=== PATIENT | male | born 1955 | race African-American/Black ===

== ENCOUNTER 2018-02-03 15:58 | Inpatient (IN) | payer OTHER ==
[2018-02-03] MEDS ORDERED: Ondansetron PF 4 MG/2 ML Vial ONE ×2 (17:07→20:36)
[2018-02-03 17:29] LABS: #Basophils 0.1 thou/uL (0.0-0.2); #Eosinphils 0.2 thou/uL (0.0-0.7); #Lymphocytes 2.8 thou/uL (1.20-3.40); #Monocytes 0.8 thou/uL (0.11-0.59); #Neutrophils 5.1 thou/uL (1.40-6.50); %Basophils 1.6 % (0.0-1.0); %Eosinophils 1.7 % (0.0-10.0); %Lymphocytes 31.1 % (21.0-51.0); %Neutrophils 56.5 % (42.0-75.0); Hemoglobin 16.8 g/dL (14.0-18.0); Mean Corpuscular HGB CONC 32.1 g/dL (32.0-36.0); Mean Corpuscular Hemoglobin 30.7 pg (27.0-31.0); Mean Corpuscular Volume 95.6 fL (78.0-98.0); Mean Platelet Volume 6.6 fL (7.4-10.4); Platelet Count 319 thou/uL (130-400); Red Blood Cell (RBC) Count 5.46 mill/uL (4.70-6.10)
[2018-02-03 17:58] LABS: ALT (SGPT) 8 U/L (8-55); AST (SGOT) 12 U/L (5-34); Albumin 3.3 g/dL (3.4-4.8); Alkaline Phosphatase 93 U/L (40-150); Anion Gap 10 mmol/L (10-20); BUN (Urea Nitrogen) 8 mg/dL (8.4-25.7); Bilirubin, Total 0.7 mg/dL (0.2-1.2); Calc. Creatinine Clearance 0 mL/min (70-130); Calcium 8.6 mg/dL (7.8-10.44); Carbon Dioxide 27 mmol/L (23-31); Chloride 100 mmol/L (98-107); Estimated GFR-MDRD 84; Globulin 3.3 g/dL (2.4-3.5); Lipase 16 U/L (8-78); Protein, Total 6.6 g/dL (5.8-8.1); Sodium 134 mmol/L (136-145)
[2018-02-03 18:06] LABS: Glucose 59 mg/dL (80-115); Potassium 2.8 mmol/L (3.5-5.1)
[2018-02-03 18:14] LABS: Bilirubin Small (Negative); Blood, Urine Negative (Negative); Clarity CLEAR (Clear); Glucose, Urine (Dipstick) Negative (Negative); Leukocyte Small (Negative); Nitrite Negative (Negative); Protein, Urine (Dipstick) Negative (Neg-Trace); Specific Gravity, Urine 1.016 (1.002-1.036)
[2018-02-03 18:17] LABS: Bacteria/HPF None Seen HPF (None Seen); Hyaline Casts/LPF 7-10 HYALINE CAST LPF (0-3 Hyaline); Pathc Cast-AUWi Flag 1.16 (0-2.49); RBC/HPF 0-3 HPF (0-3); Squamous Epithelial 0-3 HPF (0-3); WBC/HPF 0-3 HPF (0-3)
--- NOTE | 2018-02-03 20:37 | ULT ---
HISTORY: Nausea and vomiting for one month. RIGHT UPPER QUADRANT ULTRASOUND: 02/03/18 Multiple longitudinal and transverse images of the right upper quadrant of the abdomen is obtained us ing multihertz curvilinear transducer. Real time, color flow, and spectral waveform doppler analysis demonstrates the liver to be unremarkable. No evidence of hepatic parenchymal masses or lesions seen. No evidence of intrahepatic biliary dilatation is seen. The common bile duct is of normal size measur ing 5 mm. The gallbladder contains numerous echogenic foci compatible with numerous gallstones and extensive sh adowing. The visualized portions of the pancreas is unremarkable. The right kidney is unremarkable but no evidence of hydronephrosis or masses or lesions. IMPRESSION: Cholelithiasis. No definite evidence of intrahepatic biliary dilatation is seen. Normal hepatopedal f low seen in the portal system. POS: [facility]
[2018-02-03 21:36] LABS: Lactic Acid 1.4 mmol/L (0.5-2.2)
--- NOTE | 2018-02-03 21:53 | RAD ---
AP VIEW CHEST SUPINE AND UPRIGHT VIEWS OF THE ABDOMEN 02/03/18 HISTORY: Pain. Evaluate for obstruction. AP view chest as well as supine and upright views of the abdomen demonstrate the lungs to be well aer ated. No evidence of active intrathoracic disease seen. No evidence of effusions, pneumonia, or pneum othorax seen. Two views abdomen demonstrate the abdominal gas pattern to be unremarkable. No evidence of obstructio n or ileus seen. No dilated loops of bowel seen. No evidence of free intraperitoneal air seen. IMPRESSION: Unremarkable AP view chest and two views abdomen. POS: [facility]
[2018-02-03] MEDS ORDERED: Acetaminophen 325 MG TAB PO PRN (22:17)
[2018-02-03] MEDS ORDERED: Ondansetron PF 4 MG/2 ML Vial IVP PRN (22:17)
[2018-02-03] MEDS ORDERED: Sodium Chloride 0.9% 1,000 ML IV SCH (22:17)
[2018-02-03] MEDS ORDERED: Ondansetron ODT 4 MG TAB SL PRN (22:17)
[2018-02-03] MEDS ORDERED: Morphine 4 MG/ML VIAL SLOW IVP PRN (22:18)
[2018-02-03] MEDS ORDERED: Pantoprazole 40 MG VIAL IVP SCH (22:30)
[2018-02-03 22:47] VITALS: BMI 32.9
[2018-02-04] MEDS ORDERED: Dextrose 50% Abboject 50 ML SYRINGE SLOW IVP SCH (00:15)
[2018-02-04] MEDS ORDERED: Dextrose 50% Abboject 50 ML SYRINGE ONE (00:19)
[2018-02-04] MEDS: Potassium Chloride 20 MEQ in Premix Bag 1 BAG IVPB SCH ×6 (00:26→20:42)
[2018-02-04] MEDS ORDERED: Ondansetron ODT 4 MG TAB PO PRN (01:04)
[2018-02-04] MEDS ORDERED: Dextrose 50% Abboject 50 ML SYRINGE SLOW IVP PRN (01:19)
[2018-02-04] MEDS ORDERED: Dextrose 5% in Water 1,000 ML IV PRN (01:19)
[2018-02-04] MEDS ORDERED: HumaLOG 300 UNITS/3 ML VIAL SC PRN ×2 (01:19)
[2018-02-04] MEDS: Sodium Chloride 0.9% 1,000 ML IV SCH ×3 (01:35→20:42)
[2018-02-04 04:47] LABS: #Basophils 0.1 thou/uL (0.0-0.2); #Eosinphils 0.2 thou/uL (0.0-0.7); #Lymphocytes 2.6 thou/uL (1.20-3.40); #Monocytes 0.8 thou/uL (0.11-0.59); #Neutrophils 5.2 thou/uL (1.40-6.50); %Basophils 1.6 % (0.0-1.0); %Eosinophils 2.6 % (0.0-10.0); %Lymphocytes 29.3 % (21.0-51.0); %Monocytes 8.5 % (0.0-10.0); Hemoglobin 15.3 g/dL (14.0-18.0); Mean Corpuscular HGB CONC 32.6 g/dL (32.0-36.0); Mean Corpuscular Hemoglobin 31.1 pg (27.0-31.0); Mean Corpuscular Volume 95.1 fL (78.0-98.0); Mean Platelet Volume 6.6 fL (7.4-10.4); Platelet Count 323 thou/uL (130-400); RBC Distribution Width 11.9 % (11.5-14.5); Red Blood Cell (RBC) Count 4.94 mill/uL (4.70-6.10); White Blood Cell (WBC) Count 8.9 thou/uL (4.8-10.8)
[2018-02-04 05:10] LABS: Anion Gap 12 mmol/L (10-20); BUN (Urea Nitrogen) 7 mg/dL (8.4-25.7); Calc. Creatinine Clearance 116 mL/min (70-130); Calcium 8.6 mg/dL (7.8-10.44); Carbon Dioxide 27 mmol/L (23-31); Chloride 102 mmol/L (98-107); Estimated GFR-MDRD Greater than 90; Glucose 73 mg/dL (80-115); Sodium 138 mmol/L (136-145)
[2018-02-04 05:13] LABS: Potassium 2.9 mmol/L (3.5-5.1)
[2018-02-04] MEDS: Nicotine 14 MG PATCH TD SCH (05:36)
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
[2018-02-04] MEDS: Lisinopril 5 MG TAB PO SCH (08:42)
[2018-02-04] MEDS: Metoprolol Tartrate 25 MG TAB PO SCH ×2 (08:43→20:42)
[2018-02-04] MEDS ORDERED: Prevnar 13-Val Conj/PF 0.5 ML SYRINGE IM ONE (09:00)
--- NOTE | 2018-02-04 09:49 | PDOC.PN ---
- Subjective Encounter Start Date: 02/04/18 Encounter Start Time: 09:48 Had some vomiting overnight, but tolerated clear breakfast this morning without any issues so far. Believes he has lost five pounds since he saw Dr. Levine last week. No abdominal pain now. No BM for three days. Says he recently had CT abdomen at [place], but I don't find that in our system. - Objective Resuscitation Status: Resuscitation Status FULL:Full Resuscitation Vital Signs & Weight: Vital Signs (12 hours) Temp Pulse Resp BP Pulse Ox 02/04/18 08:42 60 02/04/18 08:00 96 02/04/18 07:10 98.1 F 60 16 134/87 98 02/04/18 04:00 98.1 F 66 16 100/63 96 02/03/18 23:42 95 02/03/18 22:05 98.1 F 87 16 121/84 95 Weight Weight 236 lb 1 oz I&O: 02/03/18 02/04/18 02/05/18 06:59 06:59 05:59 Intake Total 1365 Output Total 525 Balance 840 Result Diagrams: 02/04/18 04:19 02/04/18 04:19 Additional Labs: Accuchecks 02/04/18 02/04/18 02/04/18 04:43 00:59 00:03 POC Glucose 73 135 H 64 L Phys Exam - Physical Examination Constitutional: NAD Respiratory: no wheezing, no rales, no rhonchi, clear to auscultation bilateral Had some RLL rales, but cleared with cough Cardiovascular: RRR, no significant murmur Gastrointestinal: soft, non-tender, no distention, positive bowel sounds Musculoskeletal: no edema Neurological: non-focal Psychiatric: normal affect, A&O x 3 Dx/Plan (1) Nausea & vomiting Code(s): R11.2 - NAUSEA WITH VOMITING, UNSPECIFIED Status: Acute Comment: Possible gastroparesis or obstruction. GI consulted. May need endoscopy and gastric emptying study. (2) Abdominal pain Code(s): R10.9 - UNSPECIFIED ABDOMINAL PAIN Status: Acute Comment: No findings to account for this so far. Recent negative CT (per patient), negative US, normal labs. GI consulted. Does have some gall stones without significant evidence of cholecystitis. Surg consulted. 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 (4) Hypertension Code(s): I10 - ESSENTIAL (PRIMARY) HYPERTENSION Status: Acute Comment: Stable. Continue home meds. (5) Hypokalemia Code(s): E87.6 - HYPOKALEMIA Status: Acute - Plan * Replete very low potassium. * Clears. * GI, Surg consult.
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
[2018-02-04 11:48] LABS: Amphetamine Not Detected (NotDetected); Barbiturates Screen Not Detected (NotDetected); Benzodiazepine Screen Not Detected (NotDetected); Cocaine Metabolite Screen Not Detected (NotDetected); Medtox Control Line Valid? VALID (VALID); Medtox Reader # READER 4; Methadone Not Detected (NotDetected); Methamphetamine Not Detected (NotDetected); Opiate Screen Detected (NotDetected); Oxycodone Screen Not Detected (NotDetected); Phencyclidine (PCP) Not Detected (NotDetected); THC/Cannabinoid Screen Not Detected (NotDetected); Tricyclic Screen Not Detected (NotDetected)
[2018-02-04 12:07] LABS: Anion Gap 10 mmol/L (10-20); BUN (Urea Nitrogen) 7 mg/dL (8.4-25.7); Calc. Creatinine Clearance 110 mL/min (70-130); Calcium 8.4 mg/dL (7.8-10.44); Carbon Dioxide 26 mmol/L (23-31); Chloride 101 mmol/L (98-107); Estimated GFR-MDRD 85; Glucose 106 mg/dL (80-115); Potassium 3.2 mmol/L (3.5-5.1); Sodium 134 mmol/L (136-145)
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
[2018-02-05 04:39] LABS: #Basophils 0.1 thou/uL (0.0-0.2); #Eosinphils 0.3 thou/uL (0.0-0.7); #Lymphocytes 2.8 thou/uL (1.20-3.40); #Monocytes 0.7 thou/uL (0.11-0.59); #Neutrophils 3.4 thou/uL (1.40-6.50); %Basophils 1.3 % (0.0-1.0); %Eosinophils 3.7 % (0.0-10.0); %Lymphocytes 38.3 % (21.0-51.0); %Monocytes 9.3 % (0.0-10.0); %Neutrophils 47.5 % (42.0-75.0); Hemoglobin 14.3 g/dL (14.0-18.0); Mean Corpuscular HGB CONC 32.1 g/dL (32.0-36.0); Mean Corpuscular Hemoglobin 30.4 pg (27.0-31.0); Mean Corpuscular Volume 94.5 fL (78.0-98.0); Mean Platelet Volume 6.5 fL (7.4-10.4); Platelet Count 321 thou/uL (130-400); RBC Distribution Width 11.8 % (11.5-14.5); Red Blood Cell (RBC) Count 4.72 mill/uL (4.70-6.10); White Blood Cell (WBC) Count 7.2 thou/uL (4.8-10.8)
[2018-02-05] MEDS: Sodium Chloride 0.9% 1,000 ML IV SCH ×2 (04:58→13:15)
[2018-02-05 05:07] LABS: Anion Gap 11 mmol/L (10-20); BUN (Urea Nitrogen) 5 mg/dL (8.4-25.7); Calc. Creatinine Clearance 131 mL/min (70-130); Calcium 8.3 mg/dL (7.8-10.44); Carbon Dioxide 26 mmol/L (23-31); Chloride 108 mmol/L (98-107); Estimated GFR-MDRD Greater than 90; Glucose 71 mg/dL (80-115); Potassium 3.5 mmol/L (3.5-5.1); Sodium 141 mmol/L (136-145)
[2018-02-05] MEDS: Metoprolol Tartrate 25 MG TAB PO SCH ×2 (05:18→20:42)
[2018-02-05] MEDS: Nicotine 14 MG PATCH TD SCH (05:19)
--- NOTE | 2018-02-05 08:14 | PDOC.PN ---
- Subjective Encounter Start Date: 02/05/18 Encounter Start Time: 08:13 - Objective Resuscitation Status: Resuscitation Status FULL:Full Resuscitation Vital Signs & Weight: Vital Signs (12 hours) Temp Pulse Resp BP Pulse Ox 02/05/18 07:08 98.3 F 63 16 109/76 97 Weight Admit Weight 236 lb 1 oz Weight 236 lb 1 oz I&O: 02/04/18 02/05/18 02/06/18 07:59 06:59 06:59 Intake Total Output Total Balance Result Diagrams: 02/05/18 03:59 02/05/18 03:59 Additional Labs: Accuchecks 02/05/18 02/04/18 02/04/18 04:42 19:44 17:04 POC Glucose 75 95 81 02/04/18 11:17 POC Glucose 111 H Phys Exam - Physical Examination Constitutional: NAD Respiratory: no wheezing Scattered modest rales, that clear with cough. Cardiovascular: RRR, no significant murmur Gastrointestinal: soft, non-tender, no distention Musculoskeletal: no edema Psychiatric: normal affect, A&O x 3 Dx/Plan (1) Nausea & vomiting Code(s): R11.2 - NAUSEA WITH VOMITING, UNSPECIFIED Status: Acute Comment: Possible gastroparesis or obstruction. GI consulted. Endoscopy today. Surg recommended lap keo. (2) Abdominal pain Code(s): R10.9 - UNSPECIFIED ABDOMINAL PAIN Status: Acute Comment: No findings to account for this so far. Recent negative CT (per patient), negative US except gall stones, normal labs. GI consulted. Does have some gall stones without significant evidence of cholecystitis. Surg rec lap keo. (3) Diabetes mellitus Code(s): E11.9 - TYPE 2 DIABETES MELLITUS WITHOUT COMPLICATIONS Status: Acute Qualifiers: Diabetes mellitus type: type 2 Diabetes mellitus long term acute care registered nurse insulin use: without long term acute care registered nurse use Diabetes mellitus complication status: without complication Qualified Code(s): E11.9 - Type 2 diabetes mellitus without complications Comment: Very well controlled on metformin, but poor po intake and recent weight loss. (4) Hypertension Code(s): I10 - ESSENTIAL (PRIMARY) HYPERTENSION Status: Acute Comment: Stable. Continue home meds. (5) Hypokalemia Code(s): E87.6 - HYPOKALEMIA Status: Acute - Plan * Scope then lap keo if neg.
--- NOTE | 2018-02-05 09:56 | OP ---
DATE OF PROCEDURE: 02/05/2018. SURGEON: Manjit To M.D. HAIR STYLIST SURGEON: None. PROCEDURE PERFORMED: Esophagogastroduodenoscopy with biopsies. INDICATION: A 62-year-old man who presented with nausea and vomiting, generalized upper abdominal pa in and abnormal weight loss. MEDICATIONS: See anesthesia record. FINDINGS: After discussion of the risks, benefits and alternatives of the procedure, informed consen t was obtained and witnessed. Pre-endoscopic cardiopulmonary examination was satisfactory. DESCRIPTION OF PROCEDURE: Timeout was performed before sedation was achieved. Sedation was achieved with anesthesia assistance in the endoscopy unit. A Pentax adult upper endoscope was placed into th e oropharynx and passed through the cricopharyngeus under direct visualization. The proximal and mid esophageal mucosa appeared normal; however, in the distal esophagus, there was a large friable circu mferential ulcerated mass. The proximal edge is at 35 cm from the incisors and it extends all the wa y down into the stomach at 40 cm from the incisors. This is causing significant restriction, though not complete occlusion of the lumen and the endoscope was able to pass beyond the mass into the gastr ic lumen. On retroflex views of the GE junction, there is a large ulceration at the GE junction exte nding into the fundus which does appear to be malignant ulceration. There was no active bleeding fro m the mass, but due to the severe friability of the mass, there was a lot of oozing of blood into the stomach with passage of the endoscope. The remainder of the stomach was examined and appeared ana l. The endoscope was passed through the pylorus and into the first and second portions of the duoden um. There is some mild erythema in the duodenal bulb. The second portion of the duodenum appears no rmal. At this point, the endoscope was withdrawn back to the level of the esophageal mass and multip le biopsies were obtained of the mass, both from the ulcerated area on the gastric side of the GE amy ction and within the distal esophagus itself. Good tissue samples were obtained. At this point, the endoscope was completely withdrawn and the patient allowed to recover. The patient tolerated the pr ocedure well. There were no immediate post-procedure complications. IMPRESSION: 1. Large friable circumferential ulcerated mass in the distal esophagus from 35-40 cm, extending int o the proximal gastric fundus with malignant appearing ulceration at the GE junction. Biopsies obtai francisco to confirm likely malignancy. 2. Otherwise, normal esophagogastroduodenoscopy. RECOMMENDATIONS: 1. Full liquid diet. 2. Follow up pathology on the esophageal mass biopsies. 3. Oncology consultation if malignancy is confirmed. 4. We will order a CT of the chest, abdomen, and pelvis for staging.
[2018-02-05] MEDS: Lisinopril 5 MG TAB PO SCH (10:16)
--- NOTE | 2018-02-05 11:06 | PRG ---
DATE OF SERVICE: 02/05/2018 SUBJECTIVE: The patient had EGD this morning, it shows a large fungating mass in the distal esophagu s consistent with esophageal cancer which is the reason for his vomiting and dysphagia. He is attemp ting a prep for a CT scan. PHYSICAL EXAMINATION: VITAL SIGNS: His temperature is 98.3, pulse 57, blood pressure 126/79. GENERAL: He is awake, alert. ABDOMEN: Soft, nondistended, nontender. LABORATORY DATA: His white count is 7.2, H and H 14 and 44, platelet count 321. His electrolytes ar e fine. ASSESSMENT: Probable esophageal cancer. PLAN: At this point, I do not recommend proceeding with any type of cholecystectomy, further workup for this possible esophageal cancer.
--- NOTE | 2018-02-05 14:13 | CT ---
CT OF CHEST AND ABDOMEN AND PELVIS PERFORMED WITH INTRAVNEOUS CONTRAST ENHANCEMENT: HISTORY: Distal esophageal mass, staging for malignancy. FINDINGS: The lungs are clear of any infiltrative process. There are no pulmonary nodules identified and no pl eural effusions. The thoracic aorta is normal in caliber. There are calcified hilar lymph nodes noted. There are raz e coronary artery calcifications seen. There is no significant mediastinal adenopathy. There is flu id represent within the distal esophagus. There is wall thickening at the GE junction compatible wit h a history of a history of an esophageal malignancy. CT OF ABDOMEN PERFORMED WITH CONTRAST ENHANCEMENT: Hypodense area adjacent to the gallbladder is probably related to some focal fatty sparing. There is also a tiny hypodensity within the right lobe most likely a small cyst. The spleen is within normal limits of size. Pancreas shows no mass or ductal dilatation. Gallstones are present. Right and left adrenal glands and right left kidneys are normal in size. There is no significant per iaortic or mesenteric lymphadenopathy. There is gastrohepatic ligament adenopathy with several nodes which measure in the 1 cm range. A slightly larger node is seen along the superior border of the jerod dy of the pancreas. It measures 14 [address] in AP dimension. [address] OF PELVIS PERFORMED WITH CONTRAST ENHANCEMENT: There is no evidence of any significant pelvic lymphadenopathy or mass. Appendix region appears unre markable. IMPRESSION: 1. Distal esophageal mass located at the gastroesophageal junction. There is gastrohepatic ligament adenopathy associated with this, adenopathy extending to the level of the superior border of the bod y of the pancreas. 2. A hypodense area adjacent to the gallbladder not definitely characterized but I would favor this as representing possibly focal fatty change, less likely a mass. 3. Gallstone. POS: [facility]
[2018-02-05] MEDS ORDERED: Iopamidol 370 76% 100 ML VIAL ONE (14:24)
[2018-02-05] MEDS ORDERED: PROPOFOL 200 MG/20 ML VIAL ONE (14:40)
[2018-02-06] MEDS ORDERED: Calcium Carbonate 500 MG ChewTAB PO PRN (00:47)
[2018-02-06] MEDS ORDERED: Morphine 2 MG/ML SYRINGE SLOW IVP SCH (01:00)
[2018-02-06] MEDS: Sodium Chloride 0.9% 1,000 ML IV SCH ×2 (01:10→14:21)
[2018-02-06] MEDS: Nicotine 14 MG PATCH TD SCH (06:28)
[2018-02-06] MEDS: Lisinopril 5 MG TAB PO SCH (08:23)
[2018-02-06] MEDS: Metoprolol Tartrate 25 MG TAB PO SCH ×2 (08:24→21:59)
--- NOTE | 2018-02-06 14:32 | PRG ---
DATE OF SERVICE: 02/06/2018 SUBJECTIVE: The patient has no new complaint. He is able to tolerate liquids. He denies any nausea , vomiting or abdominal pain. OBJECTIVE: VITAL SIGNS: Temperature is 98.6, blood pressure 114/72, pulse of 50. GENERAL: He is sitting up, alert, conversant, in no distress. HEENT: Shows anicteric sclerae. Oropharynx clear. NECK: Exam was supple. CARDIOVASCULAR: Normal S1, S2. Regular rate and rhythm. CHEST: Shows normal breath sounds. ABDOMEN: Mildly protuberant, but soft, nontender with good bowel sounds. EXTREMITIES: Shows no edema. LABORATORY DATA: None today. IMAGING: Chest, abdomen and pelvic CT showed distal esophageal wall thickening/mass. No obvious met astatic disease. ASSESSMENT: Lower esophageal tumor, most likely malignant. Biopsy pending. CT of abdomen, pelvic a nd chest did not show any obvious stage 4 disease. RECOMMENDATIONS: 1. Await biopsy result. 2. Would likely need Oncology Service for radiation/chemo pending biopsy result.
--- NOTE | 2018-02-06 21:40 | PDOC.PN ---
- Subjective Encounter Start Date: 02/06/18 Encounter Start Time: 10:20 No new complaints. Understands the situation well. - Objective Resuscitation Status: Resuscitation Status FULL:Full Resuscitation Vital Signs & Weight: Vital Signs (12 hours) Temp Pulse Resp BP Pulse Ox 02/06/18 19:23 98.7 F 58 L 20 125/80 100 Weight Admit Weight 236 lb 1 oz Weight 236 lb 1 oz I&O: 02/05/18 02/06/18 02/07/18 06:59 06:59 06:59 Intake Total Output Total 500 Balance -500 Result Diagrams: 02/05/18 03:59 02/05/18 03:59 Additional Labs: Accuchecks 02/06/18 02/06/18 02/06/18 19:27 15:38 11:11 POC Glucose 94 95 93 02/06/18 03:42 POC Glucose 72 Phys Exam - Physical Examination Constitutional: NAD Respiratory: no wheezing, no rales, no rhonchi, clear to auscultation bilateral Cardiovascular: RRR, no significant murmur Gastrointestinal: soft, non-tender, no distention Musculoskeletal: no edema Dx/Plan (1) Esophageal neoplasm Code(s): D49.0 - NEOPLASM OF UNSPECIFIED BEHAVIOR OF DIGESTIVE SYSTEM Status: Acute Comment: Awaiting pathology report (2) Nausea & vomiting Code(s): R11.2 - NAUSEA WITH VOMITING, UNSPECIFIED Status: Acute Comment: Secondary to the esophageal tumor. Will need to get a plan for nutrition and hydration depending on the treatment plan after path known. (3) Abdominal pain Code(s): R10.9 - UNSPECIFIED ABDOMINAL PAIN Status: Acute Comment: Source identified with esophageal tumor. (4) Diabetes mellitus Code(s): E11.9 - TYPE 2 DIABETES MELLITUS WITHOUT COMPLICATIONS Status: Acute Qualifiers: Diabetes mellitus type: type 2 Diabetes mellitus communications maintainer insulin use: without communications maintainer use Diabetes mellitus complication status: without complication Qualified Code(s): E11.9 - Type 2 diabetes mellitus without complications Comment: Very well controlled on metformin, but poor po intake and recent weight loss. (5) Hypertension Code(s): I10 - ESSENTIAL (PRIMARY) HYPERTENSION Status: Acute Comment: Stable. Continue home meds. (6) Hypokalemia Code(s): E87.6 - HYPOKALEMIA Status: Acute - Plan * Above.
[2018-02-07] MEDS ORDERED: Acetaminophen 500 MG TAB PO PRN (04:44)
[2018-02-07] MEDS: Lisinopril 5 MG TAB PO SCH (08:01)
[2018-02-07] MEDS: Metoprolol Tartrate 25 MG TAB PO SCH (08:02)
[2018-02-07] MEDS ORDERED: Nicotine 14 MG PATCH TD SCH (09:00)
[2018-02-07] MEDS: Sodium Chloride 0.9% 1,000 ML IV SCH (09:15)
[2018-02-07 15:04] VITALS: BP 151/93; TEMP 97.7
== END 2018-02-07 15:17 | disposition home or self-care (01) | DRG 375 ==
LOC: ERS 15:58 → T4-B 21:52
PROVIDERS: ADMIT Internal Medicine; ATTEND Internal Medicine
PROC: 0DB38ZX Excision of Lower Esophagus, Via Natural or Artificial Opening Endoscopic, Diagnostic (ICD-10-PCS; principal; 2018-02-05)
DX: C15.5 Malignant neoplasm of lower third of esophagus (principal); I69.351 Hemiplegia and hemiparesis following cerebral infarction affecting right dominant side; K25.9 Gastric ulcer, unspecified as acute or chronic, without hemorrhage or perforation; I10 Essential (primary) hypertension; E11.9 Type 2 diabetes mellitus without complications; E87.6 Hypokalemia; K21.9 Gastro-esophageal reflux disease without esophagitis; K80.20 Calculus of gallbladder without cholecystitis without obstruction; I25.10 Atherosclerotic heart disease of native coronary artery without angina pectoris; B18.2 Chronic viral hepatitis C; R13.10 Dysphagia, unspecified; F17.210 Nicotine dependence, cigarettes, uncomplicated; Z86.19 Personal history of other infectious and parasitic diseases; Z79.84 Long term (current) use of oral hypoglycemic drugs
CPT/HCPCS: 36415; 36416; 71260; 74022; 74177; 76705; 80048; 80053; 80306; 81003; 81015; 83605; 83690; 85025; 88305; 88313; 88341; 88342; 93005; 96374; 96376; C9113; J2270; J2405; J2704; J3480

== ENCOUNTER 2018-03-03 09:21 | Outpatient (CLI) | payer OTHER ==
--- NOTE | 2018-03-03 14:12 | PET ---
PET CT: HISTORY: 62-year-old male with esophageal cancer. Exam requested for initial staging. TECHNIQUE: PET scanning with CT attenuation correction was performed from the base of the brain through the prox imal thighs following the intravenous administration of 11.4 mCi [id number] in the left hand. Imaging wa s performed after an uptake interval of 62 minutes. CORRELATION: CT chest, abdomen, and pelvis dated 02/05/18. COMPARISON: None. FINDINGS: Avtar hypermetabolism is seen involving the right supraclavicular lymph node with a SUV of 7.4, left superior mediastinal lymph nodes with a SUV of 6.8, gastrohepatic ligament lymph node with a SUV of 3 , and a left-sided celiac axis lymph node with a SUV of 4. Increased FDG uptake in the distal esophag eal mass has a SUV of 15.5. No hypermetabolic pulmonary nodules, liver, adrenal, or skeletal lesions are seen. There is physiologic activity in the GI and tracts. The CT scan used for attenuation cor rection demonstrates no evidence of pleural effusions or ascites. Calcified gallstones are present. IMPRESSION: Distal esophageal malignancy with lymph avtar metastaess involving the right supraclavicular, mediast inal, and upper abdominal (celiac axis and gastrohepatic ligament) lymph nodes. POS: [facility]
== END 2018-03-03 09:22 | disposition home or self-care (01) ==
LOC: PET 09:21
PROVIDERS: ATTEND Internal Medicine Hematology & Oncology
DX: C15.5 Malignant neoplasm of lower third of esophagus (principal); C15.9 Malignant neoplasm of esophagus, unspecified; C77.1 Secondary and unspecified malignant neoplasm of intrathoracic lymph nodes; C77.2 Secondary and unspecified malignant neoplasm of intra-abdominal lymph nodes; C77.0 Secondary and unspecified malignant neoplasm of lymph nodes of head, face and neck
CPT/HCPCS: 78815; A9552

== ENCOUNTER 2018-03-17 13:36 | Inpatient (IN) | payer OTHER ==
[2018-03-17] MEDS ORDERED: Ondansetron PF 4 MG/2 ML Vial IVP PRN (17:14)
[2018-03-17] MEDS ORDERED: Dextrose 5% in Water 1,000 ML IV PRN (17:14)
[2018-03-17] MEDS ORDERED: HumaLOG 300 UNITS/3 ML VIAL SC PRN ×2 (17:14)
[2018-03-17] MEDS ORDERED: Dextrose 50% Abboject 50 ML SYRINGE SLOW IVP PRN (17:14)
[2018-03-17] MEDS ORDERED: Acetaminophen 325 MG TAB PO PRN (17:14)
[2018-03-17] MEDS ORDERED: Ondansetron ODT 4 MG TAB PO PRN (17:14)
[2018-03-17] MEDS ORDERED: cefTRIAXone\\ROCEPHIN 1 GM in Sodium Chloride 0.9% 100 ML IVPB SCH (18:00)
[2018-03-17] MEDS ORDERED: Nicotine 21 MG PATCH TD SCH (18:00)
[2018-03-17 18:19] LABS: Hemoglobin 8.8 g/dL (14.0-18.0); Mean Corpuscular HGB CONC 33.5 g/dL (32.0-36.0); Mean Corpuscular Volume 92.5 fL (78.0-98.0); Platelet Count 497 thou/uL (130-400); RBC Distribution Width 13.9 % (11.5-14.5); Red Blood Cell (RBC) Count 2.86 mill/uL (4.70-6.10); White Blood Cell (WBC) Count 16.9 thou/uL (4.8-10.8)
[2018-03-17 18:28] LABS: ALT (SGPT) 53 U/L (8-55); AST (SGOT) 32 U/L (5-34); Alkaline Phosphatase 170 U/L (40-150); Anion Gap 8 mmol/L (10-20); BUN (Urea Nitrogen) 22 mg/dL (8.4-25.7); Bilirubin, Total 0.4 mg/dL (0.2-1.2); Calc. Creatinine Clearance 147 mL/min (70-130); Calcium 8.5 mg/dL (7.8-10.44); Carbon Dioxide 27 mmol/L (23-31); Chloride 105 mmol/L (98-107); Estimated GFR-MDRD Greater than 90; Globulin 3.4 g/dL (2.4-3.5); Glucose 120 mg/dL (80-115); Potassium 4.5 mmol/L (3.5-5.1); Protein, Total 6.4 g/dL (5.8-8.1); Sodium 135 mmol/L (136-145)
[2018-03-17 18:32] LABS: Bilirubin Negative (Negative); Blood, Urine Negative (Negative); Clarity CLEAR (Clear); Glucose, Urine (Dipstick) Negative (Negative); Leukocyte Moderate (Negative); Nitrite Negative (Negative); Protein, Urine (Dipstick) Negative (Neg-Trace); Specific Gravity, Urine 1.015 (1.002-1.036)
[2018-03-17 18:34] LABS: #Basophils 0.1 thou/uL (0.0-0.2); #Eosinphils 0.8 thou/uL (0.0-0.7); #Monocytes 1.4 thou/uL (0.11-0.59); #Neutrophils 10.6 thou/uL (1.40-6.50); %Basophils 0.5 % (0.0-1.0); %Eosinophils 4.6 % (0.0-10.0); %Lymphocytes 23.7 % (21.0-51.0); %Monocytes 8.2 % (0.0-10.0); MDiff Complete? YES; PLT Morphology Comment Appears Increased; Polychromasia MODERATE = 3-4 cells (100X) (0-2/hpf)
[2018-03-17 18:37] LABS: Bacteria/HPF None Seen HPF (None Seen); Hyaline Casts/LPF 0-3 HYALINE CAST LPF (0-3 Hyaline); Squamous Epithelial 0-3 HPF (0-3); WBC/HPF 21-50 HPF (0-3)
--- NOTE | 2018-03-17 19:33 | PDOC.EVN ---
Event Note - Event Note Event Note: I have interviewed, examined and reviewed all of patient's pertinent history and discussed with Ti Woo regarding GI bleed and acute blood loss anemia. Please see dictated H&P for full details. Transfuse 1u PRBC's, consult GI service, IV Protonix. LCTAB, CV: S1, S2, ABD with J-tube in place with multiple laparoscopic scars noted. Serial H/H monitoring. Continue TF's via J-tube, consider repeat CT abd imaging.
[2018-03-17] MEDS ORDERED: Metoprolol Tartrate 25 MG TAB PO SCH (21:00)
[2018-03-17] MEDS: Pantoprazole 40 MG VIAL IVP SCH (21:00)
[2018-03-17] MEDS: Scopolamine 1.5 mg/72 hour Patch TD SCH (21:00)
[2018-03-17] MEDS: Morphine 4 MG/ML VIAL SLOW IVP PRN (21:01)
--- NOTE | 2018-03-18 01:54 | HP ---
PRIMARY CARE PHYSICIAN: Dr. Ileana Sosa. ONCOLOGIST: Dr. Samayoa. RADIATION ONCOLOGIST: Dr. Fernandez. CODE STATUS: Full code. CHIEF COMPLAINT: Abdominal pain and syncopal episode. HISTORY OF PRESENT ILLNESS: Mr. Frost is a pleasant 62-year-old male, who has past medical history of hypertension, hepatitis C, gastroesophageal reflux disease, and diabetes mellitus type 2, who was recently diagnosed with esophageal cancer, who was on his way to follow up with his oncologist, Dr. Samayoa and Dr. Fernandez, radiation oncologist today, where he felt quite weak and had a syncopal-like episode, he was helped to the ground at home and then later transported to the ER at [facility]. During his visit in the ER at [facility], it was determined that the patient's hemoglobin was 7.8. Prior to that, he had a recent lab drawn on March 06, which showed a hemoglobin of 11.3. It was also noted that his urinalysis showed positive nitrites and bacteria. His white count was elevated at 16.1. He also presented with quite a bit of abdominal pain, which he states he had a cholecystectomy about 1 week ago. He also had J-tube placed for continued tube feeds due to his anemia with possible GI bleed, due to the patient having dark tarry stools over the last several days. He was then transported to [facility], he was a direct admit to the floor on telemetry. He was seen and examined by myself where he denied any fever or chills. He denied any chest pain; however, he had reported some trouble swallowing. He states he has quite a bit of sputum production and he has pain with swallowing. He also reports, with some nausea, but no vomiting. He states the only thing coming up is the sputum. He states his biggest complaint is his abdominal pain, which seems to be diffuse. He reports pain is sharp in nature and 8/10 pain. He denied any headache, dizziness, or weakness. However, he stated that earlier this morning when he was at home, he felt dizzy after standing and then collapsed, no further symptoms since. PAST MEDICAL HISTORY: Hypertension, hepatitis C, CVA in 2013, colostomy reversal, diabetes mellitus type 2, gastroesophageal reflux disease, a newly diagnosed esophageal cancer. PAST SURGICAL HISTORY: Colostomy reversal, J-tube placement about 1 week ago. Cholecystectomy about 1 week ago. PSYCHIATRIC HISTORY: Denies any psychiatric history at this time. SOCIAL HISTORY: The patient lives with his family. He denies any alcohol use. He reported he quit smoking about 1 month ago when he found out about his newly diagnosed esophageal cancer, he has been using nicotine patches during this time. He reports history of drug use back in 2013; however, has denied any since. FAMILY HISTORY: Significant for heart disease and he states that his brother from an aneurysm. ALLERGIES: NO KNOWN DRUG ALLERGIES. CURRENT MEDICATIONS: 1. Lisinopril 25 mg p.o. daily. 2. Metformin 500 mg p.o. daily. 3. Metoprolol 50 mg p.o. b.i.d. 4. Morphine IR 15 mg q.4 hours as needed for pain. 5. Fentanyl 12 mcg patch 1 patch q.3 days. REVIEW OF SYSTEMS: CONSTITUTIONAL: He denies fever or chills. He denies weight gain; however, he does report some weight loss. He also reports mild lethargy and generalized weakness. EYES: Denies any eye pain, eye redness, discharge, or vision changes. ENT: Does report some trouble swallowing, he reports mouth watering, after swallowing saliva, he does report some pain down his throat. CARDIOVASCULAR: Denies any chest pain, palpitations, or dyspnea on exertion. Did report a syncopal like episode earlier this morning. However, none since. RESPIRATORY: Denies cough, shortness of breath, wheezing, or stridor. GASTROINTESTINAL: Does report diffuse abdominal pain. Does report J-tube for tube feedings. Denies constipation or diarrhea, does report some nausea and spitting up phlegm. GENITOURINARY: Denies any CVA tenderness; however, does report some frequency and dysuria that started about 3 days ago. Denies any hematuria. Urinalysis at [facility] did show signs of UTI. MUSCULOSKELETAL: Denies any swelling or weakness. Denies any muscle changes. SKIN: Does report some scarring and healing surgical wounds on his abdomen. Denies any bruising or rashes. NEUROLOGIC: Denies any confusion, dizziness, weakness, or syncope, did report syncopal like episode earlier this morning; however, no symptoms since. Denies any headache. PSYCHIATRIC: Denies any suicidal or homicidal ideation. PHYSICAL EXAMINATION: VITAL SIGNS: BP 108/56, pulse 90, respirations 15, temperature 98.6 degrees Fahrenheit, O2 saturations 98% on room air. GENERAL: The patient is lying comfortably in bed. He is awake and alert x4. Speech is intact, in mild acute distress due to abdominal pain. He has J-tube in place and is receiving tube feeds at this time. HEENT: Normocephalic, atraumatic. Pupils equal, round, and reactive to light. Extraocular muscles intact. Moist mucous membranes noted. Poor hygiene noted. He is missing numerous teeth. He has quite a bit of saliva production. NECK: Supple, nontender. Trachea midline. Full range of motion. No bruit. No JVD. CARDIOVASCULAR: Positive S1, S2. Regular rate and rhythm. No murmurs, gallops, or rubs appreciated. LUNGS: Clear to auscultation bilaterally. No wheezes, no rales, no rhonchi noted. ABDOMEN: Diffuse tenderness noted. Healing surgical wounds, decreased bowel sounds noted. No pulsatile masses. No rigidity. No rebound. No peritoneal signs. He is status post cholecystectomy and J-tube placed 1 week ago. EXTREMITIES: Strength 5+ bilaterally upper and lower extremities. Good pulses palpated in upper and lower extremities. NEUROLOGIC: Cranial nerves 2 through 12 grossly intact. No focal deficits noted. Speech is intact. PSYCHIATRIC: Good mood and affect. Responds to questions well and appropriately. SKIN: Warm, dry, and intact. Several scarring noted on abdomen. LABORATORY DATA: Labs obtained at [facility] ER earlier today; WBCs 16.1, RBC 2.57, hemoglobin 7.8, previous on March 06 was 11.3, platelets 502, glucose 191, BUN 25, creatinine 0.79, sodium 135, potassium 4.8, AST 40, ALT 50, lipase 47. GFR greater than 90. Urinalysis displayed positive nitrites and positive bacteria. DIAGNOSTIC IMAGING: The patient reports having CT scan at [facility]; however, he was not sent with those results, we will fax over a request for results. ASSESSMENT AND PLAN: 1. Symptomatic anemia with possible gastrointestinal bleed, likely secondary to esophageal cancer. We will place consult for Gastroenterology, Dr. Egan, for further evaluation. Due to the patient's symptoms of melena and reduced hemoglobin, he will likely benefit from upper and possible lower scope during hospital course. He will be placed on IV Protonix twice daily. 2. History of esophageal cancer, consult placed for oncologist, Dr. Samayoa and radiation oncologist, Dr. Fernandez. 3. Hypertension, he is actually found to be hypotensive. Therefore, we will hold the patient's home medications including lisinopril and metoprolol. Further adjustments pending clinical findings and his progress. 4. Diabetes mellitus, we will hold the patient's metformin and place on insulin sliding scale with frequent Accu-Cheks, further adjustments pending his progress. 5. Deep venous thrombosis prophylaxis with SCDs, we will hold anticoagulation at this time due to patient's likely gastrointestinal bleed. 6. Gastrointestinal prophylaxis with IV Protonix 40 mg twice daily, start Zofran as needed for nausea. We will monitor the patient's H and H and transfuse as needed. He received 1 unit of packed red blood cells along with 1 L of normal saline at [facility]. We will continue patient on IV fluid, normal saline and monitor the patient clinically. 7. Code status, full code. 8. Surrogate decision maker will be his sister, Marita Frost. Final disposition and further medical management pending his progress and clinical findings. Job ID: [id number]
[2018-03-18 05:15] LABS: Anion Gap 10 mmol/L (10-20); BUN (Urea Nitrogen) 27 mg/dL (8.4-25.7); Calc. Creatinine Clearance 149 mL/min (70-130); Calcium 8.2 mg/dL (7.8-10.44); Carbon Dioxide 25 mmol/L (23-31); Chloride 106 mmol/L (98-107); Estimated GFR-MDRD Greater than 90; Glucose 106 mg/dL (80-115); Potassium 4.7 mmol/L (3.5-5.1); Sodium 136 mmol/L (136-145)
[2018-03-18 05:17] LABS: Iron 64 ug/dL (65-175); Iron Binding Capacity, Total 319 mcg/dL (261-462)
[2018-03-18 05:33] LABS: Hemoglobin 8.1 g/dL (14.0-18.0); Mean Corpuscular HGB CONC 33.5 g/dL (32.0-36.0); Mean Corpuscular Hemoglobin 31.1 pg (27.0-31.0); Mean Corpuscular Volume 92.8 fL (78.0-98.0); Mean Platelet Volume 6.9 fL (7.4-10.4); Platelet Count 496 thou/uL (130-400); RBC Distribution Width 14.8 % (11.5-14.5); Red Blood Cell (RBC) Count 2.61 mill/uL (4.70-6.10)
[2018-03-18 05:42] LABS: Band 2 % (5-11); Eosinophils 3 % (0-10); Lymphocytes 23 % (21-51); MDiff Complete? YES; Metamyelocyte 3 % (0-0); Monocytes 11 % (0-10); Neutrophil 58 % (42-75); Nucleated RBC 1 % (0); PLT Morphology Comment Appears Increased; RBC Morphology Normal
[2018-03-18 05:48] LABS: Folate (Folic Acid) 5.1 ng/mL (7.0-31.4)
[2018-03-18] MEDS: Pantoprazole 40 MG VIAL IVP SCH ×2 (08:57→21:31)
[2018-03-18] MEDS: Morphine 4 MG/ML VIAL SLOW IVP PRN ×4 (08:57→21:32)
[2018-03-18] MEDS: Nicotine 21 MG PATCH TD SCH (08:58)
[2018-03-18] MEDS ORDERED: Lisinopril 5 MG TAB PO SCH (09:00)
[2018-03-18] MEDS: cefTRIAXone\\ROCEPHIN 1 GM in Sodium Chloride 0.9% 100 ML IVPB SCH (14:12)
--- NOTE | 2018-03-18 16:37 | PDOC.PN ---
- Subjective Encounter Start Date: 03/18/18 Encounter Start Time: 16:35 Patient lying in bed, he reports feeling better today. He denies chest pain, shortness of breath, he reports abdominal pain and phlegm production has improved with current pain regimen and scopolamine patch. GI services planing EGD tomorrow. Records from was reviewed, CT abdomen unremarkable. - Objective Resuscitation Status - Order Detail: 03/17/18 17:14 Resuscitation Status Routine Co-Sign Provider: Resuscitation Status: FULL: Full Resuscitation MAR Reviewed: Yes Vital Signs & Weight: Vital Signs (12 hours) Temp Pulse Resp BP BP Pulse Ox 03/18/18 11:35 97.7 F 90 16 118/74 100 03/18/18 08:55 98.1 F 75 15 101/56 L 99 03/18/18 07:13 99 Weight Admit Weight 221 lb Weight 221 lb I&O: 03/17/18 03/18/18 03/19/18 06:59 06:59 06:59 Intake Total 520 30 Output Total 200 Balance 320 30 Result Diagrams: 03/18/18 04:41 03/18/18 04:41 Additional Labs: Accuchecks 03/18/18 03/17/18 03/17/18 05:26 20:12 17:53 POC Glucose 123 H 110 118 H Radiology Reviewed by me: Yes EKG Reviewed by me: Yes Phys Exam - Physical Examination Constitutional: NAD HEENT: PERRLA, oral pharynx no lesions Poor oral hygiene with several teeth miss Neck: no JVD, supple, full ROM Respiratory: no wheezing, no rales, no rhonchi, clear to auscultation bilateral Cardiovascular: RRR, no significant murmur, no rub Gastrointestinal: soft, no distention, positive bowel sounds Diffuse tenderness to palpation, improved today, multiple surgical scars Musculoskeletal: no edema, pulses present Neurological: non-focal, normal sensation, moves all 4 limbs Psychiatric: normal affect, A&O x 3 Skin: no rash, normal turgor, cap refill <2 seconds Dx/Plan (1) Abdominal pain Code(s): R10.9 - UNSPECIFIED ABDOMINAL PAIN Status: Acute Comment: Source identified with esophageal tumor. (2) Diabetes mellitus Code(s): E11.9 - TYPE 2 DIABETES MELLITUS WITHOUT COMPLICATIONS Status: Acute Qualifiers: Diabetes mellitus type: type 2 Diabetes mellitus laborer marine terminal insulin use: without laborer marine terminal use Diabetes mellitus complication status: without complication Qualified Code(s): E11.9 - Type 2 diabetes mellitus without complications Comment: Very well controlled on metformin, but poor po intake and recent weight loss. (3) Esophageal neoplasm Code(s): D49.0 - NEOPLASM OF UNSPECIFIED BEHAVIOR OF DIGESTIVE SYSTEM Status: Acute Comment: Awaiting pathology report (4) Hypertension Code(s): I10 - ESSENTIAL (PRIMARY) HYPERTENSION Status: Acute Comment: Stable. Continue home meds. (5) UTI (urinary tract infection) Status: Acute - Plan cont current plan of care, continue antibiotics, DVT proph w/SCDs * Continue antibiotic for UTI, await culture results. Overall patient improving * Monitor H&H, currently 8.1 this morning, hold transfusion but transfuse as needed for Hgb <7.0 * GI services following, plan to make patient NPO at midnight and perform EGD tomorrow * Cont full liquid diet * Scopolamine patch to reduce secretions * Cont pain control * Monitor sugars and continue sliding scale, currently stable
--- NOTE | 2018-03-18 23:19 | CON ---
DATE OF CONSULTATION: 03/18/2018 REASON FOR CONSULTATION: Anemia, possible melena. CONSULTING PHYSICIAN: JOSEFA Mir HISTORY OF PRESENT ILLNESS: The patient is a 62-year-old male with past medical history of hypertension, chronic hepatitis C infection, GERD, diabetes, cerebrovascular accident (2013), and a recent diagnosis of esophageal cancer, presenting with complaints of weakness. The patient was recently diagnosed with esophageal cancer on upper endoscopy performed on February 05, 2018, with a large friable, fungating mass seen in the distal esophagus and affecting the GE junction. Biopsies obtained of the mass were indicative of moderately to poorly differentiated invasive adenocarcinoma in the background of intestinal type metaplasia. He was subsequently discharged to home after that hospitalization with plans to follow up with the Oncology Service to initiate chemotherapy and radiation. However, over the last few days, he experienced increased weakness and fatigue with a syncopal-like episode that prompted his admission to [facility]. While at [facility], he did have a significantly decreased hemoglobin of 7.8. There was noted to be significantly decreased from baseline of a hemoglobin of approximately 12 to 14, with this decreased H and H, he was subsequently transferred back to [facility] for further evaluation. Upon conferring with the patient, he states that over the last 2 to 3 days he has been having increasing dark/black 2 to 3 semisolid to solid bowel movements per day that have been present ever since his surgery for the cholecystectomy and J tube placement. He also endorses dysphagia, odynophagia, intermittent nausea and vomiting of nonbloody emesis as well as increased periumbilical abdominal pain that is centered around the incision site for when they took off his gallbladder. Otherwise, he states that he is doing well with no complaints of fevers, chills, or palpitations. When describing his abdominal pain, like I said, it seems to be centered primarily around his incision sites characterized as a sharp stabbing type pain, nonradiating, and reach a severity of 8/10. REVIEW OF SYSTEMS: A 10 category review of systems was obtained with all responses negative except for the pertinent positives as listed in HPI. PAST MEDICAL HISTORY: As per HPI. PAST SURGICAL HISTORY: Colostomy reversal and J-tube placement and cholecystectomy about 1 week ago. FAMILY HISTORY: Denies any GI malignancies. SOCIAL HISTORY: He quit tobacco use approximately 1 month ago with patches in place. Currently, denies any alcohol or illicit drug use. OUTPATIENT MEDICATIONS: Reviewed. ALLERGIES: NO KNOWN DRUG ALLERGIES. PHYSICAL EXAMINATION: VITAL SIGNS: Temperature 97.9, pulse 89, blood pressure 108/71, respiratory rate 16, saturating 100% on room air. GENERAL: The patient was lying in bed, in no acute distress. Alert and oriented x4. HEENT: Neck is supple. Normocephalic, atraumatic. No evidence of JVD or scleral icterus. CARDIOVASCULAR: Regular rate and rhythm with no discernible murmurs, gallops, or rubs. RESPIRATORY: Clear to auscultation bilaterally with no discernible wheezes or rales. ABDOMEN: Normoactive bowel sounds. Soft, nondistended, tenderness to palpation around the prior trocar sites and the J-tube is in place in the left mid abdomen without any evidence of associated erythema or purulence or skin breakdown. EXTREMITIES: No cyanosis, clubbing, or edema. LABORATORY DATA: CBC with a white blood cell count of 15, hemoglobin 8.1, hematocrit 24.3, platelets 496. Chemistry with a sodium of 136, potassium 4.7, chloride 106, CO2 of 25, BUN 27, creatinine 0.74, glucose 106, AST 32, ALT 53, alkaline phosphatase 170, total bilirubin 0.4, albumin 3. IMAGING DATA: PET nuclear scan obtained on March 03, 2018, showed distal esophageal malignancy with lymph node metastases involving the right supraclavicular, mediastinal, and upper abdominal lymph nodes. EGD performed on February 05, 2018, showed a large friable circumferential ulcerated mass in the distal esophagus from 35 to 40 cm extending into the proximal gastric fundus with malignant-appearing ulceration of the GE junction. ASSESSMENT AND PLAN: The patient is a 62-year-old male with past medical history of hypertension, chronic hepatitis C infection, gastroesophageal reflux disease, diabetes, cerebrovascular accident, and recent diagnosis of esophageal adenocarcinoma, presenting with anemia and darker colored stools concerning for melena and/or upper gastrointestinal bleed. Upper gastrointestinal bleed. 1. The patient is presenting with a recent diagnosis of an esophageal adenocarcinoma diagnosis made in February 2018 that was circumference in nature, but also ulcerated and friable to the passage of the standard gastroscope at that time. Since then, the patient has been seen at [facility] and noted to have severe anemia as well as undergoing a cholecystectomy and J-tube placement as part of treatment of right upper quadrant abdominal pain and dysphagia/odynophagia related to his esophageal cancer respectively. However, re-evaluation of his H and H on this admission shows that he has had approximately 6 unit drop in his hemoglobin as well as an elevated BUN to creatinine ratio that is concerning for an upper gastrointestinal bleed. At this time, the more likely reason for his anemia and melenic type stools would be the presence of the esophageal adenocarcinoma that was friable and it could potentially ooze blood to contribute to the current constellation of symptoms. Recommendations: 1. We will place the patient on full liquid diet today in anticipation for procedure tomorrow with patient n.p.o. at midnight. 2. We will plan for EGD tomorrow morning for re-evaluation of the esophageal mass and probable APC in order to cauterize any bleeding if present. 3. We will continue to trend H and H and transfuse as necessary to maintain an H and H of 7/21. 4. Continue to monitor clinically for signs of active gastrointestinal bleeding. 5. The patient will need evaluation by the Oncology Service for starting the patient on chemotherapy/radiation in order to adequately treat this esophageal adenocarcinoma. We will continue to follow. Please call with any questions. Job ID: [id number]
[2018-03-19 05:37] LABS: Anion Gap 9 mmol/L (10-20); BUN (Urea Nitrogen) 20 mg/dL (8.4-25.7); Calc. Creatinine Clearance 149 mL/min (70-130); Calcium 8.6 mg/dL (7.8-10.44); Carbon Dioxide 27 mmol/L (23-31); Chloride 105 mmol/L (98-107); Estimated GFR-MDRD Greater than 90; Glucose 91 mg/dL (80-115); Potassium 4.5 mmol/L (3.5-5.1); Sodium 136 mmol/L (136-145)
[2018-03-19 06:23] LABS: Band 6 % (5-11); Eosinophils 2 % (0-10); Hemoglobin 8.1 g/dL (14.0-18.0); Lymphocytes 29 % (21-51); MDiff Complete? YES; Mean Corpuscular HGB CONC 33.7 g/dL (32.0-36.0); Mean Corpuscular Hemoglobin 31.7 pg (27.0-31.0); Mean Corpuscular Volume 94.2 fL (78.0-98.0); Mean Platelet Volume 7.1 fL (7.4-10.4); Monocytes 7 % (0-10); Myelocyte 2 % (0-0); Neutrophil 53 % (42-75); PLT Morphology Comment Appears Increased; Platelet Count 495 thou/uL (130-400); RBC Distribution Width 15.5 % (11.5-14.5); RBC Morphology Normal; Reactive Lymphocytes 1 % (0-10); Red Blood Cell (RBC) Count 2.55 mill/uL (4.70-6.10); White Blood Cell (WBC) Count 13.2 thou/uL (4.8-10.8)
[2018-03-19] MEDS ORDERED: KETAMINE 100 MG/ML (5ML VIAL) ONE (08:02)
[2018-03-19] MEDS: Pantoprazole 40 MG VIAL IVP SCH ×2 (09:52→20:22)
[2018-03-19] MEDS: Nicotine 21 MG PATCH TD SCH (09:52)
[2018-03-19] MEDS ORDERED: Lidocaine 1% PF 5 ML VIAL ONE (09:58)
[2018-03-19] MEDS ORDERED: PROPOFOL 200 MG/20 ML VIAL ONE (09:58)
[2018-03-19] MEDS ORDERED: Succinylcholine Chloride 20 MG/ML 10 ml SYRINGE FS ONE (09:58)
--- NOTE | 2018-03-19 10:03 | OP ---
DATE OF PROCEDURE: 03/19/2018 PROCEDURE PERFORMED: Esophagogastroduodenoscopy with control hemorrhage. INDICATION FOR PROCEDURE: Anemia, melena. DESCRIPTION OF PROCEDURE: After the risks and benefits of the procedure were explained to the patient including risks of bleeding, infection, perforation, reactions to anesthesia, aspiration and/or pain, informed consent was obtained. The patient was then taken to the endoscopy suite, where deep sedation was administered via propofol and anesthesia support. Once adequate sedation was achieved, the standard gastroscope was introduced into the mouth and advanced forward with intubation of the esophagus. A near obstructive mass was encountered at 35 cm, preventing any further forward progress of the gastroscope as well as significant friability of the mass seen as well as significantly increased bleeding with manipulation. With this increased bleeding and concern for aspiration, the gastroscope was removed and the patient was then placed in the supine position for induction of general anesthesia with endotracheal tube intubation. Once the patient intubated, he was again put in the left lateral decubitus position with advancement of the scope down to 35 cm. Mild oozing of blood was noted upon re-inspection, but then successfully treated with cautery. At the end of the procedure, there was no bleeding identified. All equipment was removed at that time, and the patient was transferred to PACU in satisfactory condition. EGD FINDINGS: Esophagus: Normal-appearing mucosa was seen in the proximal and mid esophagus. However, a large ulcerated mass was seen at 35 cm and was near obstructive to the point, where it was not easily traversed with the standard gastroscope. Upon attempts to traverse the mass and manipulate the tumor itself that exhibited significant friability and increased bleeding that did not stop after 2 to 3 minutes of direct visualization. Given this, the scope was removed. The patient was intubated. Once the patient was intubated, the scope was then re-introduced into the esophagus with the suction of a minimal amount of bleeding. At that time, argon plasma coagulation was then employed to treat the areas of bleeding with good hemostasis achieved and no bleeding seen at the end of the procedure. The procedure was then terminated with all equipment removed at that time. IMPRESSION: 1. Esophageal mass seen at 35 cm that was unable to be traversed with the standard gastroscope, but consistent with known esophageal adenocarcinoma. 2. Increased bleeding seen with manipulation of the mass that was successfully treated with argon plasma coagulation with good hemostasis achieved. RECOMMENDATIONS: 1. Would place patient NPO due to the increased size of the mass seen today. 2. Would continue to trend H and H, and transfuse as necessary to maintain H and H of 7/. 3. Continue to monitor clinically for signs of GI bleeding. 4. Would prefer use of the jejunal feeding as opposed to oral feeds at this time given the obstructive process in the distal esophagus. 5. Would recommend initiation of therapy for this esophageal adenocarcinoma with chemotherapy and radiation. 6. Would recommend Oncology consultation for expedited treatment of esophageal cancer given obstructive quality and significant bleeding experienced today. 7. We will continue to follow. Please call with any questions. Job ID: [id number] [facility] CENTERKev
--- NOTE | 2018-03-19 12:08 | PDOC.PN ---
- Subjective Encounter Start Date: 03/19/18 Encounter Start Time: 09:50 -: old records requested/rev pt seen and examined, chart reviewed in its entirety, this si my first visit with this patient Case discussed with Dr Egan Follow up for UGIB, ABLE, esophageal adenoCA with obstruction s/p EGD. Bleeding seen, coagulated. Onc consulted for GI. No F/C, no N/V/D/C, no CP, no SOB All systesm reviewed and neg x as above - Objective Resuscitation Status - Order Detail: 03/17/18 17:14 Resuscitation Status Routine Co-Sign Provider: Resuscitation Status: FULL: Full Resuscitation MAR Reviewed: Yes Vital Signs & Weight: Vital Signs (12 hours) Temp Pulse Resp BP Pulse Ox 03/19/18 11:10 99.3 F 82 20 113/71 97 03/19/18 09:45 98.5 F 80 20 121/84 03/19/18 07:20 98.4 F 81 20 99/64 99 03/19/18 04:00 98.4 F 83 20 110/82 97 Weight Admit Weight 221 lb Weight 221 lb I&O: 03/18/18 03/19/18 03/20/18 06:59 06:59 06:59 Intake Total 520 2745 Output Total 200 800 Balance 320 1945 Result Diagrams: 03/19/18 04:15 03/19/18 04:15 Additional Labs: Accuchecks 03/19/18 03/18/18 03/18/18 05:25 20:15 17:28 POC Glucose 98 124 H 111 H 03/18/18 10:42 POC Glucose 138 H Radiology Reviewed by me: Yes EKG Reviewed by me: Yes Phys Exam - Physical Examination Constitutional: NAD HEENT: PERRLA, moist MMs, sclera anicteric, oral pharynx no lesions Neck: no nodes, no JVD, supple, full ROM Respiratory: no wheezing, no rales, no rhonchi, clear to auscultation bilateral Cardiovascular: RRR, no significant murmur, no rub Gastrointestinal: soft, non-tender, no distention, positive bowel sounds Musculoskeletal: no edema Neurological: non-focal, normal sensation, moves all 4 limbs Lymphatic: no nodes Psychiatric: A&O x 3 Deviation from normal: angry Skin: no rash, normal turgor, cap refill <2 seconds Dx/Plan (1) UGIB (upper gastrointestinal bleed) Code(s): K92.2 - GASTROINTESTINAL HEMORRHAGE, UNSPECIFIED Status: Acute (2) Esophageal adenocarcinoma Code(s): C15.9 - MALIGNANT NEOPLASM OF ESOPHAGUS, UNSPECIFIED Status: Chronic (3) Acute blood loss anemia Code(s): D62 - ACUTE POSTHEMORRHAGIC ANEMIA Status: Acute (4) Dysphagia Code(s): R13.10 - DYSPHAGIA, UNSPECIFIED Status: Chronic Qualifiers: Dysphagia type: esophageal phase Qualified Code(s): R13.10 - Dysphagia, unspecified (5) Esophageal obstruction Code(s): K22.2 - ESOPHAGEAL OBSTRUCTION Status: Chronic (6) DM2 (diabetes mellitus, type 2) Status: Chronic Qualifiers: Diabetes mellitus remote computer terminal operator insulin use: unspecified long-term insulin use status Diabetes mellitus complication status: without complication Qualified Code(s): E11.9 - Type 2 diabetes mellitus without complications - Plan cont current plan of care, out of bed/ambulate * . follow up once recs. CCM at present
[2018-03-19] MEDS: Morphine 4 MG/ML VIAL SLOW IVP PRN ×3 (13:51→21:53)
[2018-03-19] MEDS: cefTRIAXone\\ROCEPHIN 1 GM in Sodium Chloride 0.9% 100 ML IVPB SCH (13:52)
[2018-03-20] MEDS: Morphine 4 MG/ML VIAL SLOW IVP PRN ×5 (03:53→21:21)
[2018-03-20 06:28] LABS: #Basophils 0.1 thou/uL (0.0-0.2); #Eosinphils 0.5 thou/uL (0.0-0.7); #Lymphocytes 2.9 thou/uL (1.20-3.40); #Monocytes 1.2 thou/uL (0.11-0.59); #Neutrophils 6.3 thou/uL (1.40-6.50); %Basophils 0.7 % (0.0-1.0); %Eosinophils 4.2 % (0.0-10.0); %Lymphocytes 26.6 % (21.0-51.0); %Monocytes 10.8 % (0.0-10.0); %Neutrophils 57.7 % (42.0-75.0); Hemoglobin 7.9 g/dL (14.0-18.0); Mean Corpuscular Hemoglobin 31.5 pg (27.0-31.0); Mean Corpuscular Volume 95.3 fL (78.0-98.0); Mean Platelet Volume 6.7 fL (7.4-10.4); Platelet Count 479 thou/uL (130-400); Red Blood Cell (RBC) Count 2.51 mill/uL (4.70-6.10)
[2018-03-20 06:39] LABS: Anion Gap 9 mmol/L (10-20); BUN (Urea Nitrogen) 17 mg/dL (8.4-25.7); Calc. Creatinine Clearance 139 mL/min (70-130); Calcium 8.2 mg/dL (7.8-10.44); Carbon Dioxide 25 mmol/L (23-31); Chloride 104 mmol/L (98-107); Estimated GFR-MDRD Greater than 90; Glucose 115 mg/dL (80-115); Potassium 4.3 mmol/L (3.5-5.1); Sodium 134 mmol/L (136-145)
[2018-03-20] MEDS: Nicotine 21 MG PATCH TD SCH (08:42)
[2018-03-20] MEDS: Pantoprazole 40 MG VIAL IVP SCH ×2 (08:43→20:35)
[2018-03-20] MEDS ORDERED: Folic Acid 1 MG TAB PO SCH (09:00)
--- NOTE | 2018-03-20 11:27 | PRG ---
DATE OF SERVICE: 03/20/2018 REASON FOR CONSULTATION: Anemia, melena, and history of esophageal adenocarcinoma. SUBJECTIVE: The patient states that he is doing well today with mildly increased sore throat after the procedure, but otherwise has had no overnight events or problems. Currently, denies any nausea, vomiting, fevers, chills, diarrhea, or constipation. He does continue to have increased abdominal pain, but centered primarily around the incision sites for the trocars and jejunal feeding tube. He underwent EGD yesterday, which showed a near obstructive esophageal mass consistent with the adenocarcinoma previously diagnosed that did exhibit increased friability with manipulation of the standard gastroscope. This was successfully treated with argon plasma coagulation with good hemostasis achieved. OBJECTIVE: VITAL SIGNS: Temperature 98, pulse 82, blood pressure 104/65, respiratory rate 18, and saturating 100% on room air. GENERAL: The patient was lying in bed, in no acute distress. Alert and oriented x4. CARDIOVASCULAR: Regular rate and rhythm. RESPIRATORY: Clear to auscultation bilaterally. ABDOMEN: Normoactive bowel sounds. Soft and nondistended. Tenderness to palpation primarily along the incision and trocar sites for his recent surgery. EXTREMITIES: No cyanosis, clubbing, or edema. LABORATORY DATA: CBC with a white blood cell count of 11, hemoglobin 7.9, hematocrit 23.9, and platelets are 479. Chemistry with a sodium of 134, potassium 4.3, chloride 104, CO2 of 25, BUN 17, creatinine 0.79, glucose 115. IMAGING DATA: EGD obtained on March 19, 2018 showed a near obstructive esophageal mass located approximately 35 cm past the incisors. It did exhibit significant bleeding with manipulation with the standard gastroscope. This bleeding was successfully intervened upon with argon plasma coagulation. The scope was unable to be advanced further than this mass due to its near obstructive nature and with no visualization of the stomach or duodenum during that exam. ASSESSMENT AND PLAN: The patient is a 62-year-old male with past medical history of hypertension, chronic hepatitis C infection, GERD, diabetes, cerebrovascular accident, recent diagnosis of esophageal adenocarcinoma, presenting with anemia and dark color stools concerning for melena, but with friability of the existing esophageal adenocarcinoma. Upper GI bleed/esophageal adenocarcinoma. The patient is presenting with a diagnosis of esophageal adenocarcinoma made in February 2018 that at that time was circumferential in nature, but able to be traversed with the gastroscope and did explain a significant friability at that time. Repeat EGD obtained on March 19, 2018 showed that his esophageal mass has increased in size and is now near obstructive with inability to pass the scope beyond it and significantly increased bleeding associated with manipulation of the mass itself for attempts to try to traverse it. The bleeding was successfully intervened upon with argon plasma coagulation with mild decrease in his blood counts when compared to yesterday, but no other complaints of hematochezia or melena at this time. At this point, the most likely reason for his recent anemia and melenic type stools would be the presence of this esophageal adenocarcinoma that hopefully will not bleed after successful cauterization. RECOMMENDATIONS: 1. Continue to trend hemoglobin and hematocrit, and transfuse as necessary to maintain hemoglobin and hematocrit of 7/21. 2. Continue to monitor for signs of active GI bleeding. 3. I have already consulted Oncology Service for evaluation of this patient to include chemotherapy and radiation. We will continue to follow. Please call with any questions. Job ID: [id number]
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
[2018-03-20] MEDS: cefTRIAXone\\ROCEPHIN 1 GM in Sodium Chloride 0.9% 100 ML IVPB SCH (16:45)
[2018-03-20] MEDS ORDERED: Polyethylene Glycol 3350 17 GM Packet PER TUBE SCH (20:45)
[2018-03-20] MEDS: Scopolamine 1.5 mg/72 hour Patch TD SCH (21:16)
--- NOTE | 2018-03-20 21:41 | PRG ---
DATE OF SERVICE: 03/20/2018 SUBJECTIVE: The patient is a 62-year-old male with recently diagnosed esophageal malignancy, presented to the hospital with abdominal discomfort along with syncope. His workup was consistent with symptomatic anemia. He underwent EGD yesterday and that showed esophageal mass at 35 cm with increased bleeding seen with manipulation, successfully treated with argon plasma coagulation. The patient is currently n.p.o. and is currently on jejunal feeding. The patient denies any new episodes of melena or hematochezia. No chest pain reported. OBJECTIVE: VITAL SIGNS: Temperature 98.3, pulse 79, respirations of 18, blood pressure 100/58, and O2 saturation 97% on room air. Intake of 1948, output 1255, weight of 226 pounds from 221 pounds on admission. GENERAL: A 62-year-old male, in no apparent distress. Pain improved. LUNGS: Clear to auscultation bilaterally. HEART: S1 and S2 present. Regular rate and rhythm. ABDOMEN: Soft, nontender. Bowel sounds present. EXTREMITIES: No edema or calf tenderness. LABORATORY FINDINGS: WBC 11 from 16.9, hemoglobin 7.9, and platelet count 479. Sodium 134, potassium 4.3, BUN 17, and creatinine 0.79. Folic acid 5.1, iron of 64 with TIBC 319. Urinalysis showed 21 to 50 wbc's without any bacteria. Urine culture was not sent. IMPRESSION: 1. Symptomatic anemia secondary to esophageal mass, status post EGD. 2. Anemia secondary to acute gastrointestinal blood loss. His hemoglobin 2 weeks ago was 14.3. 3. Urinary tract infection. 4. Folic acid deficiency. 5. Obesity with a body mass index of 31.6. 6. Moderate protein-calorie malnutrition. 7. Status post jejunal tube feeding. 8. Hypertension. 9. Diabetes mellitus type 2. 10. Chronic pain syndrome. 11. Chronic hepatitis C. 12. Gastroesophageal reflux disease. 13. Former smoker. 14. Constipation. Current medications were reviewed. The patient is currently on ceftriaxone for urinary tract infection. He is on IV PPI as well. PLAN: 1. The patient will be transferred to Oncology Unit. Oncology and Radiation Oncology have evaluated the patient. They are planning to start radiation therapy due to ongoing GI blood loss. We will start him on MiraLAX. We will continue current pain medications. We will monitor H and H closely and transfuse if needed. Continue IV PPIs. Other home medications are currently on hold due to blood pressure in the low normal range. Continue sliding scale. The patient was advised to ambulate. 2. DVT prophylaxis with SCDs. Plan of care was discussed with the patient in detail. He stated understanding. Job ID: [id number]
[2018-03-21] MEDS: Morphine 4 MG/ML VIAL SLOW IVP PRN ×6 (01:24→21:25)
[2018-03-21 04:31] LABS: Hemoglobin 8.4 g/dL (14.0-18.0); Platelet Count 478 thou/uL (130-400)
[2018-03-21 04:52] LABS: Anion Gap 14 mmol/L (10-20); BUN (Urea Nitrogen) 16 mg/dL (8.4-25.7); Calc. Creatinine Clearance 139 mL/min (70-130); Calcium 8.5 mg/dL (7.8-10.44); Carbon Dioxide 23 mmol/L (23-31); Chloride 104 mmol/L (98-107); Estimated GFR-MDRD Greater than 90; Glucose 119 mg/dL (80-115); Magnesium 2.1 mg/dL (1.6-2.6); Phosphorus 4.2 mg/dL (2.3-4.7); Potassium 4.3 mmol/L (3.5-5.1); Sodium 137 mmol/L (136-145)
[2018-03-21] MEDS: Polyethylene Glycol 3350 17 GM Packet PER TUBE SCH (09:23)
[2018-03-21] MEDS: Pantoprazole 40 MG VIAL IVP SCH ×2 (09:23→20:27)
[2018-03-21] MEDS: Folic Acid 1 MG TAB PER TUBE SCH (09:28)
[2018-03-21] MEDS: Nicotine 21 MG PATCH TD SCH (09:30)
--- NOTE | 2018-03-21 13:03 | PDOC.PN ---
- Subjective Encounter Start Date: 03/21/18 Encounter Start Time: 08:00 Patient seen and examined for Anemia. Pain controlled on current meds. No new complaints. No overnight events - Objective Resuscitation Status - Order Detail: 03/17/18 17:14 Resuscitation Status Routine Co-Sign Provider: Resuscitation Status: FULL: Full Resuscitation MAR Reviewed: Yes Vital Signs & Weight: Vital Signs (12 hours) Temp Pulse Resp BP Pulse Ox 03/21/18 08:00 98 F 84 18 105/74 96 03/21/18 04:00 98.3 F 86 16 131/73 97 Weight Admit Weight 221 lb Weight 227 lb I&O: 03/20/18 03/21/18 03/22/18 06:59 06:59 06:59 Intake Total 1948 980 Output Total 1255 575 Balance 693 405 Result Diagrams: 03/21/18 04:17 03/21/18 04:17 Additional Labs: Accuchecks 03/21/18 03/21/18 03/20/18 10:39 05:35 21:16 POC Glucose 123 H 120 H 117 H 03/20/18 03/20/18 16:15 11:18 POC Glucose 106 112 H Phys Exam - Physical Examination Constitutional: NAD Respiratory: no wheezing, no rhonchi Cardiovascular: RRR, no rub Gastrointestinal: soft, non-tender, positive bowel sounds Musculoskeletal: no edema Neurological: moves all 4 limbs Dx/Plan - Plan DVT proph w/SCDs 1. Symptomatic anemia secondary to esophageal mass, status post EGD. 2. Anemia secondary to acute gastrointestinal blood loss. 3. Urinary tract infection. No urine cultures available. 4. Folic acid deficiency. 5. Obesity with a body mass index of 31.6. 6. Moderate protein-calorie malnutrition. 7. Status post jejunal tube feeding. 8. Hypertension. 9. Diabetes mellitus type 2. 10. Chronic pain syndrome. 11. Chronic hepatitis C. 12. Gastroesophageal reflux disease. 13. Tobacco dependence. 14. Constipation. PLAN: Radiation on Will consult CM to assist with transportation Cont IV Ceftriaxone AM labs Cont current meds as below Cont IV PPI Review of Systems - Review of Systems Respiratory: negative: Cough, Dry, Shortness of Breath, Hemoptysis, SOB with Excertion, Pleuritic Pain, Sputum, Wheezing Cardiovascular: negative: chest pain, palpitations, orthopnea, paroxysmal nocturnal dyspnea, edema, light headedness, other - Medications/Allergies Allergies/Adverse Reactions: Allergies Allergy/AdvReac Type Severity Reaction Status Date / Time No Known Drug Allergies Allergy Verified 03/17/18 15:05 Medications: Current Medications Acetaminophen (Tylenol) 650 mg PO Q4H PRN PRN Reason: Headache/Fever/Mild Pain (1-3) Dextrose/Water (Dextrose 50%) 25 gm SLOW IVP PRN PRN PRN Reason: Hypoglycemia Fentanyl (Duragesic) 12 mcg TD Q3D [facility] Last Admin: 03/20/18 20:22 Dose: 12 mcg Folic Acid (Folvite) 1 mg PER TUBE DAILY [facility] Last Admin: 03/21/18 09:28 Dose: 1 mg Glucagon (Glucagon) 1 mg IM PRN PRN PRN Reason: Hypoglycemia Dextrose/Water (D5w) 1,000 mls @ 0 mls/hr IV .Q0M PRN PRN Reason: Hypoglycemia Ceftriaxone Sodium 1 gm/ (Sodium Chloride) 100 mls @ 200 mls/hr IVPB Q24HR [facility] Last Admin: 03/20/18 16:45 Dose: 100 mls Insulin Human Lispro (Humalog) 0 units SC .MODERATE SLIDING SC PRN PRN Reason: Moderate Correctional Scale Insulin Human Lispro (Humalog) 0 units SC .BEDTIME SLIDING SC PRN PRN Reason: Bedtime Correctional Scale Morphine Sulfate (Morphine) 4 mg SLOW IVP Q4H PRN PRN Reason: Moderate to Severe Pain (6-10) Last Admin: 03/21/18 09:28 Dose: 4 mg Nicotine (Nicoderm Patch) 21 mg TD Q24HR [facility] Last Admin: 03/21/18 09:30 Dose: 21 mg Ondansetron HCl (Zofran Odt) 4 mg PO Q6H PRN PRN Reason: Nausea/Vomiting Ondansetron HCl (Zofran) 4 mg IVP Q6H PRN PRN Reason: Nausea/Vomiting Last Admin: 03/17/18 18:34 Dose: 4 mg Pantoprazole Sodium (Protonix) 40 mg IVP BID [facility] Last Admin: 03/21/18 09:23 Dose: 40 mg Polyethylene Glycol (Miralax) 17 gm PER TUBE DAILY [facility] Last Admin: 03/21/18 09:23 Dose: 17 gm Scopolamine (Transderm Scop) 1.5 mg TD Q3D [facility] Last Admin: 03/20/18 21:16 Dose: 1.5 mg Sodium Chloride (Flush - Normal Saline) 10 ml IVF PRN PRN PRN Reason: Saline Flush Last Admin: 03/20/18 20:35 Dose: 10 ml
[2018-03-21] MEDS: cefTRIAXone\\ROCEPHIN 1 GM in Sodium Chloride 0.9% 100 ML IVPB SCH (13:16)
--- NOTE | 2018-03-21 19:43 | PRG ---
DATE OF SERVICE: 03/21/2018 SUBJECTIVE: The patient tolerating tube feeding. He has some abdominal discomfort, but no localizing abdominal pain. There are no signs of overt bleeding. PHYSICAL EXAMINATION: VITAL SIGNS: Temperature is 98, blood pressure 105/74, and pulse of 84. GENERAL: He is alert and conversant, in no distress. HEENT: Exam shows anicteric sclerae. CV: Exam shows normal S1 and S2. Regular rate and rhythm. CHEST: Exam shows a breath sound. ABDOMEN: Mildly protuberant, but no distention or tympany. He has active bowel sounds. J-tube site appears normal without induration or leakage. EXTREMITIES: Exam shows no edema. LABORATORY DATA: Hemoglobin is 8.4 (7.9 yesterday) and platelet count 478. ASSESSMENT: 1. Enlarging low esophageal adenocarcinoma, bleeding controlled with argon coagulation. No signs of rebleeding. 2. Anemia, stable. 3. Nutrition, getting tube feeding. RECOMMENDATION: Overall stable from GI standpoint. No new recommendation. Chemoradiation after discharge. Job ID: [id number] MTDD
[2018-03-22] MEDS: Morphine 4 MG/ML VIAL SLOW IVP PRN ×3 (01:27→09:42)
[2018-03-22 04:26] LABS: Hemoglobin 8.3 g/dL (14.0-18.0); Platelet Count 496 thou/uL (130-400)
[2018-03-22 04:41] LABS: Anion Gap 13 mmol/L (10-20); BUN (Urea Nitrogen) 13 mg/dL (8.4-25.7); Calc. Creatinine Clearance 145 mL/min (70-130); Calcium 8.4 mg/dL (7.8-10.44); Carbon Dioxide 23 mmol/L (23-31); Chloride 103 mmol/L (98-107); Estimated GFR-MDRD Greater than 90; Glucose 127 mg/dL (80-115); Potassium 4.5 mmol/L (3.5-5.1); Sodium 134 mmol/L (136-145)
[2018-03-22] MEDS: Polyethylene Glycol 3350 17 GM Packet PER TUBE SCH ×2 (10:15→20:44)
[2018-03-22] MEDS: Nicotine 21 MG PATCH TD SCH (10:15)
[2018-03-22] MEDS: Folic Acid 1 MG TAB PER TUBE SCH (10:15)
[2018-03-22] MEDS: Pantoprazole 40 MG VIAL IVP SCH ×2 (10:15→21:01)
[2018-03-22] MEDS ORDERED: Morphine 2 MG/ML SYRINGE SLOW IVP PRN (10:53)
--- NOTE | 2018-03-22 10:56 | PDOC.PN ---
- Subjective Encounter Start Date: 03/22/18 Encounter Start Time: 09:00 Patient seen and examined for GI bleeding. No new GI bleed. Pain controlled on current meds. No new complaints. No overnight events - Objective Resuscitation Status - Order Detail: 03/17/18 17:14 Resuscitation Status Routine Co-Sign Provider: Resuscitation Status: FULL: Full Resuscitation MAR Reviewed: Yes Vital Signs & Weight: Vital Signs (12 hours) Temp Pulse Resp BP Pulse Ox 03/22/18 07:45 98.7 F 73 16 121/71 99 Weight Admit Weight 221 lb Weight 223 lb 11 oz I&O: 03/21/18 03/22/18 03/23/18 06:59 06:59 06:59 Intake Total 980 1680 Output Total 575 1725 Balance 405 -45 Result Diagrams: 03/22/18 04:09 03/22/18 04:09 Additional Labs: Accuchecks 03/22/18 03/21/18 03/21/18 05:20 20:35 16:21 POC Glucose 121 H 106 110 03/21/18 10:39 POC Glucose 123 H Phys Exam - Physical Examination Constitutional: NAD Respiratory: no wheezing, no rhonchi Cardiovascular: RRR, no rub Gastrointestinal: soft, non-tender, positive bowel sounds Musculoskeletal: no edema Neurological: moves all 4 limbs Dx/Plan - Plan DVT proph w/SCDs 1. Symptomatic anemia secondary to esophageal mass, status post EGD. 2. Anemia secondary to acute gastrointestinal blood loss. 3. Urinary tract infection. (No urine cultures available) 4. Folic acid deficiency. 5. Obesity with a body mass index of 31.6. 6. Moderate protein-calorie malnutrition. 7. Swallow dys - on jejunal tube feeding. 8. Hypertension. 9. Diabetes mellitus type 2. 10. Chronic pain syndrome. 11. Chronic hepatitis C. 12. Gastroesophageal reflux disease. 13. Tobacco dependence. 14. Constipation. PLAN: Radiation Rx tomorrow CM assisting with transportation Cont IV Atbx/PPI AM labs Reduce IV Morphine dose Change Miralax to BID Add Bisacodyl supp QAM Review of Systems - Review of Systems Respiratory: negative: Cough, Dry, Shortness of Breath, Hemoptysis, SOB with Excertion, Pleuritic Pain, Sputum, Wheezing Cardiovascular: negative: chest pain, palpitations, orthopnea, paroxysmal nocturnal dyspnea, edema, light headedness, other Gastrointestinal: Constipation. negative: Nausea, Vomiting, Abdominal Pain, Diarrhea, Melena, Hematochezia, Other - Medications/Allergies Allergies/Adverse Reactions: Allergies Allergy/AdvReac Type Severity Reaction Status Date / Time No Known Drug Allergies Allergy Verified 03/17/18 15:05 Medications: Current Medications Acetaminophen (Tylenol) 650 mg PO Q4H PRN PRN Reason: Headache/Fever/Mild Pain (1-3) Dextrose/Water (Dextrose 50%) 25 gm SLOW IVP PRN PRN PRN Reason: Hypoglycemia Fentanyl (Duragesic) 12 mcg TD Q3D [facility] Last Admin: 03/20/18 20:22 Dose: 12 mcg Folic Acid (Folvite) 1 mg PER TUBE DAILY [facility] Last Admin: 03/22/18 10:15 Dose: 1 mg Glucagon (Glucagon) 1 mg IM PRN PRN PRN Reason: Hypoglycemia Dextrose/Water (D5w) 1,000 mls @ 0 mls/hr IV .Q0M PRN PRN Reason: Hypoglycemia Ceftriaxone Sodium 1 gm/ (Sodium Chloride) 100 mls @ 200 mls/hr IVPB Q24HR [facility] Last Admin: 03/21/18 13:16 Dose: 100 mls Insulin Human Lispro (Humalog) 0 units SC .MODERATE SLIDING SC PRN PRN Reason: Moderate Correctional Scale Insulin Human Lispro (Humalog) 0 units SC .BEDTIME SLIDING SC PRN PRN Reason: Bedtime Correctional Scale Morphine Sulfate (Morphine) 4 mg SLOW IVP Q4H PRN PRN Reason: Moderate to Severe Pain (6-10) Last Admin: 03/22/18 09:42 Dose: 4 mg Nicotine (Nicoderm Patch) 21 mg TD Q24HR [facility] Last Admin: 03/22/18 10:15 Dose: 21 mg Ondansetron HCl (Zofran Odt) 4 mg PO Q6H PRN PRN Reason: Nausea/Vomiting Ondansetron HCl (Zofran) 4 mg IVP Q6H PRN PRN Reason: Nausea/Vomiting Last Admin: 03/17/18 18:34 Dose: 4 mg Pantoprazole Sodium (Protonix) 40 mg IVP BID [facility] Last Admin: 03/22/18 10:15 Dose: 40 mg Polyethylene Glycol (Miralax) 17 gm PER TUBE DAILY [facility] Last Admin: 03/22/18 10:15 Dose: 17 gm Scopolamine (Transderm Scop) 1.5 mg TD Q3D [facility] Last Admin: 03/20/18 21:16 Dose: 1.5 mg Sodium Chloride (Flush - Normal Saline) 10 ml IVF PRN PRN PRN Reason: Saline Flush Last Admin: 03/22/18 09:43 Dose: 10 ml
[2018-03-22] MEDS: cefTRIAXone\\ROCEPHIN 1 GM in Sodium Chloride 0.9% 100 ML IVPB SCH (14:03)
[2018-03-22] MEDS: Morphine 2 MG/ML SYRINGE SLOW IVP PRN ×2 (15:35→21:31)
[2018-03-23] MEDS: Morphine 4 MG/ML VIAL SLOW IVP PRN ×2 (03:28→10:39)
[2018-03-23 04:41] LABS: Hemoglobin 8.8 g/dL (14.0-18.0); Platelet Count 510 thou/uL (130-400)
[2018-03-23 05:04] LABS: Anion Gap 13 mmol/L (10-20); BUN (Urea Nitrogen) 12 mg/dL (8.4-25.7); Calc. Creatinine Clearance 137 mL/min (70-130); Calcium 8.7 mg/dL (7.8-10.44); Carbon Dioxide 24 mmol/L (23-31); Chloride 105 mmol/L (98-107); Estimated GFR-MDRD Greater than 90; Glucose 111 mg/dL (80-115); Potassium 4.7 mmol/L (3.5-5.1); Sodium 137 mmol/L (136-145)
[2018-03-23 08:55] VITALS: BP 119/84; TEMP 98
[2018-03-23] MEDS ORDERED: Bisacodyl 10 MG SUPP PR SCH (09:00)
[2018-03-23] MEDS ORDERED: Ondansetron 2MG/ML MDV 10 MG, Dexamethasone 10 MG in Sodium Chloride 0.9% 50 ML IVPB SCH (09:15)
[2018-03-23] MEDS ORDERED: Ondansetron 2MG/ML MDV 10 MG, Dexamethasone 10 MG in Sodium Chloride 0.9% 50 ML IVP SCH (09:15)
[2018-03-23] MEDS ORDERED: SODIUM CHLORIDE 0.9% IVPB SCH (09:30)
[2018-03-23] MEDS ORDERED: PACLITAXEL IVPB SCH (09:30)
[2018-03-23] MEDS ORDERED: CARBOplatin 300 MG in Sodium Chloride 0.9% 250 ML 250 ML IVPB SCH (09:30)
[2018-03-23] MEDS: Folic Acid 1 MG TAB PER TUBE SCH (09:56)
[2018-03-23] MEDS: Pantoprazole 40 MG VIAL IVP SCH (09:56)
[2018-03-23] MEDS: Polyethylene Glycol 3350 17 GM Packet PER TUBE SCH (09:56)
[2018-03-23] MEDS: Nicotine 21 MG PATCH TD SCH (10:04)
[2018-03-23 12:49] VITALS: BMI 31.1
--- NOTE | 2018-03-23 14:36 | PRG ---
DATE OF SERVICE: 03/23/2018 SUBJECTIVE: The patient had nosebleed this morning. Otherwise, no GI complaints. He denies nausea, vomiting, or abdominal pain. He had a regular bowel movement this morning without any blood or melena. PHYSICAL EXAMINATION: VITAL SIGNS: Temperature is 98.2, blood pressure 119/84, pulse is 77. GENERAL: Today, he is alert, conversant, in no distress. HEENT: Head exam shows anicteric sclerae. CV: Exam shows normal S1 and S2. Regular rate and rhythm. CHEST: Exam shows a breath sounds. ABDOMEN: Soft, nontender. No palpable mass or organomegaly. He has active bowel sounds. EXTREMITIES: Exam shows no edema. LABORATORY DATA: Hemoglobin is 8.8, hematocrit 26.8, and platelet count of 510. Electrolytes within normal range. Creatinine is 0.81 and calcium 8.7. ASSESSMENT: 1. Status post upper gastrointestinal bleed from lower esophageal cancer, bleeding has now resolved without any recurrence over the last five days. 2. Anemia, blood loss and other factors, white count has remained stable over the last four days. 3. Enlarging lower esophageal adenocarcinoma, starting chemoradiation. 4. Nutrition, on tube feeding. RECOMMENDATIONS: No new recommendations from GI standpoint. Overall, he is stable without any signs of bleeding. We will sign off for now, please recall if needed. Job ID: [id number]
[2018-03-23] MEDS: cefTRIAXone\\ROCEPHIN 1 GM in Sodium Chloride 0.9% 100 ML IVPB SCH (15:33)
--- NOTE | 2018-03-24 10:47 | DIS ---
DATE OF ADMISSION: 03/17/2018 DATE OF DISCHARGE: 03/23/2018 DISCHARGE DISPOSITION: Home. FOLLOWUP: 1. Follow up with primary care physician, Dr. Ileana Sosa, in 1 week. 2. Follow up with Oncology Clinic. ALLERGIES: NO KNOWN DRUG ALLERGIES. DISCHARGE MEDICATIONS: 1. Morphine instant release 15 mg q.4 hourly as needed. 2. Fentanyl 12 mcg every three days. 3. Metformin 500 mg daily. 4. Metoprolol tartrate 50 mg b.i.d. 5. Folic acid 1 mg daily. 6. Protonix 40 mg daily. 7. Scopolamine patch every three days. INPATIENT CONSULTATIONS: 1. Oncology Service. 2. Radiation Oncology. 3. Gastroenterology. INPATIENT PROCEDURES: On March 19, 2018, the patient underwent EGD that showed esophageal mass at 35 cm. There was increased bleeding seen with manipulation of the mass that was successfully treated with argon plasma coagulation. BRIEF HOSPITAL COURSE: The patient is a 62-year-old male with recent diagnosis of esophageal cancer, presented to the hospital with abdominal discomfort along with syncope. Please refer to the history and physical for further details. The patient was admitted to the hospital with a diagnosis of symptomatic anemia. He was started on IV Protonix. He underwent EGD. The reinstatement clerk was unable to pass the scope due to extensive esophageal cancer. The bleeding was controlled with argon plasma coagulation. His H and H on the day of discharge is 8.8. Lowest H and H was 7.9. He has been started on chemotherapy as well as radiation. He appears stable for discharge. FINAL DIAGNOSES: 1. Symptomatic anemia secondary to bleeding from esophageal mass, status post esophagogastroduodenoscopy. 2. Anemia due to acute gastrointestinal blood loss. 3. Suspected urinary tract infection. Urine culture showed 21 to 50 wbc's. However, no urine cultures were sent on admission. He completed 5-day course of antibiotics during this hospital stay. 4. Folic acid deficiency. 5. Obesity with a BMI of 31.6. 6. Moderate protein-calorie malnutrition. 7. Swallow dysfunction secondary to esophageal mass, currently on jejunal tube feeding. 8. Hypertension. 9. Diabetes mellitus, type 2. 10. Chronic pain syndrome. 11. Chronic hepatitis C. 12. Gastroesophageal reflux disease. 13. Tobacco dependence. 14. Constipation, resolved. Total time coordinating the discharge of this patient was 35 minutes. Job ID: [id number]
== END 2018-03-23 17:29 | disposition home or self-care (01) | DRG 378 ==
LOC: 2NO 14:30 → ONC 03-20 13:51
PROVIDERS: ADMIT Internal Medicine; ATTEND Internal Medicine
PROC: 30233N1 Transfusion of Nonautologous Red Blood Cells into Peripheral Vein, Percutaneous Approach (ICD-10-PCS; principal; 2018-03-17)
PROC: 3E0G76Z Introduction of Nutritional Substance into Upper GI, Via Natural or Artificial Opening (ICD-10-PCS; 2018-03-17)
PROC: 0W3P8ZZ Control Bleeding in Gastrointestinal Tract, Via Natural or Artificial Opening Endoscopic (ICD-10-PCS; 2018-03-19)
DX: K92.2 Gastrointestinal hemorrhage, unspecified (principal); D62 Acute posthemorrhagic anemia; C15.5 Malignant neoplasm of lower third of esophagus; N39.0 Urinary tract infection, site not specified; E44.0 Moderate protein-calorie malnutrition; I10 Essential (primary) hypertension; K21.9 Gastro-esophageal reflux disease without esophagitis; E11.9 Type 2 diabetes mellitus without complications; F17.210 Nicotine dependence, cigarettes, uncomplicated; E53.8 Deficiency of other specified B group vitamins; E66.9 Obesity, unspecified; Z68.31 Body mass index [BMI] 31.0-31.9, adult; G89.4 Chronic pain syndrome; B18.2 Chronic viral hepatitis C; K59.00 Constipation, unspecified; R13.10 Dysphagia, unspecified; Z79.84 Long term (current) use of oral hypoglycemic drugs; Z93.4 Other artificial openings of gastrointestinal tract status; Z90.49 Acquired absence of other specified parts of digestive tract
CPT/HCPCS: 36415; 36416; 77014; 77293; 77300; 77301; 77334; 77338; 77386; 80048; 80053; 81001; 82607; 82746; 83540; 83550; 83735; 84100; 85014; 85018; 85025; 85049; 86850; 86900; 86901; C9113; J0696; J1100; J2001; J2270; J2405; J2704; J7050; J9045; J9267

== ENCOUNTER 2018-03-27 11:37 | Observation (INO) | payer OTHER ==
[2018-03-27 12:22] LABS: #Basophils 0.1 thou/uL (0.0-0.2); #Lymphocytes 0.9 thou/uL (1.20-3.40); #Monocytes 0.3 thou/uL (0.11-0.59); #Neutrophils 4.3 thou/uL (1.40-6.50); %Basophils 1.3 % (0.0-1.0); %Eosinophils 0.9 % (0.0-10.0); %Lymphocytes 15.7 % (21.0-51.0); %Neutrophils 77.1 % (42.0-75.0); Hemoglobin 10.5 g/dL (14.0-18.0); Mean Corpuscular HGB CONC 33.5 g/dL (32.0-36.0); Mean Corpuscular Hemoglobin 31.7 pg (27.0-31.0); Mean Corpuscular Volume 94.6 fL (78.0-98.0); Mean Platelet Volume 7.3 fL (7.4-10.4); Platelet Count 585 thou/uL (130-400); Red Blood Cell (RBC) Count 3.31 mill/uL (4.70-6.10); White Blood Cell (WBC) Count 5.5 thou/uL (4.8-10.8)
[2018-03-27 12:39] LABS: ALT (SGPT) 37 U/L (8-55); AST (SGOT) 42 U/L (5-34); Albumin 3.5 g/dL (3.4-4.8); Alkaline Phosphatase 155 U/L (40-150); Anion Gap 14 mmol/L (10-20); BUN (Urea Nitrogen) 23 mg/dL (8.4-25.7); Bilirubin, Total 0.8 mg/dL (0.2-1.2); Calc. Creatinine Clearance 0 mL/min (70-130); Calcium 9.3 mg/dL (7.8-10.44); Carbon Dioxide 20 mmol/L (23-31); Chloride 103 mmol/L (98-107); Estimated GFR-MDRD Greater than 90; Globulin 4.3 g/dL (2.4-3.5); Glucose 128 mg/dL (80-115); Magnesium 2.3 mg/dL (1.6-2.6); Potassium 6.1 mmol/L (3.5-5.1); Protein, Total 7.8 g/dL (5.8-8.1); Sodium 131 mmol/L (136-145)
--- NOTE | 2018-03-27 13:04 | RAD ---
PORTABLE CHEST 1 VIEW: Date: 03/27/18 Time: 1239 hours HISTORY: Syncope. FINDINGS: Comparison made with exam of 12/22/13. The heart size is normal. The lungs are well expanded without focal areas of consolidation, pneumotho races, or pleural effusions. IMPRESSION: No radiographic evidence of acute cardiopulmonary process. POS: [facility]
[2018-03-27 15:36] LABS: ALT (SGPT) 30 U/L (8-55); AST (SGOT) 24 U/L (5-34); Albumin 3.1 g/dL (3.4-4.8); Alkaline Phosphatase 128 U/L (40-150); Anion Gap 13 mmol/L (10-20); BUN (Urea Nitrogen) 22 mg/dL (8.4-25.7); Bilirubin, Total 0.8 mg/dL (0.2-1.2); Calc. Creatinine Clearance 0 mL/min (70-130); Calcium 8.8 mg/dL (7.8-10.44); Carbon Dioxide 22 mmol/L (23-31); Chloride 106 mmol/L (98-107); Estimated GFR-MDRD Greater than 90; Globulin 3.4 g/dL (2.4-3.5); Glucose 87 mg/dL (80-115); Potassium 5.1 mmol/L (3.5-5.1); Protein, Total 6.5 g/dL (5.8-8.1); Sodium 136 mmol/L (136-145)
[2018-03-27 16:13] LABS: Hemoglobin 8.8 g/dL (14.0-18.0)
[2018-03-27] MEDS ORDERED: Dextrose 5 % And 0.9 % NaCl 1,000 ML IV SCH (17:15)
[2018-03-27] MEDS ORDERED: Ondansetron ODT 4 MG TAB PO PRN (17:37)
[2018-03-27] MEDS ORDERED: Ondansetron PF 4 MG/2 ML Vial IVP PRN (17:37)
[2018-03-27] MEDS ORDERED: Sodium Chloride 0.9% 1,000 ML IV SCH (17:45)
[2018-03-27] MEDS ORDERED: Morphine IR 10 MG/5 ML UDCUP PER TUBE PRN (18:21)
[2018-03-27] MEDS: Sodium Chloride 0.9% 1,000 ML IV SCH (19:17)
[2018-03-27] MEDS: Scopolamine 1.5 mg/72 hour Patch TOP SCH (19:18)
[2018-03-27] MEDS: Metoprolol Tartrate 50 MG TAB PER TUBE SCH (20:37)
--- NOTE | 2018-03-27 21:10 | HP ---
PRIMARY CARE PHYSICIAN: Ileana Sosa MD PRIMARY ONCOLOGIST: Dr. Samayoa. RADIATION ONCOLOGIST: Dr. Fernandez. CODE STATUS: Full code. CHIEF COMPLAINT: Syncope, orthostatic hypotension. HISTORY OF PRESENT ILLNESS: Mr. Frost is a pleasant 62-year-old male with past medical history of hypertension, hepatitis C, gastroesophageal reflux disease, diabetes mellitus type 2, adenocarcinoma, esophageal cancer, he was recently undergoing a radiation [facility]. He had finished his treatment and had felt the need to use the restroom. He had got up and used the restroom, he states at that time he had a formed bowel movement. He had denied any blood in the stool. He states he had then washed his hands, and on his way back to the bed, he states he grabbed the bathroom door and that is when he felt lightheaded and dizzy. He states he fell back and onto the floor, he had denied hitting his head. He states after a couple of seconds, he had returned to his baseline and then proceeded over to the bed. It was found that he was orthostatic hypotension with systolic blood pressure in the 80s as he stood up. He was then transferred to [facility] for further evaluation of symptoms. It was found at that time that he was still orthostatic hypotensive. He had then received 3 L of normal saline, his symptoms improved; however, he had remained orthostatic hypotensive. Therefore, he was transferred up to the floor for further observation and monitoring. It was at that time where he was seen by myself. He had denied any headache, blurred vision, chest pain, shortness of breath. He states he had [id number] pain in his abdomen, which he has had for quite some time now. He was recently admitted for similar symptoms about 10 days ago, and it was during that visit where he was found to have an upper GI bleed, he had undergone an EGD with Dr. Egan and the bleed was stabilized with cauterization. He was later sent home with further followup. Since he had received one chemotherapy treatment and a total of three radiation treatments. He states today was the only time where he had a syncopal episode since the last discharge. He is currently lying comfortably in bed. He is stable with a blood pressure of 113/74, his pain is well controlled at this time. He states yesterday he had found that his J-tube was not able to undergo tube feeds, this was later corrected in the emergency department earlier today where his J-tube was flushed per the ER staff. He will be admitted overnight for further observation and management of his symptoms. PAST MEDICAL HISTORY: 1. Hypertension. 2. Hepatitis C. 3. CVA in 2013. 4. Diabetes mellitus, type 2. 5. GERD. 6. Adenocarcinoma, esophageal cancer. PAST SURGICAL HISTORY: Colostomy reversal, J-tube placement, and cholecystectomy. PSYCHIATRIC HISTORY: Denies any psychiatric history at this time. SOCIAL HISTORY: The patient reports living with his family, he denies alcohol or any illicit drug use, he states he uses a nicotine patch. FAMILY HISTORY: Significant for heart disease and his brother from an aneurysm. REVIEW OF SYSTEMS: Positive for generalized weakness, [id number] abdominal pain, nausea and dizziness upon standing, syncopal episode earlier today. Otherwise, denies any other review of systems unless mentioned in the HPI. ALLERGIES: NO KNOWN DRUG ALLERGIES. HOME MEDICATIONS: 1. Metformin 500 mg p.o. daily. 2. Metoprolol tartrate 50 mg p.o. b.i.d. 3. Morphine IR 15 mg q.4 hours as needed for pain. 4. Fentanyl 12 mcg patch q.3 days. 5. Folic acid 1 mg per tube feed daily. 6. Protonix 40 mg per tube feed daily. 7. Scopolamine 1.5 mg topical patch q.3 days. 8. Nicotine patch 7 mg topical daily. PHYSICAL EXAMINATION: VITAL SIGNS: BP 113/74, respirations 15, pulse 81, temp 98.6 degrees Fahrenheit , and O2 saturations 99% on room air. GENERAL: The patient is lying comfortably in bed. He is awake, alert, and oriented x4 with no acute distress. J-tube is in place. HEENT: Normocephalic and atraumatic. Pupils equal, round, and reactive to light. Extraocular muscles intact. Moist mucous membranes noted. Poor oral hygiene noted. He is missing numerous teeth. He has an increased saliva production as he continues to spit in a basin bag at his side. NECK: Soft, supple, and nontender. Trachea midline. Full range of motion. No bruit. No JVD. CARDIOVASCULAR: Positive S1 and S2. Regular rate and rhythm. No murmurs, gallops or rubs appreciated. LUNGS: Clear to auscultation bilaterally. No wheezes, rales or rhonchi noted. ABDOMEN: Hzkz-bg-[id number] tenderness in the epigastric region. Numerous healed surgical wounds noted. Positive bowel sounds throughout. No pulsatile masses. No rigidity. No rebound. No peritoneal signs. J-tube placed. EXTREMITIES: Strength 5+ bilaterally in upper and lower extremities. Good pulses palpable in upper and lower extremities. NEUROLOGICAL: Cranial nerves 2 through 12 intact. No focal deficits noted. Speech intact. PSYCHIATRIC: Good mood and affect. Responds to questions well. No suicidal or homicidal ideation. SKIN: Warm, dry, and intact. As above, several healed scars noted on his abdomen. LABORATORY DATA: WBC 5.5; RBC 3.31; hemoglobin prior to IV hydration 10.5, post IV hydration 8.8; platelet 585. Sodium 136, potassium 5.1, BUN 22, creatinine 0.74 , estimated GFR greater than 90, glucose 87, and magnesium 2.3. AST 24, ALT 30, and alkaline phosphatase 128. Troponin less than 0.010. DIAGNOSTIC IMAGING: Portable chest x-ray showed no radiographic evidence of acute cardiopulmonary process. ASSESSMENT/PLAN: 1. Syncope, the patient is orthostatic hypotensive, we will closely monitor vital signs, we will recheck orthostatic vital signs. We will also continue IV normal saline. We will monitor the patient's I's and O's. We will hold the patient's home medication of metoprolol. 2. Hypertension, we will hold the patient's home medication of metoprolol and monitor his blood pressure closely. As his blood pressure improves, we will likely restart on this once stable. 3. Adeno-esophageal carcinoma, we will monitor the patient closely and treat symptomatically. Depending on the patient's progress, we will also consider consultation to Dr. Samayoa and Dr. Fernandez for further evaluation. At the last admission, the patient was noted to have an esophageal hemorrhage, we will monitor the patient's hemoglobin closely, currently at baseline. No further signs of bleeding at this time. 4. Diabetes mellitus, we will hold the patient's home medication of metformin and place on insulin sliding scale, we will check blood sugars with frequent Accu- Cheks and further adjustments pending his progress. 5. Deep venous thrombosis prophylaxis with SCDs. We will hold any further anticoagulation at this time due to the patient's underlying anemia. 6. Gastrointestinal prophylaxis with his home dose of Protonix. We will continue on Zofran as needed for nausea along with scopolamine patch for his increased saliva production. 7. Code status, full code. 8. Surrogate decision maker will be his sister, Marita Frost. Further medical management and disposition pending his progress and clinical findings. Job ID: [id number] MTDD
[2018-03-27] MEDS: Nicotine 7 MG PATCH TD SCH (21:11)
[2018-03-28] MEDS: Sodium Chloride 0.9% 1,000 ML IV SCH ×3 (03:55→20:02)
[2018-03-28 05:20] LABS: #Eosinphils 0.1 thou/uL (0.0-0.7); #Lymphocytes 0.8 thou/uL (1.20-3.40); #Monocytes 0.2 thou/uL (0.11-0.59); #Neutrophils 4.7 thou/uL (1.40-6.50); %Basophils 0.6 % (0.0-1.0); %Eosinophils 1.8 % (0.0-10.0); %Lymphocytes 14.3 % (21.0-51.0); %Monocytes 2.8 % (0.0-10.0); %Neutrophils 80.5 % (42.0-75.0); Hemoglobin 8.3 g/dL (14.0-18.0); Mean Corpuscular HGB CONC 33.7 g/dL (32.0-36.0); Mean Platelet Volume 6.8 fL (7.4-10.4); Platelet Count 452 thou/uL (130-400); RBC Distribution Width 14.5 % (11.5-14.5); Red Blood Cell (RBC) Count 2.58 mill/uL (4.70-6.10); White Blood Cell (WBC) Count 5.9 thou/uL (4.8-10.8)
[2018-03-28 05:43] LABS: Anion Gap 11 mmol/L (10-20); BUN (Urea Nitrogen) 16 mg/dL (8.4-25.7); Calc. Creatinine Clearance 167 mL/min (70-130); Calcium 8.2 mg/dL (7.8-10.44); Carbon Dioxide 19 mmol/L (23-31); Chloride 110 mmol/L (98-107); Estimated GFR-MDRD Greater than 90; Glucose 70 mg/dL (80-115); Potassium 4.5 mmol/L (3.5-5.1); Sodium 135 mmol/L (136-145)
[2018-03-28] MEDS ORDERED: Nicotine 7 MG PATCH TD SCH (09:00)
[2018-03-28] MEDS: Folic Acid 1 MG TAB PER TUBE SCH (10:02)
[2018-03-28] MEDS: metFORMIN 500 MG TAB PER TUBE SCH (10:02)
[2018-03-28] MEDS: Pantoprazole 40 MG GRANULES PACKET PER TUBE SCH (10:02)
[2018-03-28] MEDS: Metoprolol Tartrate 50 MG TAB PER TUBE SCH (10:06)
--- NOTE | 2018-03-28 11:11 | PDOC.PN ---
- Subjective Encounter Start Date: 03/28/18 Encounter Start Time: 11:08 Patient sitting up at bedside, he reports feeling a little better this morning. His BP remains quite low. He reports some nausea and spitting up liquid he drinks. He denies chest pain or shortness of breath. He reports some abdominal pain that is improved. Pain 5/10. Ortho BP improved, however patient continues to get dizzy upon standing, this is improved today. - Objective Resuscitation Status - Order Detail: 03/27/18 17:37 Resuscitation Status Routine Co-Sign Provider: Resuscitation Status: FULL: Full Resuscitation MAR Reviewed: Yes Vital Signs & Weight: Vital Signs (12 hours) Temp Pulse Resp BP BP Pulse Ox 03/28/18 07:08 98.5 F 73 16 96/63 98 03/28/18 04:05 98.6 F 73 16 100/64 95 Weight Weight 229 lb I&O: 03/27/18 03/28/18 03/29/18 06:59 06:59 06:59 Intake Total 3520 Output Total 1220 Balance 2300 Result Diagrams: 03/28/18 05:10 03/28/18 05:10 Phys Exam - Physical Examination Constitutional: NAD HEENT: PERRLA, moist MMs, oral pharynx no lesions, 2+ tonsils poor dentition Neck: no nodes, no JVD, full ROM Respiratory: no wheezing, no rales, clear to auscultation bilateral Cardiovascular: RRR, no significant murmur, no rub Gastrointestinal: soft, positive bowel sounds mild epigastric tenderness Musculoskeletal: no edema, pulses present Neurological: non-focal, normal sensation, moves all 4 limbs Lymphatic: no nodes Psychiatric: normal affect, A&O x 3 Skin: no rash, normal turgor, cap refill <2 seconds Deviation from normal: miltiple healed scars on abdomen Dx/Plan (1) Orthostatic hypotension Code(s): I95.1 - ORTHOSTATIC HYPOTENSION Status: Acute (2) Abdominal pain Code(s): R10.9 - UNSPECIFIED ABDOMINAL PAIN Status: Acute Comment: Source identified with esophageal tumor. (3) Diabetes mellitus Code(s): E11.9 - TYPE 2 DIABETES MELLITUS WITHOUT COMPLICATIONS Status: Acute Qualifiers: Diabetes mellitus type: type 2 Diabetes mellitus penitentiary insulin use: without termite helper use Diabetes mellitus complication status: without complication Qualified Code(s): E11.9 - Type 2 diabetes mellitus without complications Comment: Very well controlled on metformin, but poor po intake and recent weight loss. (4) Esophageal neoplasm Code(s): D49.0 - NEOPLASM OF UNSPECIFIED BEHAVIOR OF DIGESTIVE SYSTEM Status: Acute Comment: Awaiting pathology report - Plan cont current plan of care * Continue IV fluids with normal saline, continue tube feeds. Monitor I&Os * Decrease home metoprolol as BP remains low * Monitor Vitals and labs including H&H * No signs of bleeding, if Hgb continues to fall will consider consult GI considering recent GI bleed
[2018-03-28] MEDS: Nicotine 7 MG PATCH TD SCH (22:14)
[2018-03-28] MEDS: Metoprolol Tartrate 25 MG TAB PER TUBE SCH (22:15)
[2018-03-29] MEDS: Sodium Chloride 0.9% 1,000 ML IV SCH ×2 (03:31→21:14)
[2018-03-29] MEDS: Pantoprazole 40 MG GRANULES PACKET PER TUBE SCH (09:07)
[2018-03-29] MEDS: metFORMIN 500 MG TAB PER TUBE SCH (09:07)
[2018-03-29] MEDS: Metoprolol Tartrate 25 MG TAB PER TUBE SCH ×2 (09:08→21:15)
[2018-03-29] MEDS: Folic Acid 1 MG TAB PER TUBE SCH (09:08)
--- NOTE | 2018-03-29 12:25 | PDOC.PN ---
- Subjective Encounter Start Date: 03/29/18 Encounter Start Time: 11:22 Subjective: Continues with intermittent lightheadedness when standing/walking. -: Reports dysphagia and regurgitation, only able to tolerate liquids. -: Afebrile. No chest pain or sob. No nausea/abdo pain. No vision changes. Recent admission with GI bleed. No symptoms of GI bleed at present. Denies any hematemesis. No hematuria. - Objective Resuscitation Status - Order Detail: 03/27/18 17:37 Resuscitation Status Routine Co-Sign Provider: Resuscitation Status: FULL: Full Resuscitation MAR Reviewed: Yes Vital Signs & Weight: Vital Signs (12 hours) Temp Pulse Resp BP BP BP Pulse Ox 03/29/18 07:50 98.1 F 71 20 106/67 106/67 99 03/29/18 04:00 98.3 F 80 20 97/61 98 Weight Weight 228 lb 4.8 oz I&O: 03/28/18 03/29/18 03/30/18 06:59 06:59 06:59 Intake Total 3520 7090 Output Total 1220 2100 Balance 2300 4990 Result Diagrams: 03/28/18 05:10 03/28/18 05:10 Phys Exam - Physical Examination HEENT: PERRLA, moist MMs, sclera anicteric, oral pharynx no lesions Neck: no nodes, full ROM Respiratory: no wheezing, no rales, no rhonchi, clear to auscultation bilateral Cardiovascular: RRR, no significant murmur Gastrointestinal: soft, non-tender Feeding tube in place without surrounding erythema, discharge Musculoskeletal: no edema Neurological: non-focal Psychiatric: normal affect, A&O x 3 Skin: no rash, cap refill <2 seconds Dx/Plan (1) Regurgitation of food Code(s): R11.10 - VOMITING, UNSPECIFIED Status: Acute (2) Orthostatic hypotension Code(s): I95.1 - ORTHOSTATIC HYPOTENSION Status: Acute (3) Diabetes mellitus Code(s): E11.9 - TYPE 2 DIABETES MELLITUS WITHOUT COMPLICATIONS Status: Acute Qualifiers: Diabetes mellitus type: type 2 Diabetes mellitus laborer marine terminal insulin use: without laborer marine terminal use Diabetes mellitus complication status: without complication Qualified Code(s): E11.9 - Type 2 diabetes mellitus without complications Comment: Very well controlled on metformin, but poor po intake and recent weight loss. (4) Hypertension Code(s): I10 - ESSENTIAL (PRIMARY) HYPERTENSION Status: Acute Comment: Stable. Continue home meds. (5) Dysphagia Code(s): R13.10 - DYSPHAGIA, UNSPECIFIED Status: Chronic Qualifiers: Dysphagia type: esophageal phase Qualified Code(s): R13.10 - Dysphagia, unspecified (6) Esophageal adenocarcinoma Code(s): C15.9 - MALIGNANT NEOPLASM OF ESOPHAGUS, UNSPECIFIED Status: Chronic - Plan cont current plan of care -: Continue tube feedings. Liquids by mouth as tolerated. -: Continue Orthostatic BPs. -: Check H/H today, continue to monitor. Transfuse if needed. * .
[2018-03-29 12:47] LABS: #Basophils 0.1 thou/uL (0.0-0.2); #Eosinphils 0.1 thou/uL (0.0-0.7); #Lymphocytes 0.9 thou/uL (1.20-3.40); #Monocytes 0.2 thou/uL (0.11-0.59); #Neutrophils 3.4 thou/uL (1.40-6.50); %Basophils 1.1 % (0.0-1.0); %Eosinophils 2.8 % (0.0-10.0); %Lymphocytes 19.5 % (21.0-51.0); %Monocytes 4.7 % (0.0-10.0); %Neutrophils 71.9 % (42.0-75.0); Mean Corpuscular HGB CONC 33.2 g/dL (32.0-36.0); Mean Corpuscular Hemoglobin 31.6 pg (27.0-31.0); Mean Corpuscular Volume 95.2 fL (78.0-98.0); Mean Platelet Volume 7.1 fL (7.4-10.4); Platelet Count 492 thou/uL (130-400); RBC Distribution Width 14.8 % (11.5-14.5); Red Blood Cell (RBC) Count 2.54 mill/uL (4.70-6.10); White Blood Cell (WBC) Count 4.8 thou/uL (4.8-10.8)
[2018-03-29 13:07] LABS: ALT (SGPT) 39 U/L (8-55); AST (SGOT) 30 U/L (5-34); Alkaline Phosphatase 160 U/L (40-150); Anion Gap 9 mmol/L (10-20); BUN (Urea Nitrogen) 11 mg/dL (8.4-25.7); Bilirubin, Total 0.4 mg/dL (0.2-1.2); Calc. Creatinine Clearance 175 mL/min (70-130); Calcium 8.5 mg/dL (7.8-10.44); Carbon Dioxide 22 mmol/L (23-31); Chloride 110 mmol/L (98-107); Estimated GFR-MDRD Greater than 90; Globulin 3.2 g/dL (2.4-3.5); Glucose 93 mg/dL (80-115); Potassium 4.3 mmol/L (3.5-5.1); Protein, Total 6.2 g/dL (5.8-8.1); Sodium 137 mmol/L (136-145)
[2018-03-29 15:35] VITALS: BMI 31.8
[2018-03-29] MEDS: Nicotine 7 MG PATCH TD SCH (21:16)
[2018-03-30] MEDS: Sodium Chloride 0.9% 1,000 ML IV SCH ×4 (03:18→20:58)
[2018-03-30 05:25] LABS: #Eosinphils 0.2 thou/uL (0.0-0.7); #Lymphocytes 0.7 thou/uL (1.20-3.40); #Monocytes 0.2 thou/uL (0.11-0.59); #Neutrophils 2.8 thou/uL (1.40-6.50); %Basophils 1.1 % (0.0-1.0); %Eosinophils 4.6 % (0.0-10.0); %Lymphocytes 18.7 % (21.0-51.0); %Monocytes 5.8 % (0.0-10.0); %Neutrophils 69.8 % (42.0-75.0); Hemoglobin 7.6 g/dL (14.0-18.0); Mean Corpuscular HGB CONC 34.2 g/dL (32.0-36.0); Mean Corpuscular Hemoglobin 32.3 pg (27.0-31.0); Mean Corpuscular Volume 94.6 fL (78.0-98.0); Mean Platelet Volume 6.7 fL (7.4-10.4); Platelet Count 416 thou/uL (130-400); RBC Distribution Width 14.9 % (11.5-14.5); Red Blood Cell (RBC) Count 2.35 mill/uL (4.70-6.10)
[2018-03-30 05:47] LABS: ALT (SGPT) 33 U/L (8-55); AST (SGOT) 22 U/L (5-34); Albumin 2.7 g/dL (3.4-4.8); Alkaline Phosphatase 143 U/L (40-150); Anion Gap 10 mmol/L (10-20); BUN (Urea Nitrogen) 11 mg/dL (8.4-25.7); Bilirubin, Total 0.3 mg/dL (0.2-1.2); Calc. Creatinine Clearance 167 mL/min (70-130); Calcium 8.4 mg/dL (7.8-10.44); Carbon Dioxide 22 mmol/L (23-31); Chloride 111 mmol/L (98-107); Estimated GFR-MDRD Greater than 90; Globulin 3.1 g/dL (2.4-3.5); Glucose 99 mg/dL (80-115); Potassium 4.1 mmol/L (3.5-5.1); Protein, Total 5.8 g/dL (5.8-8.1); Sodium 139 mmol/L (136-145)
[2018-03-30] MEDS: Metoprolol Tartrate 25 MG TAB PER TUBE SCH ×2 (09:11→20:50)
[2018-03-30] MEDS: metFORMIN 500 MG TAB PER TUBE SCH (09:11)
[2018-03-30] MEDS: Pantoprazole 40 MG GRANULES PACKET PER TUBE SCH (09:11)
[2018-03-30] MEDS: Folic Acid 1 MG TAB PER TUBE SCH (09:11)
--- NOTE | 2018-03-30 11:30 | CON ---
DATE OF CONSULTATION: REASON FOR CONSULTATION: Esophageal carcinoma. HISTORY OF PRESENT ILLNESS: A 62-year-old male with esophageal adenocarcinoma, currently on concurrent chemotherapy and radiation with carboplatin and Taxol, presenting to the hospital with orthostatic hypotension, lightheadedness, and dizziness. The patient has received one cycle of chemotherapy and was receiving radiation on Tuesday, March 27, 2018, and as soon as he finished treatment, used the restroom, and was walking back [facility] and felt dizzy, lightheaded, and fell backwards. He denies that he hit his head. He felt back to normal after a few seconds and had his blood pressure checked and his systolics was in the 80s when he stood up. The patient was sent to the hospital, received 3 L normal saline in the ER, and had improvement in his symptoms, but was still orthostatic. The patient states that on Tuesday his pump for his tube was malfunctioning, so he was not receiving nutrition. No fluids at that time and says that the [facility] tried to fix it and could not. The patient had diarrhea yesterday and denies any blood in the stool or dark stool. He also complains of nausea and vomiting, but denies any hematemesis. The patient was admitted with similar symptoms recently and was found to have a GI bleed from his esophageal mass and this is when treatment was started. The patient denies any fevers at home or since admission. He does complain of some mild abdominal pain and difficulty sleeping. REVIEW OF SYSTEMS: 10-point review of systems negative except as per HPI. PAST MEDICAL HISTORY: Esophageal adenocarcinoma, hypertension, hepatitis C, CVA in 2013, diabetes, and GERD. PAST SURGICAL HISTORY: Colostomy reversal, J-tube placement, and cholecystectomy. PSYCHIATRIC HISTORY: None. SOCIAL HISTORY: Smoker. No alcohol or illicit drug use. FAMILY HISTORY: Heart disease, but no cancer. ALLERGIES: NO KNOWN DRUG ALLERGIES. CURRENT MEDICATIONS: Reviewed. PHYSICAL EXAMINATION: VITAL SIGNS: Temperature 97.7 with a T-max of 100.0 at 9:00 p.m. yesterday, pulse 80, respirations 20, saturating 100% on room air, and blood pressure 110/71. GENERAL APPEARANCE: The patient is sitting up in bed, in no acute distress, but appears uncomfortable. HEENT: Normocephalic and atraumatic. No scleral icterus noted. NECK: Supple and nontender. CARDIOVASCULAR: Normal S1 and S2 with regular rhythm and rate. No murmurs. LUNGS: Clear to auscultation bilaterally. Nonlabored breathing. ABDOMEN: Mild epigastric tenderness without rebound. Positive bowel sounds. J-tube in place. EXTREMITIES: Moves all extremities. No edema. NEUROLOGIC: Cranial nerves 2 through 12 are grossly intact. PSYCHIATRIC: Awake, alert, and oriented x3 with appropriate mood and affect. LABORATORY DATA: White blood cells 4.0, hemoglobin 10.5 on admission, currently 7.6, platelets 585 on admission, currently 416. Sodium 139, potassium 4.1, BUN 11, creatinine 0.68, and albumin 2.7. IMAGING DATA: Chest x-ray dated March 27, 2018, shows no acute cardiopulmonary disease process. ASSESSMENT AND PLAN: A 62-year-old male with esophageal adenocarcinoma, presenting to the hospital with orthostatic hypotension, symptomatic with lightheadedness. The patient's symptoms have improved with aggressive fluid resuscitation and blood pressure has improved as well. The patient still has mild nausea, vomiting, and epigastric pain. White blood cells and platelets are satisfactory, undergoing concurrent chemotherapy and radiation, however, with aggressive fluid resuscitation, the patient's hemoglobin has dropped from 10.5 to 7.6, and his white blood cells and platelets have also dropped as this is likely mostly dilutional, and not secondary to another GI bleed from his tumor. I would recommend transfusing 1 unit of packed red blood cells at this time. The patient is to continue radiation and is due for chemotherapy today and we will go ahead and administer this while he is in the hospital. We will need to make sure that the patient's PEG tube and pump are working at home prior to discharge in order to maintain his nutritional status during treatment. Job ID: [id number]
--- NOTE | 2018-03-30 15:38 | PDOC.PN ---
- Subjective Encounter Start Date: 03/30/18 Encounter Start Time: 14:36 Subjective: Resting comfortably following transfusion of PRBCs (1 unit). No n/ v. -: Continues with dysphagia. Tolerating full liquids. -: No hematemesis. Denies any melena or hematochezia. Normal BM yesterday. - Objective Resuscitation Status - Order Detail: 03/27/18 17:37 Resuscitation Status Routine Co-Sign Provider: Resuscitation Status: FULL: Full Resuscitation Vital Signs & Weight: Vital Signs (12 hours) Temp Pulse Pulse Resp BP BP BP 03/30/18 15:05 98.6 F 90 18 127/76 03/30/18 12:18 98.7 F 71 18 111/80 03/30/18 12:05 99.0 F 72 16 111/73 03/30/18 08:00 97.7 F 80 20 110/71 03/30/18 04:00 98.0 F 79 20 109/72 BP Pulse Ox 03/30/18 15:05 03/30/18 12:18 03/30/18 12:05 99 03/30/18 08:00 110/71 100 03/30/18 04:00 98 Weight Admit Weight 228 lb 4.8 oz Weight 228 lb 4.8 oz I&O: 03/29/18 03/30/18 03/31/18 06:59 06:59 06:59 Intake Total 7090 1780 350 Output Total 2100 375 Balance 4990 1405 350 Result Diagrams: 03/30/18 04:59 03/30/18 04:58 Phys Exam - Physical Examination Constitutional: NAD HEENT: PERRLA, sclera anicteric, oral pharynx no lesions Neck: no nodes, full ROM Respiratory: clear to auscultation bilateral Cardiovascular: RRR Gastrointestinal: soft, non-tender, no distention Musculoskeletal: no edema, pulses present Neurological: non-focal Lymphatic: no nodes Psychiatric: normal affect, A&O x 3 Skin: no rash Dx/Plan (1) Regurgitation of food Code(s): R11.10 - VOMITING, UNSPECIFIED Status: Acute (2) Orthostatic hypotension Code(s): I95.1 - ORTHOSTATIC HYPOTENSION Status: Resolved (3) Diabetes mellitus Code(s): E11.9 - TYPE 2 DIABETES MELLITUS WITHOUT COMPLICATIONS Status: Chronic Qualifiers: Diabetes mellitus type: type 2 Diabetes mellitus longterm insulin use: without salvage determiner use Diabetes mellitus complication status: without complication Qualified Code(s): E11.9 - Type 2 diabetes mellitus without complications Comment: Very well controlled on metformin, but poor po intake and recent weight loss. (4) Hypertension Code(s): I10 - ESSENTIAL (PRIMARY) HYPERTENSION Status: Chronic Comment: Stable. Continue home meds. (5) Dysphagia Code(s): R13.10 - DYSPHAGIA, UNSPECIFIED Status: Acute Qualifiers: Dysphagia type: esophageal phase Qualified Code(s): R13.10 - Dysphagia, unspecified (6) Esophageal adenocarcinoma Code(s): C15.9 - MALIGNANT NEOPLASM OF ESOPHAGUS, UNSPECIFIED Status: Chronic - Plan cont current plan of care, medical social consultant S/p 1 unit PRBCs. -: Under Dr. Mena who cleared for discharge today, pending Pump. -: Patient confirmed he has an extra working pump at home. -: Chemotherapy postponed to tomorrow, after radiation. -: Due to transportation issues/family concerns, will plans for d/c tmrw AM * .
[2018-03-30] MEDS: Scopolamine 1.5 mg/72 hour Patch TOP SCH (17:43)
[2018-03-30] MEDS: Nicotine 7 MG PATCH TD SCH (20:50)
[2018-03-31 05:56] LABS: #Eosinphils 0.1 thou/uL (0.0-0.7); #Lymphocytes 0.7 thou/uL (1.20-3.40); #Monocytes 0.4 thou/uL (0.11-0.59); #Neutrophils 2.9 thou/uL (1.40-6.50); %Basophils 0.8 % (0.0-1.0); %Eosinophils 3.3 % (0.0-10.0); %Lymphocytes 16.2 % (21.0-51.0); %Monocytes 9.6 % (0.0-10.0); %Neutrophils 70.1 % (42.0-75.0); Hemoglobin 8.6 g/dL (14.0-18.0); Mean Corpuscular HGB CONC 35.4 g/dL (32.0-36.0); Mean Corpuscular Hemoglobin 33.5 pg (27.0-31.0); Mean Corpuscular Volume 94.7 fL (78.0-98.0); Mean Platelet Volume 6.9 fL (7.4-10.4); Platelet Count 406 thou/uL (130-400); RBC Distribution Width 15.1 % (11.5-14.5); Red Blood Cell (RBC) Count 2.55 mill/uL (4.70-6.10); White Blood Cell (WBC) Count 4.2 thou/uL (4.8-10.8)
[2018-03-31 05:58] LABS: ALT (SGPT) 25 U/L (8-55); AST (SGOT) 18 U/L (5-34); Albumin 2.7 g/dL (3.4-4.8); Alkaline Phosphatase 146 U/L (40-150); Anion Gap 9 mmol/L (10-20); BUN (Urea Nitrogen) 11 mg/dL (8.4-25.7); Bilirubin, Total 0.4 mg/dL (0.2-1.2); Calc. Creatinine Clearance 159 mL/min (70-130); Calcium 8.2 mg/dL (7.8-10.44); Carbon Dioxide 23 mmol/L (23-31); Chloride 109 mmol/L (98-107); Estimated GFR-MDRD Greater than 90; Globulin 2.9 g/dL (2.4-3.5); Glucose 98 mg/dL (80-115); Protein, Total 5.6 g/dL (5.8-8.1); Sodium 137 mmol/L (136-145)
[2018-03-31] MEDS: Folic Acid 1 MG TAB PER TUBE SCH (08:30)
[2018-03-31] MEDS: metFORMIN 500 MG TAB PER TUBE SCH (08:30)
[2018-03-31] MEDS: Metoprolol Tartrate 25 MG TAB PER TUBE SCH (08:30)
[2018-03-31] MEDS: Pantoprazole 40 MG GRANULES PACKET PER TUBE SCH (08:30)
[2018-03-31 12:18] VITALS: BP 137/81; TEMP 98
--- NOTE | 2018-04-01 14:31 | DIS ---
DATE OF ADMISSION: 03/27/2018 DATE OF DISCHARGE: 03/31/2018 REASON FOR ADMISSION: Syncopal episode. CONSULTING PHYSICIAN: Dr. Luis Angel Mena of Oncology. DISCHARGE DIAGNOSES: 1. Orthostatic hypotension, resolved. 2. Esophageal cancer, undergoing chemoradiation therapy. 3. Type 2 diabetes mellitus. 4. Dysphagia with regurgitation, on tube feedings. HOSPITAL COURSE: Mr. Frost is a pleasant 62-year-old man, who was brought in due to a syncopal episode shortly after using the bathroom. This was after his radiation treatment. It was believed he may have a transient vasovagal episode. He was noticed to have orthostatic hypotension. He underwent IV fluid resuscitation and has had resolution in orthostatic blood pressure. The patient has a known history of esophageal cancer and has remained on daily radiation therapy, and is due to have chemotherapy today. He has received 1 unit of PRBCs due to a drop in his Hgb to 7.6 and though it was believed to be dilutional, this was done as a precaution given he will be receiving chemotherapy. He denies having any signs/symptoms of bleeding. No melena or bright red blood per rectum. He continues with dysphagia and remains on tube feedings, given his decreased oral intake. He still attempts to eat soft foods with some persistent dysphagia and regurgitation. He is able to tolerate liquids. He denies having any vomiting or hematemesis. Denies any abdominal pain or cramping. No headaches or dizziness. Denies having any chest pain, palpitations, or shortness of breath. No urinary complaints. The patient has been deemed stable for discharge. There has been some delay due to issues with transportation. The field nurse case manager was heavily involved, providing contact information for [employer] transportation which is already in place. There were concerns for a functioning pump but patient has contact information for DME. He also has a second functioning pump at home. ROS: All other review of systems apart form those mention in HPI, are negative. PHYSICAL EXAMINATION: VITAL SIGNS: Temperature 98.5, pulse 95, respirations 16, O2 saturation 98% on room air, blood pressure 137/81. HEENT: Normocephalic, atraumatic. Pupils are equal, round, and reactive to light. Sclerae are without icterus. Oropharynx is clear. NECK: Supple. LUNGS: Clear to auscultation bilaterally. ABDOMEN: Soft, nontender, nondistended. EXTREMITIES: No clubbing, cyanosis, or edema. NEUROLOGIC: Alert and oriented x3. SKIN: Without rash or jaundice. LABORATORY DATA: White blood cell count 4.2, hemoglobin 8.6, hematocrit 24.2, and platelets 406. IMAGING DATA: Chest x-ray done on 03/27/2018. No evidence of acute cardiopulmonary process. DISCHARGE MEDICATIONS: The patient advised to resume outpatient medications. CONDITION: Stable at discharge. DIET: Tube feeding diet. Continue oral intake as tolerated. ACTIVITY: As tolerated. FOLLOWUP: 1. The patient was advised to follow up with his primary care physician within 1 to 2 weeks. 2. Follow up with Dr. Mena within 2 to 3 weeks. 3. Continue with chemoradiation as scheduled. The patient is to follow up with Dr. Mena scheduled already for April 07, 2018. 4. Continue with chemoradiation therapy as scheduled. DISPOSITION: Discharged home on 03/31/2018. Transportation arranged to and from radiation treatment. Family arranging transportation home from chemotherapy today. Job ID: [id number] MTDD
--- NOTE | 2018-04-01 17:43 | EKG ---
Test Reason : DIZZINESS Blood Pressure : / mmHG Vent. Rate : 089 BPM Atrial Rate : 089 BPM P-R Int : 130 ms QRS Dur : 074 ms QT Int : 336 ms P-R-T Axes : 045 -19 028 degrees QTc Int : 408 ms Normal sinus rhythm Normal ECG Confirmed by KATH LEA ([id number]), slot editor ANNA PRO ([id number]) on 04/01/2018 5:42:46 PM Referred By: Confirmed By:KATH LEA
== END 2018-03-31 12:05 | disposition home or self-care (01) ==
LOC: ERS 11:37 → 2NO 15:40
PROVIDERS: ADMIT Internal Medicine Infectious Disease; ATTEND Internal Medicine Infectious Disease
DX: I95.1 Orthostatic hypotension (principal); I10 Essential (primary) hypertension; K21.9 Gastro-esophageal reflux disease without esophagitis; E11.9 Type 2 diabetes mellitus without complications; C15.9 Malignant neoplasm of esophagus, unspecified; D64.9 Anemia, unspecified; Z86.73 Personal history of transient ischemic attack (TIA), and cerebral infarction without residual deficits; Z79.899 Other long term (current) drug therapy; Z79.84 Long term (current) use of oral hypoglycemic drugs; Z93.1 Gastrostomy status
CPT/HCPCS: 36415; 36430; 71045; 77386; 80048; 80053; 83735; 84484; 85025; 86850; 86900; 86901; 87804; 93005; 96360; 96361; G0378; P9016

== ENCOUNTER 2018-03-31 13:06 | Day surgery (SDC) | payer OTHER ==
[2018-03-31] MEDS ORDERED: Dexamethasone 10 MG/ML VIAL SLOW IVP SCH (14:30)
[2018-03-31] MEDS ORDERED: PACLITAXEL IVPB SCH (14:30)
[2018-03-31] MEDS ORDERED: CARBOplatin 300 MG in Sodium Chloride 0.9% 250 ML 250 ML IVPB SCH (14:30)
[2018-03-31] MEDS ORDERED: Ondansetron PF 4 MG/2 ML Vial IVP SCH (14:30)
[2018-03-31] MEDS ORDERED: SODIUM CHLORIDE 0.9% IVPB SCH (14:30)
[2018-03-31 14:55] VITALS: BP 124/79; TEMP 98.2
== END 2018-03-31 19:15 | disposition home or self-care (01) ==
LOC: ONC/OP 13:06
PROVIDERS: ATTEND Internal Medicine Hematology & Oncology
DX: Z51.11 Encounter for antineoplastic chemotherapy (principal); C15.5 Malignant neoplasm of lower third of esophagus
CPT/HCPCS: 96375; 96413; 96417; 99211; G0463; J1100; J2405; J7050; J9045; J9267

== ENCOUNTER 2018-04-07 10:42 | Day surgery (SDC) | payer OTHER ==
[2018-04-07] MEDS ORDERED: CARBOplatin 300 MG in Sodium Chloride 0.9% 250 ML 250 ML IVPB SCH (11:15)
[2018-04-07] MEDS ORDERED: SODIUM CHLORIDE 0.9% IVPB SCH (11:15)
[2018-04-07] MEDS ORDERED: Dexamethasone 10 MG/ML VIAL SLOW IVP SCH (11:15)
[2018-04-07] MEDS ORDERED: Ondansetron PF 4 MG/2 ML Vial IVP SCH (11:15)
[2018-04-07] MEDS ORDERED: PACLITAXEL IVPB SCH (11:15)
[2018-04-07 12:29] VITALS: BP 106/72; TEMP 98.4
== END 2018-04-07 14:48 | disposition home or self-care (01) ==
LOC: ONC/OP 10:42
PROVIDERS: ATTEND Internal Medicine Hematology & Oncology
DX: Z51.11 Encounter for antineoplastic chemotherapy (principal); C15.5 Malignant neoplasm of lower third of esophagus
CPT/HCPCS: 96375; 96413; 96417; J1100; J2405; J7050; J9045; J9267

== ENCOUNTER 2018-04-10 10:30 | Emergency (ER) | payer OTHER | END 2018-04-10 11:26 | disposition home or self-care (01) | LOC: ERS 10:30 | DX: K94.23 Gastrostomy malfunction (principal); I10 Essential (primary) hypertension; Z86.73 Personal history of transient ischemic attack (TIA), and cerebral infarction without residual deficits; F17.200 Nicotine dependence, unspecified, uncomplicated; Z79.899 Other long term (current) drug therapy; Z79.84 Long term (current) use of oral hypoglycemic drugs ==

== ENCOUNTER 2018-04-14 09:57 | Day surgery (SDC) | payer OTHER ==
[2018-04-14] MEDS ORDERED: Sodium Chloride 0.9% 20 ML ONE (10:05)
[2018-04-14] MEDS ORDERED: Dexamethasone 10 MG/ML VIAL SLOW IVP SCH (10:15)
[2018-04-14] MEDS ORDERED: Ondansetron PF 4 MG/2 ML Vial IVP SCH (10:15)
[2018-04-14] MEDS ORDERED: SODIUM CHLORIDE 0.9% IVPB SCH (10:30)
[2018-04-14] MEDS ORDERED: CARBOplatin 300 MG in Sodium Chloride 0.9% 250 ML 250 ML IVPB SCH (10:30)
[2018-04-14] MEDS ORDERED: PACLITAXEL IVPB SCH (10:30)
[2018-04-14 11:13] LABS: Albumin 3.7 g/dL (3.4-4.8); Globulin 3.7 g/dL (2.4-3.5); Glucose 74 mg/dL (80-115); Protein, Total 7.4 g/dL (5.8-8.1)
[2018-04-14 11:14] LABS: Carbon Dioxide 23 mmol/L (23-31)
[2018-04-14 11:15] LABS: Alkaline Phosphatase 160 U/L (40-150)
[2018-04-14 11:16] LABS: Calc. Creatinine Clearance 146 mL/min (70-130); Estimated GFR-MDRD Greater than 90
[2018-04-14 11:17] LABS: BUN (Urea Nitrogen) 17 mg/dL (8.4-25.7)
[2018-04-14 11:18] LABS: ALT (SGPT) 44 U/L (8-55); Uric Acid 4.7 mg/dL (3.5-7.2)
[2018-04-14 11:24] LABS: AST (SGOT) 29 U/L (5-34); Bilirubin, Total 0.5 mg/dL (0.2-1.2); Calcium 9.5 mg/dL (7.8-10.44); Chloride 104 mmol/L (98-107); LDH 163 U/L (125-220); Potassium 4.8 mmol/L (3.5-5.1); Sodium 134 mmol/L (136-145)
[2018-04-14 23:19] LABS: Anion Gap 12 mmol/L (10-20)
== END 2018-04-14 14:17 | disposition home or self-care (01) ==
LOC: ONC/OP 09:57
PROVIDERS: ATTEND Internal Medicine Hematology & Oncology
DX: Z51.11 Encounter for antineoplastic chemotherapy (principal); C15.5 Malignant neoplasm of lower third of esophagus; K21.9 Gastro-esophageal reflux disease without esophagitis; B18.2 Chronic viral hepatitis C; F17.210 Nicotine dependence, cigarettes, uncomplicated; E11.9 Type 2 diabetes mellitus without complications; I10 Essential (primary) hypertension; Z79.84 Long term (current) use of oral hypoglycemic drugs; Z79.899 Other long term (current) drug therapy; Z86.73 Personal history of transient ischemic attack (TIA), and cerebral infarction without residual deficits
CPT/HCPCS: 80053; 83615; 84550; 96375; 96413; 96417; J1100; J2405; J7050; J9045; J9267

== ENCOUNTER 2018-04-21 10:30 | Day surgery (SDC) | payer OTHER ==
[2018-04-21] MEDS ORDERED: Sodium Chloride 0.9% 20 ML ONE (11:20)
[2018-04-21] MEDS ORDERED: PACLITAXEL IVPB SCH (12:00)
[2018-04-21] MEDS ORDERED: CARBOplatin 300 MG in Sodium Chloride 0.9% 250 ML 250 ML IVPB SCH (12:00)
[2018-04-21] MEDS ORDERED: Ondansetron 2MG/ML MDV 10 MG, Dexamethasone 10 MG in Sodium Chloride 0.9% 50 ML IVPB SCH (12:00)
[2018-04-21] MEDS ORDERED: SODIUM CHLORIDE 0.9% IVPB SCH (12:00)
[2018-04-21 13:07] VITALS: BP 148/93; TEMP 98.6
== END 2018-04-21 14:34 | disposition home or self-care (01) ==
LOC: ONC/OP 10:30
PROVIDERS: ATTEND Internal Medicine Hematology & Oncology
DX: Z51.11 Encounter for antineoplastic chemotherapy (principal); C15.5 Malignant neoplasm of lower third of esophagus; E11.9 Type 2 diabetes mellitus without complications; B18.2 Chronic viral hepatitis C; I10 Essential (primary) hypertension; F17.210 Nicotine dependence, cigarettes, uncomplicated; F12.11 Cannabis abuse, in remission; F14.11 Cocaine abuse, in remission; F15.11 Other stimulant abuse, in remission; Z86.73 Personal history of transient ischemic attack (TIA), and cerebral infarction without residual deficits; Z79.84 Long term (current) use of oral hypoglycemic drugs; Z79.899 Other long term (current) drug therapy; Z90.49 Acquired absence of other specified parts of digestive tract
CPT/HCPCS: 96375; 96413; 96417; J1100; J2405; J7050; J9045; J9267

== ENCOUNTER 2018-06-06 13:11 | Outpatient (CLI) | payer OTHER ==
--- NOTE | 2018-06-06 16:18 | PET ---
NUCLEAR MEDICINE FDG PET CT: (Positron Emission Tomography) DATE: 06/06/18 HISTORY: 62-year-old male with esophageal cancer, C15.5, subsequent evaluation (restaging) status post treatme nt. COMPARISON: 03/03/18 TECHNIQUE: IV injection F-18 Fluorodeoxyglucose (FDG) dose: 10.3 mCi PET and attenuation-correction CT performed from skull base to proximal thighs. FINDINGS: QCLR used for SUVs. SUV (standard uptake value) numbers given are maximum SUV's: New finding of increased uptake at distal tip of oral tongue with SUV of 8.2. This is presumably due to tongue muscular contraction activity or inadvertent bite trauma, rather than neoplasm, but clinica l correlation is recommended. The previously demonstrated large, long region of increased uptake involving the distal esophagus and esophagogastric junction, has almost revolved. Currently, at the esophagogastric junction, there is slightly increased uptake with SUV of 3.2, which is borderline. There previously demonstrated hypermetabolic activity involving the right supraclavicular lymph node and left upper mediastinal lymph nodes, have resolved. There is currently no abnormal hypermetabolic activity in the chest. Currently, there is no abnormal hypermetabolic activity involving the liver, spleen, pancreas, gastro duodenal ligament, mesenteric lymph nodes or celiac axis lymph nodes. However, there are new abnormal, mildly enlarged and very hypermetabolic bilateral para-aortic retrop eritoneal lymph nodes. These include several clustered right para-aortic lymph nodes beginning slight ly inferior to the origin of the right renal artery. The largest of these is approximately 1.5 x 1 cm in short axis with SUV of 10.5. Left para-aortic cluster of mildly enlarged nodes with SUV of 9.2. M ore inferiorly at the L3-4 level, a left para-aortic lymph node measures 0.8 x 0.8 cm with SUV of 5.7 . There is strongly increased uptake along the path of a new percutaneous jejunostomy which enters the abdominal cavity to the left of midline through the anterior abdominal wall, distal tip to the right of midline within a loop of jejunum. IMPRESSION: 1. Dramatic interval improvement (almost resolution) of hypermetabolic activity involving the di stal esophagus. 2. Interval resolution of hypermetabolic activity involving the right supraclavicular and left u pper mediastinal lymphadenopathy. 3. Interval development of new retroperitoneal lymphadenopathy: bilateral para-aortic hypermetab olic mildly enlarged lymph nodes. JN R POS: [facility]
== END 2018-06-06 13:12 | disposition home or self-care (01) ==
LOC: PET 13:11
PROVIDERS: ATTEND Internal Medicine Hematology & Oncology
DX: C15.9 Malignant neoplasm of esophagus, unspecified (principal); R59.0 Localized enlarged lymph nodes
CPT/HCPCS: 78815; A9552

== ENCOUNTER 2018-08-03 09:50 | Day surgery (SDC) | payer OTHER ==
[2018-08-03] MEDS ORDERED: Bupivacaine/Epinephrine 0.25% 30 ML VIAL ONE (10:20)
[2018-08-03] MEDS ORDERED: Lidocaine 2% PF 5 ML VIAL ONE (10:20)
[2018-08-03] MEDS ORDERED: Albuterol Sulfate 2.5 mg/3 ml Neb ONE (10:59)
[2018-08-03] MEDS ORDERED: Albuterol Sulfate 2.5 mg/3 ml Neb NEB SCH (11:00)
[2018-08-03] MEDS ORDERED: Propofol 1,000 MG/100 ML VIAL IV ONE (11:49)
--- NOTE | 2018-08-03 13:03 | RAD ---
XR Chest 1 View Portable HISTORY: Mediport placement. Esophageal cancer COMPARISON: 03/27/2018 FINDINGS: The heart size is normal. The lungs are well expanded without focal areas of consolidation, pneumothorax or pleural effusions. There has been interval placement of a right internal jugular Port-A-Cath with tip in the projection of the SVC. IMPRESSION: No radiographic evidence of acute cardiopulmonary process.
--- NOTE | 2018-08-03 13:20 | OP ---
DATE OF PROCEDURE: 08/03/2018 PREOPERATIVE DIAGNOSIS: Esophageal cancer. POSTOPERATIVE DIAGNOSIS: Esophageal cancer. PROCEDURE: Tunneled central line subcutaneous port (MediPort CT injectable). ANESTHESIA: General. ESTIMATED BLOOD LOSS: Minimal. COMPLICATIONS: None. SPECIMEN: None. FINDINGS: Tip of the catheter was at the atriocaval junction. TECHNIQUE: The patient was taken to the operating room and laid supine on the operating room table. After general anesthetic was obtained, bilateral neck and chest was prepped and draped in the sterile fashion. Local anesthetic was infiltrated over the internal jugular vein. Internal jugular vein was cannulated using a 22-gauge Finder needle followed by a Seldinger needle. Wire was passed into superior vena cava under fluoro guidance. A small emi was made at the wire entrance site. A separate 4 cm incision was made in the right upper chest. Subcutaneous pocket made below lower incision. Tubing for the MediPort tunneled from the inferior to superior incision. Tissue sheath was placed over the wire into the vena cava under fluoro guidance. The dilator and wire were removed. The end of the catheter sewed into the sheath and the sheath was peeled away. The tip of the catheter was at the atriocaval junction. MediPort tubing was cut to fit the MediPort with lower incision, connected to the MediPort, which was sewn to the chest wall and the subcutaneous pocket using Prolene suture. MediPort flushes and draws blood without difficulty. It was flushed with a heparin solution with heparin flush. The wounds were all irrigated and closed using 3-0 Vicryl, 4-0 Monocryl, and Dermabond. The patient was sent to Recovery in stable condition. All instrument counts, needle counts, and lap counts were correct. Job ID: [id number]
[2018-08-03] MEDS ORDERED: PROPOFOL 200 MG/20 ML VIAL ONE (14:45)
== END 2018-08-03 14:45 | disposition home or self-care (01) ==
LOC: SDC 09:50
PROVIDERS: ATTEND Surgery
PROC: 05HM33Z Insertion of Infusion Device into Right Internal Jugular Vein, Percutaneous Approach (ICD-10-PCS; principal; 2018-08-03)
PROC: B5131ZA Fluoroscopy of Right Jugular Veins using Low Osmolar Contrast, Guidance (ICD-10-PCS; principal; 2018-08-03)
DX: C15.9 Malignant neoplasm of esophagus, unspecified (principal)
CPT/HCPCS: 71045; 76000; 94640; C1788; J0690; J1642; J2001; J2704; J7611

== ENCOUNTER 2018-08-21 19:33 | Emergency (ER) | payer OTHER ==
[~2018-08-21 19:33] MED LIST: ISOVUE-370 76%-LOCM 1 ML ONE
--- NOTE | 2018-08-21 20:51 | RAD ---
AP radiograph of chest as well as AP and oblique views left ribs. HISTORY: Back pain, patient felt a pop in his back. PA radiograph the chest is obtained. A right jugular Mediport catheter is in place. The lungs are wel l aerated. No evidence of active intrathoracic disease seen. AP and oblique views left ribs demonstrate no evidence of fractures. Left shoulder degenerative changes seen. IMPRESSION: No evidence of acute intrathoracic abnormality seen.
[2018-08-21 22:28] LABS: #Eosinphils 0.1 thou/uL (0.0-0.7); #Lymphocytes 1.3 thou/uL (1.20-3.40); #Monocytes 0.9 thou/uL (0.11-0.59); #Neutrophils 5.1 thou/uL (1.40-6.50); %Basophils 0.2 % (0.0-1.0); %Eosinophils 1.6 % (0.0-10.0); %Lymphocytes 17.4 % (21.0-51.0); %Monocytes 11.7 % (0.0-10.0); Hemoglobin 14.2 g/dL (14.0-18.0); Mean Corpuscular HGB CONC 33.3 g/dL (32.0-36.0); Mean Corpuscular Hemoglobin 31.6 pg (27.0-31.0); Mean Platelet Volume 6.8 fL (7.4-10.4); Platelet Count 228 thou/uL (130-400); Red Blood Cell (RBC) Count 4.47 mill/uL (4.70-6.10); White Blood Cell (WBC) Count 7.5 thou/uL (4.8-10.8)
[2018-08-21 22:49] LABS: ALT (SGPT) 28 U/L (8-55); AST (SGOT) 31 U/L (5-34); Albumin 3.5 g/dL (3.4-4.8); Alkaline Phosphatase 321 U/L (40-150); Anion Gap 14 mmol/L (10-20); BUN (Urea Nitrogen) 9 mg/dL (8.4-25.7); Bilirubin, Total 0.6 mg/dL (0.2-1.2); CK (CPK) 45 U/L (30-200); Calc. Creatinine Clearance 0 mL/min (70-130); Calcium 9.1 mg/dL (7.8-10.44); Carbon Dioxide 21 mmol/L (23-31); Chloride 107 mmol/L (98-107); Estimated GFR-MDRD Greater than 90; Globulin 4.4 g/dL (2.4-3.5); Glucose 91 mg/dL (80-115); Lipase Less than 4 U/L (8-78); Potassium 4.6 mmol/L (3.5-5.1); Protein, Total 7.9 g/dL (5.8-8.1); Sodium 137 mmol/L (136-145)
[2018-08-21] MEDS ORDERED: Ketorolac Tromethamine 30 MG/ML VIAL ONE (22:59)
--- NOTE | 2018-08-22 00:41 | CT ---
CTA chest. HISTORY: Shortness of breath graft CTA chest obtained. Contrast enhanced CTA of the chest obtained. 2-D and 3-D reconstruction images performed. Bibasilar areas of atelectasis or lung scarring is present. No evidence of filling defects seen in the pulmonary arteries to suggest pulmonary emboli. Raff the a guillermo is unremarkable. Coronary artery calcifications seen. No evidence of mediastinal or hilar or axillary lymphadenopathy seen. IMPRESSION: No evidence of pulmonary emboli.
== END 2018-08-22 00:50 | disposition home or self-care (01) ==
LOC: ERS 19:33
DX: J20.9 Acute bronchitis, unspecified (principal); I10 Essential (primary) hypertension; Z86.73 Personal history of transient ischemic attack (TIA), and cerebral infarction without residual deficits; Z79.899 Other long term (current) drug therapy
CPT/HCPCS: 36415; 71275; 80053; 82550; 83690; 83880; 84484; 85025; 87040; 93005; 96374; J1885; Q9966

== ENCOUNTER 2018-09-19 14:44 | Emergency (ER) | payer OTHER ==
[2018-09-19] MEDS ORDERED: Ondansetron PF 4 MG/2 ML Vial ONE ×2 (15:31→17:24)
[2018-09-19 15:35] LABS: #Basophils 0.1 thou/uL (0.0-0.2); #Eosinphils 0.1 thou/uL (0.0-0.7); #Lymphocytes 2.1 thou/uL (1.20-3.40); #Neutrophils 8.7 thou/uL (1.40-6.50); %Basophils 0.5 % (0.0-1.0); %Eosinophils 0.5 % (0.0-10.0); %Lymphocytes 17.3 % (21.0-51.0); %Monocytes 8.2 % (0.0-10.0); %Neutrophils 73.5 % (42.0-75.0); Hemoglobin 13.6 g/dL (14.0-18.0); Mean Corpuscular HGB CONC 33.1 g/dL (32.0-36.0); Mean Corpuscular Volume 93.8 fL (78.0-98.0); Mean Platelet Volume 7.4 fL (7.4-10.4); Platelet Count 217 thou/uL (130-400); White Blood Cell (WBC) Count 11.9 thou/uL (4.8-10.8)
[2018-09-19 15:54] LABS: ALT (SGPT) 38 U/L (8-55); AST (SGOT) 39 U/L (5-34); Albumin 3.5 g/dL (3.4-4.8); Alkaline Phosphatase 167 U/L (40-150); Anion Gap 11 mmol/L (10-20); BUN (Urea Nitrogen) 21 mg/dL (8.4-25.7); Bilirubin, Total 0.5 mg/dL (0.2-1.2); Calc. Creatinine Clearance 0 mL/min (70-130); Calcium 9.1 mg/dL (7.8-10.44); Carbon Dioxide 26 mmol/L (23-31); Chloride 100 mmol/L (98-107); Estimated GFR-MDRD Greater than 90; Globulin 4.3 g/dL (2.4-3.5); Glucose 87 mg/dL (80-115); Potassium 3.5 mmol/L (3.5-5.1); Protein, Total 7.8 g/dL (5.8-8.1); Sodium 133 mmol/L (136-145)
--- NOTE | 2018-09-19 16:14 | RAD ---
PORTABLE CHEST ONE VIEW: 09/19/2018 3:28 p.m. HISTORY: Nausea, vomiting, and hypotension. Gastroesophageal cancer. The patient is currently on chemotherap y. COMPARISON: 08/03/2018 FINDINGS: Right internal jugular Port-A-Cath remains in place. Heart size is normal. Lungs are well expanded without lobar consolidation, pneumothoraces, angel pulmonary edema, or pleural effusions. IMPRESSION: No radiographic evidence of acute cardiopulmonary process. POS: [facility]
--- NOTE | 2018-09-23 17:07 | EKG ---
Test Reason : Blood Pressure : / mmHG Vent. Rate : 067 BPM Atrial Rate : 067 BPM P-R Int : 132 ms QRS Dur : 084 ms QT Int : 442 ms P-R-T Axes : 031 -11 -19 degrees QTc Int : 467 ms Sinus rhythm with Premature atrial complexes Nonspecific T wave abnormality Prolonged QT Abnormal ECG Leftward axis Confirmed by LUKAS REYES DO ([id number]), newspaper managing editor CARMEN SAUCEDA ([id number]) on 09/23/2018 5:06:55 PM Referred By: Confirmed By:LUKAS REYES DO
== END 2018-09-19 17:40 | disposition home or self-care (01) ==
LOC: ERS 14:44
DX: R11.2 Nausea with vomiting, unspecified (principal); T45.1X5A Adverse effect of antineoplastic and immunosuppressive drugs, initial encounter; I10 Essential (primary) hypertension; Z79.899 Other long term (current) drug therapy
CPT/HCPCS: 36415; 71045; 80053; 84484; 85025; 93005; 96361; 96374; 96376; J2405

== ENCOUNTER 2018-09-28 08:37 | Outpatient (CLI) | payer OTHER ==
--- NOTE | 2018-09-28 12:12 | PET ---
Nuclear medicine FDG PET/CT: (Positron emission tomography and computed tomography) DATE: 09/28/2018 HISTORY: 63-year-old male with cancer of esophagogastric junction. Subsequent follow-up. COMPARISON: 06/06/2018 TECHNIQUE: IV injection of F-18 fluorodeoxyglucose (FDG) dose: 12.3 mCi. PET scan and attenuation correction CT performed from skull base to proximal thighs. FINDINGS: SUV (standard uptake values) numbers given are maximum SUVs. QCLR used. Apparently new finding of focus of increased uptake centered at the left cricoid cartilage with SUV o f 5.9. Because no definite interval change is detected in that location on the attenuation correction CT, this is probably artifact. There is a new 1 x 1.5 cm hypermetabolic left supraclavicular level 4 or 5 lymph node with SUV of 13. 2. There is a new finding of hypermetabolic activity in the distal esophagus a few centimeters superior to the esophagogastric junction with SUV of 7.1. This extends superiorly a distance of several centimeters. No mediastinal or hilar lymphadenopathy. No suspicious pulmonary nodules. There is a new finding of a small rind of tissue abutting the posterior surface of the descending tho racic aorta with SUV of 7.1. There is a new destructive osteolytic lesion involving the posterior lateral aspect of right ninth ri b with SUV of 5.1. There are multiple foci of increased uptake in bowel, including colon. It is uncertain how much of th is is physiologic and how much, if any, represents neoplasm. IMPRESSION: 1) interval development of hypermetabolic activity in the distal esophagus: Evidence for recurrence o f malignant neoplasm. 2) interval development of new metastatic left supraclavicular lymph node. 3) interval development of metastatic osseous lesion of right ninth rib. 4) interval development of small amount of hypermetabolic tissue abutting the descending thoracic aor ta. Uncertain whether this is metabolic or inflammatory. 5) interval development of focus of FDG avidity at left cricoid cartilage, probably artifact, but fol low-up suggested. 6) several foci of increased uptake in bowel, including colon, nonspecific.
== END 2018-09-28 08:38 | disposition home or self-care (01) ==
LOC: PET 08:37
PROVIDERS: ATTEND Internal Medicine Hematology & Oncology
DX: C16.0 Malignant neoplasm of cardia (principal); C77.0 Secondary and unspecified malignant neoplasm of lymph nodes of head, face and neck; M89.9 Disorder of bone, unspecified
CPT/HCPCS: 78815; A9552

== ENCOUNTER 2018-09-30 08:31 | Emergency (ER) | payer OTHER ==
[2018-09-30 09:30] LABS: Hemoglobin 13.2 g/dL (14.0-18.0); Mean Corpuscular HGB CONC 34.2 g/dL (32.0-36.0); Mean Corpuscular Hemoglobin 31.9 pg (27.0-31.0); Mean Corpuscular Volume 93.2 fL (78.0-98.0); Mean Platelet Volume 6.9 fL (7.4-10.4); Platelet Count 241 thou/uL (130-400); RBC Distribution Width 12.9 % (11.5-14.5); Red Blood Cell (RBC) Count 4.13 mill/uL (4.70-6.10); White Blood Cell (WBC) Count 5.9 thou/uL (4.8-10.8)
[2018-09-30 09:46] LABS: ALT (SGPT) 33 U/L (8-55); AST (SGOT) 30 U/L (5-34); Albumin 3.5 g/dL (3.4-4.8); Alkaline Phosphatase 244 U/L (40-150); Anion Gap 13 mmol/L (10-20); BUN (Urea Nitrogen) 14 mg/dL (8.4-25.7); Bilirubin, Total 0.5 mg/dL (0.2-1.2); Calc. Creatinine Clearance 0 mL/min (70-130); Calcium 9.2 mg/dL (7.8-10.44); Carbon Dioxide 24 mmol/L (23-31); Chloride 101 mmol/L (98-107); Estimated GFR-MDRD Greater than 90; Globulin 4.2 g/dL (2.4-3.5); Glucose 114 mg/dL (80-115); Lipase 10 U/L (8-78); Potassium 4.6 mmol/L (3.5-5.1); Protein, Total 7.7 g/dL (5.8-8.1); Sodium 133 mmol/L (136-145)
[2018-09-30 10:08] LABS: Hypochromia SLIGHT = 6-15 cells (100X) (0-5/hpf); Lymphocytes 8 % (21-51); MDiff Complete? YES; Monocytes 18 % (0-10); Neutrophil 70 % (42-75); Platelet Morphology Comment Appears Adequate; Reactive Lymphocytes 4 % (0-10)
== END 2018-09-30 10:00 | disposition home or self-care (01) ==
LOC: ERS 08:31
DX: K94.23 Gastrostomy malfunction (principal); I10 Essential (primary) hypertension; Z86.73 Personal history of transient ischemic attack (TIA), and cerebral infarction without residual deficits; Z79.899 Other long term (current) drug therapy; Z79.891 Long term (current) use of opiate analgesic
CPT/HCPCS: 36415; 80053; 83690; 85025; 99283

== ENCOUNTER 2018-10-02 08:22 | Emergency (ER) | payer OTHER | END 2018-10-02 10:45 | disposition home or self-care (01) | LOC: ERS 08:22 | DX: K94.23 Gastrostomy malfunction (principal); C15.5 Malignant neoplasm of lower third of esophagus; I10 Essential (primary) hypertension; Z86.73 Personal history of transient ischemic attack (TIA), and cerebral infarction without residual deficits; Z87.891 Personal history of nicotine dependence; Z79.899 Other long term (current) drug therapy; Z79.84 Long term (current) use of oral hypoglycemic drugs | CPT/HCPCS: 99282 ==

== ENCOUNTER 2018-10-04 15:36 | Emergency (ER) | payer OTHER | END 2018-10-04 17:30 | disposition home or self-care (01) | LOC: ERS 15:36 | DX: K94.23 Gastrostomy malfunction (principal); I10 Essential (primary) hypertension; Z86.73 Personal history of transient ischemic attack (TIA), and cerebral infarction without residual deficits; Z87.891 Personal history of nicotine dependence; Z79.899 Other long term (current) drug therapy | CPT/HCPCS: 99284 ==

== ENCOUNTER 2018-11-07 12:38 | Inpatient (IN) | payer OTHER ==
[2018-11-07] MEDS ORDERED: Sodium Chloride 0.9% 100 ML ONE (13:11)
[2018-11-07] MEDS ORDERED: Promethazine HCl 25 MG/ML VIAL ONE (13:11)
--- NOTE | 2018-11-07 13:37 | CT ---
CT Abdomen Pelvis W Con: 11/07/2018 1:04 PM CLINICAL INFORMATION: Generalized abdominal pain and hypotension; nausea and vomiting; esophageal can cer COMPARISON: 11/01/2017; 02/05/2018 TECHNIQUE: Multiple contiguous axial images were obtained and a CT of the abdomen and pelvis with IV contrast. Oral contrast was administered. Coronal reformats were performed. FINDINGS: Lower Chest: within normal limits. Abdomen: Liver: within normal limits. Bile Ducts: Normal caliber. Gallbladder: Surgically absent Pancreas: within normal limits. Spleen: within normal limits. Adrenals: within normal limits. Kidneys: within normal limits. Pelvis: Reproductive Organs: No pelvic masses. Ureters: within normal limits. Bladder: within normal limits. Peritoneum: No ascites or free air, no fluid collection. Bowel: Normal caliber. A feeding tube is seen in the small bowel. Mesentery and Retroperitoneum: No enlarged mesenteric or retroperitoneal lymph nodes. Vessels: Atherosclerotic calcifications. Abdominal Wall: within normal limits. Bones: Within normal limits IMPRESSION: No evidence of acute intraabdominal or pelvic abnormality.
[2018-11-07] MEDS ORDERED: ISOVUE-370 76%-LOCM 1 ML ONE (14:48)
--- NOTE | 2018-11-07 16:17 | HP ---
PRIMARY CARE PHYSICIAN: [facility]. REASON FOR ADMISSION: Transferred from [facility] for sepsis. HISTORY OF PRESENT ILLNESS: A 63-year-old male, who has underlying history of adenocarcinoma of esophagus. He has G-tube in place. He is able to eat mechanical soft diet and he also uses G-tube for nutrition and medication. He is a very poor historian. He reports that his blood pressure was low at home. He was feeling lately weak. He was having cough productive of yellowish green sputum. He was experiencing shortness of breath, nasal congestion. He denies any constipation or diarrhea. He was having nausea and vomiting. The patient reports that his symptoms started after upper respiratory infection with runny nose, nasal congestion, and sore throat 4 days ago. The patient reports that he is getting chemotherapy and last chemotherapy about a week ago. The patient's condition was day by day getting more and more weak and worse and that is why the patient was initially evaluated at [facility], where he was found with lactic acidosis. Subsequently, he was sent to our hospital for evaluation. In the emergency room, chest x-ray was unremarkable. He was complaining of vague abdominal discomfort and that is why CT abdomen and pelvis was done, which was also unremarkable. There was no obvious source of infection, but his lactic acid was keep rising and that is why we decided to keep this patient in hospital for admission. The patient received Levaquin and Zosyn and vancomycin at [facility] as well as IV fluid. EMERGENCY ROOM COURSE: The patient has received Levaquin, Zosyn, vancomycin, and IV fluid. REVIEW OF SYSTEMS: CONSTITUTIONAL: Negative for weight loss or gain, ability to conduct usual activities. SKIN: Negative for rash, itching. EYES: Negative for double vision, pain. ENT/MOUTH: Negative for nose bleeding, neck stiffness, pain, tenderness. CARDIOVASCULAR: Negative for palpitations, dyspnea on exertion, orthopnea. RESPIRATORY: Negative for shortness of breath, wheezing, cough, hemoptysis, fever or night sweats. GASTROINTESTINAL: Negative for poor appetite, abdominal pain, heartburn, nausea, vomiting, constipation, or diarrhea. GENITOURINARY: Negative for urgency, frequency, dysuria, nocturia. MUSCULOSKELETAL: Negative for pain, swelling. NEUROLOGIC/PSYCHIATRIC: Negative for anxiety, depression. ALLERGY/IMMUNOLOGIC: Negative for skin rash, bleeding tendency. Please see my HPI for pertinent positives and negatives. All other review of systems reviewed and negative except as mentioned in the HPI. PAST MEDICAL HISTORY: Esophagus cancer, adenocarcinoma, on chemotherapy as well as treated with radiation; G-tube placement for dysphagia; hypertension; history of hepatitis C; history of CVA with right-sided weakness; diabetes type 2; and gastroesophageal reflux disease. PAST SURGICAL HISTORY: Colostomy reversal, J-tube placement, and cholecystectomy. PAST PSYCHIATRIC HISTORY: Reviewed and negative. SOCIAL HISTORY: The patient lives with his brother and mother. No history of current tobacco, alcohol, or illicit drug abuse. FAMILY HISTORY: Positive for heart disease and one brother from aneurysm. ALLERGIES: NO KNOWN DRUG ALLERGY. CURRENT HOME MEDICATIONS: 1. Morphine sulfate IR 15 mL q.4 hourly p.r.n. 2. Duragesic patch 12 mcg daily. 3. Metformin 500 mg daily. 4. Metoprolol 50 mg b.i.d. 5. Folic acid 1 mg daily. 6. Protonix 40 mg daily. 7. Scopolamine patch p.r.n. basis. PHYSICAL EXAMINATION: VITAL SIGNS: Currently, blood pressure 100/71, pulse 81, respiratory rate 22, temperature 98.3, and saturation 96%. Weight 100.7 kg. GENERAL: The patient is currently alert, awake, no obvious acute distress. Chronically ill. HEENT: Head; normocephalic, atraumatic. Eyes; pupils are round and reactive to light. Extraocular muscle intact. ENT; dry mucous membranes. No oral lesion. No pharyngeal erythema. No exudate. NECK: Supple. No JVD. No thyromegaly. No carotid bruit. LUNGS: Coarse breath sound noted, but no wheezing. No accessory muscles of respiration. No rales. CARDIAC: S1 and S2 appears regular. No murmur. No gallop. No rub. ABDOMEN: G-tube in place. Vague discomfort and soreness noted, but no peritoneal sign. No guarding. No rigidity. No rebound. BACK: Unremarkable. No CVA tenderness. EXTREMITIES: Upper extremity, passive movement of all joints are normal. Lower extremity, no edema. Good distal pulsation. SKIN: No skin rash. PSYCHIATRIC: Normal affect. NEUROLOGIC: Grossly nonfocal examination. No new finding. SIGNIFICANT LABORATORY DATA: CT abdomen and pelvis showing no acute abdominal process. Chest x-ray based on my review no acute cardiopulmonary process. CBC; WBC 4.7, hemoglobin 12.4, and platelet 203 with bandemia. BMP; sodium 132, potassium 4.0, chloride 101, carbon dioxide 20, BUN 19, creatinine 0.83, glucose 77, and calcium 8.6. Lactic acid 2.7 and 4.0. LFT; AST 44, ALT 43, alkaline phosphatase 164, and albumin 3.0. Lipase less than 4. Troponin less than 0.010. Urinalysis unremarkable. ASSESSMENT AND PLAN: Impression: 1. Sepsis. 2. Sepsis-associated hypotension. 3. Lactic acidosis due to sepsis. 4. Leukopenia and bandemia, likely due to sepsis. 5. Abnormal LFT, likely due to history of chronic hepatitis C. 6. Hyponatremia due to volume depletion. 7. Nausea and vomiting. 8. Acute bronchitis. 9. Diabetes, type 2. 10. Adenocarcinoma of esophagus, on chemo radiation therapy. 11. Dysphagia with G-tube placement. 12. Chronic pain disorder. 13. Gastroesophageal reflux disease. Plan: 1. Admission to medical floor. Continue IV fluid NS at 125 mL/h. Start empiric antibiotic therapy with cefepime, Levaquin, and vancomycin. Florastor 250 mg daily. We will control his pain with his home medication. Hold blood pressure medication because of relatively low blood pressure. Follow up on culture result and repeat labs tomorrow. We will consult Oncology for their opinion. We will repeat labs tomorrow. Diet, as tolerated by mouth as well as nutritional supplement with G-tube. 2. DVT prophylaxis, Lovenox 40 mg subcu daily. 3. Gastrointestinal prophylaxis, Protonix 40 mg daily. CODE STATUS: The patient is full code. DISPOSITION PLAN: Based on clinical course, plan of care discussed with the patient in detail. We are expecting the patient's stay in hospital more than 2 midnights. Job ID: [id number]
[2018-11-07] MEDS ORDERED: hydrALAZINE 20 MG/ML VIAL SLOW IVP PRN (16:34)
[2018-11-07] MEDS ORDERED: Sodium Chloride 0.9% 1,000 ML IV SCH (16:34)
[2018-11-07] MEDS ORDERED: Loratadine 10 MG TAB PO PRN (16:34)
[2018-11-07] MEDS ORDERED: Senokot S 8.6-50 MG TAB PO PRN (16:34)
[2018-11-07] MEDS ORDERED: Bisacodyl 10 MG SUPP PR PRN (16:34)
[2018-11-07] MEDS ORDERED: Sodium Chloride 0.65% Nasal 44 ML BOT EA NARE PRN (16:34)
[2018-11-07] MEDS ORDERED: Morphine IR 10 MG/5 ML UDCUP PER TUBE PRN (16:34)
[2018-11-07] MEDS ORDERED: Cepastat Lozenges 1 LOZ PO PRN (16:34)
[2018-11-07] MEDS ORDERED: Dextrose 5% in Water 1,000 ML IV PRN (16:34)
[2018-11-07] MEDS ORDERED: Acetaminophen 325 MG TAB PO PRN (16:34)
[2018-11-07] MEDS ORDERED: Loperamide HCl 2 MG CAP PO PRN (16:34)
[2018-11-07] MEDS ORDERED: Zolpidem Tartrate 5 MG TAB PO PRN (16:34)
[2018-11-07] MEDS ORDERED: Calcium Carbonate 500 MG ChewTAB PO PRN (16:34)
[2018-11-07] MEDS ORDERED: HumaLOG 300 UNITS/3 ML VIAL SC PRN ×2 (16:34)
[2018-11-07 18:04] LABS: Lactic Acid 1.3 mmol/L (0.5-2.2)
[2018-11-07] MEDS: Dextrose 50% Abboject 50 ML SYRINGE SLOW IVP PRN (18:32)
[2018-11-07] MEDS: HYDROcodone/Acetaminophen 5/325 mg Tablet PO PRN (21:15)
[2018-11-07] MEDS: Cefepime 2 GM in Sodium Chloride 0.9% 100 ML IVPB SCH (21:16)
[2018-11-07] MEDS: Dextrose 5 % And 0.9 % NaCl 1,000 ML IV SCH (21:16)
[2018-11-08] MEDS: HYDROcodone/Acetaminophen 5/325 mg Tablet PO PRN ×4 (03:37→20:19)
[2018-11-08] MEDS: Dextrose 5 % And 0.9 % NaCl 1,000 ML IV SCH ×2 (05:08→14:44)
[2018-11-08 07:16] LABS: Hemoglobin 12.1 g/dL (14.0-18.0); Mean Corpuscular HGB CONC 33.1 g/dL (32.0-36.0); Mean Corpuscular Hemoglobin 30.9 pg (27.0-31.0); Mean Corpuscular Volume 93.4 fL (78.0-98.0); Mean Platelet Volume 6.9 fL (7.4-10.4); Platelet Count 174 thou/uL (130-400); RBC Distribution Width 14.8 % (11.5-14.5); White Blood Cell (WBC) Count 4.2 thou/uL (4.8-10.8)
[2018-11-08 07:28] LABS: ALT (SGPT) 35 U/L (8-55); AST (SGOT) 44 U/L (5-34); Albumin 2.7 g/dL (3.4-4.8); Alkaline Phosphatase 156 U/L (40-150); Anion Gap 13 mmol/L (10-20); BUN (Urea Nitrogen) 15 mg/dL (8.4-25.7); Bilirubin, Total 0.5 mg/dL (0.2-1.2); Calc. Creatinine Clearance 140 mL/min (70-130); Calcium 8.9 mg/dL (7.8-10.44); Carbon Dioxide 20 mmol/L (23-31); Chloride 107 mmol/L (98-107); Estimated GFR-MDRD Greater than 90; Globulin 3.9 g/dL (2.4-3.5); Glucose 68 mg/dL (80-115); Potassium 4.5 mmol/L (3.5-5.1); Protein, Total 6.6 g/dL (5.8-8.1); Sodium 135 mmol/L (136-145)
--- NOTE | 2018-11-08 07:46 | PDOC.HOSPP ---
- Subjective Subjective: Patient seen and examined. he reported some abdominal pain. No overnight events - Objective Vital Signs & Weight: Vital Signs (12 hours) Temp Pulse Resp BP BP Pulse Ox 11/08/18 07:28 98.2 F 72 18 112/76 97 11/08/18 04:00 98.1 F 108 H 21 H 113/75 97 11/08/18 00:00 98.3 F 76 18 111/78 98 11/07/18 20:00 98.3 F 80 18 107/7 L 94 L Weight Weight 220 lb I&O: 11/07/18 11/08/18 11/09/18 06:59 06:59 06:59 Intake Total 2100 Output Total 600 Balance 1500 Result Diagrams: 11/08/18 06:29 11/08/18 06:28 Additional Labs: Accuchecks 11/08/18 11/07/18 11/07/18 04:33 20:30 18:21 POC Glucose 118 H 84 47 L* 11/07/18 17:25 POC Glucose 49 L* ROS - Review of Systems All systems: All other ROS were reviewed and found negative. Constitutional: denies: fever, chills, sweats, weakness, malaise, other Eyes: denies: pain, vision change, conjunctivae inflammation, eyelid inflammation, redness, other ENT: denies: ear pain, ear discharge, nose pain, nose discharge, nose congestion , mouth pain, mouth swelling, throat pain, throat swelling, other Respiratory: reports: cough, sputum. denies: dry, shortness of breath, hemoptysis, SOB with excertion, pleuritic pain, wheezing, other Cardiovascular: denies: chest pain, palpitations, orthopnea, paroxysmal noc. dyspnea, edema, light headedness, other Gastrointestinal: reports: abdominal pain. denies: nausea, vomitting, diarrhea , constipation, melena, hematochezia, other Genitourinary: denies: dysuria, frequency, incontinence, hematuria, retention, other Musculoskeletal: denies: neck pain, shoulder pain, arm pain, back pain, hand pain, leg pain, foot pain, other - Medication Medications: Active Medications Generic Name Dose Route Start Last Admin Trade Name Freq PRN Reason Stop Dose Admin Hydrocodone Bitart/Acetaminophen 1 tab 11/07/18 16:34 08/07/19 03:37 [place] 5/325 PO 1 tab Q4H PRN Administration Moderate Pain (4-6) Dextrose/Water 25 gm 11/07/18 16:34 11/07/18 18:32 Dextrose 50% SLOW IVP 25 gm PRN PRN Administration Hypoglycemia Cefepime HCl 2 gm/ Sodium 100 mls @ 200 mls/hr 11/07/18 21:00 11/07/18 21:16 Chloride IVPB 100 mls Q12HR IVIS Administration Vancomycin HCl 2 gm/ Sodium 500 mls @ 250 mls/hr 11/07/18 18:00 11/08/18 05: 16 Chloride IVPB 500 mls 0600,1800 IVIS Administration Dextrose/Sodium Chloride 1,000 mls @ 125 mls/hr 11/07/18 21:00 11/08/18 05:08 D5 0.9% Ns IV Not Given .Q8H IVIS - Exam NAD, ill appearing Eye: PERRL, anicteric sclera ENT: normocephalic atraumatic, no oropharyngeal lesions Neck: supple, symmetric, no JVD Heart: RRR, no murmur, no gallops Respiratory: CTAB, no wheezes, no rales Gastrointestinal: soft, non-tender, non-distended (J-tube in place) Extremities: no cyanosis, no clubbing, no edema Skin: normal turgor, no lesions Neurological: CN's grossly intact, normal sensation to touch, no focal deficits Musculoskeletal: normal tone, normal strength Psychiatric: normal affect, normal behavior Hosp A/P (1) Acute bronchitis Code(s): J20.9 - ACUTE BRONCHITIS, UNSPECIFIED Status: Acute Qualifiers: Bronchitis organism: unspecified organism Qualified Code(s): J20.9 - Acute bronchitis, unspecified (2) Hypoglycemia Code(s): E16.2 - HYPOGLYCEMIA, UNSPECIFIED Status: Acute (3) Lactic acidosis Code(s): E87.2 - ACIDOSIS Status: Resolved (4) Leucopenia Code(s): D72.819 - DECREASED WHITE BLOOD CELL COUNT, UNSPECIFIED Status: Acute (5) Nausea & vomiting Code(s): R11.2 - NAUSEA WITH VOMITING, UNSPECIFIED Status: Resolved (6) Sepsis Code(s): A41.9 - SEPSIS, UNSPECIFIED ORGANISM Status: Acute (7) Sepsis associated hypotension Code(s): A41.9 - SEPSIS, UNSPECIFIED ORGANISM; I95.9 - HYPOTENSION, UNSPECIFIED Status: Acute (8) Chronic hepatitis C Code(s): B18.2 - CHRONIC VIRAL HEPATITIS C Status: Chronic (9) DM2 (diabetes mellitus, type 2) Status: Chronic Qualifiers: (10) Dysphagia Code(s): R13.10 - DYSPHAGIA, UNSPECIFIED Status: Chronic Qualifiers: (11) Esophageal adenocarcinoma Code(s): C15.9 - MALIGNANT NEOPLASM OF ESOPHAGUS, UNSPECIFIED Status: Chronic (12) Hypertension Code(s): I10 - ESSENTIAL (PRIMARY) HYPERTENSION Status: Chronic - Plan old records reviewed/req, continue antibiotics home medication reconciled continue empiric cefepime, levaquin and vancomycin today oncology consulted medication reviewed as above symptomatic treatment continue IVF follow culture
[2018-11-08 08:41] LABS: Band 10 % (5-11); Eosinophils 1 % (0-10); Lymphocytes 19 % (21-51); MDiff Complete? YES; Monocytes 28 % (0-10); Neutrophil 42 % (42-75); Platelet Morphology Comment Appears Adequate; Polychromasia SLIGHT = 2-3 cells (100X) (0-2/hpf)
[2018-11-08] MEDS: Cefepime 2 GM in Sodium Chloride 0.9% 100 ML IVPB SCH ×2 (08:52→22:31)
[2018-11-08] MEDS: Scopolamine 1.5 mg/72 hour Patch TOP SCH (08:55)
[2018-11-08] MEDS: Pantoprazole 40 MG GRANULES PACKET PER TUBE SCH (08:56)
[2018-11-08] MEDS: Saccharomyces boulardii 250 MG CAP PO SCH (08:56)
[2018-11-08] MEDS: Folic Acid 1 MG TAB PER TUBE SCH (08:57)
[2018-11-08] MEDS ORDERED: Scopolamine 1.5 mg/72 hour Patch TOP SCH (09:00)
[2018-11-08] MEDS ORDERED: FENTANYL 50 MCG TD SCH (09:00)
[2018-11-08] MEDS: Enoxaparin Sodium 40 MG/0.4 ML SYRINGE SC SCH (09:03)
[2018-11-08] MEDS: Metoprolol Tartrate 50 MG TAB PO SCH ×2 (09:04→20:19)
[2018-11-08] MEDS: fentaNYL 75 mcg/hour Patch TD SCH (09:33)
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
[2018-11-09] MEDS: HYDROcodone/Acetaminophen 5/325 mg Tablet PO PRN ×4 (03:21→20:47)
[2018-11-09] MEDS: Folic Acid 1 MG TAB PER TUBE SCH (08:26)
[2018-11-09] MEDS: Metoprolol Tartrate 50 MG TAB PO SCH ×2 (08:26→20:47)
[2018-11-09] MEDS: Saccharomyces boulardii 250 MG CAP PO SCH (08:26)
[2018-11-09] MEDS: Enoxaparin Sodium 40 MG/0.4 ML SYRINGE SC SCH (08:26)
[2018-11-09] MEDS: Pantoprazole 40 MG GRANULES PACKET PER TUBE SCH (08:26)
[2018-11-09] MEDS: Cefepime 2 GM in Sodium Chloride 0.9% 100 ML IVPB SCH (11:39)
--- NOTE | 2018-11-09 11:47 | PDOC.MOPN ---
Interval History: Patient states he feels better. Abdominal pain improved. No fever. - Vital Signs Vital Signs: Vital Signs (12 hours) Temp Pulse Resp BP Pulse Ox 11/09/18 08:00 98.3 F 82 18 126/83 95 11/09/18 04:20 98.4 F 68 18 126/75 98 11/09/18 00:33 98.3 F 69 16 97 11/09/18 00:30 62 95/59 L Weight Admit Weight 220 lb Weight 231 lb - Physical Exam General: Alert, Oriented x3, No acute distress HEENT: Atraumatic, PERRLA, EOMI, Mucous membr. moist/pink Lungs: Clear to auscultation, Normal air movement Cardiovascular: Regular rate, Normal S1, Normal S2, No murmurs, Gallops, Rubs Abdomen: Normal bowel sounds, Soft, Other (peg tube) Extremities: No clubbing, No cyanosis, No edema, Normal pulses, No tenderness/ swelling Skin: No rashes, No breakdown, No significant lesion Neurological: Normal speech Psych/Mental Status: Mental status NL - Labs Result Diagrams: 11/08/18 06:29 11/08/18 06:28 Lab results: Laboratory Results - last 24 hr 11/09/18 05:23: Vancomycin Trough 27.0 11/09/18 04:25: POC Glucose 133 H 11/08/18 19:35: POC Glucose 239 H 11/08/18 16:27: POC Glucose 95 11/08/18 11:36: POC Glucose 115 H Status: lab reviewed by me A/P - Problem (1) Sepsis Current Visit: Yes Code(s): A41.9 - SEPSIS, UNSPECIFIED ORGANISM Status: Acute (2) Esophageal adenocarcinoma Current Visit: Yes Code(s): C15.9 - MALIGNANT NEOPLASM OF ESOPHAGUS, UNSPECIFIED Status: Chronic - Plan Plan: Continue TF, IVF, empiric antibiotics await final culture results Next cycle of chemo planned for Tuesday morning home with ok with Sound
[2018-11-09] MEDS ORDERED: Diabetic Tussin 200 MG/10 ML UDCUP PO PRN (14:49)
[2018-11-09] MEDS ORDERED: Pancrelipase DR 12000 1 CAP FS PRN (16:18)
[2018-11-09] MEDS ORDERED: Sodium Bicarbonate Tab 325 MG TAB PER TUBE PRN (16:18)
[2018-11-09] MEDS: Vancomycin HCl 1.5 GM in Sodium Chloride 0.9% 250 ML 300 ML IVPB SCH (18:37)
[2018-11-09] MEDS ORDERED: Ondansetron ODT 4 MG TAB PO PRN (18:46)
[2018-11-09] MEDS: Ondansetron PF 4 MG/2 ML Vial IVP PRN (18:59)
[2018-11-09] MEDS ORDERED: HumaLOG 300 UNITS/3 ML VIAL SC PRN (19:27)
--- NOTE | 2018-11-09 19:47 | PRG ---
DATE OF SERVICE: SUBJECTIVE: The patient is a 63-year-old male with recurrent esophagogastric junction adenocarcinoma, currently on chemotherapy, presented to the hospital with generalized weakness along with productive cough. He is currently admitted with a diagnosis of sepsis. He is on broad-spectrum antibiotics. He continues to have intermittent nausea along with productive cough. He denies any fever. Symptomatically he feels slightly better. REVIEW OF SYSTEMS: The patient denies any chest pain, shortness of breath, or palpitations. CURRENT MEDICATIONS: Reviewed. PHYSICAL EXAMINATION: VITAL SIGNS: Temperature 98.3, pulse of 65, respirations of 18, blood pressure 129/83, O2 saturation 99% on room air. GENERAL: A 63-year-old male, in no apparent distress. LUNGS: Showed scattered rhonchi with rales at bases. HEART: S1 and S2 present. Regular rate and rhythm. ABDOMEN: Soft. Bowel sounds present. PEG tube site without any erythema or drainage. EXTREMITIES: No calf tenderness. NEUROLOGY: No new focal deficit. LABORATORY FINDINGS: From yesterday, WBC 4.2, hemoglobin 12.1. Sodium 135, potassium 4.5, chloride 107, bicarb 20, BUN 15, creatinine 0.77, albumin 2.7, lowest blood sugar was 47 on admission. His blood sugar has been in 170s. DIAGNOSTIC DATA: Chest x-ray by my review on admission was negative. CT scan of the abdomen and pelvis was negative. IMPRESSION: 1. Sepsis with acute organ dysfunction due to Aspiration Pneumonitis. 2. Lactic acidosis, suspected secondary to sepsis. 3. Diabetes mellitus type 2 with hypoglycemia. 4. 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 History of CVA. 6. Hypertension. 7. Chronic hepatitis C. 8. Hiatal hernia. PLAN: We will change antibiotics to vancomycin and Zosyn. We will repeat chest x-ray in a.m. Recheck labs in a.m. Continue fentanyl patch. We will change sliding scale to mild due to episodes of hypoglycemia. GI consultation per the family's request. We will continue metoprolol PPI along with scopolamine patch. Recheck labs in a.m. Chest x-ray in a.m. Monitor vancomycin level. Job ID: [id number] MTDD
[2018-11-09] MEDS: diphenhydrAMINE 25 MG CAP PO PRN (20:48)
[2018-11-09] MEDS: Piperacillin/Tazobactam 3.375 GM in Sodium Chloride 0.9% 100 ML IVPB SCH (21:02)
[2018-11-10] MEDS: HYDROcodone/Acetaminophen 5/325 mg Tablet PO PRN ×5 (01:54→21:47)
[2018-11-10] MEDS: Piperacillin/Tazobactam 3.375 GM in Sodium Chloride 0.9% 100 ML IVPB SCH ×4 (01:55→20:06)
[2018-11-10] MEDS: Ondansetron PF 4 MG/2 ML Vial IVP PRN ×2 (01:57→19:41)
[2018-11-10] MEDS: Vancomycin HCl 1.5 GM in Sodium Chloride 0.9% 250 ML 300 ML IVPB SCH (05:14)
[2018-11-10 05:15] LABS: ALT (SGPT) 23 U/L (8-55); AST (SGOT) 24 U/L (5-34); Albumin 2.4 g/dL (3.4-4.8); Alkaline Phosphatase 151 U/L (40-150); Anion Gap 10 mmol/L (10-20); BUN (Urea Nitrogen) 10 mg/dL (8.4-25.7); Bilirubin, Total 0.3 mg/dL (0.2-1.2); Calc. Creatinine Clearance 165 mL/min (70-130); Calcium 8.4 mg/dL (7.8-10.44); Carbon Dioxide 22 mmol/L (23-31); Chloride 107 mmol/L (98-107); Estimated GFR-MDRD Greater than 90; Globulin 3.2 g/dL (2.4-3.5); Glucose 105 mg/dL (80-115); Magnesium 1.9 mg/dL (1.6-2.6); Protein, Total 5.6 g/dL (5.8-8.1); Sodium 135 mmol/L (136-145)
[2018-11-10 05:23] LABS: Band 2 % (5-11); Eosinophils 2 % (0-10); Hemoglobin 11.3 g/dL (14.0-18.0); Hypochromia SLIGHT = 6-15 cells (100X) (0-5/hpf); Lymphocytes 22 % (21-51); MDiff Complete? YES; Mean Corpuscular HGB CONC 33.7 g/dL (32.0-36.0); Mean Corpuscular Hemoglobin 31.9 pg (27.0-31.0); Mean Corpuscular Volume 94.8 fL (78.0-98.0); Mean Platelet Volume 6.7 fL (7.4-10.4); Monocytes 26 % (0-10); Neutrophil 48 % (42-75); Platelet Count 139 thou/uL (130-400); Platelet Morphology Comment Appears Adequate; RBC Distribution Width 14.8 % (11.5-14.5); Red Blood Cell (RBC) Count 3.53 mill/uL (4.70-6.10); White Blood Cell (WBC) Count 3.1 thou/uL (4.8-10.8)
[2018-11-10] MEDS: Folic Acid 1 MG TAB PER TUBE SCH (08:09)
[2018-11-10] MEDS: Pantoprazole 40 MG GRANULES PACKET PER TUBE SCH (08:09)
[2018-11-10] MEDS: Saccharomyces boulardii 250 MG CAP PO SCH (08:10)
[2018-11-10] MEDS: Enoxaparin Sodium 40 MG/0.4 ML SYRINGE SC SCH (08:10)
--- NOTE | 2018-11-10 08:27 | RAD ---
CHEST 1 VIEW: Date: 11/10/18 HISTORY: Dyspnea. Pneumonia. COMPARISON: 11/07/18. FINDINGS: Cardiac silhouette is magnified and upper limits of normal in size. Pulmonary vasculature remains upp er limits of normal, slightly improved from the previous exam. Linear atelectasis projecting over eac h lung is stable. Mediastinum is midline with a right internal jugular Port-A-Cath in place. No lobar consolidation or evidence of pneumothorax. IMPRESSION: Borderline pulmonary vascular congestion, linear atelectasis, and other findings are stable. POS: STEFANI
[2018-11-10] MEDS: Metoprolol Tartrate 50 MG TAB PO SCH ×2 (08:36→20:07)
[2018-11-10] MEDS ORDERED: Scopolamine 1.5 mg/72 hour Patch TOP SCH (09:00)
--- NOTE | 2018-11-10 11:18 | PDOC.HOSPP ---
- Subjective Encounter Date: 11/10/18 Encounter Time: 11:16 Subjective: Patient seen and examined for Aspiration Pneumonitis/Dehydration. Tube feeds on hold. Small BM today. No Melena. No new complaints. No overnight events - Objective Vital Signs & Weight: Vital Signs (12 hours) Temp Pulse Resp BP Pulse Ox 11/10/18 08:00 98.3 F 56 L 16 114/74 96 11/10/18 04:11 98.5 F 63 16 110/78 100 11/10/18 00:17 98.1 F 60 18 125/83 99 Weight Admit Weight 220 lb Weight 231 lb I&O: 11/09/18 11/10/18 11/11/18 06:59 06:59 06:59 Intake Total 240 780 Output Total 1000 Balance 240 -220 Result Diagrams: 11/10/18 04:31 11/10/18 04:31 Additional Labs: Accuchecks 11/10/18 11/09/18 11/09/18 04:16 19:19 16:52 POC Glucose 269 H 240 H 172 H 11/09/18 11:50 POC Glucose 89 Radiology Reviewed by me: Yes (CXR - No infiltrate) ROS - Review of Systems Respiratory: reports: cough. denies: dry, shortness of breath, hemoptysis, SOB with excertion, pleuritic pain, sputum, wheezing, other Cardiovascular: denies: chest pain, palpitations, orthopnea, paroxysmal noc. dyspnea, edema, light headedness, other Gastrointestinal: reports: nausea, vomitting. denies: abdominal pain, diarrhea , constipation, melena, hematochezia, other - Medication Medications: Active Medications Generic Name Dose Route Start Last Admin Trade Name Freq PRN Reason Stop Dose Admin Hydrocodone Bitart/Acetaminophen 1 tab 11/07/18 16:34 11/10/18 08:11 [place] 5/325 PO 1 tab Q4H PRN Administration Moderate Pain (4-6) Dextrose/Water 25 gm 11/07/18 16:34 11/07/18 18:32 Dextrose 50% SLOW IVP 25 gm PRN PRN Administration Hypoglycemia Diphenhydramine HCl 25 mg 11/09/18 14:49 11/09/18 20:48 Benadryl PO 25 mg Q6H PRN Administration Itching & Insomnia Enoxaparin Sodium 40 mg 11/08/18 09:00 08/09/19 08:10 Lovenox SC 40 mg 0900 IVIS Administration Fentanyl 75 mcg 11/08/18 09:00 11/08/18 09:33 Duragesic TD 75 mcg Q3DAYS IVIS Administration Folic Acid 1 mg 11/08/18 09:00 11/10/18 08:09 Folvite PER TUBE 1 mg DAILY IVIS Administration Vancomycin HCl 1.5 gm/ Sodium 300 mls @ 200 mls/hr 11/09/18 18:00 11/10/18 05 :14 Chloride IVPB 300 mls 0600,1800 IVIS Administration Piperacillin Sod/Tazobactam 100 mls @ 200 mls/hr 11/09/18 20:00 11/10/18 08: 11 Sod 3.375 gm/ Sodium Chloride IVPB 100 mls 0200,0800,1400,2000 IVIS Administration Metoprolol Tartrate 50 mg 11/08/18 09:00 11/10/18 08:36 Lopressor PO Not Given BID IVIS Ondansetron HCl 4 mg 11/09/18 18:46 11/10/18 01:57 Zofran IVP 4 mg Q6H PRN Administration Nausea/Vomiting Pantoprazole Sodium 40 mg 11/08/18 09:00 11/10/18 08:09 Protonix PER TUBE 40 mg DAILY IVIS Administration Saccharomyces Boulardii 250 mg 11/08/18 09:00 11/10/18 08:10 Florastor PO 250 mg DAILY IVIS Administration Scopolamine 1.5 mg 11/08/18 07:00 11/08/18 08:55 Transderm Scop TOP 1.5 mg Q3D IVIS Administration Sodium Bicarbonate 650 mg 11/09/18 16:18 11/09/18 21:03 Bicarbonate, Sodium PER TUBE 650 mg .PER PROTOCOL PRN Administration ENTERAL TUBE OCCLUSION Sodium Chloride 10 ml 11/08/18 21:00 11/10/18 08:13 Flush - Normal Saline IVF 10 ml Q12HR IVIS Administration Sodium Chloride 10 ml 11/08/18 17:50 11/09/18 18:38 Flush - Normal Saline IVF 10 ml PRN PRN Administration Saline Flush - Exam NAD Neck: supple, no JVD Heart: RRR, no rubs Respiratory: CTAB, no rales Gastrointestinal: soft, non-tender, normal bowel sounds Neurological: no new deficit Psychiatric: normal affect, A&O x 3 Hosp A/P - Plan out of bed/ambulate, DVT proph w/lovenox IMPRESSION: 1. Sepsis with acute organ dysfunction due to Aspiration Pneumonitis. 2. Lactic acidosis, suspected secondary to sepsis. 3. Diabetes mellitus type 2 with hypoglycemia. 4. 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 History of CVA. 6. Hypertension. 7. Chronic hepatitis C. 8. Hiatal hernia. PLAN: Tube feed on hold Cont Zosyn DC Vancomycin Cont sliding scale GI consult Cont metoprolol Cont PPI AM labs
[2018-11-10] MEDS: Metoclopramide HCl 10 MG/2 ML VIAL IVP SCH ×2 (13:36→21:47)
--- NOTE | 2018-11-10 13:59 | PDOC.MOPN ---
Interval History: No complaints, NPO for possible procedure and due to aspiration pneumonitis. - Vital Signs Vital Signs: Vital Signs (12 hours) Temp Pulse Resp BP Pulse Ox 11/10/18 12:00 98.2 F 63 20 107/74 96 11/10/18 08:00 98.3 F 56 L 16 114/74 96 11/10/18 04:11 98.5 F 63 16 110/78 100 Weight Admit Weight 220 lb Weight 231 lb - Physical Exam General: Alert, Oriented x3, No acute distress HEENT: Atraumatic, PERRLA, EOMI, Mucous membr. moist/pink Lungs: Clear to auscultation, Normal air movement Cardiovascular: Regular rate, Normal S1, Normal S2, No murmurs, Gallops, Rubs Abdomen: Soft Extremities: No clubbing, No cyanosis, No edema, Normal pulses, No tenderness/ swelling Skin: No rashes, No breakdown, No significant lesion Neurological: Normal speech Psych/Mental Status: Mental status NL - Labs Result Diagrams: 11/10/18 04:31 11/10/18 04:31 Lab results: Laboratory Results - last 24 hr 11/10/18 12:22: POC Glucose 79 11/10/18 04:31: WBC 3.1 L, RBC 3.53 L, Hgb 11.3 L, Hct 33.4 L, MCV 94.8, MCH 31.9 H, MCHC 33.7, RDW 14.8 H, Plt Count 139, MPV 6.7 L, Neutrophils % (Manual) 48, Band Neuts % (Manual) 2 L, Lymphocytes % (Manual) 22, Monocytes % (Manual) 26 H, Eosinophils % (Manual) 2, Hypochromia SLIGHT = 6-15 cells, Plt Morphology Comment Appears Adequate 11/10/18 04:31: Sodium 135 L, Potassium 4.0, Chloride 107, Carbon Dioxide 22 L, Anion Gap 10, BUN 10, Creatinine 0.69 L, Estimated GFR (MDRD) Greater than 90, Glucose 105, Calcium 8.4, Magnesium 1.9, Total Bilirubin 0.3, AST 24, ALT 23, Alkaline Phosphatase 151 H, Serum Total Protein 5.6 L, Albumin 2.4 L, Globulin 3.2, Albumin/Globulin Ratio 0.8 L 11/10/18 04:16: POC Glucose 269 H 11/09/18 19:19: POC Glucose 240 H 11/09/18 16:52: POC Glucose 172 H Status: lab reviewed by me A/P - Problem (1) Sepsis Current Visit: Yes Code(s): A41.9 - SEPSIS, UNSPECIFIED ORGANISM Status: Acute (2) Esophageal adenocarcinoma Current Visit: Yes Code(s): C15.9 - MALIGNANT NEOPLASM OF ESOPHAGUS, UNSPECIFIED Status: Chronic - Plan Plan: Hold chemo therapy next week Follow-up Tuesday11/20/2018 at 0945 for chemotherapy
--- NOTE | 2018-11-10 16:15 | PDOC.PALCO ---
Palliative Care Consult - Consult Details Requesting Physician: Dr Isbell Reason for Consult: goals of care, advance directives assistance Family Members Present: None - Pertinent HPI Patient is a 63 year old male admitted for Aspiration pneumonia. Underlying diagnosis of adenocarcinoma of the esophagus. Patient states his most recent chemo treatment was a week ago, has been having increase in weakness, cough that tis productive, increase in shortness of breath. Mr Frost initially presented to [place] emergency room secondary to increasing in symptoms. He was transferred to [facility] for further care related to lactic acidosis. G -tube in place, patient does have a mechanical diet, but at times has difficulty swallowing. - Pertinent PMH Esophageal cancer, G-tube placement for dysphagia, hypertension, diabetes, Hep C , CVA, GERD. - Social History Smoking Status: Unknown if ever smoked Alcohol Use: none Drug Use History: pt denies any use Living Situation: with family/parents (Lives with his brother and mother) - Medications MAR Reviewed: Yes - Allergies Allergies/Adverse Reactions: Allergies Allergy/AdvReac Type Severity Reaction Status Date / Time No Known Drug Allergies Allergy Verified 11/07/18 17:06 - Subjective Awake and alert. Voices frustration with not eating at the time. Mild abdominal pain. NPO currently. ROS: Mildly productive cough, weakness, abdominal pain. All other systems negative - Objective Vital Signs: Vital Signs - Most Recent Temp Pulse Resp BP Pulse Ox 98.2 F 63 20 107/74 96 11/10/18 12:00 11/10/18 12:00 11/10/18 12:00 11/10/18 12:00 11/10/18 12:00 - Physical Exam Constitutional: NAD Deviation from normal: Chronically ill appearing, poor dentition HEENT: moist MMs, EOMI Deviation from normal: Productive coughadventicous breath sounds, appear clear to bases Cardiovascular: RRR Gastrointestinal: positive bowel sounds Deviation from normal: Tender, G-tube Musculoskeletal: edema present Deviation from normal: Scant edema to lower extremities Neurological: normal sensation, moves all 4 limbs Psychiatric: A&O x 3 Skin: normal turgor, cap refill <2 seconds - Problem List (1) Palliative care encounter Code(s): Z51.5 - ENCOUNTER FOR PALLIATIVE CARE Current Visit: Yes Status: Acute (2) Esophageal adenocarcinoma Code(s): C15.9 - MALIGNANT NEOPLASM OF ESOPHAGUS, UNSPECIFIED Current Visit: Yes Status: Chronic - Plan/Recommendations Plan: Mr Frost has also been seen by Palliative Care RN. In conversation with patient he expresses he currently wishes to have all resuscitation measures if needed. Discussed chronic disease processes, impact of chemo therapy. Demetris Aguilar visited with patient during my assessment and shared with patient Chemo would be held next week. DIscussed with patient Palliative Care would follow up next week after EGD today and further discuss his goals of care, what he "whats" and what a "good day" is comprised of. *Palliative Care RN to follow up with patient and identify specific goals for patient related to outcomes of current test. *reinforced NPO and increasing to Ice chips when able as per PT recommendations. *Teaching with patient in relation to swallowing/continued risk for aspiration. *Re-evaluate comfort as patient states he is having difficultly resting at night secondary to pain, encouraged to ask for pain medication prior to going to sleep. Possible dose failure and adjustment may be needed. [80] minutes spent on this encounter with >50% of the time in counseling and coordination of care. Thank you for this very appropriate consult.
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
[2018-11-10] MEDS: diphenhydrAMINE 25 MG CAP PO PRN (20:07)
[2018-11-10] MEDS: Triple Antibiotic Oint 1 GM Packet TOP SCH (20:07)
[2018-11-11] MEDS: HYDROcodone/Acetaminophen 5/325 mg Tablet PO PRN ×4 (01:33→20:05)
[2018-11-11] MEDS: Piperacillin/Tazobactam 3.375 GM in Sodium Chloride 0.9% 100 ML IVPB SCH ×4 (01:35→20:05)
[2018-11-11] MEDS: Ondansetron PF 4 MG/2 ML Vial IVP PRN (01:35)
[2018-11-11] MEDS ORDERED: Dextrose 5% in Water 1,000 ML IV SCH (02:30)
[2018-11-11] MEDS: Metoclopramide HCl 10 MG/2 ML VIAL IVP SCH ×3 (05:33→21:38)
[2018-11-11] MEDS: Scopolamine 1.5 mg/72 hour Patch TOP SCH (08:40)
[2018-11-11] MEDS: Metoprolol Tartrate 50 MG TAB PO SCH ×2 (08:47→20:06)
[2018-11-11] MEDS: Enoxaparin Sodium 40 MG/0.4 ML SYRINGE SC SCH (08:49)
[2018-11-11] MEDS: Folic Acid 1 MG TAB PER TUBE SCH (08:49)
[2018-11-11] MEDS: Pantoprazole 40 MG GRANULES PACKET PER TUBE SCH (08:49)
[2018-11-11] MEDS: Triple Antibiotic Oint 1 GM Packet TOP SCH ×2 (08:49→20:06)
[2018-11-11] MEDS: Saccharomyces boulardii 250 MG CAP PO SCH (08:49)
[2018-11-11] MEDS ORDERED: Promethazine HCl 25 MG/ML VIAL SLOW IVP PRN (11:04)
[2018-11-11] MEDS ORDERED: Promethazine HCl 25 MG/ML VIAL IM PRN (11:04)
[2018-11-11] MEDS ORDERED: Ondansetron HCl/PF 4 MG/2 ML Vial IVP PRN (11:04)
[2018-11-11] MEDS: fentaNYL 75 mcg/hour Patch TD SCH (11:53)
[2018-11-11] MEDS: Dextrose 50% Abboject 50 ML SYRINGE SLOW IVP PRN (12:33)
--- NOTE | 2018-11-11 12:57 | PDOC.HOSPP ---
- Subjective Encounter Date: 11/11/18 Encounter Time: 12:00 Subjective: Patient seen and examined for Sepsis/Aspiration/Nausea. s/p EGD with dilatation. No fever/chills. On IV Dextrose due to hypoglycemia. No other complaints. No overnight events - Objective Vital Signs & Weight: Vital Signs (12 hours) Temp Pulse Resp BP BP Pulse Ox 11/11/18 11:40 98.3 F 83 20 121/82 98 11/11/18 08:45 98 11/11/18 08:00 98.4 F 87 18 125/81 98 11/11/18 04:00 98.2 F 63 16 112/76 94 L Weight Admit Weight 220 lb Weight 231 lb I&O: 11/10/18 11/11/18 11/12/18 06:59 06:59 06:59 Intake Total 780 350 50 Output Total 1000 Balance -220 350 50 Result Diagrams: 11/10/18 04:31 11/10/18 04:31 Additional Labs: Accuchecks 11/11/18 11/11/18 11/11/18 12:04 04:53 02:58 POC Glucose 59 L* 72 79 11/11/18 11/11/18 11/10/18 02:15 00:12 20:01 POC Glucose 57 L* 98 104 11/10/18 16:21 POC Glucose 114 H ROS - Review of Systems Respiratory: denies: cough, dry, shortness of breath, hemoptysis, SOB with excertion, pleuritic pain, sputum, wheezing, other Cardiovascular: denies: chest pain, palpitations, orthopnea, paroxysmal noc. dyspnea, edema, light headedness, other - Medication Medications: Active Medications Generic Name Dose Route Start Last Admin Trade Name Freq PRN Reason Stop Dose Admin Hydrocodone Bitart/Acetaminophen 1 tab 11/07/18 16:34 11/11/18 11:56 [place] 5/325 PO 1 tab Q4H PRN Administration Moderate Pain (4-6) Dextrose/Water 25 gm 11/07/18 16:34 11/11/18 12:33 Dextrose 50% SLOW IVP 25 gm PRN PRN Administration Hypoglycemia Diphenhydramine HCl 25 mg 11/09/18 14:49 11/10/18 20:07 Benadryl PO 25 mg Q6H PRN Administration Itching & Insomnia Enoxaparin Sodium 40 mg 11/08/18 09:00 11/11/18 08:49 Lovenox SC Not Given 0900 IVIS Fentanyl 75 mcg 11/08/18 09:00 11/11/18 11:53 Duragesic TD 75 mcg Q3DAYS IVIS Administration Folic Acid 1 mg 11/08/18 09:00 11/11/18 08:49 Folvite PER TUBE 1 mg DAILY IVIS Administration Piperacillin Sod/Tazobactam 100 mls @ 200 mls/hr 11/09/18 20:00 11/11/18 08: 42 Sod 3.375 gm/ Sodium Chloride IVPB 100 mls 0200,0800,1400,2000 IVIS Administration Metoclopramide HCl 5 mg 11/10/18 14:00 11/11/18 05:33 Reglan IVP 5 mg Q8HR IVIS Administration Metoprolol Tartrate 50 mg 11/08/18 09:00 11/11/18 08:47 Lopressor PO 50 mg BID IVIS Administration Neomycin/Polymyxin/Bacitracin 1 gm 11/10/18 21:00 11/11/18 08:49 Triple Antibiotic TOP 1 gm BID IVIS Administration Ondansetron HCl 4 mg 11/09/18 18:46 11/11/18 01:35 Zofran IVP 4 mg Q6H PRN Administration Nausea/Vomiting Pantoprazole Sodium 40 mg 11/08/18 09:00 11/11/18 08:49 Protonix PER TUBE 40 mg DAILY IVIS Administration Saccharomyces Boulardii 250 mg 11/08/18 09:00 11/11/18 08:49 Florastor PO 250 mg DAILY IVIS Administration Scopolamine 1.5 mg 11/08/18 07:00 11/11/18 08:40 Transderm Scop TOP 1.5 mg Q3D IVIS Administration Sodium Bicarbonate 650 mg 11/09/18 16:18 11/09/18 21:03 Bicarbonate, Sodium PER TUBE 650 mg .PER PROTOCOL PRN Administration ENTERAL TUBE OCCLUSION Sodium Chloride 10 ml 11/08/18 21:00 11/11/18 08:50 Flush - Normal Saline IVF 10 ml Q12HR IVIS Administration Sodium Chloride 10 ml 11/08/18 17:50 11/09/18 18:38 Flush - Normal Saline IVF 10 ml PRN PRN Administration Saline Flush - Exam NAD Neck: supple, no JVD Heart: RRR, no gallops Respiratory: CTAB, rhonchi Respiratory - other findings: Scat rales at bases Gastrointestinal: soft, non-tender, normal bowel sounds Neurological: no new deficit Hosp A/P - Plan continue antibiotics, PT/OT, speech therapy, DVT proph w/lovenox, DVT proph w/ SCDs, GI proph IMPRESSION: 1. Sepsis with acute organ dysfunction due to Aspiration Pneumonitis. 2. Lactic acidosis, suspected secondary to sepsis. 3. Diabetes mellitus type 2 with hypoglycemia. 4. 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 Nausea - Started on Reglan 6. Recurrent Dysphagia - NPO per [employer]INE 7. Chronic hepatitis C. 8. Hiatal hernia. 9. History of CVA. 10. Hypertension. 11. Chronic pain syndrome 12. Moderate Protein Calorie Manutrition. PLAN: Restart tube feed Reduce IVF to 50 ml/hr - DC later today or in AM if sugars stable Cont Zosyn On IV Reglan Cont sliding scale Cont metoprolol and other meds as above AM labs
--- NOTE | 2018-11-11 14:47 | PRG ---
DATE OF SERVICE: 11/11/2018 TIME OF VISIT: 1:50 p.m. SUBJECTIVE: This is a 63-year-old male with dysphagia, esophageal cancer, status post chemotherapy. Underwent EGD this morning and found to have an ulcerated jin distal esophagus stricture. He underwent a dilation with a balloon size 15 mm. He appears comfortable. He complains of sore throat, but he has no chest pain, no abdominal pain. Neck is supple. I do not see any evidence of any subcutaneous emphysema. RECOMMENDATIONS: 1. Recommend full liquid diet today. 2. May add supplemental feeding. Job ID: [id number]
[2018-11-11] MEDS: Dextrose 5% in Water 1,000 ML IV SCH (16:06)
[2018-11-11] MEDS ORDERED: PROPOFOL 200 MG/20 ML VIAL ONE (16:41)
[2018-11-11] MEDS ORDERED: Lidocaine 1% PF 5 ML VIAL ONE (16:41)
[2018-11-12] MEDS: HYDROcodone/Acetaminophen 5/325 mg Tablet PO PRN ×5 (02:08→19:50)
[2018-11-12] MEDS: Piperacillin/Tazobactam 3.375 GM in Sodium Chloride 0.9% 100 ML IVPB SCH ×4 (02:16→19:49)
[2018-11-12] MEDS: Dextrose 5% in Water 1,000 ML IV SCH (02:18)
[2018-11-12] MEDS: Metoclopramide HCl 10 MG/2 ML VIAL IVP SCH ×3 (05:16→22:20)
[2018-11-12 06:29] LABS: Anion Gap 13 mmol/L (10-20); BUN (Urea Nitrogen) 11 mg/dL (8.4-25.7); Calc. Creatinine Clearance 165 mL/min (70-130); Calcium 8.4 mg/dL (7.8-10.44); Carbon Dioxide 20 mmol/L (23-31); Chloride 107 mmol/L (98-107); Estimated GFR-MDRD Greater than 90; Glucose 63 mg/dL (80-115); Sodium 136 mmol/L (136-145)
[2018-11-12 06:40] LABS: Band 2 % (5-11); Hemoglobin 11.5 g/dL (14.0-18.0); Hypochromia SLIGHT = 6-15 cells (100X) (0-5/hpf); Lymphocytes 22 % (21-51); MDiff Complete? YES; Mean Corpuscular HGB CONC 31.8 g/dL (32.0-36.0); Mean Corpuscular Volume 97.4 fL (78.0-98.0); Mean Platelet Volume 7.4 fL (7.4-10.4); Monocytes 17 % (0-10); Neutrophil 59 % (42-75); Platelet Count 140 thou/uL (130-400); Platelet Morphology Comment Appears Adequate; RBC Distribution Width 15.8 % (11.5-14.5)
[2018-11-12] MEDS: Triple Antibiotic Oint 1 GM Packet TOP SCH ×2 (09:20→19:51)
[2018-11-12] MEDS: Enoxaparin Sodium 40 MG/0.4 ML SYRINGE SC SCH (09:20)
[2018-11-12] MEDS: Pantoprazole 40 MG GRANULES PACKET PER TUBE SCH (09:20)
[2018-11-12] MEDS: Folic Acid 1 MG TAB PER TUBE SCH (09:20)
[2018-11-12] MEDS: Metoprolol Tartrate 50 MG TAB PO SCH ×2 (09:20→19:50)
[2018-11-12] MEDS: Saccharomyces boulardii 250 MG CAP PO SCH (09:20)
[2018-11-12] MEDS: Ondansetron PF 4 MG/2 ML Vial IVP PRN ×2 (11:01→19:53)
--- NOTE | 2018-11-12 13:13 | PDOC.HOSPP ---
- Subjective Encounter Date: 11/12/18 Encounter Time: 12:45 Subjective: Patient seen and examined for Sepsis. Not tolerating Full liqd diet. Nausea with 1 episode. Chronic Abd pain josselin during bolus feed. No new complaints. No overnight events - Objective Vital Signs & Weight: Vital Signs (12 hours) Temp Pulse Resp BP Pulse Ox 11/12/18 08:00 98 11/12/18 07:20 98.5 F 86 20 106/73 98 11/12/18 05:05 98.7 F 65 16 128/89 95 Weight Admit Weight 220 lb Weight 231 lb I&O: 11/11/18 11/12/18 11/13/18 06:59 06:59 06:59 Intake Total 350 2150 460 Output Total 1020 1150 Balance 350 1130 -690 Result Diagrams: 11/12/18 04:50 11/12/18 04:50 Additional Labs: Accuchecks 11/12/18 11/12/18 11/11/18 11:36 05:03 20:25 POC Glucose 81 66 L 80 11/11/18 11/11/18 16:18 14:11 POC Glucose 87 127 H ROS - Review of Systems Respiratory: denies: cough, dry, shortness of breath, hemoptysis, SOB with excertion, pleuritic pain, sputum, wheezing, other Cardiovascular: denies: chest pain, palpitations, orthopnea, paroxysmal noc. dyspnea, edema, light headedness, other - Medication Medications: Active Medications Generic Name Dose Route Start Last Admin Trade Name Freq PRN Reason Stop Dose Admin Hydrocodone Bitart/Acetaminophen 1 tab 11/07/18 16:34 11/12/18 09:21 [place] 5/325 PO 1 tab Q4H PRN Administration Moderate Pain (4-6) Dextrose/Water 25 gm 11/07/18 16:34 11/11/18 12:33 Dextrose 50% SLOW IVP 25 gm PRN PRN Administration Hypoglycemia Diphenhydramine HCl 25 mg 11/09/18 14:49 11/10/18 20:07 Benadryl PO 25 mg Q6H PRN Administration Itching & Insomnia Enoxaparin Sodium 40 mg 11/08/18 09:00 11/12/18 09:20 Lovenox SC 40 mg 0900 IVIS Administration Fentanyl 75 mcg 11/08/18 09:00 11/11/18 11:53 Duragesic TD 75 mcg Q3DAYS IVIS Administration Folic Acid 1 mg 11/08/18 09:00 11/12/18 09:20 Folvite PER TUBE 1 mg DAILY IVIS Administration Piperacillin Sod/Tazobactam 100 mls @ 200 mls/hr 11/09/18 20:00 11/12/18 08: 52 Sod 3.375 gm/ Sodium Chloride IVPB 100 mls 0200,0800,1400,2000 IVIS Administration Dextrose/Water 1,000 mls @ 50 mls/hr 11/11/18 12:55 11/12/18 02:18 D5w IV 1,000 mls .Q20H IVIS Administration Metoclopramide HCl 5 mg 11/10/18 14:00 11/12/18 05:16 Reglan IVP 5 mg Q8HR IVIS Administration Metoprolol Tartrate 50 mg 11/08/18 09:00 11/12/18 09:20 Lopressor PO 50 mg BID IVIS Administration Neomycin/Polymyxin/Bacitracin 1 gm 11/10/18 21:00 11/12/18 09:20 Triple Antibiotic TOP 1 gm BID IVIS Administration Ondansetron HCl 4 mg 11/09/18 18:46 11/12/18 11:01 Zofran IVP 4 mg Q6H PRN Administration Nausea/Vomiting Pantoprazole Sodium 40 mg 11/08/18 09:00 11/12/18 09:20 Protonix PER TUBE 40 mg DAILY IVIS Administration Saccharomyces Boulardii 250 mg 11/08/18 09:00 11/12/18 09:20 Florastor PO 250 mg DAILY IVIS Administration Scopolamine 1.5 mg 11/08/18 07:00 11/11/18 08:40 Transderm Scop TOP 1.5 mg Q3D IVIS Administration Sodium Bicarbonate 650 mg 11/09/18 16:18 11/09/18 21:03 Bicarbonate, Sodium PER TUBE 650 mg .PER PROTOCOL PRN Administration ENTERAL TUBE OCCLUSION Sodium Chloride 10 ml 11/08/18 21:00 11/12/18 09:21 Flush - Normal Saline IVF 10 ml Q12HR IVIS Administration Sodium Chloride 10 ml 11/08/18 17:50 11/09/18 18:38 Flush - Normal Saline IVF 10 ml PRN PRN Administration Saline Flush - Exam NAD Heart: RRR, no rubs Respiratory: CTAB, no ronchi Gastrointestinal: soft, normal bowel sounds Neurological: no new deficit Hosp A/P - Plan DVT proph w/lovenox IMPRESSION: 1. Sepsis with acute organ dysfunction due to Aspiration Pneumonitis. 2. Lactic acidosis, suspected secondary to sepsis. 3. Diabetes mellitus type 2 with hypoglycemia. 4. 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 s/p EGD with dilatation this admission 5. Nausea - Started on Reglan this admission per GI 6. Recurrent Dysphagia 7. Chronic hepatitis C. 8. Hiatal hernia. 9. History of CVA. 10. Hypertension. 11. Chronic pain syndrome 12. Moderate Protein Calorie Manutrition. PLAN: Will change diet to Clear liqd diet Cont tube feed as tolerated Cont IVF with Dextrose due to hypoglycemia Cont IV Zosyn/IV Reglan Cont sliding scale Cont other meds as above AM labs
--- NOTE | 2018-11-12 13:25 | PRG ---
DATE OF SERVICE: 11/12/2018 SUBJECTIVE: This is a 63-year-old male with esophageal carcinoma, status post chemotherapy. The patient also has J-tube placed for feeding purposes. He underwent EGD because of nausea, vomiting, and dysphagia. He did have extensive disease over his distal esophagus . He had a malignant stricture. This was dilated with a balloon size 15. He did well last time, was able to drink liquids without any problem. However, today coming up. He is on IV Zofran for nausea. He has no chest pain or abdominal pain. PHYSICAL EXAMINATION: GENERAL: Obese, appears comfortable. VITAL SIGNS: Stable, afebrile, pulse is 86, blood pressure 106/73. CARDIOVASCULAR: First and second heart sounds are normal. LUNGS: Clear to auscultation. ABDOMEN: Soft. No organomegaly. No tenderness. No masses. RECOMMENDATION: 1. Continue tube feeding. 2. Continue Zofran for nausea. 3. We will defer to Dr. Zendejas to see if he wants repeat dilation tomorrow. Job ID: [id number]
[2018-11-13] MEDS: Piperacillin/Tazobactam 3.375 GM in Sodium Chloride 0.9% 100 ML IVPB SCH ×4 (01:31→19:41)
[2018-11-13] MEDS: HYDROcodone/Acetaminophen 5/325 mg Tablet PO PRN ×6 (01:32→22:12)
[2018-11-13] MEDS: Ondansetron PF 4 MG/2 ML Vial IVP PRN ×2 (01:37→13:31)
[2018-11-13] MEDS: Dextrose 5% in Water 1,000 ML IV SCH (05:32)
[2018-11-13] MEDS: Metoclopramide HCl 10 MG/2 ML VIAL IVP SCH ×3 (05:32→22:22)
[2018-11-13] MEDS: Metoprolol Tartrate 50 MG TAB PO SCH ×2 (09:13→19:41)
[2018-11-13] MEDS: Enoxaparin Sodium 40 MG/0.4 ML SYRINGE SC SCH (09:13)
[2018-11-13] MEDS: Saccharomyces boulardii 250 MG CAP PO SCH (09:13)
[2018-11-13] MEDS: Pantoprazole 40 MG GRANULES PACKET PER TUBE SCH (09:14)
[2018-11-13] MEDS: Folic Acid 1 MG TAB PER TUBE SCH (09:14)
[2018-11-13] MEDS: Triple Antibiotic Oint 1 GM Packet TOP SCH ×2 (09:14→19:42)
[2018-11-13 09:16] LABS: Hemoglobin 12.1 g/dL (14.0-18.0); Mean Corpuscular HGB CONC 32.1 g/dL (32.0-36.0); Mean Corpuscular Hemoglobin 30.6 pg (27.0-31.0); Mean Corpuscular Volume 95.3 fL (78.0-98.0); Mean Platelet Volume 7.2 fL (7.4-10.4); Platelet Count 141 thou/uL (130-400); RBC Distribution Width 15.6 % (11.5-14.5); Red Blood Cell (RBC) Count 3.95 mill/uL (4.70-6.10); White Blood Cell (WBC) Count 4.5 thou/uL (4.8-10.8)
[2018-11-13 09:40] LABS: Anion Gap 10 mmol/L (10-20); BUN (Urea Nitrogen) 11 mg/dL (8.4-25.7); Calc. Creatinine Clearance 146 mL/min (70-130); Calcium 8.8 mg/dL (7.8-10.44); Carbon Dioxide 22 mmol/L (23-31); Chloride 109 mmol/L (98-107); Estimated GFR-MDRD Greater than 90; Glucose 72 mg/dL (80-115); Potassium 4.2 mmol/L (3.5-5.1); Sodium 137 mmol/L (136-145)
[2018-11-13 10:23] LABS: Band 2 % (5-11); Eosinophils 1 % (0-10); Lymphocytes 37 % (21-51); MDiff Complete? YES; Monocytes 20 % (0-10); Neutrophil 39 % (42-75); RBC Morphology Normal
--- NOTE | 2018-11-13 11:07 | PDOC.HOSPP ---
- Subjective Encounter Date: 11/13/18 (f/u dysphagia) Encounter Time: 11:06 Subjective: Pt denies any change in swallowing post-dilation. Continues to have constant abd pain, rates it 8/10 in intensity, and intermittent nausea. Reports bm's are normal. - Objective Vital Signs & Weight: Vital Signs (12 hours) Temp Pulse Resp BP Pulse Ox 11/13/18 08:35 98.6 F 64 16 119/85 93 L Weight Admit Weight 220 lb Weight 231 lb I&O: 11/12/18 11/13/18 11/14/18 06:59 06:59 06:59 Intake Total 2150 1250 290 Output Total 1020 1500 Balance 1130 -250 290 Result Diagrams: 11/13/18 08:52 11/13/18 08:52 Additional Labs: Accuchecks 11/13/18 11/12/18 11/12/18 04:34 20:08 17:24 POC Glucose 81 103 71 11/12/18 11/12/18 15:55 11:36 POC Glucose 63 L 81 ROS - Medication Medications: Active Medications Generic Name Dose Route Start Last Admin Trade Name Freq PRN Reason Stop Dose Admin Hydrocodone Bitart/Acetaminophen 1 tab 11/07/18 16:34 11/13/18 09:14 [place] 5/325 PO 1 tab Q4H PRN Administration Moderate Pain (4-6) Dextrose/Water 25 gm 11/07/18 16:34 11/11/18 12:33 Dextrose 50% SLOW IVP 25 gm PRN PRN Administration Hypoglycemia Diphenhydramine HCl 25 mg 11/09/18 14:49 11/10/18 20:07 Benadryl PO 25 mg Q6H PRN Administration Itching & Insomnia Enoxaparin Sodium 40 mg 11/08/18 09:00 11/13/18 09:13 Lovenox SC 40 mg 0900 IVIS Administration Fentanyl 75 mcg 11/08/18 09:00 11/11/18 11:53 Duragesic TD 75 mcg Q3DAYS IVIS Administration Folic Acid 1 mg 11/08/18 09:00 11/13/18 09:14 Folvite PER TUBE 1 mg DAILY IVIS Administration Piperacillin Sod/Tazobactam 100 mls @ 200 mls/hr 11/09/18 20:00 11/13/18 09: 12 Sod 3.375 gm/ Sodium Chloride IVPB 100 mls 0200,0800,1400,2000 IVIS Administration Dextrose/Water 1,000 mls @ 50 mls/hr 11/11/18 12:55 11/13/18 05:32 D5w IV 1,000 mls .Q20H IVIS Administration Metoclopramide HCl 5 mg 11/10/18 14:00 11/13/18 05:32 Reglan IVP 5 mg Q8HR IVIS Administration Metoprolol Tartrate 50 mg 11/08/18 09:00 11/13/18 09:13 Lopressor PO Not Given BID IVIS Neomycin/Polymyxin/Bacitracin 1 gm 11/10/18 21:00 11/13/18 09:14 Triple Antibiotic TOP 1 gm BID IVIS Administration Ondansetron HCl 4 mg 11/09/18 18:46 11/13/18 01:37 Zofran IVP 4 mg Q6H PRN Administration Nausea/Vomiting Pantoprazole Sodium 40 mg 11/08/18 09:00 11/13/18 09:14 Protonix PER TUBE 40 mg DAILY IVIS Administration Saccharomyces Boulardii 250 mg 11/08/18 09:00 11/13/18 09:13 Florastor PO 250 mg DAILY IVIS Administration Scopolamine 1.5 mg 11/08/18 07:00 11/11/18 08:40 Transderm Scop TOP 1.5 mg Q3D IVIS Administration Sodium Bicarbonate 650 mg 11/09/18 16:18 11/09/18 21:03 Bicarbonate, Sodium PER TUBE 650 mg .PER PROTOCOL PRN Administration ENTERAL TUBE OCCLUSION Sodium Chloride 10 ml 11/08/18 21:00 11/13/18 09:39 Flush - Normal Saline IVF Not Given Q12HR IVIS Sodium Chloride 10 ml 11/08/18 17:50 11/09/18 18:38 Flush - Normal Saline IVF 10 ml PRN PRN Administration Saline Flush - Exam NAD Heart: RRR, no murmur Respiratory: CTAB, no wheezes, no rales, no ronchi Gastrointestinal: soft, non-distended, normal bowel sounds, tender to palpation Gastrointestinal - other findings: ttp throughout, no palpable abnormality Extremities: no cyanosis, no clubbing, no edema Skin: normal turgor Psychiatric: normal affect Hosp A/P (1) Dysphagia Code(s): R13.10 - DYSPHAGIA, UNSPECIFIED Status: Chronic Qualifiers: - Plan - On Zosyn for aspiration pneumonitis - will continues this -started on Nov Appreciate GI eval - per Dr. Foote's note - to be seen by Dr. Zendejas - will continue scheduled IV reglan - continue the pain meds as pt reports this helps - uncertain etiology of abd pain as CT scan without abnormality on admission - continue other meds as ordered - change IVF to D5 1/2 NS rather than D5W - tolerating tube feeds today - continue - appreciate Pall Care working with patient - chemo rescheduled for next week dvt prophy - lovenox gi prophy - on PPI code status full
[2018-11-13] MEDS ORDERED: D5 1/2 NS 500 ML IV SCH (11:15)
[2018-11-13 11:51] VITALS: BMI 32.2
--- NOTE | 2018-11-13 13:55 | OP ---
DATE OF PROCEDURE: 11/11/2018 PROCEDURE PERFORMED: Esophagogastroduodenoscopy with balloon dilation, size 12 to 15 mm balloon, stage I. PREOPERATIVE DIAGNOSES: Esophageal cancer, dysphagia, nausea and vomiting. POSTOPERATIVE DIAGNOSES: 1. 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 2. Polypoid-appearing mucosal duodenal bulb, small ulceration. DESCRIPTION OF PROCEDURE: The patient was placed on his left lateral position and was given sedation by Anesthesia Department. A [employer]ax video gastroscope under direct vision passed down the oropharynx past the upper esophageal sphincter into the esophagus. The esophageal mucosa appeared normal . Over the distal esophagus, the patient was found to have ulcerated, friable, polypoid lesion. He had what appears to be a small amount of food bolus above the area of stricture. I could not advance the scope into the stomach. Next, we did a balloon dilation with a balloon size 12 to 15 mm. Initially, the balloon was placed at the GE junction under endoscopic guidance. Balloon was inflated to stage 1 for 2 more minutes. Following dilation, the lumen did open well. The balloon was removed. The scope was advanced into the stomach. Retroflexion, no pathology seen in the fundus or cardia. The gastric body and gastric antrum show gastritis. The duodenal bulb shows a polypoid-appearing mucosa with a small ulceration. No biopsies taken as he has previously documented esophageal cancer. Stomach decompressed and the scope was removed. RECOMMENDATIONS: 1. N.p.o. for now. 2. May start clear liquid diet . Job ID: [id number]
[2018-11-13] MEDS: Dextrose 5 %-0.45 % NaCl 1,000 ML IV SCH (14:30)
--- NOTE | 2018-11-13 15:35 | PDOC.MOPN ---
Interval History: Pain in LUQ at feeding tube site. Occasional nausea. - Vital Signs Vital Signs: Vital Signs (12 hours) Temp Pulse Resp BP Pulse Ox 11/13/18 08:35 98.6 F 64 16 119/85 93 L 11/13/18 07:24 93 L Weight Admit Weight 220 lb Weight 231 lb - Physical Exam General: Alert, Oriented x3 HEENT: Atraumatic, PERRLA, EOMI, Mucous membr. moist/pink Lungs: Clear to auscultation, Normal air movement Abdomen: Normal bowel sounds Extremities: No clubbing, No cyanosis, No edema, Normal pulses, No tenderness/ swelling Skin: No rashes, No breakdown, No significant lesion Neurological: Normal speech Psych/Mental Status: Mental status NL - Labs Result Diagrams: 11/13/18 08:52 11/13/18 08:52 Lab results: Laboratory Results - last 24 hr 11/13/18 11:45: POC Glucose 81 11/13/18 08:52: WBC 4.5 L, RBC 3.95 L, Hgb 12.1 L, Hct 37.6 L, MCV 95.3, MCH 30.6, MCHC 32.1, RDW 15.6 H, Plt Count 141, MPV 7.2 L, Neutrophils % (Manual) 39 L, Band Neuts % (Manual) 2 L, Lymphocytes % (Manual) 37, Monocytes % (Manual ) 20 H, Eosinophils % (Manual) 1, Basophils % (Manual) 1, Neutrophils # Not Reportable, Lymphocytes # Not Reportable, RBC Morph Comment Normal 11/13/18 08:52: Sodium 137, Potassium 4.2, Chloride 109 H, Carbon Dioxide 22 L, Anion Gap 10, BUN 11, Creatinine 0.78, Estimated GFR (MDRD) Greater than 90, Glucose 72 L, Calcium 8.8 11/13/18 04:34: POC Glucose 81 11/12/18 20:08: POC Glucose 103 11/12/18 17:24: POC Glucose 71 11/12/18 15:55: POC Glucose 63 L Status: lab reviewed by me A/P - Problem (1) Sepsis Current Visit: Yes Code(s): A41.9 - SEPSIS, UNSPECIFIED ORGANISM Status: Resolved (2) Esophageal adenocarcinoma Current Visit: Yes Code(s): C15.9 - MALIGNANT NEOPLASM OF ESOPHAGUS, UNSPECIFIED Status: Chronic (3) Abdominal pain Current Visit: Yes Code(s): R10.9 - UNSPECIFIED ABDOMINAL PAIN Status: Acute Qualifiers: Abdominal location: left upper quadrant Qualified Code(s): R10.12 - Left upper quadrant pain - Plan Plan: Appreciate GI recs Continue pain and nausea control Postpone chemo until next week
--- NOTE | 2018-11-13 17:02 | PRG ---
DATE OF SERVICE: 11/13/2018 SUBJECTIVE: The patient is lying in bed comfortably. He reports having waves of abdominal pain. He does have waves of nausea, but no emesis. He is tolerating small amount of liquids by mouth. No issue with jejunostomy tube feeding. He did have a bowel movement last night. PHYSICAL EXAMINATION: VITAL SIGNS: Temperature is 98.6, blood pressure 119/85, pulse of 64. GENERAL: He is alert, conversant, in no distress. HEENT: Shows anicteric sclerae. Oropharynx is moist. CV: Shows normal S1 and S2. Regular rate and rhythm. CHEST: Shows a breath sound. ABDOMEN: Mildly protuberant, but no distention. Diffusely soft, essentially nontender to deep palpation. Jejunostomy site appears normal without any drainage, J-tube is firmly secured. He has active bowel sounds in all four quadrants. There is no tympany. EXTREMITIES: Shows no edema. LABORATORY DATA: Sodium 137, potassium 4.2, chloride 109, CO2 of 22, creatinine 0.78, BUN of 11. WBCs 4.5, hemoglobin 12.1, platelet count of 141. ASSESSMENT: 1. Abdominal pain. Essentially unremarkable enhanced CT of abdomen on admission without any evidence of obstruction. PET scan from 6 weeks ago did show activity in the abdominal cavity in relation to small bowel and colon. I am wondering this could be the beginning of peritoneal seeding from the cancer. His exam is unremarkable at the present time without any evidence of peritoneal sign or obstruction. 2. Nausea, likely multifactorial. The patient reports having most severe nausea soon after chemotherapy, which tends to improve with time. 3. GE junction adenocarcinoma, progressive disease going from negative EGD 3 months ago due to obstructing bulky tumor two days ago. He also has progressive metastatic disease to bone, lymph nodes, and perhaps new peritoneal seeding based on PET scan 6 weeks ago. RECOMMENDATION: 1. Supportive and symptomatic care with pain medication morphine as needed. We will change ondansetron to schedule instead of p.r.n. 2. There is really no benefit or utility in repeating EGD as tumor cannot be dilated with any sustained benefit. Continue tube feeding through jejunostomy tube. 3. In general, nothing much can be offered from GI standpoint for his progressive metastatic esophageal cancer despite chemotherapy. Job ID: [id number]
[2018-11-13] MEDS: Ondansetron PF 4 MG/2 ML Vial IVP SCH (22:17)
[2018-11-14] MEDS: HYDROcodone/Acetaminophen 5/325 mg Tablet PO PRN ×4 (02:12→13:40)
[2018-11-14] MEDS: Piperacillin/Tazobactam 3.375 GM in Sodium Chloride 0.9% 100 ML IVPB SCH ×3 (02:19→13:31)
[2018-11-14] MEDS: Ondansetron PF 4 MG/2 ML Vial IVP SCH ×2 (05:58→13:32)
[2018-11-14] MEDS: Metoclopramide HCl 10 MG/2 ML VIAL IVP SCH ×2 (05:59→13:32)
[2018-11-14] MEDS: Scopolamine 1.5 mg/72 hour Patch TOP SCH (05:59)
[2018-11-14 06:53] LABS: Hemoglobin 11.5 g/dL (14.0-18.0); Mean Corpuscular HGB CONC 32.7 g/dL (32.0-36.0); Mean Platelet Volume 7.4 fL (7.4-10.4); Platelet Count 150 thou/uL (130-400); RBC Distribution Width 15.5 % (11.5-14.5); Red Blood Cell (RBC) Count 3.72 mill/uL (4.70-6.10); White Blood Cell (WBC) Count 4.3 thou/uL (4.8-10.8)
[2018-11-14 06:57] LABS: Anion Gap 10 mmol/L (10-20); BUN (Urea Nitrogen) 10 mg/dL (8.4-25.7); Calc. Creatinine Clearance 147 mL/min (70-130); Calcium 8.6 mg/dL (7.8-10.44); Carbon Dioxide 22 mmol/L (23-31); Chloride 109 mmol/L (98-107); Estimated GFR-MDRD Greater than 90; Glucose 72 mg/dL (80-115); Potassium 3.8 mmol/L (3.5-5.1); Sodium 137 mmol/L (136-145)
[2018-11-14 07:39] LABS: Band 3 % (5-11); Eosinophils 3 % (0-10); Lymphocytes 26 % (21-51); MDiff Complete? YES; Monocytes 29 % (0-10); Neutrophil 39 % (42-75); RBC Morphology Normal
[2018-11-14] MEDS: Enoxaparin Sodium 40 MG/0.4 ML SYRINGE SC SCH (08:12)
[2018-11-14] MEDS: Triple Antibiotic Oint 1 GM Packet TOP SCH ×2 (08:13→21:17)
[2018-11-14] MEDS: Folic Acid 1 MG TAB PER TUBE SCH (08:13)
[2018-11-14] MEDS: Pantoprazole 40 MG GRANULES PACKET PER TUBE SCH (08:13)
[2018-11-14] MEDS: Saccharomyces boulardii 250 MG CAP PO SCH (08:13)
[2018-11-14] MEDS: Metoprolol Tartrate 50 MG TAB PO SCH ×2 (08:13→21:17)
[2018-11-14] MEDS: fentaNYL 75 mcg/hour Patch TD SCH (09:56)
[2018-11-14] MEDS: Dextrose 5 %-0.45 % NaCl 1,000 ML IV SCH (13:33)
--- NOTE | 2018-11-14 14:24 | PDOC.MOPN ---
Interval History: Patient has intermittent secretions, nausea, and abdominal pain. - Vital Signs Vital Signs: Vital Signs (12 hours) Temp Pulse Resp BP Pulse Ox 11/14/18 08:23 100 11/14/18 08:19 98.3 F 61 16 125/86 100 Weight Admit Weight 220 lb Weight 231 lb - Physical Exam General: Alert, Oriented x3 HEENT: Atraumatic Lungs: Clear to auscultation Cardiovascular: Regular rate Abdomen: Normal bowel sounds, No tenderness Extremities: No clubbing Skin: No rashes Neurological: Normal speech Psych/Mental Status: Mental status NL - Labs Result Diagrams: 11/14/18 05:56 11/14/18 05:56 Lab results: Laboratory Results - last 24 hr 11/14/18 11:31: POC Glucose 117 H 11/14/18 05:56: WBC 4.3 L, RBC 3.72 L, Hgb 11.5 L, Hct 35.3 L, MCV 95.0, MCH 31.0, MCHC 32.7, RDW 15.5 H, Plt Count 150, MPV 7.4, Neutrophils % (Manual) 39 L , Band Neuts % (Manual) 3 L, Lymphocytes % (Manual) 26, Monocytes % (Manual) 29 H, Eosinophils % (Manual) 3, Neutrophils # Not Reportable, Lymphocytes # Not Reportable, RBC Morph Comment Normal 11/14/18 05:56: Sodium 137, Potassium 3.8, Chloride 109 H, Carbon Dioxide 22 L, Anion Gap 10, BUN 10, Creatinine 0.77, Estimated GFR (MDRD) Greater than 90, Glucose 72 L, Calcium 8.6 11/14/18 04:26: POC Glucose 111 H 11/13/18 19:41: POC Glucose 111 H 11/13/18 18:20: POC Glucose 77 11/13/18 16:19: POC Glucose 68 L Status: lab reviewed by me A/P - Problem (1) Sepsis Current Visit: Yes Code(s): A41.9 - SEPSIS, UNSPECIFIED ORGANISM Status: Resolved (2) Esophageal adenocarcinoma Current Visit: Yes Code(s): C15.9 - MALIGNANT NEOPLASM OF ESOPHAGUS, UNSPECIFIED Status: Chronic (3) Abdominal pain Current Visit: Yes Code(s): R10.9 - UNSPECIFIED ABDOMINAL PAIN Status: Chronic Qualifiers: Abdominal location: left upper quadrant Qualified Code(s): R10.12 - Left upper quadrant pain - Plan Plan: Continue Zofran change pain meds to home dose of lortab elixir if can manage symptoms, hopefully home tomorrow chemo on tuesday. He has only had 4 doses of chemo. Per Dr. duarte, consider immunotherapy on progression.
[2018-11-14] MEDS ORDERED: Ondansetron ORAL SOLN. 4 MG/5 ML UDCUP PO SCH (15:00)
--- NOTE | 2018-11-14 16:08 | PDOC.HOSPP ---
- Subjective Encounter Date: 11/14/18 (f/u abd pain) Encounter Time: 16:05 Subjective: Pt denies any change in pain - states same intensity and location. Denies n/v. Continues to spit oral secretions and unable to swallow. Denies any new sx. - Objective Vital Signs & Weight: Vital Signs (12 hours) Temp Pulse Resp BP Pulse Ox 11/14/18 08:23 100 11/14/18 08:19 98.3 F 61 16 125/86 100 Weight Admit Weight 220 lb Weight 231 lb I&O: 11/13/18 11/14/18 11/15/18 06:59 06:59 06:59 Intake Total 1250 3180 680 Output Total 1500 1920 Balance -250 1260 680 Result Diagrams: 11/14/18 05:56 11/14/18 05:56 Additional Labs: Accuchecks 11/14/18 11/14/18 11/13/18 11:31 04:26 19:41 POC Glucose 117 H 111 H 111 H 11/13/18 11/13/18 18:20 16:19 POC Glucose 77 68 L ROS - Medication Medications: Active Medications Generic Name Dose Route Start Last Admin Trade Name Freq PRN Reason Stop Dose Admin Dextrose/Water 25 gm 11/07/18 16:34 11/11/18 12:33 Dextrose 50% SLOW IVP 25 gm PRN PRN Administration Hypoglycemia Diphenhydramine HCl 25 mg 11/09/18 14:49 11/10/18 20:07 Benadryl PO 25 mg Q6H PRN Administration Itching & Insomnia Enoxaparin Sodium 40 mg 11/08/18 09:00 11/14/18 08:12 Lovenox SC 40 mg 0900 IVIS Administration Fentanyl 75 mcg 11/08/18 09:00 11/14/18 09:56 Duragesic TD 75 mcg Q3DAYS IVIS Administration Folic Acid 1 mg 11/08/18 09:00 11/14/18 08:13 Folvite PER TUBE 1 mg DAILY IVIS Administration Loperamide HCl 2 mg 11/07/18 16:34 11/13/18 19:41 Imodium PO 2 mg PRN PRN Administration Diarrhea/Loose Stools Metoprolol Tartrate 50 mg 11/08/18 09:00 11/14/18 08:13 Lopressor PO 50 mg BID IVIS Administration Neomycin/Polymyxin/Bacitracin 1 gm 11/10/18 21:00 11/14/18 08:13 Triple Antibiotic TOP 1 gm BID IVIS Administration Pantoprazole Sodium 40 mg 11/08/18 09:00 11/14/18 08:13 Protonix PER TUBE 40 mg DAILY IVIS Administration Saccharomyces Boulardii 250 mg 11/08/18 09:00 11/14/18 08:13 Florastor PO 250 mg DAILY IVIS Administration Scopolamine 1.5 mg 11/08/18 07:00 11/14/18 05:59 Transderm Scop TOP 1.5 mg Q3D IVIS Administration Sodium Bicarbonate 650 mg 11/09/18 16:18 11/09/18 21:03 Bicarbonate, Sodium PER TUBE 650 mg .PER PROTOCOL PRN Administration ENTERAL TUBE OCCLUSION Sodium Chloride 10 ml 11/08/18 21:00 11/14/18 08:16 Flush - Normal Saline IVF Not Given Q12HR IVIS Sodium Chloride 10 ml 11/08/18 17:50 11/09/18 18:38 Flush - Normal Saline IVF 10 ml PRN PRN Administration Saline Flush - Exam NAD Heart: RRR, no murmur, no gallops, no rubs Respiratory: CTAB, no wheezes, no rales, no ronchi Gastrointestinal: soft, non-distended, normal bowel sounds Extremities: no cyanosis, no clubbing, no edema Psychiatric: normal affect Hosp A/P (1) Dysphagia Code(s): R13.10 - DYSPHAGIA, UNSPECIFIED Status: Chronic Qualifiers: (2) Sepsis Code(s): A41.9 - SEPSIS, UNSPECIFIED ORGANISM Status: Resolved Qualifiers: Sepsis type: sepsis due to unspecified organism (3) Esophageal cancer Status: Chronic (4) Abdominal pain Code(s): R10.9 - UNSPECIFIED ABDOMINAL PAIN Status: Chronic Qualifiers: Abdominal location: generalized Qualified Code(s): R10.84 - Generalized abdominal pain (5) Chronic hepatitis C Code(s): B18.2 - CHRONIC VIRAL HEPATITIS C Status: Chronic (6) DM2 (diabetes mellitus, type 2) Status: Chronic Qualifiers: (7) Hypertension Code(s): I10 - ESSENTIAL (PRIMARY) HYPERTENSION Status: Chronic Qualifiers: Hypertension type: essential hypertension Qualified Code(s): I10 - Essential (primary) hypertension (8) Nausea & vomiting Code(s): R11.2 - NAUSEA WITH VOMITING, UNSPECIFIED Status: Resolved - Plan - appreciate Oncology - eval - pain meds adjusted, plan for outpatient chemo on Tuesday - Appreciate GI eval - no indication for repeat endoscopy secondary to tumor causing the blockage * change IV zofran and reglan to per tube * continue tube feeds - Hypoglycemia - d/c IVF and monitor blood sugars for hypoglycemia Aspiration pneumonitis - has received 6 days of zosyn - will d/c - diarrhea - check C diff - appreciate Pall Care working with patient If pain controlled - anticipate d/c to home tomorrow with outpatient chemo on Tuesday dvt prophy - lovenox gi prophy - on PPI code status full reviewed plan of care with patient, no questions or further needs at end of eval
[2018-11-14] MEDS: Ondansetron ODT 8 MG TAB PO SCH ×2 (16:32→21:21)
[2018-11-14] MEDS: Hydrocodone-Acetamin 15 ML UDCUP PO PRN ×2 (16:34→22:34)
[2018-11-14] MEDS: Metoclopramide HCl 10 MG TAB PO SCH ×2 (16:34→21:17)
--- NOTE | 2018-11-14 17:08 | PRG ---
DATE OF SERVICE: 11/14/2018 SUBJECTIVE: The patient feels bad today with more nausea and dry heaving. No emesis. He reports 2 episodes of loose stool. Abdominal pain is mild-to- moderate and episodic. PHYSICAL EXAMINATION: VITAL SIGNS: Temperature is 98.3, blood pressure 125/86, and pulse of 61. GENERAL: Alert, appears in no distress, overall comfortable. HEENT: Shows oropharynx moist, sclerae are anicteric. NECK: Supple. CV: Shows normal S1 and S2. Regular rate and rhythm. CHEST: Shows a breath sounds. ABDOMEN: Mildly protuberant, but no distention. No tympany. J-tube was in place, no drainage. He has diffuse active bowel sounds. Mild tenderness in the left upper quadrant, but no guarding or rebound. EXTREMITIES: Shows no edema. LABORATORY DATA: WBCs 4.3, hemoglobin 11.5, and platelet count of 150. Electrolytes within normal range. Creatinine 0.77. ASSESSMENT: 1. Esophageal cancer with progressive disease, on chemotherapy. 2. Abdominal pain with negative CT of the abdomen on admission. No signs of obstruction on exam. I suspect pain is multifactorial. 3. Nausea, multifactorial. RECOMMENDATION: 1. Continue with the symptomatic and supportive care, hopefully, the patient can be comfortable enough to be discharged for outpatient chemotherapy. The patient is currently on Fentanyl patch for pain control. Metoclopramide and ondansetron have been transitioned to p.o. 2. We will follow. Job ID: [id number] MTDD
[2018-11-15] MEDS: Hydrocodone-Acetamin 15 ML UDCUP PO PRN ×3 (04:34→17:35)
[2018-11-15] MEDS: Folic Acid 1 MG TAB PER TUBE SCH (08:54)
[2018-11-15] MEDS: Metoclopramide HCl 10 MG TAB PO SCH ×4 (08:54→21:09)
[2018-11-15] MEDS: Saccharomyces boulardii 250 MG CAP PO SCH (08:55)
[2018-11-15] MEDS: Triple Antibiotic Oint 1 GM Packet TOP SCH (08:55)
[2018-11-15] MEDS: Pantoprazole 40 MG GRANULES PACKET PER TUBE SCH (08:55)
[2018-11-15] MEDS: Enoxaparin Sodium 40 MG/0.4 ML SYRINGE SC SCH (08:55)
[2018-11-15] MEDS: Metoprolol Tartrate 50 MG TAB PO SCH ×2 (08:55→21:09)
[2018-11-15] MEDS: Ondansetron ODT 8 MG TAB PO SCH ×3 (09:16→21:09)
--- NOTE | 2018-11-15 11:15 | PDOC.HOSPP ---
- Subjective Encounter Date: 11/15/18 (f/u abd pain) Encounter Time: 11:11 Subjective: Pt reports worsening overnight of abd pain, the pain meds help but only for a short time. Nausea managed, no vomiting. Denies chest pain/dyspnea - Objective Vital Signs & Weight: Vital Signs (12 hours) Temp Pulse Resp BP Pulse Ox 11/15/18 07:42 98.5 F 57 L 18 133/89 90 L Weight Admit Weight 220 lb Weight 231 lb I&O: 11/14/18 11/15/18 11/16/18 06:59 06:59 06:59 Intake Total 3180 2860 540 Output Total 1920 1420 Balance 1260 1440 540 Result Diagrams: 11/14/18 05:56 11/14/18 05:56 Additional Labs: Accuchecks 11/15/18 11/14/18 11/14/18 06:12 19:58 16:27 POC Glucose 70 73 76 11/14/18 11:31 POC Glucose 117 H ROS - Medication Medications: Active Medications Generic Name Dose Route Start Last Admin Trade Name Freq PRN Reason Stop Dose Admin Hydrocodone Bitart/Acetaminophen 15 ml 11/14/18 14:12 11/14/18 16:34 Hydrocodone-Apap 7.5-325/15 PO 15 ml Q6H PRN Administration Moderate Pain (4-6) Hydrocodone Bitart/Acetaminophen 30 ml 11/14/18 14:15 11/15/18 10:39 Hydrocodone-Apap 7.5-325/15 PO 30 ml Q6H PRN Administration Moderate to Severe Pain (6-10) Dextrose/Water 25 gm 11/07/18 16:34 11/11/18 12:33 Dextrose 50% SLOW IVP 25 gm PRN PRN Administration Hypoglycemia Diphenhydramine HCl 25 mg 11/09/18 14:49 11/10/18 20:07 Benadryl PO 25 mg Q6H PRN Administration Itching & Insomnia Enoxaparin Sodium 40 mg 11/08/18 09:00 11/15/18 08:55 Lovenox SC 40 mg 0900 IVIS Administration Fentanyl 75 mcg 11/08/18 09:00 11/14/18 09:56 Duragesic TD 75 mcg Q3DAYS IVIS Administration Folic Acid 1 mg 11/08/18 09:00 11/15/18 08:54 Folvite PER TUBE 1 mg DAILY IVIS Administration Metoclopramide HCl 5 mg 11/14/18 17:00 11/15/18 08:54 Reglan PO 5 mg ACHS IVIS Administration Metoprolol Tartrate 50 mg 11/08/18 09:00 11/15/18 08:55 Lopressor PO 50 mg BID IVIS Administration Ondansetron HCl 8 mg 11/14/18 15:00 11/15/18 09:16 Zofran Odt PO 8 mg TID IVIS Administration Pantoprazole Sodium 40 mg 11/08/18 09:00 11/15/18 08:55 Protonix PER TUBE 40 mg DAILY IVIS Administration Saccharomyces Boulardii 250 mg 11/08/18 09:00 11/15/18 08:55 Florastor PO 250 mg DAILY IVIS Administration Scopolamine 1.5 mg 11/08/18 07:00 11/14/18 05:59 Transderm Scop TOP 1.5 mg Q3D IVIS Administration Sodium Bicarbonate 650 mg 11/09/18 16:18 11/09/18 21:03 Bicarbonate, Sodium PER TUBE 650 mg .PER PROTOCOL PRN Administration ENTERAL TUBE OCCLUSION Sodium Chloride 10 ml 11/08/18 21:00 11/15/18 08:56 Flush - Normal Saline IVF 10 ml Q12HR IVIS Administration Sodium Chloride 10 ml 11/08/18 17:50 11/09/18 18:38 Flush - Normal Saline IVF 10 ml PRN PRN Administration Saline Flush - Exam NAD Heart: RRR, no murmur, no gallops, no rubs Respiratory: CTAB, no wheezes, no rales, no ronchi Gastrointestinal: soft, normal bowel sounds Gastrointestinal - other findings: ttp throughout, no palpable abnormalities Musculoskeletal: normal tone, normal strength Psychiatric: normal affect Hosp A/P (1) Dysphagia Code(s): R13.10 - DYSPHAGIA, UNSPECIFIED Status: Chronic Qualifiers: (2) Sepsis Code(s): A41.9 - SEPSIS, UNSPECIFIED ORGANISM Status: Resolved Qualifiers: Sepsis type: sepsis due to unspecified organism (3) Esophageal cancer Status: Chronic (4) Abdominal pain Code(s): R10.9 - UNSPECIFIED ABDOMINAL PAIN Status: Chronic Qualifiers: Abdominal location: generalized Qualified Code(s): R10.84 - Generalized abdominal pain (5) Chronic hepatitis C Code(s): B18.2 - CHRONIC VIRAL HEPATITIS C Status: Chronic (6) DM2 (diabetes mellitus, type 2) Status: Chronic Qualifiers: (7) Hypertension Code(s): I10 - ESSENTIAL (PRIMARY) HYPERTENSION Status: Chronic Qualifiers: Hypertension type: essential hypertension Qualified Code(s): I10 - Essential (primary) hypertension (8) Nausea & vomiting Code(s): R11.2 - NAUSEA WITH VOMITING, UNSPECIFIED Status: Resolved - Plan - appreciate Oncology - eval - pain meds adjusted yesterday, anticipate further adjustment today - Appreciate GI eval - no indication for repeat endoscopy secondary to tumor causing the blockage * continue scheduled reglan and zofran per tube * reviewed meds such as dicyclomine - cannot add due to risk of paralytic ileus in combination with fentanyl. * check XR - Hypoglycemia - blood sugars low-normal off IVF. No indication to resume IVF. Aspiration pneumonitis - received 6 days of Zosyn - no indication for further abx - diarrhea - post abx and negative c diff - appreciate Dietary recommendations - tube feed type changed to increase calories dvt prophy - lovenox gi prophy - on PPI code status full reviewed plan of care with patient, no questions or further needs at end of eval XR reviewed and non-specific bowel gas pattern. D/w Mira Aguilar/MARK - she increased fentanyl patch. will also add gabapentin as another mechanism to address pain.
--- NOTE | 2018-11-15 11:25 | PDOC.MOPN ---
Interval History: Breakthrough pain with fentanyl 75 mcg. using Lortab q6h. Nausea last night. - Vital Signs Vital Signs: Vital Signs (12 hours) Temp Pulse Resp BP Pulse Ox 11/15/18 07:42 98.5 F 57 L 18 133/89 90 L Weight Admit Weight 220 lb Weight 231 lb - Physical Exam General: Alert, Oriented x3, No acute distress HEENT: Atraumatic, PERRLA, EOMI, Mucous membr. moist/pink Lungs: Clear to auscultation, Normal air movement Cardiovascular: Regular rate, Normal S1, Normal S2, No murmurs, Gallops, Rubs Abdomen: Normal bowel sounds, Soft, No tenderness, No hepatospenomegaly, No masses Extremities: No clubbing, No cyanosis, No edema, Normal pulses, No tenderness/ swelling Skin: No rashes, No breakdown, No significant lesion Neurological: Normal speech Psych/Mental Status: Mental status NL, Mood NL - Labs Result Diagrams: 11/14/18 05:56 11/14/18 05:56 Lab results: Laboratory Results - last 24 hr 11/15/18 06:12: POC Glucose 70 11/14/18 19:58: POC Glucose 73 11/14/18 16:27: POC Glucose 76 11/14/18 11:31: POC Glucose 117 H Status: lab reviewed by me A/P - Problem (1) Sepsis Current Visit: Yes Code(s): A41.9 - SEPSIS, UNSPECIFIED ORGANISM Status: Resolved (2) Esophageal adenocarcinoma Current Visit: Yes Code(s): C15.9 - MALIGNANT NEOPLASM OF ESOPHAGUS, UNSPECIFIED Status: Chronic (3) Abdominal pain Current Visit: Yes Code(s): R10.9 - UNSPECIFIED ABDOMINAL PAIN Status: Chronic Qualifiers: Abdominal location: generalized Qualified Code(s): R10.84 - Generalized abdominal pain - Plan Plan: Adjust fentanyl patch to 100 mcg continue margaret contreras Discussed with Dr. Mena
--- NOTE | 2018-11-15 12:08 | PRG ---
DATE OF SERVICE: 11/15/2018 SUBJECTIVE: The patient is sitting up in bed, appears much more comfortable today. He still reports having abdominal pain. Nausea is better. OBJECTIVE: VITAL SIGNS: Temperature is 98.5, blood pressure 132/89, and pulse of 57. GENERAL: He is alert, conversant, in no distress. HEENT: Shows anicteric sclerae. NECK: Supple. CV: Shows normal S1 and S2. Regular rate and rhythm. CHEST: Shows a breath sound. ABDOMEN: Soft and essentially nontender to palpation. He has active bowel sounds. J-tube looks intact without drainage or induration. EXTREMITIES: Shows no edema. LABORATORY DATA: None today. ASSESSMENT: 1. Metastatic esophageal cancer with progression, on chemo. 2. Chronic abdominal pain, no significant process on CT. 3. Nausea, multifactorial. PLAN: 1. Continue with metoclopramide and ondansetron for his nausea. I think, overall nausea is not a main issue. 2. Ongoing chronic abdominal pain, pain medication is being adjusted. 3. No other testing or input from GI standpoint. Please call if needed. Job ID: [id number]
--- NOTE | 2018-11-15 13:09 | RAD ---
TWO VIEWS ABDOMEN: DATE: 11/15/2018. PROVIDED CLINICAL HISTORY: Abdominal pain. FINDINGS: The abdominal bowel gas pattern is nonspecific. Cholecystectomy clips are seen in the right upper qu adrant. Sclerotic foci involving the right hemipelvis are demonstrated, the etiology and significanc e of which are uncertain. Catheter overlies the left hemiabdomen. IMPRESSION: Nonspecific bowel gas pattern. POS: [facility]
[2018-11-15] MEDS: fentaNYL 100 mcg/hour Patch TD SCH (13:17)
--- NOTE | 2018-11-15 18:04 | PDOC.EVN ---
Event Note - Event Note Event Note: Called by RN for pt refusing bolus feeds - c/o diarrhea and upset stomach earlier and has received 2 feeds today. Will start some IVF and re-address in AM
[2018-11-15] MEDS: Dextrose 5 %-0.45 % NaCl 1,000 ML IV SCH (18:39)
[2018-11-15] MEDS ORDERED: Gabapentin 100 MG CAP PO SCH (21:00)
[2018-11-15] MEDS: Gabapentin 100 MG CAP PO SCH (21:09)
[2018-11-16] MEDS: Hydrocodone-Acetamin 15 ML UDCUP PO PRN ×4 (00:45→17:42)
[2018-11-16] MEDS: Dextrose 5 %-0.45 % NaCl 1,000 ML IV SCH ×2 (05:12→08:36)
[2018-11-16 05:40] LABS: Anion Gap 10 mmol/L (10-20); BUN (Urea Nitrogen) 8 mg/dL (8.4-25.7); Calc. Creatinine Clearance 147 mL/min (70-130); Calcium 8.8 mg/dL (7.8-10.44); Carbon Dioxide 23 mmol/L (23-31); Chloride 108 mmol/L (98-107); Estimated GFR-MDRD Greater than 90; Glucose 77 mg/dL (80-115); Sodium 137 mmol/L (136-145)
[2018-11-16 05:49] LABS: Band 2 % (5-11); Eosinophils 2 % (0-10); Hemoglobin 12.4 g/dL (14.0-18.0); Hypochromia SLIGHT = 6-15 cells (100X) (0-5/hpf); Lymphocytes 34 % (21-51); MDiff Complete? YES; Mean Corpuscular HGB CONC 32.2 g/dL (32.0-36.0); Mean Corpuscular Hemoglobin 31.5 pg (27.0-31.0); Mean Corpuscular Volume 97.8 fL (78.0-98.0); Mean Platelet Volume 7.4 fL (7.4-10.4); Monocytes 14 % (0-10); Neutrophil 48 % (42-75); Platelet Count 207 thou/uL (130-400); Platelet Morphology Comment Appears Adequate; RBC Distribution Width 15.8 % (11.5-14.5); Red Blood Cell (RBC) Count 3.95 mill/uL (4.70-6.10); White Blood Cell (WBC) Count 4.4 thou/uL (4.8-10.8)
[2018-11-16] MEDS: Ondansetron ODT 8 MG TAB PO SCH ×3 (08:25→19:45)
[2018-11-16] MEDS: Saccharomyces boulardii 250 MG CAP PO SCH (08:26)
[2018-11-16] MEDS: Folic Acid 1 MG TAB PER TUBE SCH (08:26)
[2018-11-16] MEDS: Metoclopramide HCl 10 MG TAB PO SCH ×4 (08:27→19:42)
[2018-11-16] MEDS: Gabapentin 100 MG CAP PO SCH ×2 (08:27→19:42)
[2018-11-16] MEDS: Metoprolol Tartrate 50 MG TAB PO SCH ×2 (08:28→19:43)
[2018-11-16] MEDS: Pantoprazole 40 MG GRANULES PACKET PER TUBE SCH (08:29)
--- NOTE | 2018-11-16 11:36 | PDOC.MOPN ---
Interval History: had abdominal pain last night, thinks it's from TF. Complains of bilateral pain at diaphragm. - Vital Signs Vital Signs: Vital Signs (12 hours) Temp Pulse Resp BP Pulse Ox 11/16/18 08:08 98.1 F 106 H 18 119/85 95 Weight Admit Weight 220 lb Weight 231 lb - Physical Exam General: Alert, Oriented x3, No acute distress HEENT: Atraumatic, PERRLA, EOMI, Mucous membr. moist/pink Lungs: Clear to auscultation, Normal air movement Cardiovascular: Regular rate, Normal S1, Normal S2, No murmurs, Gallops, Rubs Abdomen: Normal bowel sounds, Soft Extremities: No clubbing, No cyanosis, No edema, Normal pulses, No tenderness/ swelling Skin: No rashes, No breakdown, No significant lesion Neurological: Normal gait, Normal speech, Strength at 5/5 X4 ext, Normal tone, Sensation intact, Cranial nerves 3-12 NL, Reflexes 2+ Psych/Mental Status: Mental status NL, Mood NL - Labs Result Diagrams: 11/16/18 05:02 11/16/18 05:02 Lab results: Laboratory Results - last 24 hr 11/16/18 05:36: POC Glucose 82 11/16/18 05:02: WBC 4.4 L, RBC 3.95 L, Hgb 12.4 L, Hct 38.6 L, MCV 97.8, MCH 31.5 H, MCHC 32.2, RDW 15.8 H, Plt Count 207, MPV 7.4, Neutrophils % (Manual) 48 , Band Neuts % (Manual) 2 L, Lymphocytes % (Manual) 34, Monocytes % (Manual) 14 H, Eosinophils % (Manual) 2, Hypochromia SLIGHT = 6-15 cells, Plt Morphology Comment Appears Adequate 11/16/18 05:02: Sodium 137, Potassium 4.0, Chloride 108 H, Carbon Dioxide 23, Anion Gap 10, BUN 8 L, Creatinine 0.77, Estimated GFR (MDRD) Greater than 90, Glucose 77 L, Calcium 8.8 11/15/18 19:10: POC Glucose 94 11/15/18 15:30: POC Glucose 92 11/15/18 12:45: POC Glucose 84 Status: lab reviewed by me A/P - Problem (1) Sepsis Current Visit: Yes Code(s): A41.9 - SEPSIS, UNSPECIFIED ORGANISM Status: Resolved (2) Esophageal adenocarcinoma Current Visit: Yes Code(s): C15.9 - MALIGNANT NEOPLASM OF ESOPHAGUS, UNSPECIFIED Status: Chronic (3) Abdominal pain Current Visit: Yes Code(s): R10.9 - UNSPECIFIED ABDOMINAL PAIN Status: Chronic Qualifiers: Abdominal location: generalized Qualified Code(s): R10.84 - Generalized abdominal pain - Plan Plan: Continue fentanyl and lortab elixir CT chest Continue TF, supportive care
[2018-11-16] MEDS: Enoxaparin Sodium 40 MG/0.4 ML SYRINGE SC SCH (11:51)
--- NOTE | 2018-11-16 13:05 | CT ---
CT CHEST WITH IV CONTRAST: 11/16/18 PROVIDED CLINICAL HISTORY: Esophageal cancer. FINDINGS: Comparison is made with the CT examination performed 08/21/18. Reference is made to the PET scan dated 09/28/18. The heart, pericardium, and great vessels demonstrate a stable CT appearance. There are multiple lymph nodes within the posterior mediastinum adjacent to the descending thoracic e sophagus. These are not enlarged by size criteria but are abnormal by number. These appear decreased in size with respect to the prior CT examination. For example, the largest prior lymph node measured about 1.6 cm in short axis and now measures about 1 cm in short axis. There is abnormal soft tissue d ensity adjacent to the posterior aspects of the descending thoracic aorta. This appears enlarged with respect to the prior examination. Currently, it measures about 2.3 x 0.8 cm whereas on the prior it measured about 1.4 x 0.8 cm. Abnormal retrocrural lymph nodes are also demonstrated, also appearing s maller than on prior. There is no evidence for hilar or axillary lymph node enlargement. There are mild bilateral pleural effusions. The lungs are free of significant opacity. The airway appears patent and of normal caliber. There is an osteolytic process with associated bone healing response involving the posterolateral rig ht ninth rib, which demonstrates interval bone formation with respect to the prior examination. No ad ditional concerning osteoblastic or osteolytic lesions are apparent. There is probable low grade perry droid lesion within the left posterior fifth rib. IMPRESSION: 1. Abnormal prominent by number but not pathologically enlarged posterior mediastinal and retroc [place] lymph nodes, appearing decreased in size with respect to prior. 2. Soft tissue mass adjacent to the posterior aspects of the descending thoracic aorta, appearin g increased in size with respect to the prior study. 3. Lytic lesion involving the posterolateral right ninth rib with evidence for bone healing. POS: [facility]
[2018-11-16] MEDS ORDERED: Sodium Bicarbonate Tab 325 MG TAB PER TUBE PRN (15:45)
[2018-11-16] MEDS ORDERED: Pancrelipase DR 12000 1 CAP FS PRN (15:45)
--- NOTE | 2018-11-16 15:57 | PDOC.HOSPP ---
- Subjective Encounter Date: 11/16/18 Encounter Time: 12:00 Subjective: pt has vague abdominal discomfort, no fever, no vomiting - Objective Vital Signs & Weight: Vital Signs (12 hours) Temp Pulse Resp BP Pulse Ox 11/16/18 08:08 98.1 F 106 H 18 119/85 95 Weight Admit Weight 220 lb Weight 231 lb I&O: 11/15/18 11/16/18 11/17/18 06:59 06:59 06:59 Intake Total 2860 2850 Output Total 1420 1150 Balance 1440 1700 Result Diagrams: 11/16/18 05:02 11/16/18 05:02 Additional Labs: Accuchecks 11/16/18 11/16/18 11/15/18 11:36 05:36 19:10 POC Glucose 77 82 94 11/15/18 15:30 POC Glucose 92 Radiology Reviewed by me: Yes (CT chest) ROS - Review of Systems Eyes: denies: pain, vision change, conjunctivae inflammation, eyelid inflammation, redness, other ENT: denies: ear pain, ear discharge, nose pain, nose discharge, nose congestion , mouth pain, mouth swelling, throat pain, throat swelling, other Respiratory: denies: cough, dry, shortness of breath, hemoptysis, SOB with excertion, pleuritic pain, sputum, wheezing, other Cardiovascular: denies: chest pain, palpitations, orthopnea, paroxysmal noc. dyspnea, edema, light headedness, other Gastrointestinal: reports: nausea, abdominal pain. denies: vomitting, diarrhea , constipation, melena, hematochezia, other Genitourinary: denies: dysuria, frequency, incontinence, hematuria, retention, other Musculoskeletal: denies: neck pain, shoulder pain, arm pain, back pain, hand pain, leg pain, foot pain, other Skin: denies: rash, lesions, gisell, bruising, other - Medication Medications: Active Medications Generic Name Dose Route Start Last Admin Trade Name Freq PRN Reason Stop Dose Admin Hydrocodone Bitart/Acetaminophen 15 ml 11/14/18 14:12 11/14/18 16:34 Hydrocodone-Apap 7.5-325/15 PO 15 ml Q6H PRN Administration Moderate Pain (4-6) Hydrocodone Bitart/Acetaminophen 30 ml 11/14/18 14:15 11/16/18 11:49 Hydrocodone-Apap 7.5-325/15 PO 30 ml Q6H PRN Administration Moderate to Severe Pain (6-10) Dextrose/Water 25 gm 11/07/18 16:34 11/11/18 12:33 Dextrose 50% SLOW IVP 25 gm PRN PRN Administration Hypoglycemia Diphenhydramine HCl 25 mg 11/09/18 14:49 11/10/18 20:07 Benadryl PO 25 mg Q6H PRN Administration Itching & Insomnia Enoxaparin Sodium 40 mg 11/08/18 09:00 11/16/18 11:51 Lovenox SC 40 mg 0900 IVIS Administration Fentanyl 100 mcg 11/15/18 11:45 11/15/18 13:17 Duragesic TD 100 mcg Q3D IVIS Administration Folic Acid 1 mg 11/08/18 09:00 11/16/18 08:26 Folvite PER TUBE 1 mg DAILY IVIS Administration Gabapentin 100 mg 11/15/18 21:00 11/16/18 08:27 Neurontin PO 100 mg BID IVIS Administration Dextrose/Sodium Chloride 1,000 mls @ 100 mls/hr 11/15/18 18:15 11/16/18 08:36 D5 1/2 Ns IV 1,000 mls .Q10H IVIS Administration Metoclopramide HCl 5 mg 11/14/18 17:00 11/16/18 11:51 Reglan PO 5 mg ACHS IVIS Administration Metoprolol Tartrate 50 mg 11/08/18 09:00 11/16/18 08:28 Lopressor PO 50 mg BID IVIS Administration Ondansetron HCl 8 mg 11/14/18 15:00 11/16/18 08:25 Zofran Odt PO 8 mg TID IVIS Administration Pantoprazole Sodium 40 mg 11/08/18 09:00 11/16/18 08:29 Protonix PER TUBE 40 mg DAILY IVIS Administration Saccharomyces Boulardii 250 mg 11/08/18 09:00 11/16/18 08:26 Florastor PO 250 mg DAILY IVIS Administration Scopolamine 1.5 mg 11/08/18 07:00 11/14/18 05:59 Transderm Scop TOP 1.5 mg Q3D IVIS Administration Sodium Bicarbonate 650 mg 11/09/18 16:18 11/09/18 21:03 Bicarbonate, Sodium PER TUBE 650 mg .PER PROTOCOL PRN Administration ENTERAL TUBE OCCLUSION Sodium Chloride 10 ml 11/08/18 21:00 11/16/18 08:59 Flush - Normal Saline IVF Not Given Q12HR IVIS Sodium Chloride 10 ml 11/08/18 17:50 11/09/18 18:38 Flush - Normal Saline IVF 10 ml PRN PRN Administration Saline Flush - Exam NAD, awake alert Eye: PERRL, anicteric sclera ENT: normocephalic atraumatic, no oropharyngeal lesions Neck: supple, symmetric, no JVD Heart: RRR, no murmur, no gallops Respiratory: CTAB, no wheezes, no rales Gastrointestinal: soft, non-tender, non-distended Gastrointestinal - other findings: g-tube in place Extremities: no cyanosis, no clubbing Skin: normal turgor, no lesions Neurological: CN's grossly intact, normal sensation to touch Musculoskeletal: normal tone, normal strength Psychiatric: normal affect, normal behavior Hosp A/P (1) Acute bronchitis Code(s): J20.9 - ACUTE BRONCHITIS, UNSPECIFIED Status: Acute Qualifiers: Bronchitis organism: unspecified organism Qualified Code(s): J20.9 - Acute bronchitis, unspecified (2) Hypoglycemia Code(s): E16.2 - HYPOGLYCEMIA, UNSPECIFIED Status: Acute (3) Lactic acidosis Code(s): E87.2 - ACIDOSIS Status: Resolved (4) Leucopenia Code(s): D72.819 - DECREASED WHITE BLOOD CELL COUNT, UNSPECIFIED Status: Acute (5) Nausea & vomiting Code(s): R11.2 - NAUSEA WITH VOMITING, UNSPECIFIED Status: Resolved (6) Sepsis Code(s): A41.9 - SEPSIS, UNSPECIFIED ORGANISM Status: Resolved (7) Sepsis associated hypotension Code(s): A41.9 - SEPSIS, UNSPECIFIED ORGANISM; I95.9 - HYPOTENSION, UNSPECIFIED Status: Acute (8) Chronic hepatitis C Code(s): B18.2 - CHRONIC VIRAL HEPATITIS C Status: Chronic (9) DM2 (diabetes mellitus, type 2) Status: Chronic Qualifiers: (10) Dysphagia Code(s): R13.10 - DYSPHAGIA, UNSPECIFIED Status: Chronic Qualifiers: (11) Esophageal adenocarcinoma Code(s): C15.9 - MALIGNANT NEOPLASM OF ESOPHAGUS, UNSPECIFIED Status: Chronic (12) Hypertension Code(s): I10 - ESSENTIAL (PRIMARY) HYPERTENSION Status: Chronic Qualifiers: Hypertension type: essential hypertension Qualified Code(s): I10 - Essential (primary) hypertension - Plan old records reviewed/req will start today tube feeding as per his home schedule if he tolerates tube feeding, will dc IVF medication reviewed as above symptomatic treatment
[2018-11-16] MEDS ORDERED: ISOVUE-370 76%-LOCM 1 ML ONE (16:00)
[2018-11-17] MEDS: Hydrocodone-Acetamin 15 ML UDCUP PO PRN ×5 (00:05→21:27)
[2018-11-17] MEDS: Dextrose 5 %-0.45 % NaCl 1,000 ML IV SCH ×3 (00:05→21:25)
[2018-11-17] MEDS: Scopolamine 1.5 mg/72 hour Patch TOP SCH (08:41)
[2018-11-17] MEDS: Saccharomyces boulardii 250 MG CAP PO SCH (08:42)
[2018-11-17] MEDS: Pantoprazole 40 MG GRANULES PACKET PER TUBE SCH (08:43)
[2018-11-17] MEDS: Gabapentin 100 MG CAP PO SCH ×2 (08:43→21:23)
[2018-11-17] MEDS: Ondansetron ODT 8 MG TAB PO SCH ×3 (08:44→21:24)
[2018-11-17] MEDS: Metoclopramide HCl 10 MG TAB PO SCH ×4 (08:44→21:23)
[2018-11-17] MEDS: Metoprolol Tartrate 50 MG TAB PO SCH ×2 (08:45→21:24)
[2018-11-17] MEDS: Folic Acid 1 MG TAB PER TUBE SCH (08:46)
[2018-11-17] MEDS: Enoxaparin Sodium 40 MG/0.4 ML SYRINGE SC SCH (08:47)
--- NOTE | 2018-11-17 13:13 | PDOC.HOSPP ---
- Subjective Encounter Date: 11/17/18 Encounter Time: 10:00 Subjective: still has vague abd dyscomfort and diarrhea no nausea or vomiting - Objective Vital Signs & Weight: Vital Signs (12 hours) Temp Pulse Resp BP Pulse Ox 11/17/18 08:00 98.3 F 64 18 125/85 93 L Weight Admit Weight 220 lb Weight 231 lb I&O: 11/16/18 11/17/18 11/18/18 06:59 06:59 06:59 Intake Total 2850 1200 350 Output Total 1150 Balance 1700 1200 350 Result Diagrams: 11/16/18 05:02 11/16/18 05:02 Additional Labs: Accuchecks 11/17/18 11/17/18 11/16/18 11:27 04:40 21:03 POC Glucose 97 89 96 11/16/18 16:42 POC Glucose 78 ROS - Medication Medications: Active Medications Generic Name Dose Route Start Last Admin Trade Name Freq PRN Reason Stop Dose Admin Hydrocodone Bitart/Acetaminophen 15 ml 11/14/18 14:12 11/14/18 16:34 Hydrocodone-Apap 7.5-325/15 PO 15 ml Q6H PRN Administration Moderate Pain (4-6) Hydrocodone Bitart/Acetaminophen 30 ml 11/14/18 14:15 11/17/18 08:48 Hydrocodone-Apap 7.5-325/15 PO 30 ml Q6H PRN Administration Moderate to Severe Pain (6-10) Dextrose/Water 25 gm 11/07/18 16:34 11/11/18 12:33 Dextrose 50% SLOW IVP 25 gm PRN PRN Administration Hypoglycemia Diphenhydramine HCl 25 mg 11/09/18 14:49 11/10/18 20:07 Benadryl PO 25 mg Q6H PRN Administration Itching & Insomnia Enoxaparin Sodium 40 mg 11/08/18 09:00 11/17/18 08:47 Lovenox SC 40 mg 0900 IVIS Administration Fentanyl 100 mcg 11/15/18 11:45 11/15/18 13:17 Duragesic TD 100 mcg Q3D IVIS Administration Folic Acid 1 mg 11/08/18 09:00 11/17/18 08:46 Folvite PER TUBE 1 mg DAILY IVIS Administration Gabapentin 100 mg 11/15/18 21:00 11/17/18 08:43 Neurontin PO 100 mg BID IVIS Administration Dextrose/Sodium Chloride 1,000 mls @ 100 mls/hr 11/15/18 18:15 11/17/18 11:00 D5 1/2 Ns IV Not Given .Q10H IVIS Metoclopramide HCl 5 mg 11/14/18 17:00 11/17/18 12:35 Reglan PO Not Given ACHS IVIS Metoprolol Tartrate 50 mg 11/08/18 09:00 11/17/18 08:45 Lopressor PO 50 mg BID IVIS Administration Ondansetron HCl 8 mg 11/14/18 15:00 11/17/18 08:44 Zofran Odt PO 8 mg TID IVIS Administration Pantoprazole Sodium 40 mg 11/08/18 09:00 11/17/18 08:43 Protonix PER TUBE 40 mg DAILY IVIS Administration Saccharomyces Boulardii 250 mg 11/08/18 09:00 11/17/18 08:42 Florastor PO 250 mg DAILY IVIS Administration Scopolamine 1.5 mg 11/08/18 07:00 11/17/18 08:41 Transderm Scop TOP 1.5 mg Q3D IVIS Administration Sodium Bicarbonate 650 mg 11/09/18 16:18 11/09/18 21:03 Bicarbonate, Sodium PER TUBE 650 mg .PER PROTOCOL PRN Administration ENTERAL TUBE OCCLUSION Sodium Chloride 10 ml 11/08/18 21:00 11/17/18 10:59 Flush - Normal Saline IVF Not Given Q12HR IVIS Sodium Chloride 10 ml 11/08/18 17:50 11/09/18 18:38 Flush - Normal Saline IVF 10 ml PRN PRN Administration Saline Flush - Exam awake alert Eye: PERRL, anicteric sclera ENT: no oropharyngeal lesions, moist mucosa Neck: supple, no JVD Heart: RRR, no murmur Respiratory: no wheezes, no rales Gastrointestinal: soft, non-tender, normal bowel sounds Gastrointestinal - other findings: peg+ Extremities: no cyanosis, no edema Neurological: CN's grossly intact, no focal deficits Psychiatric: normal affect, A&O x 3 Hosp A/P (1) Abdominal pain Code(s): R10.9 - UNSPECIFIED ABDOMINAL PAIN Status: Chronic Qualifiers: Abdominal location: generalized Qualified Code(s): R10.84 - Generalized abdominal pain (2) Chronic hepatitis C Code(s): B18.2 - CHRONIC VIRAL HEPATITIS C Status: Chronic Qualifiers: Hepatic coma status: without hepatic coma Qualified Code(s): B18.2 - Chronic viral hepatitis C (3) DM2 (diabetes mellitus, type 2) Status: Chronic Qualifiers: Diabetes mellitus penitentiary insulin use: without penitentiary use (4) Dysphagia Code(s): R13.10 - DYSPHAGIA, UNSPECIFIED Status: Chronic Qualifiers: (5) Esophageal adenocarcinoma Code(s): C15.9 - MALIGNANT NEOPLASM OF ESOPHAGUS, UNSPECIFIED Status: Chronic (6) Hypertension Code(s): I10 - ESSENTIAL (PRIMARY) HYPERTENSION Status: Chronic Qualifiers: Hypertension type: essential hypertension Qualified Code(s): I10 - Essential (primary) hypertension (7) Nausea & vomiting Code(s): R11.2 - NAUSEA WITH VOMITING, UNSPECIFIED Status: Resolved - Plan dietitician to change his peg feeding from fiber rich to poor variety due to diarrhea hemostable may dc when diarrhea resolves to amb as tolerated prognosis guarded with progressive esophageal cancer
--- NOTE | 2018-11-17 14:26 | PDOC.MOPN ---
Interval History: continued abdominal pain, josselin with TF - Vital Signs Vital Signs: Vital Signs (12 hours) Temp Pulse Resp BP Pulse Ox 11/17/18 08:00 98.3 F 64 18 125/85 93 L Weight Admit Weight 220 lb Weight 231 lb - Physical Exam General: Alert, Oriented x3, No acute distress HEENT: Atraumatic, PERRLA, EOMI, Mucous membr. moist/pink Lungs: Clear to auscultation, Normal air movement Cardiovascular: Regular rate, Normal S1, Normal S2, No murmurs, Gallops, Rubs Abdomen: Normal bowel sounds, Soft, No tenderness, No hepatospenomegaly, No masses Extremities: No clubbing, No cyanosis, No edema, Normal pulses, No tenderness/ swelling Skin: No rashes, No breakdown, No significant lesion Neurological: Normal gait, Normal speech, Strength at 5/5 X4 ext, Normal tone, Sensation intact, Cranial nerves 3-12 NL, Reflexes 2+ Psych/Mental Status: Mental status NL, Mood NL - Labs Result Diagrams: 11/16/18 05:02 11/16/18 05:02 Lab results: Laboratory Results - last 24 hr 11/17/18 11:27: POC Glucose 97 11/17/18 04:40: POC Glucose 89 11/16/18 21:03: POC Glucose 96 11/16/18 16:42: POC Glucose 78 Status: lab reviewed by me A/P - Problem (1) Sepsis Current Visit: Yes Code(s): A41.9 - SEPSIS, UNSPECIFIED ORGANISM Status: Resolved (2) Esophageal adenocarcinoma Current Visit: Yes Code(s): C15.9 - MALIGNANT NEOPLASM OF ESOPHAGUS, UNSPECIFIED Status: Chronic (3) Abdominal pain Current Visit: Yes Code(s): R10.9 - UNSPECIFIED ABDOMINAL PAIN Status: Chronic Qualifiers: Abdominal location: generalized Qualified Code(s): R10.84 - Generalized abdominal pain - Plan Plan: Continue fentanyl. encouraged to try Morphine IR Add toradol
[2018-11-17] MEDS: Ketorolac Tromethamine 30 MG/ML VIAL IVP SCH (17:45)
[2018-11-18] MEDS: Ketorolac Tromethamine 30 MG/ML VIAL IVP SCH ×5 (01:11→23:18)
[2018-11-18] MEDS: Dextrose 5 %-0.45 % NaCl 1,000 ML IV SCH ×2 (06:30→15:36)
[2018-11-18] MEDS: Hydrocodone-Acetamin 15 ML UDCUP PO PRN ×3 (06:35→23:13)
[2018-11-18] MEDS: Saccharomyces boulardii 250 MG CAP PO SCH (07:52)
[2018-11-18] MEDS: Folic Acid 1 MG TAB PER TUBE SCH (07:53)
[2018-11-18] MEDS: Pantoprazole 40 MG GRANULES PACKET PER TUBE SCH (07:53)
[2018-11-18] MEDS: Metoclopramide HCl 10 MG TAB PO SCH ×4 (07:53→20:09)
[2018-11-18] MEDS: Gabapentin 100 MG CAP PO SCH ×2 (07:53→20:25)
[2018-11-18] MEDS: Metoprolol Tartrate 50 MG TAB PO SCH ×2 (07:53→20:25)
[2018-11-18] MEDS: Ondansetron ODT 8 MG TAB PO SCH ×3 (07:55→20:25)
[2018-11-18] MEDS: Enoxaparin Sodium 40 MG/0.4 ML SYRINGE SC SCH (07:55)
[2018-11-18] MEDS: fentaNYL 100 mcg/hour Patch TD SCH (11:59)
[2018-11-19] MEDS: Dextrose 5 %-0.45 % NaCl 1,000 ML IV SCH ×4 (01:40→23:32)
[2018-11-19] MEDS: Ketorolac Tromethamine 30 MG/ML VIAL IVP SCH ×5 (05:07→23:32)
--- NOTE | 2018-11-19 05:31 | PDOC.EVN ---
Event Note - Event Note Event Note: RN called - Patient vomited approx 400 ml of bilious vomitus. Will check LFTs
[2018-11-19] MEDS ORDERED: Acetaminophen 650 MG/20.3 ML UDCUP PO PRN (06:11)
--- NOTE | 2018-11-19 06:13 | PDOC.EVN ---
Event Note - Event Note Event Note: RN called - Patient developed fever with N/V. Will obtain cultures/labs. r/o C diff
[2018-11-19] MEDS ORDERED: Ondansetron PF 4 MG/2 ML Vial IVP SCH (06:15)
[2018-11-19 06:30] LABS: ALT (SGPT) 27 U/L (8-55); AST (SGOT) 55 U/L (5-34); Albumin 2.8 g/dL (3.4-4.8); Alkaline Phosphatase 735 U/L (40-150); Anion Gap 14 mmol/L (10-20); BUN (Urea Nitrogen) 15 mg/dL (8.4-25.7); Bilirubin, Total 2.6 mg/dL (0.2-1.2); Calc. Creatinine Clearance 147 mL/min (70-130); Calcium 8.8 mg/dL (7.8-10.44); Carbon Dioxide 18 mmol/L (23-31); Chloride 104 mmol/L (98-107); Estimated GFR-MDRD Greater than 90; Globulin 4.1 g/dL (2.4-3.5); Glucose 87 mg/dL (80-115); Protein, Total 6.9 g/dL (5.8-8.1); Sodium 132 mmol/L (136-145)
[2018-11-19] MEDS ORDERED: Vancomycin HCl 1 GM in Premix Bag 1 BAG IVPB SCH (06:30)
[2018-11-19] MEDS ORDERED: Meropenem 1 GM in Sodium Chloride 0.9% 100 ML IVPB SCH (06:30)
[2018-11-19] MEDS ORDERED: Vancomycin HCl 1.5 GM in Sodium Chloride 0.9% 250 ML 300 ML IVPB SCH (06:45)
[2018-11-19 07:02] LABS: Hemoglobin 13.2 g/dL (14.0-18.0); Mean Corpuscular Hemoglobin 32.2 pg (27.0-31.0); Mean Corpuscular Volume 97.5 fL (78.0-98.0); Mean Platelet Volume 7.5 fL (7.4-10.4); Platelet Count 283 thou/uL (130-400); RBC Distribution Width 16.1 % (11.5-14.5); Red Blood Cell (RBC) Count 4.11 mill/uL (4.70-6.10); White Blood Cell (WBC) Count 6.5 thou/uL (4.8-10.8)
[2018-11-19] MEDS ORDERED: MEROPENEM 1 GM/50 ML 1 GM in Premix Bag 1 BAG IVPB SCH (07:15)
[2018-11-19 07:38] LABS: Band 15 % (5-11); Lymphocytes 19 % (21-51); MDiff Complete? YES; Monocytes 14 % (0-10); Neutrophil 52 % (42-75)
[2018-11-19] MEDS: Pantoprazole 40 MG GRANULES PACKET PER TUBE SCH (08:18)
[2018-11-19] MEDS: Gabapentin 100 MG CAP PO SCH ×2 (08:19→20:53)
[2018-11-19] MEDS: Saccharomyces boulardii 250 MG CAP PO SCH (08:19)
[2018-11-19] MEDS: Ondansetron ODT 8 MG TAB PO SCH ×3 (08:19→20:53)
[2018-11-19] MEDS: Folic Acid 1 MG TAB PER TUBE SCH (08:19)
[2018-11-19] MEDS: Hydrocodone-Acetamin 15 ML UDCUP PO PRN ×3 (08:20→20:55)
[2018-11-19] MEDS: Enoxaparin Sodium 40 MG/0.4 ML SYRINGE SC SCH ×2 (08:20→08:41)
[2018-11-19] MEDS: Metoclopramide HCl 10 MG TAB PO SCH ×6 (08:28→20:43)
[2018-11-19] MEDS: Metoprolol Tartrate 50 MG TAB PO SCH ×2 (08:29→19:33)
[2018-11-19] MEDS ORDERED: Iopamidol 370 76% 100 ML VIAL ONE (10:25)
[2018-11-19 10:50] LABS: Lactic Acid 2.1 mmol/L (0.5-2.2)
--- NOTE | 2018-11-19 11:57 | RAD ---
EXAM: Abdominal survey with upright chest and two-view abdomen: INDICATIONS: Fever COMPARISON: 11/15/2018 FINDINGS: Patchy atelectasis and/or infiltrate in the right lung base. Small bilateral pleural effusions Nonspecific bowel gas pattern. Scattered stool and gas in the colon. Scattered small bowel gas withou t dilatation. No evidence of free intraperitoneal air. Ogden type catheter overlies the mid abdomen. IMPRESSION: 1. Patchy atelectasis or infiltrate in the right lung base with small bilateral pleural effusions. 2. Nonspecific bowel gas pattern
--- NOTE | 2018-11-19 12:03 | ULT ---
RIGHT UPPER QUADRANT ULTRASOUND: INDICATIONS: Elevated liver function tests. FINDINGS: The patient is status post cholecystectomy. The visualized liver is unremarkable. The common bile d uct is of normal caliber, measured at 4 mm. The pancreas is mostly obscured and not adequately evalu ated. The right kidney is imaged and is unremarkable. IMPRESSION: Unremarkable right upper quadrant ultrasound. The patient is post cholecystectomy. The pancreas is obscured. POS: ULICES
--- NOTE | 2018-11-19 12:24 | PDOC.HOSPP ---
- Subjective Encounter Date: 11/19/18 Encounter Time: 08:15 Subjective: says he doesn't feel good no vomiting now but had a large bout last night still has diarrhea had temp of 103 last evening - Objective Vital Signs & Weight: Vital Signs (12 hours) Temp Pulse Resp BP BP Pulse Ox 11/19/18 08:00 92 L 11/19/18 07:25 100.6 F H 96 18 97/58 L 92 L 11/19/18 06:00 103.1 F H 102 H 18 128/76 95 Weight Admit Weight 220 lb Weight 231 lb I&O: 11/18/18 11/19/18 11/20/18 06:59 06:59 06:59 Intake Total 1800 Balance 1800 Result Diagrams: 11/19/18 06:25 11/19/18 05:55 Additional Labs: Accuchecks 11/19/18 11/19/18 11/18/18 05:54 05:06 19:38 POC Glucose 98 96 87 11/18/18 17:28 POC Glucose 87 ROS - Medication Medications: Active Medications Generic Name Dose Route Start Last Admin Trade Name Freq PRN Reason Stop Dose Admin Hydrocodone Bitart/Acetaminophen 15 ml 11/14/18 14:12 11/14/18 16:34 Hydrocodone-Apap 7.5-325/15 PO 15 ml Q6H PRN Administration Moderate Pain (4-6) Hydrocodone Bitart/Acetaminophen 30 ml 11/14/18 14:15 11/19/18 08:20 Hydrocodone-Apap 7.5-325/15 PO 30 ml Q6H PRN Administration Moderate to Severe Pain (6-10) Dextrose/Water 25 gm 11/07/18 16:34 11/11/18 12:33 Dextrose 50% SLOW IVP 25 gm PRN PRN Administration Hypoglycemia Diphenhydramine HCl 25 mg 11/09/18 14:49 11/10/18 20:07 Benadryl PO 25 mg Q6H PRN Administration Itching & Insomnia Enoxaparin Sodium 40 mg 11/08/18 09:00 11/19/18 08:41 Lovenox SC Not Given 0900 IVIS Fentanyl 100 mcg 11/15/18 11:45 11/18/18 11:59 Duragesic TD 100 mcg Q3D IVIS Administration Folic Acid 1 mg 11/08/18 09:00 11/19/18 08:19 Folvite PER TUBE 1 mg DAILY IVIS Administration Gabapentin 100 mg 11/15/18 21:00 11/19/18 08:19 Neurontin PO 100 mg BID IVIS Administration Dextrose/Sodium Chloride 1,000 mls @ 100 mls/hr 11/15/18 18:15 11/19/18 01:40 D5 1/2 Ns IV Not Given .Q10H IVIS Ketorolac Tromethamine 15 mg 11/17/18 18:00 11/19/18 06:46 Toradol IVP 11/22/18 18:01 15 mg Q6HR IVIS Administration Metoclopramide HCl 5 mg 11/14/18 17:00 11/19/18 09:44 Reglan PO Not Given ACHS [facility] Metoprolol Tartrate 50 mg 11/08/18 09:00 11/19/18 08:29 Lopressor PO Not Given BID IVIS Ondansetron HCl 8 mg 11/14/18 15:00 11/19/18 08:19 Zofran Odt PO 8 mg TID IVIS Administration Pantoprazole Sodium 40 mg 11/08/18 09:00 11/19/18 08:18 Protonix PER TUBE 40 mg DAILY IVIS Administration Saccharomyces Boulardii 250 mg 11/08/18 09:00 11/19/18 08:19 Florastor PO 250 mg DAILY IVIS Administration Scopolamine 1.5 mg 11/08/18 07:00 11/17/18 08:41 Transderm Scop TOP 1.5 mg Q3D IVIS Administration Sodium Bicarbonate 650 mg 11/09/18 16:18 11/09/18 21:03 Bicarbonate, Sodium PER TUBE 650 mg .PER PROTOCOL PRN Administration ENTERAL TUBE OCCLUSION Sodium Chloride 10 ml 11/08/18 21:00 11/19/18 08:29 Flush - Normal Saline IVF 10 ml Q12HR IVIS Administration Sodium Chloride 10 ml 11/08/18 17:50 11/09/18 18:38 Flush - Normal Saline IVF 10 ml PRN PRN Administration Saline Flush - Exam NAD, awake alert Eye: PERRL, anicteric sclera ENT: no oropharyngeal lesions, moist mucosa Neck: supple, no JVD Heart: RRR, no gallops Respiratory: no wheezes, no rales Gastrointestinal: soft, non-tender, normal bowel sounds, distended Extremities: no clubbing, no edema Neurological: CN's grossly intact, no focal deficits Psychiatric: normal affect, A&O x 3 Hosp A/P (1) Abdominal pain Code(s): R10.9 - UNSPECIFIED ABDOMINAL PAIN Status: Chronic Qualifiers: Abdominal location: generalized Qualified Code(s): R10.84 - Generalized abdominal pain (2) Chronic hepatitis C Code(s): B18.2 - CHRONIC VIRAL HEPATITIS C Status: Chronic Qualifiers: Hepatic coma status: without hepatic coma Qualified Code(s): B18.2 - Chronic viral hepatitis C (3) DM2 (diabetes mellitus, type 2) Status: Chronic Qualifiers: Diabetes mellitus long wall mining machine helper insulin use: without long wall mining machine helper use (4) Dysphagia Code(s): R13.10 - DYSPHAGIA, UNSPECIFIED Status: Chronic Qualifiers: (5) Esophageal adenocarcinoma Code(s): C15.9 - MALIGNANT NEOPLASM OF ESOPHAGUS, UNSPECIFIED Status: Chronic (6) Hypertension Code(s): I10 - ESSENTIAL (PRIMARY) HYPERTENSION Status: Chronic Qualifiers: Hypertension type: essential hypertension Qualified Code(s): I10 - Essential (primary) hypertension (7) Nausea & vomiting Code(s): R11.2 - NAUSEA WITH VOMITING, UNSPECIFIED Status: Resolved (8) Sepsis Code(s): A41.9 - SEPSIS, UNSPECIFIED ORGANISM Status: Acute Qualifiers: Sepsis type: sepsis due to unspecified organism Sepsis acute organ dysfunction status: with acute organ dysfunction - Plan is on vanc and meropenem, await culture results, monitor lft's usg ruq is -ve for any liver pathology hemostable to amb as tolerated prognosis guarded with progressive esophageal cancer start peg feeding from now
[2018-11-19] MEDS: MEROPENEM 1 GM/50 ML 1 GM in Premix Bag 1 BAG IVPB SCH ×2 (14:32→20:42)
[2018-11-19] MEDS: Vancomycin HCl 1.5 GM in Sodium Chloride 0.9% 250 ML 300 ML IVPB SCH (17:47)
--- NOTE | 2018-11-19 18:33 | CT ---
CT ABDOMEN WITH CONTRAST CT PELVIS WITH CONTRAST: DATE: 11/19/2018 HISTORY: 63-year-old male with esophageal cancer presents with fever, elevated liver enzymes, abdominal pain, diarrhea, and sepsis. COMPARISON: 11/07/2018 CT of abdomen and pelvis. 11/16/2018 CT chest. TECHNIQUE: IV injection of iodinated contrast media: administered. Oral contrast media:Administered FINDINGS: There are no pleural effusions on 11/07/2018. There were small bilateral pleural effusions on the CT of 11/16/2018. Currently, those small bilateral pleural effusions have slightly decreased in volume. There is a new finding of patchy groundglass densities in the right lower lobe which may represent ea rly pneumonia. There is no pneumoperitoneum. Again noted is the percutaneous jejunostomy tube entering the abdominal cavity through the left mid a nterior abdominal wall. It has been retracted many centimeters since the previous CT. It is probably still within a loop of collapsed small intestine, but that is not absolutely certain. Balloo n still inflated. There are multiple nondilated small bowel loops containing oral contrast material, but not in the loo p containing the catheter. No hydronephrosis. There are multiple pathologic noncalcified periaortic retroperitoneal lymph nodes. As an example, one of the left para-aortic slightly infrarenal lymph nod es measures approximately 3 x 3 cm. This was present on 11/07/2018, but has now significantly worsened. Diffuse dilation of the biliary tree is probably due to status post cholecystectomy. No met astatic liver lesion identified. No abdominal aortic aneurysm. No hydronephrosis or evidence of pyelonephritis. No adrenal nodule. No splenomegaly. No pancreatitis or pancreatic mass. Unremarkable urinary bladder. Mild edema in initial rectal fossa, new since prior CT. Small focus of mild pericolonic edema adjacent to proximal sigmoid colon. IMPRESSION: 1. Interval worsening of periaortic retroperitoneal malignant lymphadenopathy. 2. Small bilateral pleural effusions. 3. Possible early right lower lobe pneumonia. 4. The percutaneous jejunostomy tube has been retracted significantly. 5. Questionable mild colonic diverticulitis involving proximal sigmoid colon. 6. New finding of mild circumferential edema at ischiorectal fossa.
[2018-11-20] MEDS: Hydrocodone-Acetamin 15 ML UDCUP PO PRN ×3 (03:09→20:26)
[2018-11-20] MEDS: MEROPENEM 1 GM/50 ML 1 GM in Premix Bag 1 BAG IVPB SCH ×3 (05:40→22:32)
[2018-11-20] MEDS: Vancomycin HCl 1.5 GM in Sodium Chloride 0.9% 250 ML 300 ML IVPB SCH ×2 (05:41→17:44)
[2018-11-20] MEDS: Scopolamine 1.5 mg/72 hour Patch TOP SCH (05:41)
[2018-11-20] MEDS: Ketorolac Tromethamine 30 MG/ML VIAL IVP SCH ×4 (05:43→23:41)
[2018-11-20 05:45] LABS: Band 17 % (5-11); Eosinophils 2 % (0-10); Hemoglobin 11.1 g/dL (14.0-18.0); Lymphocytes 19 % (21-51); MDiff Complete? YES; Mean Corpuscular HGB CONC 33.2 g/dL (32.0-36.0); Mean Corpuscular Hemoglobin 32.7 pg (27.0-31.0); Mean Corpuscular Volume 98.3 fL (78.0-98.0); Mean Platelet Volume 7.3 fL (7.4-10.4); Monocytes 21 % (0-10); Myelocyte 2 % (0-0); Neutrophil 39 % (42-75); Platelet Count 229 thou/uL (130-400); RBC Distribution Width 15.9 % (11.5-14.5); White Blood Cell (WBC) Count 8.1 thou/uL (4.8-10.8)
[2018-11-20] MEDS: Saccharomyces boulardii 250 MG CAP PO SCH (08:57)
[2018-11-20] MEDS: Folic Acid 1 MG TAB PER TUBE SCH (08:57)
[2018-11-20] MEDS: Pantoprazole 40 MG GRANULES PACKET PER TUBE SCH (08:57)
[2018-11-20] MEDS: Ondansetron ODT 8 MG TAB PO SCH ×3 (08:57→20:26)
[2018-11-20] MEDS: Metoclopramide HCl 10 MG TAB PO SCH ×4 (08:57→20:25)
[2018-11-20] MEDS: Metoprolol Tartrate 50 MG TAB PO SCH ×2 (08:57→20:25)
[2018-11-20] MEDS: Gabapentin 100 MG CAP PO SCH ×2 (08:58→20:26)
[2018-11-20] MEDS: Enoxaparin Sodium 40 MG/0.4 ML SYRINGE SC SCH (08:58)
--- NOTE | 2018-11-20 12:05 | PDOC.HOSPP ---
- Subjective Encounter Date: 11/20/18 Encounter Time: 09:25 Subjective: abd pain is better, has 2 episodes of diarrhea from this am is tolerating 30mls/hr of peg feeding with free water no fever again, no nausea/vomiting - Objective Vital Signs & Weight: Vital Signs (12 hours) Temp Pulse Resp BP BP Pulse Ox 11/20/18 08:00 98.2 F 76 18 105/70 100 11/20/18 05:18 98.2 F 80 20 93/64 98 Weight Admit Weight 220 lb Weight 231 lb I&O: 11/19/18 11/20/18 11/21/18 06:59 06:59 06:59 Intake Total 1300 Balance 1300 Result Diagrams: 11/20/18 04:31 11/19/18 05:55 Additional Labs: Accuchecks 11/20/18 11/19/18 11/19/18 05:18 19:31 15:42 POC Glucose 125 H 106 130 H 11/19/18 12:45 POC Glucose 116 H ROS - Medication Medications: Active Medications Generic Name Dose Route Start Last Admin Trade Name Freq PRN Reason Stop Dose Admin Hydrocodone Bitart/Acetaminophen 15 ml 11/14/18 14:12 11/20/18 09:00 Hydrocodone-Apap 7.5-325/15 PO 15 ml Q6H PRN Administration Moderate Pain (4-6) Hydrocodone Bitart/Acetaminophen 30 ml 11/14/18 14:15 11/20/18 03:09 Hydrocodone-Apap 7.5-325/15 PO 30 ml Q6H PRN Administration Moderate to Severe Pain (6-10) Dextrose/Water 25 gm 11/07/18 16:34 11/11/18 12:33 Dextrose 50% SLOW IVP 25 gm PRN PRN Administration Hypoglycemia Diphenhydramine HCl 25 mg 11/09/18 14:49 11/10/18 20:07 Benadryl PO 25 mg Q6H PRN Administration Itching & Insomnia Enoxaparin Sodium 40 mg 11/08/18 09:00 11/20/18 08:58 Lovenox SC 40 mg 0900 IVIS Administration Fentanyl 100 mcg 11/15/18 11:45 11/18/18 11:59 Duragesic TD 100 mcg Q3D IVIS Administration Folic Acid 1 mg 11/08/18 09:00 11/20/18 08:57 Folvite PER TUBE 1 mg DAILY IVIS Administration Gabapentin 100 mg 11/15/18 21:00 11/20/18 08:58 Neurontin PO 100 mg BID IVIS Administration Dextrose/Sodium Chloride 1,000 mls @ 100 mls/hr 11/15/18 18:15 11/19/18 23:32 D5 1/2 Ns IV 1,000 mls .Q10H IVIS Administration Meropenem 1 gm/ Device 50 mls @ 100 mls/hr 11/19/18 14:00 11/20/18 05:40 IVPB 50 mls Q8HR IVIS Administration Vancomycin HCl 1.5 gm/ Sodium 300 mls @ 200 mls/hr 11/19/18 18:00 11/20/18 05 :41 Chloride IVPB 300 mls 0600,1800 IVIS Administration Ketorolac Tromethamine 15 mg 11/17/18 18:00 11/20/18 05:43 Toradol IVP 11/22/18 18:01 Not Given Q6HR IVIS Metoclopramide HCl 5 mg 11/14/18 17:00 11/20/18 08:57 Reglan PO 5 mg ACHS IVIS Administration Metoprolol Tartrate 50 mg 11/08/18 09:00 11/20/18 08:57 Lopressor PO 50 mg BID IVIS Administration Ondansetron HCl 8 mg 11/14/18 15:00 11/20/18 08:57 Zofran Odt PO 8 mg TID IVIS Administration Pantoprazole Sodium 40 mg 11/08/18 09:00 11/20/18 08:57 Protonix PER TUBE 40 mg DAILY IVIS Administration Saccharomyces Boulardii 250 mg 11/08/18 09:00 11/20/18 08:57 Florastor PO 250 mg DAILY IVIS Administration Scopolamine 1.5 mg 11/08/18 07:00 11/20/18 05:41 Transderm Scop TOP 1.5 mg Q3D IVIS Administration Sodium Bicarbonate 650 mg 11/09/18 16:18 11/09/18 21:03 Bicarbonate, Sodium PER TUBE 650 mg .PER PROTOCOL PRN Administration ENTERAL TUBE OCCLUSION Sodium Chloride 10 ml 11/08/18 21:00 11/20/18 08:58 Flush - Normal Saline IVF Not Given Q12HR IVIS Sodium Chloride 10 ml 11/08/18 17:50 11/09/18 18:38 Flush - Normal Saline IVF 10 ml PRN PRN Administration Saline Flush - Exam NAD, awake alert Eye: PERRL, anicteric sclera ENT: normocephalic atraumatic, moist mucosa Neck: supple, no JVD Heart: RRR, no murmur Respiratory: no wheezes, no ronchi Gastrointestinal: soft, non-distended, normal bowel sounds Gastrointestinal - other findings: peg+ Extremities: no cyanosis, no edema Neurological: CN's grossly intact, no focal deficits Psychiatric: normal affect, A&O x 3 Hosp A/P (1) Abdominal pain Code(s): R10.9 - UNSPECIFIED ABDOMINAL PAIN Status: Chronic Qualifiers: Abdominal location: generalized Qualified Code(s): R10.84 - Generalized abdominal pain (2) Chronic hepatitis C Code(s): B18.2 - CHRONIC VIRAL HEPATITIS C Status: Chronic Qualifiers: Hepatic coma status: without hepatic coma Qualified Code(s): B18.2 - Chronic viral hepatitis C (3) DM2 (diabetes mellitus, type 2) Status: Chronic Qualifiers: Diabetes mellitus comic illustrator insulin use: without penitentiary use (4) Dysphagia Code(s): R13.10 - DYSPHAGIA, UNSPECIFIED Status: Chronic Qualifiers: Plan: has peg tube (5) Esophageal adenocarcinoma Code(s): C15.9 - MALIGNANT NEOPLASM OF ESOPHAGUS, UNSPECIFIED Status: Chronic (6) Hypertension Code(s): I10 - ESSENTIAL (PRIMARY) HYPERTENSION Status: Chronic Qualifiers: Hypertension type: essential hypertension Qualified Code(s): I10 - Essential (primary) hypertension (7) Nausea & vomiting Code(s): R11.2 - NAUSEA WITH VOMITING, UNSPECIFIED Status: Resolved (8) Sepsis Code(s): A41.9 - SEPSIS, UNSPECIFIED ORGANISM Status: Acute Qualifiers: Sepsis type: sepsis due to unspecified organism Sepsis acute organ dysfunction status: with acute organ dysfunction - Plan is on vanc and meropenem, blood culture prelim results are -ve, repeat stool studies including c.diff have not been collected/resulted yet. usg ruq is -ve for any liver pathology hemostable to amb as tolerated prognosis guarded with progressive esophageal cancer peg feeding to continue at slow pace at 30mls/hr (gets abd pain, diarrhea, was off it from 48hrs) dc plan when sepsis w/u is completed. CM to help with peg feeding supplies/pump is apparently not working per patient as well He may not get his scheduled chemo today (second cycle). No further fever but he is on antibiotics. consultation, echo.
[2018-11-20] MEDS: Diabetic Tussin 200 MG/10 ML UDCUP PO PRN ×2 (12:21→20:26)
--- NOTE | 2018-11-20 16:41 | PDOC.MOPN ---
Interval History: Pain controlled with meds. Fever yesterday. - Vital Signs Vital Signs: Vital Signs (12 hours) Temp Pulse Resp BP BP Pulse Ox 11/20/18 08:00 98.2 F 76 18 105/70 100 11/20/18 05:18 98.2 F 80 20 93/64 98 Weight Admit Weight 220 lb Weight 231 lb - Physical Exam General: Alert, Oriented x3, No acute distress HEENT: Atraumatic, PERRLA, EOMI, Mucous membr. moist/pink Lungs: Clear to auscultation, Normal air movement Cardiovascular: Regular rate, Normal S1, Normal S2, No murmurs, Gallops, Rubs Abdomen: Normal bowel sounds Extremities: No clubbing, No cyanosis, No edema, Normal pulses, No tenderness/ swelling Skin: No rashes, No breakdown, No significant lesion Neurological: Normal gait, Normal speech, Strength at 5/5 X4 ext, Normal tone, Sensation intact, Cranial nerves 3-12 NL, Reflexes 2+ Psych/Mental Status: Mental status NL, Mood NL - Labs Result Diagrams: 11/20/18 04:31 11/19/18 05:55 Lab results: Laboratory Results - last 24 hr 11/20/18 11:19: POC Glucose 87 11/20/18 05:18: POC Glucose 125 H 11/20/18 04:31: WBC 8.1, RBC 3.40 L, Hgb 11.1 L, Hct 33.4 L, MCV 98.3 H, MCH 32.7 H, MCHC 33.2, RDW 15.9 H, Plt Count 229, MPV 7.3 L, Neutrophils % (Manual) 39 L, Band Neuts % (Manual) 17 H, Lymphocytes % (Manual) 19 L, Monocytes % ( Manual) 21 H, Eosinophils % (Manual) 2, Myelocytes % 2 H 11/20/18 04:31: Magnesium 1.7 11/19/18 19:31: POC Glucose 106 Status: lab reviewed by me A/P - Problem (1) Sepsis Current Visit: Yes Code(s): A41.9 - SEPSIS, UNSPECIFIED ORGANISM Status: Resolved (2) Esophageal adenocarcinoma Current Visit: Yes Code(s): C15.9 - MALIGNANT NEOPLASM OF ESOPHAGUS, UNSPECIFIED Status: Chronic (3) Abdominal pain Current Visit: Yes Code(s): R10.9 - UNSPECIFIED ABDOMINAL PAIN Status: Chronic Qualifiers: Abdominal location: generalized Qualified Code(s): R10.84 - Generalized abdominal pain - Plan Plan: chemo continues to be held until discharged Continue pain medications ID consult.
[2018-11-20] MEDS: Dextrose 5 %-0.45 % NaCl 1,000 ML IV SCH (17:56)
--- NOTE | 2018-11-20 19:05 | CON ---
DATE OF CONSULTATION: 11/20/2018 REASON FOR CONSULTATION: Possible sepsis. HISTORY OF PRESENT ILLNESS: A 63-year-old patient with history of metastatic esophageal cancer, admitted with abdominal pain, general malaise, hypotension, cough with purulent sputum production. 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 It is an adenocarcinoma and has been undergoing chemotherapy and had a jejunostomy placed at [facility]. He has some radiation therapy and after initial improvement, developed recrudescence of pain and decline in his clinical status. Some intermittent nausea and coughing spells. He still drinks tomato soup and sometimes has choking spells after swallowing. Some issues with the jejunostomy intermittently as usual. No diarrhea. Voiding without difficulty. No back pain. No joint symptoms. MEDICAL HISTORY: Hypertension, chronic hep C with unknown treatment status, type 2 diabetes, prior CVA, jejunostomy following a diagnosis of adenocarcinoma of GE junction, status post chemoradiation with evidence of metastases by PET scan. SOCIAL HISTORY: Former smoker. Lives in the area with family members. FAMILY HISTORY: Coronary artery disease. ALLERGIES: NONE. CURRENT MEDICATIONS: 1. Tylenol. 2. Hydrocodone. 3. Creon. 4. Dulcolax. 5. Tums. 6. Enoxaparin. 7. Duragesic. 8. Folvite. 9. Glucagon. 10. Apresoline. 11. Claritin. 12. Meropenem. 13. Vancomycin. PHYSICAL EXAMINATION: VITAL SIGNS: T-max 103.1, blood pressure 105/70, pulse 76, respirations 18, and O2 saturation 100%. GENERAL: Awake, oriented, follows commands. Coughing intermittently, particularly after drinking fluids. Peripheral IV access. He is voiding in the urinal and no lymphadenopathy. HEENT: Ocular movements conjugate. Sclerae white. Pupils are equal. Oral cavity is somewhat dry. Still few teeth remaining in place and with marked decay and gum disease. LUNGS: With coarse breath sounds with faint crackles at the bases, particularly on the left side. HEART: S1 and S2. Soft aortic murmur. No S3. Regular rate. ABDOMEN: Slightly distended, but not tender. No bladder distention. No organomegaly. EXTREMITIES: Able to move extremities on command. No edema. Pulses 1+ in dorsalis pedis. Plantar responses are flexor. No clonus. Moves extremities equally. NEUROLOGIC: He is oriented. Follows commands. Good recollection. Speech is normal. LABORATORY DATA: White cell count up from 4 to 8, hemoglobin is stable at 11, platelets stable at 229, and the differential with 17% bands, 39% neutrophils, 21% monocytes. Chemistry with a creatinine of 0.77, bilirubin 2.6, AST 55, albumin 2.8, alkaline phosphatase 735, globulin 4.1. Vancomycin trough 27. Microbiology, two sets of cultures, no growth. C difficile negative. IMAGING STUDIES: Include chest CT from the , which showed prominent number of posterior mediastinal lymph nodes, lytic lesion in posterolateral right 9th rib with evidence for bone healing and a soft tissue mass adjacent to posterior aspect of the descending thoracic aorta. More recent CT of abdomen and pelvis with worsening periaortic retroperitoneal malignant lymphadenopathy, bilateral pleural effusions, possible early right lower lobe pneumonia, questionable colonic diverticulitis and proximal sigmoid colon. ASSESSMENT: 1. Metastatic esophageal cancer/adenocarcinoma, which had been undergoing chemotherapy. 2. Likely episodes of aspiration. 3. Early pneumonitis. DISCUSSION: The patient was admitted with hypotension, part of it related to volume depletion associated with his progression of malignancy, nausea, vomiting, and possible associated aspiration pneumonitis. May have an anaerobic component. Continue meropenem. Discontinue vancomycin. Monitor blood cultures until the final results. Thromboembolism is another possibility, but that appears less likely. Job ID: [id number]
[2018-11-20] MEDS: diphenhydrAMINE 25 MG CAP PO PRN (22:32)
[2018-11-21] MEDS: Hydrocodone-Acetamin 15 ML UDCUP PO PRN ×2 (03:54→21:26)
[2018-11-21] MEDS: Diabetic Tussin 200 MG/10 ML UDCUP PO PRN ×3 (03:54→21:26)
[2018-11-21] MEDS: Dextrose 5 %-0.45 % NaCl 1,000 ML IV SCH ×3 (05:19→23:38)
[2018-11-21] MEDS: MEROPENEM 1 GM/50 ML 1 GM in Premix Bag 1 BAG IVPB SCH ×3 (05:20→23:02)
[2018-11-21] MEDS: Vancomycin HCl 1.5 GM in Sodium Chloride 0.9% 250 ML 300 ML IVPB SCH (05:20)
[2018-11-21] MEDS: Ketorolac Tromethamine 30 MG/ML VIAL IVP SCH ×4 (06:35→23:02)
[2018-11-21] MEDS: Enoxaparin Sodium 40 MG/0.4 ML SYRINGE SC SCH (08:37)
[2018-11-21] MEDS: Metoclopramide HCl 10 MG TAB PO SCH ×4 (08:38→21:25)
[2018-11-21] MEDS: Saccharomyces boulardii 250 MG CAP PO SCH (08:38)
[2018-11-21] MEDS: Pantoprazole 40 MG GRANULES PACKET PER TUBE SCH (08:38)
[2018-11-21] MEDS: Gabapentin 100 MG CAP PO SCH ×2 (08:38→21:23)
[2018-11-21] MEDS: Metoprolol Tartrate 50 MG TAB PO SCH ×2 (08:38→21:25)
[2018-11-21] MEDS: Ondansetron ODT 8 MG TAB PO SCH ×3 (08:38→21:25)
[2018-11-21] MEDS: Folic Acid 1 MG TAB PER TUBE SCH (08:38)
--- NOTE | 2018-11-21 10:05 | PDOC.HOSPP ---
- Subjective Encounter Date: 11/21/18 Encounter Time: 10:03 Subjective: diarrhea x 2 - Objective Vital Signs & Weight: Vital Signs (12 hours) Temp Pulse Resp BP Pulse Ox 11/21/18 08:00 98.2 F 90 20 101/66 99 Weight Admit Weight 220 lb Weight 231 lb I&O: 11/20/18 11/21/18 11/22/18 06:59 06:59 06:59 Intake Total 1300 40 2040 Output Total 400 320 Balance 1300 -360 1720 Result Diagrams: 11/20/18 04:31 11/19/18 05:55 Additional Labs: Accuchecks 11/21/18 11/20/18 11/20/18 04:40 20:02 18:01 POC Glucose 93 77 74 11/20/18 11/20/18 16:14 11:19 POC Glucose 67 L 87 ROS - Medication Medications: Active Medications Generic Name Dose Route Start Last Admin Trade Name Freq PRN Reason Stop Dose Admin Hydrocodone Bitart/Acetaminophen 15 ml 11/14/18 14:12 11/20/18 20:26 Hydrocodone-Apap 7.5-325/15 PO 15 ml Q6H PRN Administration Moderate Pain (4-6) Hydrocodone Bitart/Acetaminophen 30 ml 11/14/18 14:15 11/21/18 03:54 Hydrocodone-Apap 7.5-325/15 PO 30 ml Q6H PRN Administration Moderate to Severe Pain (6-10) Dextrose/Water 25 gm 11/07/18 16:34 11/11/18 12:33 Dextrose 50% SLOW IVP 25 gm PRN PRN Administration Hypoglycemia Diphenhydramine HCl 25 mg 11/09/18 14:49 11/20/18 22:32 Benadryl PO 25 mg Q6H PRN Administration Itching & Insomnia Enoxaparin Sodium 40 mg 11/08/18 09:00 11/21/18 08:37 Lovenox SC 40 mg 0900 IVIS Administration Fentanyl 100 mcg 11/15/18 11:45 11/18/18 11:59 Duragesic TD 100 mcg Q3D IVIS Administration Folic Acid 1 mg 11/08/18 09:00 11/21/18 08:38 Folvite PER TUBE 1 mg DAILY IVIS Administration Gabapentin 100 mg 11/15/18 21:00 11/21/18 08:38 Neurontin PO 100 mg BID IVIS Administration Guaifenesin 200 mg 11/07/18 16:34 11/21/18 03:54 Robitussin Sf PO 200 mg Q4H PRN Administration Cough Dextrose/Sodium Chloride 1,000 mls @ 100 mls/hr 11/15/18 18:15 11/21/18 05:19 D5 1/2 Ns IV 1,000 mls .Q10H IVIS Administration Meropenem 1 gm/ Device 50 mls @ 100 mls/hr 11/19/18 14:00 11/21/18 05:20 IVPB 50 mls Q8HR IVIS Administration Ketorolac Tromethamine 15 mg 11/17/18 18:00 11/21/18 06:35 Toradol IVP 11/22/18 18:01 15 mg Q6HR IVIS Administration Metoclopramide HCl 5 mg 11/14/18 17:00 11/21/18 08:38 Reglan PO 5 mg ACHS IVIS Administration Metoprolol Tartrate 50 mg 11/08/18 09:00 11/21/18 08:38 Lopressor PO 50 mg BID IVIS Administration Ondansetron HCl 8 mg 11/14/18 15:00 11/21/18 08:38 Zofran Odt PO 8 mg TID IVIS Administration Pantoprazole Sodium 40 mg 11/08/18 09:00 11/21/18 08:38 Protonix PER TUBE 40 mg DAILY IVIS Administration Saccharomyces Boulardii 250 mg 11/08/18 09:00 11/21/18 08:38 Florastor PO 250 mg DAILY IVIS Administration Scopolamine 1.5 mg 11/08/18 07:00 11/20/18 05:41 Transderm Scop TOP 1.5 mg Q3D IVIS Administration Sodium Bicarbonate 650 mg 11/09/18 16:18 11/09/18 21:03 Bicarbonate, Sodium PER TUBE 650 mg .PER PROTOCOL PRN Administration ENTERAL TUBE OCCLUSION Sodium Chloride 10 ml 11/08/18 21:00 11/21/18 08:38 Flush - Normal Saline IVF Not Given Q12HR IVIS Sodium Chloride 10 ml 11/08/18 17:50 11/09/18 18:38 Flush - Normal Saline IVF 10 ml PRN PRN Administration Saline Flush - Exam awake alert Neck: no JVD Heart: RRR, no murmur Respiratory: CTAB Gastrointestinal: soft, normal bowel sounds Gastrointestinal - other findings: PEG Extremities: no edema Hosp A/P (1) Sepsis Code(s): A41.9 - SEPSIS, UNSPECIFIED ORGANISM Status: Acute Qualifiers: Sepsis type: sepsis due to unspecified organism Sepsis acute organ dysfunction status: with acute organ dysfunction (2) Abdominal pain Code(s): R10.9 - UNSPECIFIED ABDOMINAL PAIN Status: Chronic Qualifiers: Abdominal location: generalized Qualified Code(s): R10.84 - Generalized abdominal pain (3) DM2 (diabetes mellitus, type 2) Status: Chronic Qualifiers: Diabetes mellitus longterm insulin use: without intermediate accountant use Diabetes mellitus complication status: without complication Qualified Code(s): E11.9 - Type 2 diabetes mellitus without complications (4) Esophageal adenocarcinoma Code(s): C15.9 - MALIGNANT NEOPLASM OF ESOPHAGUS, UNSPECIFIED Status: Chronic (5) Hypertension Code(s): I10 - ESSENTIAL (PRIMARY) HYPERTENSION Status: Chronic Qualifiers: Hypertension type: essential hypertension Qualified Code(s): I10 - Essential (primary) hypertension (6) PEG (percutaneous endoscopic gastrostomy) status Code(s): Z93.1 - GASTROSTOMY STATUS Status: Acute - Plan ID note guanako Johnson meropenem pending C&S cont tube feedings, suspect responsible since C diff neg chemo on hold OCTAVIA elaine
[2018-11-21] MEDS ORDERED: Iopamidol 370 76% 50 ML VIAL FS ONE (11:00)
[2018-11-21] MEDS ORDERED: ISOVUE-370 76%-LOCM 1 ML ONE (11:01)
[2018-11-21] MEDS: fentaNYL 100 mcg/hour Patch TD SCH (12:11)
--- NOTE | 2018-11-21 14:58 | PDOC.MOPN ---
Interval History: Pain controlled. Tolerating TF and oral intake. - Vital Signs Vital Signs: Vital Signs (12 hours) Temp Pulse Resp BP Pulse Ox 11/21/18 08:00 98.2 F 90 20 101/66 99 Weight Admit Weight 220 lb Weight 231 lb - Physical Exam General: Alert, Oriented x3, No acute distress HEENT: Atraumatic, PERRLA, EOMI, Mucous membr. moist/pink Lungs: Clear to auscultation, Normal air movement Cardiovascular: Regular rate, Normal S1, Normal S2, No murmurs, Gallops, Rubs Abdomen: Other Extremities: No clubbing, No cyanosis, No edema, Normal pulses, No tenderness/ swelling Skin: No rashes, No breakdown, No significant lesion Neurological: Normal gait, Normal speech, Strength at 5/5 X4 ext, Normal tone, Sensation intact, Cranial nerves 3-12 NL, Reflexes 2+ Psych/Mental Status: Mental status NL, Mood NL - Labs Result Diagrams: 11/20/18 04:31 11/19/18 05:55 Lab results: Laboratory Results - last 24 hr 11/21/18 13:46: POC Glucose 68 L 11/21/18 11:22: POC Glucose 68 L 11/21/18 04:40: POC Glucose 93 11/20/18 20:02: POC Glucose 77 11/20/18 18:01: POC Glucose 74 11/20/18 16:53: Vancomycin Trough 22.0 11/20/18 16:14: POC Glucose 67 L Status: lab reviewed by me A/P - Problem (1) Sepsis Current Visit: Yes Code(s): A41.9 - SEPSIS, UNSPECIFIED ORGANISM Status: Resolved (2) Esophageal adenocarcinoma Current Visit: Yes Code(s): C15.9 - MALIGNANT NEOPLASM OF ESOPHAGUS, UNSPECIFIED Status: Chronic (3) Abdominal pain Current Visit: Yes Code(s): R10.9 - UNSPECIFIED ABDOMINAL PAIN Status: Chronic Qualifiers: Abdominal location: generalized Qualified Code(s): R10.84 - Generalized abdominal pain - Plan Plan: Continue pain meds Recheck LFT's in am Hopefully, dc tomorrow
--- NOTE | 2018-11-21 17:17 | PRG ---
DATE OF SERVICE: 11/21/2018 SUBJECTIVE: Having abdominal pain, does not feel well. They are trying to access his port to continue antimicrobial therapy. No respiratory symptoms. More alert and oriented. Voiding in the urinal. No headaches. OBJECTIVE: VITAL SIGNS: Temperature max 103 on November 19, he has been afebrile since. BP 101/66, pulse 90, respirations 20, and O2 saturation 99. LUNGS: With faint basilar crackles. HEART: S1 and S2. Regular rate. ABDOMEN: Moderately distended. There is erythema around the gastrostomy tube with induration and tenderness on palpation, which is moderate to marked tenderness. NEUROLOGIC: He is alert, knows his name, knows where he is, and follows commands. LABORATORY DATA: White cell count 8.1, hemoglobin 11, and platelets 229. Creatinine 0.77. Reports there is an abdomen and pelvis CT done on admission and showed small bilateral pleural effusions. Ground-glass densities right lower lobe. No pneumoperitoneum percutaneous tube entering the abdominal cavity through the left mid anterior abdominal wall within the loop of collapsed small intestine, but is not certain. The abdomen ultrasound was not remarkable. The previous abdomen CT done a few days previously showed a feeding tube in small bowel. ASSESSMENT AND DISCUSSION: Metastatic esophageal cancer, on chemo, episodes of aspiration, possible early pneumonitis abnormalities in the jejunostomy area with induration, erythema and tenderness. Questions are regarding the tube positioning. We will need to rule verify tube positioning probably by inserting contrast through the tube in the imaging the area with a CT scan. He may be developing an abscess around the area as well. There might be some extrusion of feeding. If this tube is misplaced, we will contact radiologist to facilitate that procedure. Job ID: [id number]
--- NOTE | 2018-11-21 19:29 | CT ---
CT OF THE ABDOMEN WITH IV CONTRAST 11/21/18 INDICATION: Evaluate positioning of J-tube and soft tissue abscess. COMPARISON: Prior CT of the abdomen and pelvis dated 11/19/[address] of the chest, abdomen and pelvis dated 8. FINDINGS: There are worsening small bilateral pleural effusions. Hazy air space opacity within the right lung b ase is slightly less prominent. There is a 1.5 cm hypodense lesion involving the right hepatic dome on image 12 of series 2. Addition al similar appearing lesion measuring 1.1 cm is seen within the right hepatic lobe, image 19 of serie s 2. These are new from the comparison CT examination dated 02/05/18. There is persistent dilatation of the intrahepatic biliary system. The gallbladder is surgically abse nt. The pancreas and adrenal glands are normal appearing. The spleen is normal appearing. The kidneys are normal appearing. There is enteric contrast seen along the jejunostomy tube which is within the lume n of loops of jejunum within the lower central abdomen. No drainable fluid collection is grossly evident. There is diffuse osteopenia. There is scattered degenerative change The retroperitoneal lymphadenopathy is unchanged from the recent comparison. IMPRESSION: 1. The jejunostomy tube is situated within loops of jejunum within the left central abdomen. The re is no evidence of extravasation of contrast. There is no drainable fluid collection. 2. Persistent retroperitoneal lymphadenopathy. 3. New hypodense lesions involving the right hepatic dome are new from a comparison of 2018. Giv en patient's history of malignancy, metastatic disease is of concern. 4. Improving right lower lobe ground glass opacity may reflect improving edema or pneumonia. 5. Slightly more prominent small bilateral pleural effusion and bibasilar atelectasis. 6. Other chronic findings as above. POS: BH
[2018-11-21] MEDS: diphenhydrAMINE 25 MG CAP PO PRN (21:25)
[2018-11-22] MEDS: Hydrocodone-Acetamin 15 ML UDCUP PO PRN ×4 (04:42→21:09)
[2018-11-22] MEDS: Diabetic Tussin 200 MG/10 ML UDCUP PO PRN ×3 (04:43→21:09)
[2018-11-22] MEDS: MEROPENEM 1 GM/50 ML 1 GM in Premix Bag 1 BAG IVPB SCH (05:35)
[2018-11-22] MEDS: Ketorolac Tromethamine 30 MG/ML VIAL IVP SCH ×3 (05:36→18:14)
[2018-11-22 06:18] LABS: ALT (SGPT) 22 U/L (8-55); AST (SGOT) 60 U/L (5-34); Albumin 2.3 g/dL (3.4-4.8); Alkaline Phosphatase 603 U/L (40-150); Anion Gap 11 mmol/L (10-20); BUN (Urea Nitrogen) 10 mg/dL (8.4-25.7); Bilirubin, Total 1.6 mg/dL (0.2-1.2); Calc. Creatinine Clearance 177 mL/min (70-130); Calcium 8.2 mg/dL (7.8-10.44); Carbon Dioxide 20 mmol/L (23-31); Chloride 108 mmol/L (98-107); Estimated GFR-MDRD Greater than 90; Globulin 3.5 g/dL (2.4-3.5); Glucose 81 mg/dL (80-115); Potassium 3.6 mmol/L (3.5-5.1); Protein, Total 5.8 g/dL (5.8-8.1); Sodium 135 mmol/L (136-145)
[2018-11-22] MEDS: Ondansetron ODT 8 MG TAB PO SCH ×3 (07:57→21:10)
[2018-11-22] MEDS: Folic Acid 1 MG TAB PER TUBE SCH (07:58)
[2018-11-22] MEDS: Gabapentin 100 MG CAP PO SCH ×2 (07:58→21:10)
[2018-11-22] MEDS: Pantoprazole 40 MG GRANULES PACKET PER TUBE SCH (07:58)
[2018-11-22] MEDS: Metoclopramide HCl 10 MG TAB PO SCH ×4 (07:58→21:10)
[2018-11-22] MEDS: Saccharomyces boulardii 250 MG CAP PO SCH (07:58)
[2018-11-22] MEDS: Metoprolol Tartrate 50 MG TAB PO SCH ×2 (07:59→21:10)
[2018-11-22] MEDS: Enoxaparin Sodium 40 MG/0.4 ML SYRINGE SC SCH (07:59)
[2018-11-22] MEDS: Dextrose 5 %-0.45 % NaCl 1,000 ML IV SCH ×2 (10:54→21:15)
--- NOTE | 2018-11-22 15:48 | PDOC.HOSPP ---
- Subjective Encounter Date: 11/22/18 Encounter Time: 15:47 Subjective: so so, no real change - Objective Vital Signs & Weight: Vital Signs (12 hours) Temp Pulse Resp BP Pulse Ox 11/22/18 08:00 98.2 F 74 18 124/81 99 Weight Admit Weight 220 lb Weight 231 lb I&O: 11/21/18 11/22/18 11/23/18 06:59 06:59 06:59 Intake Total 40 2920 840 Output Total 400 370 560 Balance -360 2550 280 Result Diagrams: 11/20/18 04:31 11/22/18 05:34 Additional Labs: Accuchecks 11/22/18 11/22/18 11/21/18 12:01 04:55 20:40 POC Glucose 93 72 95 11/21/18 11/21/18 20:26 16:09 POC Glucose 323 H 73 ROS - Medication Medications: Active Medications Generic Name Dose Route Start Last Admin Trade Name Freq PRN Reason Stop Dose Admin Hydrocodone Bitart/Acetaminophen 15 ml 11/14/18 14:12 11/22/18 10:55 Hydrocodone-Apap 7.5-325/15 PO 15 ml Q6H PRN Administration Moderate Pain (4-6) Hydrocodone Bitart/Acetaminophen 30 ml 11/14/18 14:15 11/22/18 04:42 Hydrocodone-Apap 7.5-325/15 PO 30 ml Q6H PRN Administration Moderate to Severe Pain (6-10) Dextrose/Water 25 gm 11/07/18 16:34 11/11/18 12:33 Dextrose 50% SLOW IVP 25 gm PRN PRN Administration Hypoglycemia Diphenhydramine HCl 25 mg 11/09/18 14:49 11/21/18 21:25 Benadryl PO 25 mg Q6H PRN Administration Itching & Insomnia Enoxaparin Sodium 40 mg 11/08/18 09:00 11/22/18 07:59 Lovenox SC 40 mg 0900 IVIS Administration Fentanyl 100 mcg 11/15/18 11:45 11/21/18 12:11 Duragesic TD 100 mcg Q3D IVIS Administration Folic Acid 1 mg 11/08/18 09:00 11/22/18 07:58 Folvite PER TUBE 1 mg DAILY IVIS Administration Gabapentin 100 mg 11/15/18 21:00 11/22/18 07:58 Neurontin PO 100 mg BID IVIS Administration Guaifenesin 200 mg 11/07/18 16:34 11/22/18 10:55 Robitussin Sf PO 200 mg Q4H PRN Administration Cough Dextrose/Sodium Chloride 1,000 mls @ 100 mls/hr 11/15/18 18:15 11/22/18 10:54 D5 1/2 Ns IV 1,000 mls .Q10H IVIS Administration Ketorolac Tromethamine 15 mg 11/17/18 18:00 11/22/18 12:25 Toradol IVP 11/22/18 18:01 15 mg Q6HR IVIS Administration Metoclopramide HCl 5 mg 11/14/18 17:00 11/22/18 10:55 Reglan PO 5 mg ACHS IVIS Administration Metoprolol Tartrate 50 mg 11/08/18 09:00 11/22/18 07:59 Lopressor PO 50 mg BID IVIS Administration Ondansetron HCl 8 mg 11/14/18 15:00 11/22/18 07:57 Zofran Odt PO 8 mg TID IVIS Administration Pantoprazole Sodium 40 mg 11/08/18 09:00 11/22/18 07:58 Protonix PER TUBE 40 mg DAILY IVIS Administration Saccharomyces Boulardii 250 mg 11/08/18 09:00 11/22/18 07:58 Florastor PO 250 mg DAILY IVIS Administration Scopolamine 1.5 mg 11/08/18 07:00 11/20/18 05:41 Transderm Scop TOP 1.5 mg Q3D IVIS Administration Senna/Docusate Sodium 2 tab 11/07/18 16:34 11/22/18 04:43 Senokot S PO 2 tab BID PRN Administration Constipation Sodium Bicarbonate 650 mg 11/09/18 16:18 11/09/18 21:03 Bicarbonate, Sodium PER TUBE 650 mg .PER PROTOCOL PRN Administration ENTERAL TUBE OCCLUSION Sodium Chloride 10 ml 11/08/18 21:00 11/22/18 07:59 Flush - Normal Saline IVF Not Given Q12HR IVIS Sodium Chloride 10 ml 11/08/18 17:50 11/09/18 18:38 Flush - Normal Saline IVF 10 ml PRN PRN Administration Saline Flush - Exam Neck: no JVD Heart: RRR, no murmur Respiratory: CTAB, no wheezes Gastrointestinal: soft, non-tender Gastrointestinal - other findings: PEG Extremities: 1+ LE edema Hosp A/P (1) Sepsis Code(s): A41.9 - SEPSIS, UNSPECIFIED ORGANISM Status: Resolved Qualifiers: Sepsis type: sepsis due to unspecified organism Sepsis acute organ dysfunction status: with acute organ dysfunction (2) Abdominal pain Code(s): R10.9 - UNSPECIFIED ABDOMINAL PAIN Status: Resolved Qualifiers: Abdominal location: generalized Qualified Code(s): R10.84 - Generalized abdominal pain (3) DM2 (diabetes mellitus, type 2) Status: Chronic Qualifiers: Diabetes mellitus roasterman insulin use: without penitentiary use Diabetes mellitus complication status: without complication Qualified Code(s): E11.9 - Type 2 diabetes mellitus without complications (4) Esophageal adenocarcinoma Code(s): C15.9 - MALIGNANT NEOPLASM OF ESOPHAGUS, UNSPECIFIED Status: Chronic (5) Hypertension Code(s): I10 - ESSENTIAL (PRIMARY) HYPERTENSION Status: Chronic Qualifiers: Hypertension type: essential hypertension Qualified Code(s): I10 - Essential (primary) hypertension (6) PEG (percutaneous endoscopic gastrostomy) status Code(s): Z93.1 - GASTROSTOMY STATUS Status: Acute - Plan off antibx cont tube feedings, suspect responsible since C diff neg diarrhea chemo on hold DC planning, home in AM
[2018-11-22] MEDS: diphenhydrAMINE 25 MG CAP PO PRN (21:09)
[2018-11-23] MEDS: Hydrocodone-Acetamin 15 ML UDCUP PO PRN ×4 (03:05→22:26)
[2018-11-23] MEDS: Diabetic Tussin 200 MG/10 ML UDCUP PO PRN ×2 (03:06→17:06)
[2018-11-23] MEDS: Scopolamine 1.5 mg/72 hour Patch TOP SCH (06:20)
[2018-11-23] MEDS: Dextrose 5 %-0.45 % NaCl 1,000 ML IV SCH (06:23)
[2018-11-23] MEDS: Saccharomyces boulardii 250 MG CAP PO SCH (09:34)
[2018-11-23] MEDS: Enoxaparin Sodium 40 MG/0.4 ML SYRINGE SC SCH (09:34)
[2018-11-23] MEDS: Metoprolol Tartrate 50 MG TAB PO SCH ×2 (09:34→20:54)
[2018-11-23] MEDS: Pantoprazole 40 MG GRANULES PACKET PER TUBE SCH (09:34)
[2018-11-23] MEDS: Folic Acid 1 MG TAB PER TUBE SCH (09:34)
[2018-11-23] MEDS: Gabapentin 100 MG CAP PO SCH ×2 (09:34→20:54)
[2018-11-23] MEDS: Ondansetron ODT 8 MG TAB PO SCH ×3 (09:34→20:53)
[2018-11-23] MEDS: Metoclopramide HCl 10 MG TAB PO SCH ×4 (09:35→20:54)
--- NOTE | 2018-11-23 11:49 | PDOC.HOSPP ---
- Subjective Encounter Date: 11/23/18 Encounter Time: 08:00 Subjective: Patient seen and examined. No new complaints. No overnight events - Objective Vital Signs & Weight: Vital Signs (12 hours) Temp Pulse Resp BP Pulse Ox 11/23/18 08:00 99.0 F 74 18 119/77 98 Weight Admit Weight 220 lb Weight 231 lb I&O: 11/22/18 11/23/18 11/24/18 06:59 06:59 06:59 Intake Total 2920 2920 Output Total 370 1410 Balance 2550 1510 Result Diagrams: 11/20/18 04:31 11/22/18 05:34 Additional Labs: Accuchecks 11/23/18 11/22/18 11/22/18 04:40 20:09 16:01 POC Glucose 80 93 84 11/22/18 12:01 POC Glucose 93 ROS - Review of Systems ENT: denies: ear pain, ear discharge, nose pain, nose discharge, nose congestion , mouth pain, mouth swelling, throat pain, throat swelling, other Respiratory: denies: cough, dry, shortness of breath, hemoptysis, SOB with excertion, pleuritic pain, sputum, wheezing, other Cardiovascular: denies: chest pain, palpitations, orthopnea, paroxysmal noc. dyspnea, edema, light headedness, other Gastrointestinal: denies: nausea, vomitting, abdominal pain, diarrhea, constipation, melena, hematochezia, other Genitourinary: denies: dysuria, frequency, incontinence, hematuria, retention, other - Medication Medications: Active Medications Generic Name Dose Route Start Last Admin Trade Name Freq PRN Reason Stop Dose Admin Hydrocodone Bitart/Acetaminophen 15 ml 11/14/18 14:12 11/23/18 03:05 Hydrocodone-Apap 7.5-325/15 PO 15 ml Q6H PRN Administration Moderate Pain (4-6) Hydrocodone Bitart/Acetaminophen 30 ml 11/14/18 14:15 11/23/18 09:36 Hydrocodone-Apap 7.5-325/15 PO 30 ml Q6H PRN Administration Moderate to Severe Pain (6-10) Dextrose/Water 25 gm 11/07/18 16:34 11/11/18 12:33 Dextrose 50% SLOW IVP 25 gm PRN PRN Administration Hypoglycemia Diphenhydramine HCl 25 mg 11/09/18 14:49 11/22/18 21:09 Benadryl PO 25 mg Q6H PRN Administration Itching & Insomnia Enoxaparin Sodium 40 mg 11/08/18 09:00 11/23/18 09:34 Lovenox SC 40 mg 0900 IVIS Administration Fentanyl 100 mcg 11/15/18 11:45 11/21/18 12:11 Duragesic TD 100 mcg Q3D IVIS Administration Folic Acid 1 mg 11/08/18 09:00 11/23/18 09:34 Folvite PER TUBE 1 mg DAILY IVIS Administration Gabapentin 100 mg 11/15/18 21:00 11/23/18 09:34 Neurontin PO 100 mg BID IVIS Administration Guaifenesin 200 mg 11/07/18 16:34 11/23/18 03:06 Robitussin Sf PO 200 mg Q4H PRN Administration Cough Dextrose/Sodium Chloride 1,000 mls @ 100 mls/hr 11/15/18 18:15 11/23/18 06:23 D5 1/2 Ns IV Not Given .Q10H IVIS Metoclopramide HCl 5 mg 11/14/18 17:00 11/23/18 09:35 Reglan PO 5 mg ACHS IVIS Administration Metoprolol Tartrate 50 mg 11/08/18 09:00 11/23/18 09:34 Lopressor PO 50 mg BID IVIS Administration Ondansetron HCl 8 mg 11/14/18 15:00 11/23/18 09:34 Zofran Odt PO 8 mg TID IVIS Administration Pantoprazole Sodium 40 mg 11/08/18 09:00 11/23/18 09:34 Protonix PER TUBE 40 mg DAILY IVIS Administration Saccharomyces Boulardii 250 mg 11/08/18 09:00 11/23/18 09:34 Florastor PO 250 mg DAILY IVIS Administration Scopolamine 1.5 mg 11/08/18 07:00 11/23/18 06:20 Transderm Scop TOP 1.5 mg Q3D IVIS Administration Senna/Docusate Sodium 2 tab 11/07/18 16:34 11/22/18 04:43 Senokot S PO 2 tab BID PRN Administration Constipation Sodium Bicarbonate 650 mg 11/09/18 16:18 11/09/18 21:03 Bicarbonate, Sodium PER TUBE 650 mg .PER PROTOCOL PRN Administration ENTERAL TUBE OCCLUSION Sodium Chloride 10 ml 11/08/18 21:00 11/23/18 09:38 Flush - Normal Saline IVF Not Given Q12HR IVIS Sodium Chloride 10 ml 11/08/18 17:50 11/09/18 18:38 Flush - Normal Saline IVF 10 ml PRN PRN Administration Saline Flush - Exam NAD, awake alert Eye: PERRL, anicteric sclera ENT: normocephalic atraumatic, no oropharyngeal lesions Neck: supple, symmetric, no JVD Heart: RRR, no murmur, no gallops Respiratory: CTAB, no wheezes, no rales Gastrointestinal: soft, non-tender, non-distended Gastrointestinal - other findings: G-tube Extremities: no cyanosis, no clubbing Skin: normal turgor, no lesions Neurological: CN's grossly intact, no focal deficits Musculoskeletal: normal tone, normal strength Psychiatric: normal affect, normal behavior Hosp A/P (1) Acute bronchitis Code(s): J20.9 - ACUTE BRONCHITIS, UNSPECIFIED Status: Acute Qualifiers: Bronchitis organism: unspecified organism Qualified Code(s): J20.9 - Acute bronchitis, unspecified (2) Hypoglycemia Code(s): E16.2 - HYPOGLYCEMIA, UNSPECIFIED Status: Acute (3) Lactic acidosis Code(s): E87.2 - ACIDOSIS Status: Resolved (4) Leucopenia Code(s): D72.819 - DECREASED WHITE BLOOD CELL COUNT, UNSPECIFIED Status: Acute (5) Nausea & vomiting Code(s): R11.2 - NAUSEA WITH VOMITING, UNSPECIFIED Status: Resolved (6) Sepsis Code(s): A41.9 - SEPSIS, UNSPECIFIED ORGANISM Status: Resolved (7) Sepsis associated hypotension Code(s): A41.9 - SEPSIS, UNSPECIFIED ORGANISM; I95.9 - HYPOTENSION, UNSPECIFIED Status: Acute (8) Chronic hepatitis C Code(s): B18.2 - CHRONIC VIRAL HEPATITIS C Status: Chronic Qualifiers: Hepatic coma status: without hepatic coma Qualified Code(s): B18.2 - Chronic viral hepatitis C (9) DM2 (diabetes mellitus, type 2) Status: Chronic Qualifiers: Diabetes mellitus longterm insulin use: without longterm use Diabetes mellitus complication status: without complication Qualified Code(s): E11.9 - Type 2 diabetes mellitus without complications (10) Dysphagia Code(s): R13.10 - DYSPHAGIA, UNSPECIFIED Status: Chronic Qualifiers: (11) Esophageal adenocarcinoma Code(s): C15.9 - MALIGNANT NEOPLASM OF ESOPHAGUS, UNSPECIFIED Status: Chronic (12) Hypertension Code(s): I10 - ESSENTIAL (PRIMARY) HYPERTENSION Status: Chronic Qualifiers: Hypertension type: essential hypertension Qualified Code(s): I10 - Essential (primary) hypertension (13) PEG (percutaneous endoscopic gastrostomy) status Code(s): Z93.1 - GASTROSTOMY STATUS Status: Acute - Plan old records reviewed/req, social worker delinquency prevention continue tube feeding as per his home schedule medication reviewed as above symptomatic treatment await arrangement for tube feeding material
--- NOTE | 2018-11-23 11:53 | PDOC.MOPN ---
Interval History: Pain controlled. Feels comfortable going home today. - Vital Signs Vital Signs: Vital Signs (12 hours) Temp Pulse Resp BP Pulse Ox 11/23/18 08:00 99.0 F 74 18 119/77 98 Weight Admit Weight 220 lb Weight 231 lb - Physical Exam General: Alert, Oriented x3, No acute distress HEENT: Atraumatic, PERRLA, EOMI, Mucous membr. moist/pink Lungs: Clear to auscultation, Normal air movement Cardiovascular: Regular rate, Normal S1, Normal S2, No murmurs, Gallops, Rubs Abdomen: Normal bowel sounds, Soft, No tenderness, No hepatospenomegaly, No masses Extremities: No clubbing, No cyanosis, No edema, Normal pulses, No tenderness/ swelling Skin: No rashes, No breakdown, No significant lesion Neurological: Normal gait, Normal speech, Strength at 5/5 X4 ext, Normal tone, Sensation intact, Cranial nerves 3-12 NL, Reflexes 2+ Psych/Mental Status: Mental status NL, Mood NL - Labs Result Diagrams: 11/20/18 04:31 11/22/18 05:34 Lab results: Laboratory Results - last 24 hr 11/23/18 11:12: POC Glucose 83 11/23/18 04:40: POC Glucose 80 11/22/18 20:09: POC Glucose 93 11/22/18 16:01: POC Glucose 84 11/22/18 12:01: POC Glucose 93 Status: lab reviewed by me A/P - Problem (1) Sepsis Current Visit: Yes Code(s): A41.9 - SEPSIS, UNSPECIFIED ORGANISM Status: Resolved (2) Esophageal adenocarcinoma Current Visit: Yes Code(s): C15.9 - MALIGNANT NEOPLASM OF ESOPHAGUS, UNSPECIFIED Status: Chronic (3) Abdominal pain Current Visit: Yes Code(s): R10.9 - UNSPECIFIED ABDOMINAL PAIN Status: Resolved Qualifiers: Qualified Code(s): R10.84 - Generalized abdominal pain - Plan Plan: Home when supplies obtained. Follow-up Tuesday at 9:15 for chemo.
[2018-11-23] MEDS: diphenhydrAMINE 25 MG CAP PO PRN (22:27)
[2018-11-24] MEDS: Dextrose 5 %-0.45 % NaCl 1,000 ML IV SCH (00:40)
[2018-11-24] MEDS: Saccharomyces boulardii 250 MG CAP PO SCH (09:01)
[2018-11-24] MEDS: Metoclopramide HCl 10 MG TAB PO SCH ×3 (09:01→16:53)
[2018-11-24] MEDS: Pantoprazole 40 MG GRANULES PACKET PER TUBE SCH (09:02)
[2018-11-24] MEDS: Folic Acid 1 MG TAB PER TUBE SCH (09:02)
[2018-11-24] MEDS: Metoprolol Tartrate 50 MG TAB PO SCH (09:02)
[2018-11-24] MEDS: Gabapentin 100 MG CAP PO SCH (09:02)
[2018-11-24] MEDS: Enoxaparin Sodium 40 MG/0.4 ML SYRINGE SC SCH (09:03)
[2018-11-24] MEDS: Ondansetron ODT 8 MG TAB PO SCH ×2 (09:03→16:54)
[2018-11-24 09:16] LABS: ALT (SGPT) 30 U/L (8-55); AST (SGOT) 74 U/L (5-34); Albumin 2.4 g/dL (3.4-4.8); Alkaline Phosphatase 832 U/L (40-150); Anion Gap 11 mmol/L (10-20); BUN (Urea Nitrogen) 7 mg/dL (8.4-25.7); Bilirubin, Total 2.5 mg/dL (0.2-1.2); Calc. Creatinine Clearance 189 mL/min (70-130); Calcium 8.4 mg/dL (7.8-10.44); Carbon Dioxide 24 mmol/L (23-31); Chloride 106 mmol/L (98-107); Estimated GFR-MDRD Greater than 90; Globulin 3.7 g/dL (2.4-3.5); Glucose 91 mg/dL (80-115); Protein, Total 6.1 g/dL (5.8-8.1); Sodium 137 mmol/L (136-145)
[2018-11-24 10:31] LABS: Band 6 % (5-11); Eosinophils 2 % (0-10); Hemoglobin 11.6 g/dL (14.0-18.0); Lymphocytes 26 % (21-51); MDiff Complete? YES; Mean Corpuscular HGB CONC 31.7 g/dL (32.0-36.0); Mean Corpuscular Hemoglobin 30.5 pg (27.0-31.0); Mean Corpuscular Volume 96.2 fL (78.0-98.0); Mean Platelet Volume 7.4 fL (7.4-10.4); Metamyelocyte 1 % (0-0); Monocytes 21 % (0-10); Myelocyte 1 % (0-0); Neutrophil 43 % (42-75); Platelet Count 267 thou/uL (130-400); RBC Distribution Width 15.9 % (11.5-14.5); RBC Morphology Normal; Red Blood Cell (RBC) Count 3.79 mill/uL (4.70-6.10); White Blood Cell (WBC) Count 5.3 thou/uL (4.8-10.8)
--- NOTE | 2018-11-24 12:29 | PDOC.HOSPP ---
- Subjective Encounter Date: 11/24/18 Encounter Time: 08:15 Subjective: Patient seen and examined. No new complaints. No overnight events - Objective Vital Signs & Weight: Vital Signs (12 hours) Temp Pulse Resp BP Pulse Ox 11/24/18 07:15 99.0 F 81 16 113/73 95 Weight Admit Weight 220 lb Weight 231 lb I&O: 11/23/18 11/24/18 11/25/18 06:59 06:59 06:59 Intake Total 2920 40 Output Total 1410 Balance 1510 40 Result Diagrams: 11/24/18 08:27 11/24/18 08:27 Additional Labs: Accuchecks 11/24/18 11/24/18 11/23/18 11:43 05:14 19:47 POC Glucose 100 124 H 90 11/23/18 16:07 POC Glucose 75 ROS - Review of Systems ENT: denies: ear pain, ear discharge, nose pain, nose discharge, nose congestion , mouth pain, mouth swelling, throat pain, throat swelling, other Respiratory: denies: cough, dry, shortness of breath, hemoptysis, SOB with excertion, pleuritic pain, sputum, wheezing, other Cardiovascular: denies: chest pain, palpitations, orthopnea, paroxysmal noc. dyspnea, edema, light headedness, other Gastrointestinal: reports: nausea, vomitting, abdominal pain Genitourinary: denies: dysuria, frequency, incontinence, hematuria, retention, other Musculoskeletal: denies: neck pain, shoulder pain, arm pain, back pain, hand pain, leg pain, foot pain, other - Medication Medications: Active Medications Generic Name Dose Route Start Last Admin Trade Name Freq PRN Reason Stop Dose Admin Hydrocodone Bitart/Acetaminophen 15 ml 11/14/18 14:12 11/23/18 03:05 Hydrocodone-Apap 7.5-325/15 PO 15 ml Q6H PRN Administration Moderate Pain (4-6) Hydrocodone Bitart/Acetaminophen 30 ml 11/14/18 14:15 11/23/18 22:26 Hydrocodone-Apap 7.5-325/15 PO 30 ml Q6H PRN Administration Moderate to Severe Pain (6-10) Dextrose/Water 25 gm 11/07/18 16:34 11/11/18 12:33 Dextrose 50% SLOW IVP 25 gm PRN PRN Administration Hypoglycemia Diphenhydramine HCl 25 mg 11/09/18 14:49 11/23/18 22:27 Benadryl PO 25 mg Q6H PRN Administration Itching & Insomnia Enoxaparin Sodium 40 mg 11/08/18 09:00 11/24/18 09:03 Lovenox SC 40 mg 0900 IVIS Administration Fentanyl 100 mcg 11/15/18 11:45 11/21/18 12:11 Duragesic TD 100 mcg Q3D IVIS Administration Folic Acid 1 mg 11/08/18 09:00 11/24/18 09:02 Folvite PER TUBE 1 mg DAILY IVIS Administration Gabapentin 100 mg 11/15/18 21:00 11/24/18 09:02 Neurontin PO 100 mg BID IVIS Administration Guaifenesin 200 mg 11/07/18 16:34 11/23/18 17:06 Robitussin Sf PO 200 mg Q4H PRN Administration Cough Metoclopramide HCl 5 mg 11/14/18 17:00 11/24/18 11:28 Reglan PO 5 mg ACHS IVIS Administration Metoprolol Tartrate 50 mg 11/08/18 09:00 11/24/18 09:02 Lopressor PO 50 mg BID IVIS Administration Ondansetron HCl 8 mg 11/14/18 15:00 11/24/18 09:03 Zofran Odt PO 8 mg TID IVIS Administration Pantoprazole Sodium 40 mg 11/08/18 09:00 11/24/18 09:02 Protonix PER TUBE 40 mg DAILY [facility] Administration Saccharomyces Boulardii 250 mg 11/08/18 09:00 11/24/18 09:01 Florastor PO 250 mg DAILY [facility] Administration Scopolamine 1.5 mg 11/08/18 07:00 11/23/18 06:20 Transderm Scop TOP 1.5 mg Q3D IVIS Administration Senna/Docusate Sodium 2 tab 11/07/18 16:34 11/22/18 04:43 Senokot S PO 2 tab BID PRN Administration Constipation Sodium Bicarbonate 650 mg 11/09/18 16:18 11/09/18 21:03 Bicarbonate, Sodium PER TUBE 650 mg .PER PROTOCOL PRN Administration ENTERAL TUBE OCCLUSION Sodium Chloride 10 ml 11/08/18 21:00 11/24/18 09:03 Flush - Normal Saline IVF Not Given Q12HR IVIS Sodium Chloride 10 ml 11/08/18 17:50 11/09/18 18:38 Flush - Normal Saline IVF 10 ml PRN PRN Administration Saline Flush - Exam NAD, awake alert Eye: PERRL, anicteric sclera ENT: normocephalic atraumatic, no oropharyngeal lesions Neck: supple, symmetric, no JVD Heart: RRR, no murmur, no gallops, no rubs Respiratory: CTAB, no wheezes, no rales, no ronchi Gastrointestinal: soft, non-distended, normal bowel sounds Gastrointestinal - other findings: G-tube+ Extremities: no cyanosis, no clubbing, no edema Skin: normal turgor, no lesions Neurological: CN's grossly intact, normal sensation to touch Musculoskeletal: normal tone, normal strength Psychiatric: normal affect, normal behavior Hosp A/P (1) Acute bronchitis Code(s): J20.9 - ACUTE BRONCHITIS, UNSPECIFIED Status: Acute Qualifiers: Bronchitis organism: unspecified organism Qualified Code(s): J20.9 - Acute bronchitis, unspecified (2) Hypoglycemia Code(s): E16.2 - HYPOGLYCEMIA, UNSPECIFIED Status: Acute (3) Lactic acidosis Code(s): E87.2 - ACIDOSIS Status: Resolved (4) Leucopenia Code(s): D72.819 - DECREASED WHITE BLOOD CELL COUNT, UNSPECIFIED Status: Acute (5) Nausea & vomiting Code(s): R11.2 - NAUSEA WITH VOMITING, UNSPECIFIED Status: Resolved (6) Sepsis Code(s): A41.9 - SEPSIS, UNSPECIFIED ORGANISM Status: Resolved (7) Sepsis associated hypotension Code(s): A41.9 - SEPSIS, UNSPECIFIED ORGANISM; I95.9 - HYPOTENSION, UNSPECIFIED Status: Resolved (8) Chronic hepatitis C Code(s): B18.2 - CHRONIC VIRAL HEPATITIS C Status: Chronic Qualifiers: Hepatic coma status: without hepatic coma Qualified Code(s): B18.2 - Chronic viral hepatitis C (9) DM2 (diabetes mellitus, type 2) Status: Chronic Qualifiers: Diabetes mellitus buttermaker insulin use: without longterm use Diabetes mellitus complication status: without complication Qualified Code(s): E11.9 - Type 2 diabetes mellitus without complications (10) Dysphagia Code(s): R13.10 - DYSPHAGIA, UNSPECIFIED Status: Chronic Qualifiers: (11) Esophageal adenocarcinoma Code(s): C15.9 - MALIGNANT NEOPLASM OF ESOPHAGUS, UNSPECIFIED Status: Chronic (12) Hypertension Code(s): I10 - ESSENTIAL (PRIMARY) HYPERTENSION Status: Chronic Qualifiers: Hypertension type: essential hypertension Qualified Code(s): I10 - Essential (primary) hypertension (13) PEG (percutaneous endoscopic gastrostomy) status Code(s): Z93.1 - GASTROSTOMY STATUS Status: Acute - Plan old records reviewed/req, older adult social work specialist pt is not tolerating tube feeding concern for his readmission monitor for tube feeding tolerance continue tube feeding as per his home schedule medication reviewed as above symptomatic treatment await arrangement for tube feeding material
[2018-11-24] MEDS: fentaNYL 100 mcg/hour Patch TD SCH (14:10)
--- NOTE | 2018-11-24 15:02 | DIS ---
DATE OF ADMISSION: 11/07/2018 DATE OF DISCHARGE: 11/24/2018 PRIMARY CARE PHYSICIAN: Montana Beckett. DISCHARGE DISPOSITION: Home. PRIMARY DISCHARGE DIAGNOSES: 1. Acute bronchitis/early aspiration pneumonia, treated in hospital, resolved. 2. Sepsis, resolved. 3. Sepsis-associated hypotension, resolved. 4. Nausea and vomiting, resolved. 5. Lactic acidosis, resolved. 6. Abdominal pain, controlled. 7. Hypoglycemia, resolved. SECONDARY DISCHARGE DIAGNOSES: 1. Chronic hepatitis C. 2. Diabetes, type 2. 3. Percutaneous endoscopic gastrostomy tube status. 4. Esophageal adenocarcinoma. 5. Chronic dysphagia. 6. Hypertension. PRIMARY PROCEDURE/OPERATION: Esophagogastroduodenoscopy by Dr. Foote. RADIOLOGICAL INVESTIGATION: Abdomen and pelvis CT scan, chest x-ray, chest CT scan, repeat abdomen and pelvis CT scan, abdomen ultrasound, and echocardiography. SIGNIFICANT LABORATORY DATA: WBC 5.3, hemoglobin 11.6, platelet 267. Sodium 137, creatinine 0.60, alkaline phosphatase 832, AST 74, ALT 30, albumin 2.4. DISCHARGE MEDICATIONS: 1. Fentanyl patch as directed. 2. Scopolamine patch as directed. 3. Datto 15 to 30 mL q.4 hourly p.r.n. 4. Zofran ODT q.6 hourly p.r.n. 5. Folic acid 1 mg per tube daily. 6. Gabapentin 100 mg per tube b.i.d. 7. Reglan 5 mg per tube a.c. and at bedtime. 8. Protonix 40 mg per tube daily. 9. MiraLAX 17 g per tube daily. CONTRAINDICATION: None. CODE STATUS: Full code. INPATIENT CONSULTANTS: Oncology group and GI team were consulted while in hospital. TEST RESULTS PENDING ON DISCHARGE: None. ALLERGIES: NO KNOWN DRUG ALLERGIES. DISCHARGE PLAN: Posthospital, the patient will follow up with Oncology Clinic for chemotherapy. The patient will follow up with GI team as an outpatient basis. HOSPITAL COURSE: A 63-year-old male, who was admitted by me on November 07, 2018. The patient has underlying adenocarcinoma and chronic dysphagia. He was not tolerating p.o., and he was having nausea and vomiting. He had some aspiration, and he was hypotensive in the emergency room. Initially, he was septic. He has a sepsis-associated hypotension, improved with IV fluid. He was given broad-spectrum antibiotic therapy with vancomycin and Zosyn. His cultures remain negative. The patient has finished complete course of antibiotic therapy while in hospital. While in hospital, we had another problem with nausea and vomiting and tolerance with tube feeding as well as his chronic abdominal pain, that was pretty much unexplained. We treated him symptomatically while in hospital. Dr. Foote did an endoscopy, and esophageal stricture was dilated. The patient was also continued with tube feeding as tolerated. He was also given IV fluid for hydration while in hospital. We also arranged his tube feeding material. At this point, the patient is up to his baseline level. He is tolerating his diet. Feeding tube material has been arranged by keycase assembler. Overall, this patient is stable for discharge. Based on his recurrent nausea, vomiting, abdominal pain, and chronic pain disorder as well as underlying malignancy, on chemotherapy, he is always at high risk for recurrent admission, but I think at this point while in hospital, we are not doing anything other than continuing tube feeding and treating him symptomatically, which he can do at home as well. His long-term prognosis is guarded. The patient will continue to get chemotherapy through Oncology Clinic. The patient is discharged today. Job ID: [id number]
[2018-11-24 17:31] VITALS: BP 108/75; TEMP 99.1
== END 2018-11-24 17:17 | disposition home or self-care (01) | DRG 871 ==
LOC: ERS 12:38 → T4-A 16:23
PROVIDERS: ADMIT Internal Medicine; ATTEND Internal Medicine
PROC: 0D748ZZ Dilation of Esophagogastric Junction, Via Natural or Artificial Opening Endoscopic (ICD-10-PCS; principal; 2018-11-11)
DX: A41.9 Sepsis, unspecified organism (principal); J69.0 Pneumonitis due to inhalation of food and vomit; I69.351 Hemiplegia and hemiparesis following cerebral infarction affecting right dominant side; E87.2 Acidosis; E87.1 Hypo-osmolality and hyponatremia; C15.9 Malignant neoplasm of esophagus, unspecified; E44.0 Moderate protein-calorie malnutrition; Z51.5 Encounter for palliative care; K21.9 Gastro-esophageal reflux disease without esophagitis; B18.2 Chronic viral hepatitis C; E86.9 Volume depletion, unspecified; J20.9 Acute bronchitis, unspecified; E11.649 Type 2 diabetes mellitus with hypoglycemia without coma; R13.10 Dysphagia, unspecified; R65.20 Severe sepsis without septic shock; E86.0 Dehydration; K44.9 Diaphragmatic hernia without obstruction or gangrene; R11.0 Nausea; T45.1X5A Adverse effect of antineoplastic and immunosuppressive drugs, initial encounter; R10.12 Left upper quadrant pain; G89.4 Chronic pain syndrome; K26.9 Duodenal ulcer, unspecified as acute or chronic, without hemorrhage or perforation; K22.2 Esophageal obstruction; Z90.49 Acquired absence of other specified parts of digestive tract; Z79.899 Other long term (current) drug therapy; Z93.1 Gastrostomy status; Z79.84 Long term (current) use of oral hypoglycemic drugs; Z68.32 Body mass index [BMI] 32.0-32.9, adult; R19.7 Diarrhea, unspecified; I10 Essential (primary) hypertension; F17.200 Nicotine dependence, unspecified, uncomplicated; E66.9 Obesity, unspecified
CPT/HCPCS: 36415; 36416; 71045; 71260; 74019; 74022; 74160; 74177; 76705; 80048; 80053; 80202; 82378; 82533; 83605; 83735; 85025; 87040; 87324; 87449; 93306; 96365; 96366; J0692; J1642; J1650; J1885; J1956; J2001; J2185; J2405; J2543; J2550; J2704; J2765; J3370; J3490; J7042; J7050; J8597; Q0162; Q0163; Q9966; Q9967

== ENCOUNTER 2018-11-26 11:20 | Inpatient (IN) | payer OTHER ==
[2018-11-26 12:02] LABS: #Eosinphils 0.1 thou/uL (0.0-0.7); #Lymphocytes 1.6 thou/uL (1.20-3.40); #Neutrophils 12.7 thou/uL (1.40-6.50); %Basophils 0.2 % (0.0-1.0); %Eosinophils 0.6 % (0.0-10.0); %Lymphocytes 9.8 % (21.0-51.0); %Monocytes 12.3 % (0.0-10.0); Hemoglobin 13.2 g/dL (14.0-18.0); Mean Corpuscular HGB CONC 33.3 g/dL (32.0-36.0); Mean Corpuscular Hemoglobin 31.9 pg (27.0-31.0); Mean Corpuscular Volume 95.8 fL (78.0-98.0); Mean Platelet Volume 7.5 fL (7.4-10.4); Platelet Count 308 thou/uL (130-400); RBC Distribution Width 15.7 % (11.5-14.5); Red Blood Cell (RBC) Count 4.14 mill/uL (4.70-6.10); White Blood Cell (WBC) Count 16.5 thou/uL (4.8-10.8)
[2018-11-26 12:27] LABS: ALT (SGPT) 24 U/L (8-55); AST (SGOT) 35 U/L (5-34); Albumin 2.9 g/dL (3.4-4.8); Alkaline Phosphatase 756 U/L (40-150); Anion Gap 17 mmol/L (10-20); BUN (Urea Nitrogen) 11 mg/dL (8.4-25.7); Bilirubin, Total 1.8 mg/dL (0.2-1.2); Calc. Creatinine Clearance 0 mL/min (70-130); Calcium 9.4 mg/dL (7.8-10.44); Carbon Dioxide 17 mmol/L (23-31); Chloride 103 mmol/L (98-107); Estimated GFR-MDRD Greater than 90; Globulin 4.7 g/dL (2.4-3.5); Glucose 130 mg/dL (80-115); Lipase Less than 4 U/L (8-78); Potassium 3.7 mmol/L (3.5-5.1); Protein, Total 7.6 g/dL (5.8-8.1); Sodium 133 mmol/L (136-145)
[2018-11-26] MEDS ORDERED: Ondansetron PF 4 MG/2 ML Vial ONE (12:29)
[2018-11-26] MEDS ORDERED: Morphine 4 MG/ML VIAL ONE (12:29)
[2018-11-26 13:04] LABS: Bilirubin 1+ (Negative); Blood, Urine Negative (Negative); Clarity Clear (Clear); Glucose, Urine (Dipstick) Normal (Negative); Leukocyte Negative Leu/uL (Negative); Nitrite Negative (Negative); Protein, Urine (Dipstick) 20 mg/dL (Neg-Trace)
[2018-11-26] MEDS ORDERED: Metoclopramide HCl 10 MG/2 ML VIAL ONE (13:46)
--- NOTE | 2018-11-26 14:36 | RAD ---
Exam: Chest one view HISTORY:Nausea and vomiting x2 weeks. Comparison: 11/10/2018, 11/19/2018 FINDINGS: Cardiac silhouette: Normal Aorta: Unremarkable Pulmonary vessels: Normal Costophrenic angles: Interval development of a right-sided pleural effusion LUNGS: Bilateral lower lobe interstitial and alveolar opacities Pneumothorax: None Osseous abnormalities: None IMPRESSION: 1. Bilateral lower lobe interstitial and alveolar opacities likely due to infiltrate. Small right-marycarmen ed pleural effusion. Continued surveillance is recommended.
[2018-11-26] MEDS ORDERED: Piperacillin/Tazobactam 3.375 GM VIAL ONE (15:41)
[2018-11-26] MEDS ORDERED: Sodium Chloride 0.9% 100 ML ONE (15:41)
[2018-11-26 16:25] LABS: Lactic Acid 1.6 mmol/L (0.5-2.2)
[2018-11-26] MEDS ORDERED: HYDROcodone/Acetaminophen 5/325 mg Tablet PO PRN ×2 (17:13)
[2018-11-26] MEDS ORDERED: Ondansetron PF 4 MG/2 ML Vial IVP PRN (17:13)
[2018-11-26] MEDS ORDERED: Acetaminophen 325 MG TAB PO PRN (17:13)
[2018-11-26] MEDS ORDERED: Ondansetron ODT 4 MG TAB SL PRN (17:13)
[2018-11-26] MEDS ORDERED: Morphine 4 MG/ML VIAL IV PRN (17:14)
[2018-11-26] MEDS: Sodium Chloride 0.9% 1,000 ML IV SCH (18:20)
[2018-11-26] MEDS: Ondansetron PF 4 MG/2 ML Vial IVP PRN ×2 (18:21→23:57)
[2018-11-26] MEDS: fentaNYL 100 mcg/hour Patch TD SCH (19:52)
[2018-11-26] MEDS: Scopolamine 1.5 mg/72 hour Patch TOP SCH (19:53)
[2018-11-26] MEDS: Piperacillin/Tazobactam 3.375 GM in Sodium Chloride 0.9% 100 ML IVPB SCH (20:00)
[2018-11-26] MEDS: Promethazine HCl 25 MG/ML VIAL IM/IV PRN (20:10)
[2018-11-26] MEDS ORDERED: Metoclopramide HCl 10 MG TAB PER TUBE SCH (21:00)
[2018-11-26] MEDS: Gabapentin 100 MG CAP PO SCH (21:01)
--- NOTE | 2018-11-26 22:18 | HP ---
CHIEF COMPLAINT: Nausea, vomiting, abdominal pain. HISTORY OF PRESENT ILLNESS: The patient is a 63-year-old male, who was just discharged from the hospital 2 days ago and he was hospitalized for sepsis, nausea, vomiting and abdominal pain who went home and started having the same symptoms of nausea, vomiting, and abdominal pain. He had bowel movement today which was as normal and yesterday, he had 1 bowel movement, which was normal too. He denied any chest pain. He had low-grade fever. He denied any shortness of breath, but he has cough and he is coughing up milky Staph, which looks to me like the formula he was given for his tube feeding. Please refer for more information to the previous hospitalization. PAST MEDICAL HISTORY: Positive for: 1. Esophageal cancer, adenocarcinoma. 2. NG tube placement for dysphagia. 3. Hypertension. 4. History of hepatitis C. 5. History of cerebrovascular accident with right-sided weakness. 6. Diabetes mellitus type 2. 7. Gastroesophageal reflux disease. 8. Sepsis. 9. Acute bronchitis/early aspiration pneumonia during the previous hospitalization. PAST SURGICAL HISTORY: 1. Colostomy reversal. 2. G-tube placement. 3. Cholecystectomy. SOCIAL HISTORY: He lives with his brother and mother and no history of current tobacco, alcohol, or illicit drug use. FAMILY HISTORY: His brother from aneurysm in his early 40s and family has some positive history of heart disease. ALLERGIES: NONE. MEDICATIONS: Please refer to the medication list. REVIEW OF SYSTEMS: CONSTITUTIONAL: Negative for chills. Positive for low-grade fever. EYES: Negative for eye pain and eye discharge. ENT: Negative for nasal congestion and epistaxis. RESPIRATORY: Negative for shortness of breath. Positive for cough with some milky looking sputum. CARDIOVASCULAR: Negative for chest pain and palpitations. GI: Positive for nausea, vomiting, abdominal pain. : Negative for hematuria and dysuria. MUSCULOSKELETAL: Negative for pain and leg swelling. NEUROLOGIC: Negative for headaches and anxiety. PSYCHIATRIC: Negative or homicidal or suicidal ideations. PHYSICAL EXAMINATION: VITAL SIGNS: His blood pressure is 117/94, pulse is 105, respiratory rate is 22, temperature was 99.1. HEENT: His head is atraumatic and normocephalic. Eyes are PERRLA. Sclerae are nonicteric. Oral mucosa somewhat dry, poor dentition. NECK: Supple. LUNGS: Breath sounds somewhat diminished at both bases with some few crackles at both bases. HEART: S1, S2. Tachycardic. No S3. No S4. ABDOMEN: The J-tube is in place. There is some milky substance around the point of entry, which is most likely his formula. Abdomen is tender [id number] all over. No specified area. No guarding, no masses. EXTREMITIES: No clubbing, cyanosis, or edema. NEUROLOGICAL: He follows my commands. He moves his all 4 extremities. There is no any motor or sensory deficits. LABORATORY DATA: Labs showed white count of 16.5, hemoglobin 13.2, hematocrit 39.7, platelet count is 308. Chemistry showed sodium of 133, potassium 3.7, chloride 103, CO2 of 17, BUN 11, creatinine 0.7, , lactic acid 2.1, total bilirubin 1.8, AST 35, ALT 24, alkaline phosphatase 756, albumin 2.9, globulin 4.7, lipase less than 4. Urinalysis showed 1+ bilirubin, 2+ urobilinogen, leukocyte esterase negative and nitrite negative. Chest x-ray was personally reviewed by me. It showed bilateral lower lobe interstitial and alveolar opacities, likely due to infiltrate. Small right-sided pleural effusion. IMPRESSION: 1. Intractable recurrent nausea and vomiting with associated abdominal pain. 2. Possible sepsis. The patient was recently in the hospital, his white count was down to normal range and all of a sudden is up to 16,000. He had some low-grade fever this morning when he got to the emergency room. We will start him on vancomycin and Zosyn to cover possible infection since he had sepsis last time he was here. 3. Adenocarcinoma of the esophagus on chemo and radiation therapy. 4. Dysphagia with gastrostomy tube in place. 5. Hyponatremia, mild most likely related to volume depletion. 6. Elevated liver function tests with history of chronic hepatitis C. 7. Gastroesophageal reflux disease and status post recent esophageal dilatation. PLAN: Plan is full admission. Condition is guarded. Medical floor activity, bedrest and bathroom privileges. IV normal saline at 100 mL/hour. Start vancomycin and Zosyn, broad coverage. Get blood cultures and antiemetics. GI consultation with Dr. Salcedo, n.p.o. for now and DVT prophylaxis. Job ID: [id number]
[2018-11-27] MEDS: Piperacillin/Tazobactam 3.375 GM in Sodium Chloride 0.9% 100 ML IVPB SCH ×4 (03:00→20:32)
[2018-11-27] MEDS: Promethazine HCl 25 MG/ML VIAL IM/IV PRN (03:00)
[2018-11-27] MEDS ORDERED: Vancomycin HCl 1 GM in Premix Bag 1 BAG IVPB SCH (04:00)
[2018-11-27] MEDS: Sodium Chloride 0.9% 1,000 ML IV SCH ×2 (05:35→20:32)
[2018-11-27] MEDS: Vancomycin HCl 1 GM in Premix Bag 1 BAG IVPB SCH ×2 (05:43→17:56)
[2018-11-27] MEDS: Morphine 4 MG/ML VIAL SLOW IVP PRN (05:43)
[2018-11-27] MEDS: Ondansetron PF 4 MG/2 ML Vial IVP PRN (05:43)
[2018-11-27 06:16] LABS: Anion Gap 12 mmol/L (10-20); BUN (Urea Nitrogen) 12 mg/dL (8.4-25.7); Calc. Creatinine Clearance 155 mL/min (70-130); Calcium 8.3 mg/dL (7.8-10.44); Carbon Dioxide 23 mmol/L (23-31); Chloride 106 mmol/L (98-107); Estimated GFR-MDRD Greater than 90; Glucose 79 mg/dL (80-115); Potassium 3.5 mmol/L (3.5-5.1); Sodium 137 mmol/L (136-145)
[2018-11-27 06:27] LABS: Eosinophils 1 % (0-10); Hemoglobin 11.9 g/dL (14.0-18.0); Hypochromia SLIGHT = 6-15 cells (100X) (0-5/hpf); Lymphocytes 6 % (21-51); MDiff Complete? YES; Mean Corpuscular HGB CONC 31.7 g/dL (32.0-36.0); Mean Corpuscular Hemoglobin 30.7 pg (27.0-31.0); Mean Platelet Volume 7.3 fL (7.4-10.4); Monocytes 7 % (0-10); Neutrophil 86 % (42-75); Platelet Count 284 thou/uL (130-400); Platelet Morphology Comment Appears Adequate; Red Blood Cell (RBC) Count 3.87 mill/uL (4.70-6.10); White Blood Cell (WBC) Count 9.3 thou/uL (4.8-10.8)
[2018-11-27] MEDS: Enoxaparin Sodium 40 MG/0.4 ML SYRINGE SC SCH (09:10)
[2018-11-27] MEDS: Folic Acid 1 MG TAB PER TUBE SCH (09:10)
[2018-11-27] MEDS: Gabapentin 100 MG CAP PO SCH ×2 (09:10→20:32)
[2018-11-27] MEDS ORDERED: ZOSYN IVPB PRN (11:41)
[2018-11-27] MEDS ORDERED: Metoclopramide HCl 10 MG/2 ML VIAL IVP PRN (11:47)
--- NOTE | 2018-11-27 13:50 | RAD ---
Single contrast enterography 2 Radiographic views submitted CLINICAL INDICATION: Evaluation of jejunal feeding tube placement FINDINGS: Enteric catheter is administered through patient's indwelling jejunostomy which reveals contrast opac ification within bowel lumen. Lung basesreveal mild patchy opacification. No free air. Moderate retained fecal material is seen within colon. There is posterior bowel gas. No acute osseous pathology. IMPRESSION: Administered contrast resides within bowel lumen.
--- NOTE | 2018-11-27 14:48 | CON ---
DATE OF CONSULTATION: 11/27/2018 REASON FOR CONSULTATION: Nausea, vomiting, and abdominal pain. CONSULTING PHYSICIAN: Brien Alvarez MD HISTORY OF PRESENT ILLNESS: The patient is a 63-year-old male with past medical history of GERD, diabetes, chronic hepatitis C infection, hypertension, cerebrovascular accident with residual right-sided weakness and esophageal cancer, currently undergone chemotherapy and radiation, presenting with complaints of nausea and vomiting. Per chart review, the patient was recently admitted to the hospital for similar complaints of nausea, vomiting, and right-sided abdominal pain that was ultimately treated for possible infection as well as antiemetic and pain control during that admission. He did well with management while he was here in the hospital and was ultimately discharged home. However, after being at home for 4 to 6 hours, he had a return of increased nausea, vomiting, and abdominal pain that persisted over the next 2 to 3 days prior to being readmitted. In terms of his nausea vomiting, he said he would have anywhere between 2 and 4 discrete episodes of nonbloody emesis per day and consistent more of light brown/greenish colored material. He was taking antiemetic medications at home, but it did not adequately help with his nausea and vomiting. He also denies any oral intake while at home; however, during his most recent upper endoscopy, there was some mention of residual food within the distal esophagus, raising concern for compliance with instructions of n.p.o. He also continues to have increased right upper quadrant abdominal pain characterized as a cramping/aching sensation, where he states it is like "someone punching me in the stomach." This pain radiates to the midepigastric and left upper quadrant. It is constant and reaches a severity of 10/10 at its worst. He is currently on a 100 mcg/hour fentanyl patch and has been on this medication for some time as part of treatment for abdominal pain surrounding his esophageal cancer. He currently denies any fevers, chills, or diarrhea, but he does endorse production of increased sputum for the last few days. REVIEW OF SYSTEMS: A 10-category review of systems was obtained with all responses negative, except for the pertinent positives as listed in HPI. PAST MEDICAL HISTORY: As per HPI. PAST SURGICAL HISTORY: Cholecystectomy, jejunal feeding tube placement, colostomy. SOCIAL HISTORY: Denies any tobacco, alcohol, or illicit drug use. FAMILY HISTORY: Denies any GI malignancies. OUTPATIENT MEDICATIONS: Reviewed. ALLERGIES: NO KNOWN DRUG ALLERGIES. PHYSICAL EXAMINATION: VITAL SIGNS: Temperature 98.7, pulse 101, blood pressure 110/77, respiratory rate 16, saturating 95% on room air. GENERAL: The patient was lying in bed, in no acute distress. Alert and oriented x3. HEENT: Normocephalic and atraumatic. NECK: Supple. No JVD or scleral icterus noted. CARDIOVASCULAR: Tachycardic rate, but regular rhythm. No discernible murmurs, gallops, or rubs. RESPIRATORY: Coarse breath sounds heard in the bilateral lower lung estevez, but no discernible wheezes or rales. ABDOMEN: Hypoactive bowel sounds. Soft, nondistended. Significant tender to both light and deep palpation in all abdominal quadrants. Water brash noted. EXTREMITIES: No cyanosis, clubbing, or edema. LABORATORY DATA: CBC with a white blood cell count of 9.3, hemoglobin 11.9, hematocrit 37.5, platelets 284. Chemistry with a sodium of 137, potassium 3.5, chloride 106, CO2 of 23, BUN 12, creatinine 0.7, glucose 79, AST 35, ALT 24, albumin 2.9, alkaline phosphatase 756, total bilirubin 1.8. IMAGING DATA: Chest x-ray was obtained on November 26, 2018, which showed bilateral lower lobe interstitial and alveolar opacities, likely secondary to infiltrate. A small right-sided pleural effusion was also noted. EGD was obtained on November 11, 2018, which showed an ulcerated friable polypoid lesion of the distal esophagus with food bolus above the stricture. This likely malignant stricture was dilated to achieve visualization of the stomach and the proximal small intestine. Mild gastritis was noted within the stomach with polypoid mucosa within the duodenal bulb. There was a small ulceration also seen within the duodenal bulb. ASSESSMENT AND PLAN: The patient is a 63-year-old male with past medical history of GERD, diabetes, cerebrovascular accident with right-sided weakness, chronic hepatitis C infection, hypertension, and esophageal cancer, currently being treated with chemotherapy and radiation therapy, presenting with recurrent nausea, vomiting, and abdominal pain. Nausea, vomiting, and abdominal pain. The patient is presenting with a recent hospitalization for which the patient had been treated for an underlying infection and responded well to antiemetic therapy in addition to treatment of the infection itself. On this admission, he is noted to have changes within the chest x-ray as well as on physical exam concerning for possible pulmonary infection and is currently being treated for this particular condition. However, within hours of being discharged from the hospital, he began to have increased nausea, vomiting, and abdominal pain, which raises some concern about his GI motility, especially in light of chronic narcotic use related to his abdominal pain. With him receiving a fentanyl patch with 100 mcg/hour and does significantly increase his risk for constipation and delayed intestinal motility both within the small and large intestine, which could further contribute to his current clinical situation. Attempts to minimize his narcotics as well as possible reversal of the narcotics within the GI tract maybe advised. However, he also has a jejunal feeding tube that is in place that has been prone to blockages per nursing staff and the patient himself. Migration of the balloon/pigtail could potentially cause an intermittent small bowel obstruction and further contribute to the current clinical situation. Otherwise, his right upper quadrant abdominal pain could also be due to irritation of the diaphragm as well as the presence of the esophageal cancer itself further contributing to his pain. RECOMMENDATIONS: 1. We will start the patient on naloxegol 25 mg daily in attempt to reverse the effects of the opiates on the gut. 2. Would continue n.p.o. status with all medications and nutrition delivered through the jejunal feeding tube rather than by mouth, which could create nausea and vomiting given the presence of his distal esophageal cancer and effective obstruction. 3. Pain control per primary team. 4. We will continue with aggressive antiemetics with scheduled Zofran with metoclopramide as needed for breakthrough nausea and vomiting. 5. We will defer to Oncology for continued treatment of his esophageal cancer with chemotherapy (the patient was due to get chemotherapy today). 6. We will order a jejunal tube check to assess for a possible obstruction with the tube itself and may consider General Surgery consultation, if the tube itself is not functioning for possible replacement. We will continue to follow. Please call with any questions. Job ID: [id number]
--- NOTE | 2018-11-27 16:01 | PDOC.HOSPP ---
- Subjective Encounter Date: 11/27/18 Encounter Time: 09:00 Subjective: Pt seen for followup re: sepsis. Reports difficulty tolerating diet. - Objective Vital Signs & Weight: Vital Signs (12 hours) Temp Pulse Resp BP BP Pulse Ox 11/27/18 11:01 98.7 F 101 H 16 110/77 95 11/27/18 07:35 98.3 F 93 16 119/83 97 11/27/18 04:08 98.5 F 102 H 16 124/86 97 Weight Weight 220 lb 14.4 oz I&O: 11/26/18 11/27/18 11/28/18 06:59 06:59 06:59 Intake Total 1521 Output Total 700 Balance 821 Result Diagrams: 11/27/18 05:32 11/27/18 05:32 Additional Labs: Accuchecks 11/27/18 11/27/18 11/26/18 09:07 04:13 19:22 POC Glucose 81 80 111 H ROS - Review of Systems Cardiovascular: denies: chest pain, palpitations, orthopnea, paroxysmal noc. dyspnea, edema, light headedness Gastrointestinal: reports: nausea, vomitting, abdominal pain, constipation. denies: diarrhea, melena, hematochezia - Medication Medications: Active Medications Generic Name Dose Route Start Last Admin Trade Name Freq PRN Reason Stop Dose Admin Enoxaparin Sodium 40 mg 11/27/18 09:00 11/27/18 09:10 Lovenox SC 40 mg 0900 IVIS Administration Fentanyl 100 mcg 11/26/18 20:00 11/26/18 19:52 Duragesic TD 100 mcg Q3DAYS@2000 IVIS Administration Folic Acid 1 mg 11/27/18 09:00 11/27/18 09:10 Folvite PER TUBE 1 mg DAILY IVIS Administration Gabapentin 100 mg 11/26/18 21:00 11/27/18 09:10 Neurontin PO 100 mg BID IVIS Administration Sodium Chloride 1,000 mls @ 100 mls/hr 11/26/18 15:45 11/27/18 05:35 Normal Saline 0.9% IV 1,000 mls .Q10H IVIS Administration Piperacillin Sod/Tazobactam 100 mls @ 200 mls/hr 11/26/18 21:00 11/27/18 09: 08 Sod 3.375 gm/ Sodium Chloride IVPB 100 mls Q6H IVIS Administration Vancomycin HCl 1 gm/ Device 200 mls @ 200 mls/hr 11/27/18 06:00 11/27/18 05: 43 IVPB 200 mls 0600,1800 IVIS Administration Morphine Sulfate 4 mg 11/27/18 00:39 11/27/18 05:43 Morphine SLOW IVP 4 mg Q4H PRN Administration Breakthrough Pain Scopolamine 1.5 mg 11/26/18 20:00 11/26/18 19:53 Transderm Scop TOP 1.5 mg Q3D@2000 IVIS Administration Sodium Chloride 10 ml 11/26/18 17:13 11/27/18 05:36 Flush - Normal Saline IVF 10 ml PRN PRN Administration Saline Flush - Exam General - other findings: Obese Eye: anicteric sclera ENT: moist mucosa Neck: supple, no thyromegaly Heart: RRR Respiratory: CTAB Gastrointestinal: soft Gastrointestinal - other findings: Mild RUQ tenderness, no guarding or rigidity Extremities: no cyanosis Psychiatric: normal behavior Psychiatric - other findings: appears to be in mild distress Hosp A/P (1) Sepsis Code(s): A41.9 - SEPSIS, UNSPECIFIED ORGANISM Status: Acute (2) Pneumonia Code(s): J18.9 - PNEUMONIA, UNSPECIFIED ORGANISM Status: Acute (3) Chronic hepatitis C Code(s): B18.2 - CHRONIC VIRAL HEPATITIS C Status: Chronic Qualifiers: Hepatic coma status: without hepatic coma Qualified Code(s): B18.2 - Chronic viral hepatitis C (4) DM2 (diabetes mellitus, type 2) Status: Chronic Qualifiers: Diabetes mellitus fci insulin use: without long term care social worker use Diabetes mellitus complication status: without complication Qualified Code(s): E11.9 - Type 2 diabetes mellitus without complications (5) Hypertension Code(s): I10 - ESSENTIAL (PRIMARY) HYPERTENSION Status: Chronic Qualifiers: Hypertension type: essential hypertension Qualified Code(s): I10 - Essential (primary) hypertension (6) Nausea & vomiting Code(s): R11.2 - NAUSEA WITH VOMITING, UNSPECIFIED Status: Resolved - Plan continue antibiotics, out of bed/ambulate Continue IV Zosyn and vancomycin, await cultures. Sepsis most likely secondary to jessica aspiration pneumonia. BP controlled. Blood sugars controlled. Pt is a chemo pt, will consult oncology. Consult pain service for pain management.
[2018-11-27] MEDS: Ondansetron HCl/PF 8 MG in Sodium Chloride 0.9% 50 ML IVPB SCH ×2 (16:34→21:39)
[2018-11-27] MEDS ORDERED: GASTROGRAFIN 30 ML BOT ONE (17:11)
[2018-11-28] MEDS: Morphine 4 MG/ML VIAL SLOW IVP PRN ×3 (00:20→21:00)
[2018-11-28] MEDS: Dextrose 5 % And 0.9 % NaCl 1,000 ML IV SCH ×3 (00:20→20:58)
[2018-11-28] MEDS: Piperacillin/Tazobactam 3.375 GM in Sodium Chloride 0.9% 100 ML IVPB SCH ×4 (01:55→20:59)
[2018-11-28] MEDS: Ondansetron HCl/PF 8 MG in Sodium Chloride 0.9% 50 ML IVPB SCH ×3 (05:40→22:12)
[2018-11-28] MEDS: Vancomycin HCl 1 GM in Premix Bag 1 BAG IVPB SCH ×3 (05:40→18:25)
[2018-11-28 06:01] LABS: #Eosinphils 0.1 thou/uL (0.0-0.7); #Lymphocytes 1.2 thou/uL (1.20-3.40); #Monocytes 1.1 thou/uL (0.11-0.59); #Neutrophils 11.1 thou/uL (1.40-6.50); %Basophils 0.2 % (0.0-1.0); %Eosinophils 0.5 % (0.0-10.0); %Lymphocytes 8.9 % (21.0-51.0); %Monocytes 7.9 % (0.0-10.0); %Neutrophils 82.6 % (42.0-75.0); Hemoglobin 11.9 g/dL (14.0-18.0); Mean Corpuscular Volume 96.9 fL (78.0-98.0); Mean Platelet Volume 7.2 fL (7.4-10.4); Platelet Count 288 thou/uL (130-400); RBC Distribution Width 15.6 % (11.5-14.5); Red Blood Cell (RBC) Count 3.85 mill/uL (4.70-6.10); White Blood Cell (WBC) Count 13.4 thou/uL (4.8-10.8)
--- NOTE | 2018-11-28 06:34 | PDOC.HOSPP ---
- Subjective Encounter Date: 11/28/18 Encounter Time: 06:32 non-verbal Subjective: pt is sitting up in bed appearing to be in moderate distress. Reports nausea and vomiting multiple times throughout the night. denies headaches, fevers or chills, or trouble breathing. complains of thirst and request ice chips. - Objective Vital Signs & Weight: Vital Signs (12 hours) Temp Pulse Resp BP Pulse Ox 11/27/18 19:32 98.9 F 114 H 20 112/80 93 L Weight Admit Weight 100.199 kg Weight 100.199 kg I&O: 11/26/18 11/27/18 11/28/18 06:59 06:59 06:59 Intake Total 1521 2381 Output Total 700 500 Balance 821 1881 Result Diagrams: 12/01/18 05:27 12/01/18 05:27 Additional Labs: Accuchecks 11/28/18 11/27/18 11/27/18 04:11 19:36 09:07 POC Glucose 79 78 81 Radiology Reviewed by me: Yes EKG Reviewed by me: No Hospitalist ROS - Review of Systems Constitutional: denies: fever, chills Respiratory: denies: shortness of breath, pleuritic pain Cardiovascular: denies: palpitations Gastrointestinal: reports: nausea, vomitting, constipation Other: pt denies any pain - Medication Medications: Active Medications Generic Name Dose Route Start Last Admin Trade Name Freq PRN Reason Stop Dose Admin Enoxaparin Sodium 40 mg 11/27/18 09:00 11/27/18 09:10 Lovenox SC 40 mg 0900 IVIS Administration Fentanyl 100 mcg 11/26/18 20:00 11/26/18 19:52 Duragesic TD 100 mcg Q3DAYS@1999 IVIS Administration Folic Acid 1 mg 11/27/18 09:00 11/27/18 09:10 Folvite PER TUBE 1 mg DAILY IVIS Administration Gabapentin 100 mg 11/26/18 21:00 11/27/18 20:32 Neurontin PO 100 mg BID IVIS Administration Piperacillin Sod/Tazobactam 100 mls @ 200 mls/hr 11/26/18 21:00 11/28/18 01: 55 Sod 3.375 gm/ Sodium Chloride IVPB 100 mls Q6H IVIS Administration Vancomycin HCl 1 gm/ Device 200 mls @ 200 mls/hr 11/27/18 06:00 11/27/18 17: 56 IVPB 200 mls 0600,1800 IVIS Administration Ondansetron HCl 8 mg/ Sodium 54 mls @ 200 mls/hr 11/27/18 14:00 11/28/18 05: 40 Chloride IVPB 54 mls Q8HR IVIS Administration Dextrose/Sodium Chloride 1,000 mls @ 100 mls/hr 11/28/18 00:30 11/28/18 00:20 D5 0.9% Ns IV 1,000 mls .Q10H IVIS Administration Morphine Sulfate 4 mg 11/27/18 00:39 11/28/18 05:37 Morphine SLOW IVP 4 mg Q4H PRN Administration Breakthrough Pain Scopolamine 1.5 mg 11/26/18 20:00 11/26/18 19:53 Transderm Scop TOP 1.5 mg Q3D@2000 IVIS Administration Sodium Chloride 10 ml 11/26/18 17:13 11/27/18 05:36 Flush - Normal Saline IVF 10 ml PRN PRN Administration Saline Flush - Exam General Appearance: ill appearing Eye: PERRL ENT: normocephalic atraumatic Heart: RRR, no murmur, no gallops, no rubs Respiratory: CTAB, no wheezes, no rales, no ronchi, normal chest expansion, no tachypnea Extremities: no cyanosis Skin: normal turgor Neurological: CN's grossly intact Musculoskeletal: normal tone, normal strength, no muscle wasting Psychiatric: normal affect, normal behavior, A&O x 3, oriented to person Hosp A/P (1) Sepsis Code(s): A41.9 - SEPSIS, UNSPECIFIED ORGANISM Status: Resolved Qualifiers: Sepsis type: sepsis due to unspecified organism Sepsis acute organ dysfunction status: without acute organ dysfunction Qualified Code(s): A41.9 - Sepsis, unspecified organism (2) Pneumonia Code(s): J18.9 - PNEUMONIA, UNSPECIFIED ORGANISM Status: Acute Qualifiers: Pneumonia type: aspiration pneumonia Aspiration pneumonia type: due to vomit (3) Chronic hepatitis C Code(s): B18.2 - CHRONIC VIRAL HEPATITIS C Status: Chronic Qualifiers: Hepatic coma status: without hepatic coma Qualified Code(s): B18.2 - Chronic viral hepatitis C Plan: stable (4) DM2 (diabetes mellitus, type 2) Status: Chronic Qualifiers: Diabetes mellitus manager intermediate insulin use: without halfway use Diabetes mellitus complication status: without complication Qualified Code(s): E11.9 - Type 2 diabetes mellitus without complications Plan: stable with current medications. (5) Hypertension Code(s): I10 - ESSENTIAL (PRIMARY) HYPERTENSION Status: Chronic Qualifiers: Hypertension type: essential hypertension Qualified Code(s): I10 - Essential (primary) hypertension Plan: stable on current medications (6) Nausea & vomiting Code(s): R11.2 - NAUSEA WITH VOMITING, UNSPECIFIED Status: Resolved Plan: GI consulted- aggressive antiemetic. - Plan old records reviewed/req, continue antibiotics Culture negative at 24 hours, continue Zosyn and Vanco BP stable, but heart rate still tachycardic and slight fever at 101.0 this morning. GI consulted- recommended to start Naloxegol 25 mg for opiate related constipation, continued NPO with jejunal feedings and medication delivery, aggressive antiemetics, and order jejunal tube check by surgery for possible obstruction Brain CT ordered to r/o intercranial problem Blood sugars stable Oncology consulted - will await recommendations. Addendum by Manjit Milan MD: Chart reviewed, pt seen by me. Discussed case with Mr. Staley. Agree with plan of care as documented. Please refer to my separate progress note for further details.
[2018-11-28 06:49] LABS: Vancomycin, Trough 12.8 ug/mL
[2018-11-28 06:52] LABS: Anion Gap 10 mmol/L (10-20); BUN (Urea Nitrogen) 13 mg/dL (8.4-25.7); Calc. Creatinine Clearance 153 mL/min (70-130); Calcium 8.4 mg/dL (7.8-10.44); Carbon Dioxide 25 mmol/L (23-31); Chloride 106 mmol/L (98-107); Estimated GFR-MDRD Greater than 90; Glucose 91 mg/dL (80-115); Potassium 3.4 mmol/L (3.5-5.1); Sodium 138 mmol/L (136-145)
[2018-11-28] MEDS: Folic Acid 1 MG TAB PER TUBE SCH (08:00)
[2018-11-28] MEDS: Enoxaparin Sodium 40 MG/0.4 ML SYRINGE SC SCH (08:00)
[2018-11-28] MEDS: Gabapentin 100 MG CAP PO SCH ×2 (08:00→20:59)
[2018-11-28] MEDS ORDERED: Acetaminophen 325 MG TAB PO PRN (08:37)
[2018-11-28] MEDS ORDERED: ISOVUE-370 76%-LOCM 1 ML ONE (10:33)
--- NOTE | 2018-11-28 10:48 | CT ---
CT HEAD NONCONTRAST: Date: 11/28/18 INDICATION: Nausea and vomiting. FINDINGS: There is no ventriculomegaly, mass effect, midline shift, or acute intracranial hemorrhage. Microvasc ular ischemic disease of the cerebral white matter is present. Age-indeterminate lacunar infarction i s seen within the anterior left miranda radiata. Paranasal sinuses are clear. IMPRESSION: 1. No acute intracranial hemorrhage or mass effect. 2. Microvascular ischemic disease of the cerebral white matter. 3. Age-indeterminate lacunar infarction of anterior left miranda radiata. Findings may be further ass essed with noncontrast brain MRI as clinically necessary. POS: [facility]
--- NOTE | 2018-11-28 15:43 | PDOC.HOSPP ---
- Subjective Encounter Date: 11/28/18 Encounter Time: 09:20 Subjective: Pt seen for followup re: sepsis. Still has a lot of nausea. - Objective Vital Signs & Weight: Vital Signs (12 hours) Temp Pulse Resp BP Pulse Ox 11/28/18 11:29 98.9 F 109 H 20 96/70 95 11/28/18 07:51 101.0 F H 105 H 20 120/80 93 L Weight Admit Weight 220 lb 14.4 oz Weight 220 lb 14.4 oz I&O: 11/27/18 11/28/18 11/29/18 06:59 06:59 06:59 Intake Total 1521 2381 Output Total 700 500 Balance 821 1881 Result Diagrams: 11/28/18 05:37 11/28/18 06:18 Additional Labs: Accuchecks 11/28/18 11/28/18 11/27/18 11:30 04:11 19:36 POC Glucose 112 H 79 78 labs and MARs reviewed by dc Hospitalist ROS - Review of Systems Respiratory: denies: cough, dry, shortness of breath, hemoptysis, SOB with excertion, pleuritic pain, sputum, wheezing Cardiovascular: denies: chest pain, palpitations, orthopnea, paroxysmal noc. dyspnea, edema, light headedness - Medication Medications: Active Medications Generic Name Dose Route Start Last Admin Trade Name Masonq PRN Reason Stop Dose Admin Enoxaparin Sodium 40 mg 11/27/18 09:00 11/28/18 08:00 Lovenox SC 40 mg 0900 IVIS Administration Fentanyl 100 mcg 11/26/18 20:00 11/26/18 19:52 Duragesic TD 100 mcg Q3DAYS@1999 IVIS Administration Folic Acid 1 mg 11/27/18 09:00 11/28/18 08:00 Folvite PER TUBE 1 mg DAILY IVIS Administration Gabapentin 100 mg 11/26/18 21:00 11/28/18 08:00 Neurontin PO 100 mg BID IVIS Administration Piperacillin Sod/Tazobactam 100 mls @ 200 mls/hr 11/26/18 21:00 11/28/18 14: 59 Sod 3.375 gm/ Sodium Chloride IVPB 100 mls Q6H IVIS Administration Vancomycin HCl 1 gm/ Device 200 mls @ 200 mls/hr 11/27/18 06:00 11/28/18 07: 59 IVPB 200 mls 0600,1800 IVIS Administration Ondansetron HCl 8 mg/ Sodium 54 mls @ 200 mls/hr 11/27/18 14:00 11/28/18 15: 37 Chloride IVPB 54 mls Q8HR IVIS Administration Dextrose/Sodium Chloride 1,000 mls @ 100 mls/hr 11/28/18 00:30 11/28/18 14:58 D5 0.9% Ns IV 1,000 mls .Q10H IVIS Administration Metoclopramide HCl 10 mg 11/27/18 11:47 11/28/18 08:00 Reglan IVP 10 mg Q8H PRN Administration Nausea/Vomiting Miscellaneous Medication 25 mg 11/28/18 07:30 11/28/18 07:59 Movantik PER TUBE 25 mg DAILY-AC IVIS Administration Morphine Sulfate 4 mg 11/27/18 00:39 11/28/18 05:37 Morphine SLOW IVP 4 mg Q4H PRN Administration Breakthrough Pain Scopolamine 1.5 mg 11/26/18 20:00 11/26/18 19:53 Transderm Scop TOP 1.5 mg Q3D@2000 IVIS Administration Sodium Chloride 10 ml 11/26/18 17:13 11/27/18 05:36 Flush - Normal Saline IVF 10 ml PRN PRN Administration Saline Flush - Exam General Appearance: NAD Eye: anicteric sclera ENT: moist mucosa Neck: supple Heart: RRR Respiratory: CTAB Gastrointestinal: soft, non-tender Gastrointestinal - other findings: J-tube Musculoskeletal: normal strength Psychiatric: normal affect, normal behavior Hosp A/P (1) Sepsis Code(s): A41.9 - SEPSIS, UNSPECIFIED ORGANISM Status: Acute Qualifiers: Sepsis type: sepsis due to unspecified organism Sepsis acute organ dysfunction status: without acute organ dysfunction Qualified Code(s): A41.9 - Sepsis, unspecified organism (2) Pneumonia Code(s): J18.9 - PNEUMONIA, UNSPECIFIED ORGANISM Status: Acute Qualifiers: Pneumonia type: aspiration pneumonia Aspiration pneumonia type: due to vomit (3) Chronic hepatitis C Code(s): B18.2 - CHRONIC VIRAL HEPATITIS C Status: Chronic Qualifiers: Hepatic coma status: without hepatic coma Qualified Code(s): B18.2 - Chronic viral hepatitis C (4) DM2 (diabetes mellitus, type 2) Status: Chronic Qualifiers: Diabetes mellitus emt intermediate insulin use: without emt intermediate use Diabetes mellitus complication status: without complication Qualified Code(s): E11.9 - Type 2 diabetes mellitus without complications (5) Hypertension Code(s): I10 - ESSENTIAL (PRIMARY) HYPERTENSION Status: Chronic Qualifiers: Hypertension type: essential hypertension Qualified Code(s): I10 - Essential (primary) hypertension (6) Nausea & vomiting Code(s): R11.2 - NAUSEA WITH VOMITING, UNSPECIFIED Status: Resolved - Plan continue antibiotics, out of bed/ambulate Continue IV Zosyn and vancomycin, await cultures. BP controlled. Blood sugars controlled. Appreciate pain service input. Will consult general surgery re: ? J-tube malfunctioning. Pt does not remember who placed the J-tube, but it appears to have been done at [facility]
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
--- NOTE | 2018-11-28 20:53 | PRG ---
DATE OF SERVICE: 11/28/2018 REASON FOR CONSULTATION: Nausea, vomiting, and abdominal pain. SUBJECTIVE: Earlier today, the patient had his jejunal feeding tube replaced with a newer tube and has had a significant reduction in his abdominal pain afterwards. He did continue to have nausea and vomiting, at which point, a nasogastric tube was placed with the obtaining of approximately 2.5 L of greenish-colored fluid, it was immediately suctioned down and at this time, he has had complete resolution of his nausea and vomiting as well. Currently, he states that he is doing much, much better and denies any nausea, vomiting, fevers, chills, hematemesis, melena, or hematochezia. OBJECTIVE: VITAL SIGNS: Temperature 99.1, pulse 109, blood pressure 111/74, respiratory rate 20, and saturating 93% on room air. GENERAL: The patient is lying in bed, in no acute distress. Alert and oriented x3. CARDIOVASCULAR: Tachycardic rate, but regular rhythm. RESPIRATORY: Coarse breath sounds heard in the bilateral lower lung estevez, but no discernible wheezes or rales. ABDOMEN: Normoactive bowel sounds. Soft, nondistended, mild tenderness to palpation in all abdominal quadrants. EXTREMITIES: No cyanosis, clubbing, or edema. LABORATORY DATA: CBC with a white blood cell count of 13.4, hemoglobin 11.9, hematocrit 37.3, and platelets 288. Chemistry with a sodium of 138, potassium 3.4, chloride 106, CO2 of 25, BUN 13, creatinine 0.71, and glucose 91. IMAGING DATA: CT of the brain was obtained on November 28, 2018, which showed no acute intracranial hemorrhage or mass effect. However, did see microvascular ischemic disease of the cerebral white matter and with indeterminate age. ASSESSMENT AND PLAN: The patient is a 63-year-old -[place] male with past medical history of gastroesophageal reflux disease, diabetes, cerebrovascular accident with right-sided weakness, chronic hepatitis C infection, hypertension, and esophageal cancer, currently being treated with chemotherapy and radiation, presenting with recurrent nausea, vomiting, and abdominal pain. Nausea and vomiting: The patient initially presented to the hospital with increased nausea and vomiting after being discharged, being treated for an underlying infection. Within hours after the discharge from the hospital, he began having increased nausea and vomiting with nonbloody emesis. Given concern for possible obstruction with a jejunal feeding tube, it was replaced earlier today and he has had a significant reduction in his abdominal pain, but did continue to have nausea and vomiting and NG tube was subsequently placed with approximately 2.5 L of fluid extracted this way and resolution of his nausea and vomiting. Given his recent EGD without any evidence of gastric outlet obstruction, it is concerning for the etiology of this significant buildup of fluid within the proximal gastrointestinal tract. However, during the most recent upper endoscopy, there was an appearance of a small ulceration within the duodenal bulb. If this ulceration has increased in size, it could be exhibiting mass-effect/edema on the gastrointestinal outflow tract and could potentially result in a possible obstructive-type picture, which would result in the 2.5 L of fluid obtained today. RECOMMENDATIONS 1. We would obtain a fluoroscopic barium swallow study tomorrow to evaluate for possible obstruction within the distal duodenum that might be contributing to the today, especially with the replacement of the jejunal feeding tube. 2. We will continue the NG tube to low intermittent wall suction. Abdominal pain: The patient initially presented with increased complaints of abdominal pain centered primarily around the jejunal feeding tube itself. However, upon replacement of the feeding tube on November 28, 2018, he experienced significant reduction in his abdominal pain with this misplacement of the jejunal feeding tube in the most likely etiology. RECOMMENDATIONS 1. We would continue to monitor for increased abdominal pain. 2. We would continue naloxegol 25 mg daily in an attempt to reverse the effects of the opiates on the gut. We will continue to follow. Please call with any questions. Job ID: [id number]
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
[2018-11-29] MEDS: Piperacillin/Tazobactam 3.375 GM in Sodium Chloride 0.9% 100 ML IVPB SCH ×4 (02:59→20:44)
[2018-11-29] MEDS: Ondansetron HCl/PF 8 MG in Sodium Chloride 0.9% 50 ML IVPB SCH ×3 (05:25→20:45)
[2018-11-29] MEDS: Dextrose 5 % And 0.9 % NaCl 1,000 ML IV SCH ×2 (05:26→18:34)
[2018-11-29] MEDS: Vancomycin HCl 1 GM in Premix Bag 1 BAG IVPB SCH ×2 (05:26→18:35)
[2018-11-29 06:13] LABS: #Eosinphils 0.1 thou/uL (0.0-0.7); #Lymphocytes 1.3 thou/uL (1.20-3.40); #Monocytes 1.2 thou/uL (0.11-0.59); #Neutrophils 8.5 thou/uL (1.40-6.50); %Basophils 0.1 % (0.0-1.0); %Eosinophils 0.8 % (0.0-10.0); %Lymphocytes 11.6 % (21.0-51.0); %Neutrophils 76.5 % (42.0-75.0); Hemoglobin 10.7 g/dL (14.0-18.0); Mean Corpuscular HGB CONC 31.5 g/dL (32.0-36.0); Mean Corpuscular Hemoglobin 30.7 pg (27.0-31.0); Mean Corpuscular Volume 97.5 fL (78.0-98.0); Mean Platelet Volume 7.3 fL (7.4-10.4); Platelet Count 235 thou/uL (130-400); RBC Distribution Width 15.5 % (11.5-14.5); White Blood Cell (WBC) Count 11.2 thou/uL (4.8-10.8)
[2018-11-29 06:32] LABS: Anion Gap 12 mmol/L (10-20); BUN (Urea Nitrogen) 22 mg/dL (8.4-25.7); Calc. Creatinine Clearance 62 mL/min (70-130); Calcium 8.2 mg/dL (7.8-10.44); Carbon Dioxide 25 mmol/L (23-31); Chloride 108 mmol/L (98-107); Estimated GFR-MDRD 48; Glucose 98 mg/dL (80-115); Potassium 3.3 mmol/L (3.5-5.1); Sodium 142 mmol/L (136-145)
--- NOTE | 2018-11-29 08:16 | PDOC.HOSPP ---
- Subjective Encounter Date: 11/29/18 Encounter Time: 08:14 Subjective: pt N/V has resolved post replacement of J tube yesterday afternoon. Reports mild ab pain, but is overall feeling better and happy about resolution of N/V. Has not had a BM yet. Request ice chips. denies SOB, c/p, and headaches. Has been able to urinate. - Objective Vital Signs & Weight: Vital Signs (12 hours) Temp Pulse Resp BP Pulse Ox 11/29/18 08:00 98.1 F 105 H 20 110/77 95 Weight Admit Weight 100.199 kg Weight 100.199 kg I&O: 11/28/18 11/29/18 11/30/18 06:59 06:59 06:59 Intake Total 1028 242 Output Total 500 4750 Balance 5001 -4084 Result Diagrams: 12/01/18 05:27 12/01/18 05:27 Additional Labs: Accuchecks 11/28/18 11/28/18 11/28/18 19:34 16:47 11:30 POC Glucose 130 H 123 H 112 H Radiology Reviewed by me: No EKG Reviewed by me: No Hospitalist ROS - Review of Systems Constitutional: denies: fever Respiratory: denies: shortness of breath Cardiovascular: denies: chest pain Gastrointestinal: reports: abdominal pain, constipation. denies: nausea, vomitting, diarrhea Genitourinary: denies: dysuria, retention - Medication Medications: Active Medications Generic Name Dose Route Start Last Admin Trade Name Freq PRN Reason Stop Dose Admin Enoxaparin Sodium 40 mg 11/27/18 09:00 11/28/18 08:00 Lovenox SC 40 mg 0900 IVIS Administration Fentanyl 100 mcg 11/26/18 20:00 11/26/18 19:52 Duragesic TD 100 mcg Q3DAYS@2000 IVIS Administration Folic Acid 1 mg 11/27/18 09:00 11/28/18 08:00 Folvite PER TUBE 1 mg DAILY IVIS Administration Gabapentin 100 mg 11/26/18 21:00 11/28/18 20:59 Neurontin PO 100 mg BID IVIS Administration Piperacillin Sod/Tazobactam 100 mls @ 200 mls/hr 11/26/18 21:00 11/29/18 02: 59 Sod 3.375 gm/ Sodium Chloride IVPB 100 mls Q6H IVIS Administration Vancomycin HCl 1 gm/ Device 200 mls @ 200 mls/hr 11/27/18 06:00 11/29/18 05: 26 IVPB 200 mls 0600,1800 IVIS Administration Ondansetron HCl 8 mg/ Sodium 54 mls @ 200 mls/hr 11/27/18 14:00 11/29/18 05: 25 Chloride IVPB 54 mls Q8HR IVIS Administration Dextrose/Sodium Chloride 1,000 mls @ 100 mls/hr 11/28/18 00:30 11/29/18 05:26 D5 0.9% Ns IV 1,000 mls .Q10H IVIS Administration Metoclopramide HCl 10 mg 11/27/18 11:47 11/28/18 08:00 Reglan IVP 10 mg Q8H PRN Administration Nausea/Vomiting Miscellaneous Medication 25 mg 11/28/18 07:30 11/28/18 07:59 Movantik PER TUBE 25 mg DAILY-AC IVIS Administration Morphine Sulfate 4 mg 11/27/18 00:39 11/28/18 21:00 Morphine SLOW IVP 4 mg Q4H PRN Administration Breakthrough Pain Scopolamine 1.5 mg 11/26/18 20:00 11/26/18 19:53 Transderm Scop TOP 1.5 mg Q3D@2000 IVIS Administration Sodium Chloride 10 ml 11/26/18 17:13 11/27/18 05:36 Flush - Normal Saline IVF 10 ml PRN PRN Administration Saline Flush - Exam General Appearance: awake alert ENT: normocephalic atraumatic, moist mucosa Neck: supple, no JVD Heart: RRR, no murmur, no gallops, no rubs Respiratory: CTAB Gastrointestinal: tender to palpation, distended, diminished bowl sounds Extremities: no cyanosis, no edema Skin: normal turgor, no lesions, no rashes Neurological: CN's grossly intact Musculoskeletal: normal tone, normal strength Psychiatric: normal affect, normal behavior, A&O x 3 Hosp A/P (1) Sepsis Code(s): A41.9 - SEPSIS, UNSPECIFIED ORGANISM Status: Resolved Qualifiers: Sepsis type: sepsis due to unspecified organism Sepsis acute organ dysfunction status: without acute organ dysfunction Qualified Code(s): A41.9 - Sepsis, unspecified organism (2) Pneumonia Code(s): J18.9 - PNEUMONIA, UNSPECIFIED ORGANISM Status: Acute Qualifiers: Pneumonia type: aspiration pneumonia Aspiration pneumonia type: due to vomit (3) Chronic hepatitis C Code(s): B18.2 - CHRONIC VIRAL HEPATITIS C Status: Chronic Qualifiers: Hepatic coma status: without hepatic coma Qualified Code(s): B18.2 - Chronic viral hepatitis C (4) DM2 (diabetes mellitus, type 2) Status: Chronic Qualifiers: Diabetes mellitus vice president safety insulin use: without mcc use Diabetes mellitus complication status: without complication Qualified Code(s): E11.9 - Type 2 diabetes mellitus without complications (5) Hypertension Code(s): I10 - ESSENTIAL (PRIMARY) HYPERTENSION Status: Chronic Qualifiers: Hypertension type: essential hypertension Qualified Code(s): I10 - Essential (primary) hypertension - Plan Culture negative at 48 hours, consider d/c abx pt Cr. at 1.74 this morning - reassess in AM tomorrow. BP stable, still tachycardic at 105 this AM. Fever has resolved with no fevers overnight. continue Naloxegol 25 mg for opiate related constipation as pt has still not had BM NG tube placed and J tube replaced- N/V symptoms resolved. SBO XR ordered to r/ o obstruction. Need to continue NPO status and NG tube suctioning until output decreases. Brain CT showed no intercranial bleeding. Blood sugars stable Oncology consulted - recommends holding chemo until pt can f/u outpatient. Addendum by Manjit Milan MD: Chart reviewed, pt seen by me. Discussed case with Mr. Staley. Agree with plan of care as documented. Please refer to my separate progress note for further details.
[2018-11-29] MEDS ORDERED: MD-Gastroview 120 ML BOT ONE (09:48)
[2018-11-29] MEDS: Folic Acid 1 MG TAB PER TUBE SCH (09:58)
[2018-11-29] MEDS: Enoxaparin Sodium 40 MG/0.4 ML SYRINGE SC SCH (09:59)
[2018-11-29] MEDS: Gabapentin 100 MG CAP PO SCH ×2 (09:59→20:44)
--- NOTE | 2018-11-29 10:11 | PDOC.MOPN ---
Interval History: denies pain, ngt continues to drain green fluid. - Vital Signs Vital Signs: Vital Signs (12 hours) Temp Pulse Resp BP Pulse Ox 11/29/18 08:00 98.1 F 105 H 20 110/77 95 Weight Admit Weight 220 lb 14.4 oz Weight 220 lb 14.4 oz - Physical Exam General: Alert, Oriented x3, No acute distress HEENT: Atraumatic, PERRLA, EOMI, Mucous membr. moist/pink Lungs: Clear to auscultation, Normal air movement Cardiovascular: Regular rate, Normal S1, Normal S2, No murmurs, Gallops, Rubs Abdomen: Normal bowel sounds, Soft, No tenderness, No hepatospenomegaly, No masses, Other (ngt) Extremities: No clubbing, No cyanosis, No edema, Normal pulses, No tenderness/ swelling Skin: No rashes, No breakdown, No significant lesion Neurological: Normal gait, Normal speech, Strength at 5/5 X4 ext, Normal tone, Sensation intact, Cranial nerves 3-12 NL, Reflexes 2+ Psych/Mental Status: Mental status NL, Mood NL - Labs Result Diagrams: 11/29/18 06:00 11/29/18 06:00 Lab results: Laboratory Results - last 24 hr 11/29/18 06:00: WBC 11.2 H, RBC 3.50 L, Hgb 10.7 L, Hct 34.1 L, MCV 97.5, MCH 30.7, MCHC 31.5 L, RDW 15.5 H, Plt Count 235, MPV 7.3 L, Neutrophils % 76.5 H, Lymphocytes % 11.6 L, Monocytes % 11.0 H, Eosinophils % 0.8, Basophils % 0.1, Neutrophils # 8.5 H, Lymphocytes # 1.3, Monocytes # 1.2 H, Eosinophils # 0.1, Basophils # 0.0 11/29/18 06:00: Sodium 142, Potassium 3.3 L, Chloride 108 H, Carbon Dioxide 25, Anion Gap 12, BUN 22, Creatinine 1.74 H, Estimated GFR (MDRD) 48, Glucose 98, Calcium 8.2 11/28/18 19:34: POC Glucose 130 H 11/28/18 16:47: POC Glucose 123 H 11/28/18 11:30: POC Glucose 112 H Status: lab reviewed by me A/P - Problem (1) Esophageal adenocarcinoma Current Visit: No Code(s): C15.9 - MALIGNANT NEOPLASM OF ESOPHAGUS, UNSPECIFIED Status: Chronic - Plan Plan: Plan for chemo on Tuesday December 11, 2018 Continue supportive care will sign off
--- NOTE | 2018-11-29 14:57 | PRG ---
DATE OF SERVICE: 11/29/2018 SUBJECTIVE: Mr. Frost is a 63-year-old man admitted with partial small bowel obstruction. Nasogastric tube, which was placed yesterday has returned 3.6 L of bilious effluent. This morning the patient feels better. He denies any abdominal pain. He has not had any further emesis since placement of the nasogastric tube. He denies any flatus or bowel movement. OBJECTIVE: VITAL SIGNS: Today includes blood pressure is 110/77, pulse is 105, respiratory rate is 20, temperature is 98.1 degrees Fahrenheit, oxygen saturation is 95% on room air. HEART: Reveals regular rate with sinus tachycardia. No murmurs or gallops auscultated. LUNGS: Clear to auscultation bilaterally. Breathing, regular and nonlabored. ABDOMEN: Soft, nontender, nondistended. LABORATORY FINDINGS: Include a CBC with 11,200 white blood cells, hemoglobin and hematocrit 10.7 and 34.1 respectively. Platelet count is 235,000. Metabolic profile; sodium is 142, potassium is 3.3, chloride is 108, bicarb is 25, BUN is 22, creatinine is 1.74, glucose is 98. IMPRESSIONS: 1. Acute partial small bowel obstruction, likely secondary to chronic narcotic-induced constipation. 2. Acute hypokalemia. 3. Acute kidney injury likely secondary to #1. PLAN: 1. Correct abnormal electrolytes. 2. Fluid resuscitation using urinary output and creatinine clearance as endpoint of our resuscitation. 3. Continue with nasogastric tube decompression and bowel rest until appropriate return of bowel function. 4. The patient was placed on Movantik yesterday. This ought to help with the opioid necrotic-induced constipation. 5. There remains no acute surgical indication for this patient at this time. Job ID: [id number]
[2018-11-29] MEDS: HYDROcodone/Acetaminophen 5/325 mg Tablet PO PRN (15:04)
--- NOTE | 2018-11-29 17:05 | PDOC.HOSPP ---
- Subjective Encounter Date: 11/29/18 Encounter Time: 09:40 Subjective: Pt seen for followup re: sepsis. Feels better today. has NG tube to suction. No BM. Nausea better. - Objective Vital Signs & Weight: Vital Signs (12 hours) Temp Pulse Resp BP Pulse Ox 11/29/18 16:00 97.3 F L 104 H 20 117/84 95 11/29/18 10:39 95 11/29/18 08:00 98.1 F 105 H 20 110/77 95 Weight Admit Weight 220 lb 14.4 oz Weight 220 lb 14.4 oz I&O: 11/28/18 11/29/18 11/30/18 06:59 06:59 06:59 Intake Total 2381 2426 Output Total 500 4750 Balance 1881 -2324 Result Diagrams: 11/29/18 06:00 11/29/18 06:00 Additional Labs: Accuchecks 11/28/18 11/28/18 19:34 16:47 POC Glucose 130 H 123 H Labs and MARs reviewed by ar Hospitalist ROS - Review of Systems Cardiovascular: denies: chest pain, palpitations, orthopnea, paroxysmal noc. dyspnea, edema, light headedness Gastrointestinal: reports: nausea, constipation, other. denies: vomitting, abdominal pain, diarrhea, melena, hematochezia - Medication Medications: Active Medications Generic Name Dose Route Start Last Admin Trade Name Freq PRN Reason Stop Dose Admin Hydrocodone Bitart/Acetaminophen 1 tab 11/27/18 00:40 11/29/18 15:04 [place] 5/325 PO 1 tab Q4H PRN Administration Pain Enoxaparin Sodium 40 mg 11/27/18 09:00 11/29/18 09:59 Lovenox SC 40 mg 09 IVIS Administration Fentanyl 100 mcg 11/26/18 20:00 11/26/18 19:52 Duragesic TD 100 mcg Q3DAYS@1999 IVIS Administration Folic Acid 1 mg 11/27/18 09:00 11/29/18 09:58 Folvite PER TUBE 1 mg DAILY IVIS Administration Gabapentin 100 mg 11/26/18 21:00 11/29/18 09:59 Neurontin PO 100 mg BID IVIS Administration Piperacillin Sod/Tazobactam 100 mls @ 200 mls/hr 11/26/18 21:00 11/29/18 15: 04 Sod 3.375 gm/ Sodium Chloride IVPB 100 mls Q6H IVIS Administration Vancomycin HCl 1 gm/ Device 200 mls @ 200 mls/hr 11/27/18 06:00 11/29/18 05: 26 IVPB 200 mls 0600,1800 IVIS Administration Ondansetron HCl 8 mg/ Sodium 54 mls @ 200 mls/hr 11/27/18 14:00 11/29/18 13: 57 Chloride IVPB 54 mls Q8HR IVIS Administration Dextrose/Sodium Chloride 1,000 mls @ 100 mls/hr 11/28/18 00:30 11/29/18 05:26 D5 0.9% Ns IV 1,000 mls .Q10H IVIS Administration Metoclopramide HCl 10 mg 11/27/18 11:47 11/28/18 08:00 Reglan IVP 10 mg Q8H PRN Administration Nausea/Vomiting Miscellaneous Medication 25 mg 11/28/18 07:30 11/29/18 10:04 Movantik PER TUBE 25 mg DAILY-AC IVIS Administration Morphine Sulfate 4 mg 11/27/18 00:39 11/28/18 21:00 Morphine SLOW IVP 4 mg Q4H PRN Administration Breakthrough Pain Scopolamine 1.5 mg 11/26/18 20:00 11/26/18 19:53 Transderm Scop TOP 1.5 mg Q3D@2000 IVIS Administration Sodium Chloride 10 ml 11/26/18 17:13 11/27/18 05:36 Flush - Normal Saline IVF 10 ml PRN PRN Administration Saline Flush - Exam General - other findings: Obese Eye: anicteric sclera ENT: moist mucosa Neck: supple Heart: RRR Respiratory: CTAB Gastrointestinal: soft, non-tender, diminished bowl sounds Gastrointestinal - other findings: J-tube Musculoskeletal: normal strength Psychiatric: normal affect, normal behavior Hosp A/P (1) Sepsis Code(s): A41.9 - SEPSIS, UNSPECIFIED ORGANISM Status: Acute Qualifiers: Sepsis type: sepsis due to unspecified organism Sepsis acute organ dysfunction status: without acute organ dysfunction Qualified Code(s): A41.9 - Sepsis, unspecified organism (2) JUAN (acute kidney injury) Code(s): N17.9 - ACUTE KIDNEY FAILURE, UNSPECIFIED Status: Acute (3) Pneumonia Code(s): J18.9 - PNEUMONIA, UNSPECIFIED ORGANISM Status: Acute Qualifiers: Pneumonia type: aspiration pneumonia Aspiration pneumonia type: due to vomit (4) Chronic hepatitis C Code(s): B18.2 - CHRONIC VIRAL HEPATITIS C Status: Chronic Qualifiers: Hepatic coma status: without hepatic coma Qualified Code(s): B18.2 - Chronic viral hepatitis C (5) DM2 (diabetes mellitus, type 2) Status: Chronic Qualifiers: Diabetes mellitus group home insulin use: without group home use Diabetes mellitus complication status: without complication Qualified Code(s): E11.9 - Type 2 diabetes mellitus without complications (6) Hypertension Code(s): I10 - ESSENTIAL (PRIMARY) HYPERTENSION Status: Chronic Qualifiers: Hypertension type: essential hypertension Qualified Code(s): I10 - Essential (primary) hypertension (7) Nausea & vomiting Code(s): R11.2 - NAUSEA WITH VOMITING, UNSPECIFIED Status: Resolved - Plan continue antibiotics, out of bed/ambulate Pt significantly improved after J-tube replacement. However, has partial SBO vs. ileus. Continue IV fluids, recheck creatinine. Continue IV Zosyn and vancomycin. BP controlled. Blood sugars controlled.
[2018-11-29 18:18] LABS: Vancomycin, Trough 36.4 ug/mL
--- NOTE | 2018-11-29 18:23 | CON ---
DATE OF CONSULTATION: 11/28/2018 REQUESTING PHYSICIAN: Dr. Milan. HISTORY OF PRESENT ILLNESS: I am seeing Mr. Frost at the request of Dr. Milan. The patient is a 63-year-old man with a previous history of esophageal carcinoma, status post radiation therapy. He requires ongoing chemotherapy. The patient was admitted 2 days previously with complaint of multiple episodes of nausea and bilious emesis. He reported some abdominal pain. Last bowel movement was 2 days ago. He passed flatus yesterday. The patient denies any fevers or chills. PAST MEDICAL HISTORY: Significant for esophageal carcinoma, essential hypertension, chronic hepatitis C, cerebrovascular accident with right hemiparesis, gastroesophageal reflux disease, and type 2 diabetes mellitus. PAST SURGICAL HISTORY: Pertinent for previous exploratory laparotomy, bowel resection and colostomy followed by colostomy reversal. Other pertinent surgical history includes previous cholecystectomy and jejunostomy tube placement. SOCIAL HISTORY: The patient lives with his brother and mother. He denies any cigarette smoking, ethanol, or illicit drug abuse. FAMILY HISTORY: Noncontributory for the patient's age. REVIEW OF SYSTEMS: A 10-point review of systems essentially unremarkable except as stated in past medical history and chief complaint. PHYSICAL EXAMINATION: GENERAL: Reveals a 63-year-old normally developed man, who is coherent and interactive and appears stated age. The patient is alert and oriented x3, appears to be in moderate acute distress secondary to the intractable nausea and vomiting. VITAL SIGNS: Include blood pressure 112/80, pulse is 101, respiratory rate is 16, temperature 98.7 degrees Fahrenheit, and oxygen saturation is 95% on room air. HEENT: Reveals normocephalic and atraumatic. Pupils are equal, round, and reactive to light and accommodation. HEART: Reveals regular rate with sinus tachycardia. No murmurs or gallops auscultated. LUNGS: Clear to auscultation bilaterally. Breathing, regular and nonlabored. ABDOMEN: Soft and distended. He has mild tenderness to palpation with no gross rebound tenderness present. He has a healed midline incisional scar consistent with previous history of exploratory laparotomy. There is a jejunostomy tube in place. There is slight purulence around the exit site of the tube. Liver and spleen nonpalpable below costal margin. LABORATORY FINDINGS: Include a CBC with 13,400 white blood cells, hemoglobin and hematocrit of 11.9 and 37.3 respectively. Platelet count 288,000. Metabolic profile; sodium 138, potassium 3.4, chloride is 106, bicarb is 25, BUN 13, creatinine 0.71, and glucose 91. IMPRESSION: 1. Intractable nausea and vomiting with abdominal distention, likely secondary to partial small bowel obstruction versus adynamic ileus. 2. There is no active infection from the exit site of the jejunostomy tube, which seems to be the concern of the primary team. 3. I did remove the jejunostomy tube after the cuff was deflated and replaced this with another jejunostomy tube with cuff inflated with 5 mL to exclude any possible mechanical obstruction from the jejunostomy tube. 4. Large amount of green bile egressed from the jejunostomy tube site prior to replacement. I then placed a nasogastric tube and immediately returned 2.4 L of bilious effluent. 5. The nasogastric tube was secured at the nose at 55 cm. 6. Acute partial small-bowel obstruction. 7. No evidence of infection from the jejunostomy tube site. PLAN: 1. We will continue with bowel rest and nasogastric tube decompression with appropriate IV hydration. 2. There is no acute surgical indication for this patient at this time. 3. We will continue to follow him with serial examination. Job ID: [id number]
[2018-11-29] MEDS: Potassium Chloride 10 MEQ in Dextrose 5 % And 0.9 % NaCl 1,000 ML IV SCH (18:29)
--- NOTE | 2018-11-29 19:19 | PRG ---
DATE OF SERVICE: 11/29/2018 SUBJECTIVE: The patient reports much improvement of his abdominal pain since changing out the jejunostomy feeding tube. He has not had any further nausea since NG tube suction. He says he feels profoundly comfortable today with much less pain. PHYSICAL EXAMINATION: VITAL SIGNS: Temperature is 97.3, blood pressure 117/84, and pulse 104. GENERAL: He is alert. No distress. HEENT: Shows anicteric sclerae. CV: Shows normal S1, S2. Regular rate and rhythm. CHEST: Shows breath sounds. ABDOMEN: Soft. No distention. No tympany. He does have faint bowel sounds, but not very active. There is no tenderness to deep palpation. EXTREMITIES: Show no edema. LABORATORY DATA: WBCs 11.2, hemoglobin 10.7, and platelet count of 235. Electrolytes within normal range. Creatinine is 1.74. Urine culture negative at 48 hours and blood culture x2 are negative at 48 hours. Small bowel series, no dictated report yet. On my review to our film, there is contrast emptying from the stomach through the small bowel that appears to be dilated. There does not appear to me any further progression between 1-1/2 and 2 hours. There is still residual contrast in the stomach even after 2 hours. Colonic opacification is not appreciated. ASSESSMENT: 1. Progressive metastatic esophageal cancer. 2. Abdominal pain, much improved after jejunostomy tube exchange. 3. Nausea and improved with nasogastric tube suctioning. Small bowel series study has not completed. However after 2 hours, there is contrast in what appears to be mildly dilated loops of small bowel without any progression based on my review. RECOMMENDATIONS: 1. Continue with NG decompression. 2. Await completed small bowels series report as I am worried that he may have a mechanical obstruction. 3. We will follow. Job ID: [id number]
--- NOTE | 2018-11-29 19:42 | RAD ---
Small bowel series: DATE: 11/29/2018 HISTORY: 63-year-old male with small bowel obstruction. FINDINGS: Breast Surgeon view demonstrates hyperdense stool in nondilated short segment of right colon, splenic flexure and proximal descending colon, and decompressed rectum. Gastrografin injected into stomach traverses dilated duodenum and dilated jejunal loops. There is a left-sided jejunostomy catheter. In later images, the Gastrografin is visualized in nondilated ileal loops. Finally, by 7.5 hours, there is definitive new Gastrografin throughout the nondilated descending colon and the rectosigmoid. IMPRESSION: 1. By the end of the exam, there is no high-grade small bowel obstruction. 2. There may have been a high-grade small bowel obstruction that was resolved by therapeutic Gastrogr afin, or partial small bowel obstruction.
[2018-11-29] MEDS: Scopolamine 1.5 mg/72 hour Patch TOP SCH (20:43)
[2018-11-29] MEDS: fentaNYL 100 mcg/hour Patch TD SCH (20:45)
--- NOTE | 2018-11-30 01:42 | PRG ---
DATE OF SERVICE: 11/29/2018 SUBJECTIVE: Mr. Frost continues to report adequate pain control status post gastric decompression via NG tube and J tube replacement yesterday. He reports two bowel movements today. OBJECTIVE: VITAL SIGNS: Blood pressure is 117/84; pulse is 104; respirations are 18, even and unlabored; temperature is 97.3; pulse ox is 95% on room air. GENERAL: The patient is awake, alert, oriented, and appropriate. He is non-somnolent. Speech is clear and appropriate. NG tube remains in place and is attached to wall suction. ASSESSMENT: 1. Abdominal pain-improved s/p NG tube placement and J-tube placement 2. Intractable nausea and vomiting-improved status post NG tube placement and J tube replacement. 3. Small bowel obstruction. 4. History of esophageal cancer. PLAN: Mr. Frost states pain remains adequately controlled. He reports two bowel movements today. We will continue Duragesic and Movantik as previously ordered. We will sign off this case. Please contact us for any pain management concerns. Job ID: [id number] MTDD
[2018-11-30] MEDS: Potassium Chloride 10 MEQ in Dextrose 5 % And 0.9 % NaCl 1,000 ML IV SCH ×3 (03:06→18:16)
[2018-11-30] MEDS: Piperacillin/Tazobactam 3.375 GM in Sodium Chloride 0.9% 100 ML IVPB SCH ×2 (03:07→09:42)
[2018-11-30] MEDS: Ondansetron HCl/PF 8 MG in Sodium Chloride 0.9% 50 ML IVPB SCH ×3 (05:26→20:26)
[2018-11-30] MEDS: HYDROcodone/Acetaminophen 5/325 mg Tablet PO PRN ×5 (05:29→22:07)
[2018-11-30] MEDS ORDERED: Vancomycin HCl 1 GM in Premix Bag 1 BAG IVPB SCH (06:00)
[2018-11-30] MEDS: Folic Acid 1 MG TAB PER TUBE SCH (09:41)
[2018-11-30] MEDS: Gabapentin 100 MG CAP PO SCH ×2 (09:41→20:27)
[2018-11-30] MEDS: Enoxaparin Sodium 40 MG/0.4 ML SYRINGE SC SCH (09:41)
[2018-11-30 10:03] LABS: Anion Gap 9 mmol/L (10-20); BUN (Urea Nitrogen) 23 mg/dL (8.4-25.7); Calc. Creatinine Clearance 51 mL/min (70-130); Calcium 8.3 mg/dL (7.8-10.44); Carbon Dioxide 26 mmol/L (23-31); Chloride 113 mmol/L (98-107); Estimated GFR-MDRD 39; Glucose 101 mg/dL (80-115); Potassium 3.2 mmol/L (3.5-5.1); Sodium 145 mmol/L (136-145)
[2018-11-30] MEDS ORDERED: Piperacillin/Tazobactam 2.25 GM in Sodium Chloride 0.9% 100 ML IVPB SCH (12:00)
[2018-11-30 13:27] LABS: #Eosinphils 0.1 thou/uL (0.0-0.7); #Lymphocytes 1.4 thou/uL (1.20-3.40); #Neutrophils 8.3 thou/uL (1.40-6.50); %Basophils 0.1 % (0.0-1.0); %Eosinophils 1.4 % (0.0-10.0); %Lymphocytes 12.7 % (21.0-51.0); %Monocytes 9.4 % (0.0-10.0); %Neutrophils 76.4 % (42.0-75.0); Hemoglobin 11.9 g/dL (14.0-18.0); Mean Corpuscular HGB CONC 32.2 g/dL (32.0-36.0); Mean Corpuscular Hemoglobin 31.2 pg (27.0-31.0); Mean Corpuscular Volume 96.8 fL (78.0-98.0); Mean Platelet Volume 7.2 fL (7.4-10.4); Platelet Count 327 thou/uL (130-400); RBC Distribution Width 15.3 % (11.5-14.5); Red Blood Cell (RBC) Count 3.81 mill/uL (4.70-6.10); White Blood Cell (WBC) Count 10.8 thou/uL (4.8-10.8)
--- NOTE | 2018-11-30 15:30 | PRG ---
DATE OF SERVICE: 11/30/2018 SUBJECTIVE: Mr. Frots is a 63-year-old man who was admitted with acute partial small-bowel obstruction. The patient is awake and alert today. He reports no abdominal pain. He has had multiple bowel movements since yesterday. The nasogastric tube, which was placed 2 days previously returns about 850 mL of clear gastric effluent. OBJECTIVE: VITAL SIGNS: Today include blood pressure 116/70, pulse is 62, respiratory rate is 16, temperature 98.4 degrees Fahrenheit, oxygen saturation 96% on room air. HEART: Reveals regular rate and rhythm. LUNGS: Clear to auscultation bilaterally. ABDOMEN: Soft, nontender. Nondistended. LABORATORY FINDINGS: Today includes a CBC with 10,800 white blood cells, hemoglobin and hematocrit 11.9 and 36.9, respectively. Platelet count 227,000. Metabolic profile; sodium 145, potassium 3.2, chloride is 113, bicarb is 26, BUN is 23, creatinine is 2.12. Glucose is 101. IMPRESSIONS: 1. Now resolved acute partial small-bowel obstruction. 2. Acute kidney injury. 3. Acute hypokalemia. PLAN: There is no acute surgical indication for this patient at this time. Medical management is deferred to Primary Service. General Surgery will sign off at this time and be available to re-evaluate the patient on demand. We will remove the nasogastric tube and commence oral intake, as well as enteral nutritional supplementation via the jejunostomy tube at the discretion of the Primary Service. Job ID: [id number]
[2018-11-30] MEDS: Piperacillin/Tazobactam 2.25 GM in Sodium Chloride 0.9% 100 ML IVPB SCH ×2 (15:51→20:26)
--- NOTE | 2018-11-30 16:39 | PDOC.HOSPP ---
- Subjective Encounter Date: 11/30/18 Encounter Time: 09:00 Subjective: Pt seen for followup re: sepsis. Feels better. No fevers or chills. - Objective Vital Signs & Weight: Vital Signs (12 hours) Temp Pulse Pulse Pulse Resp BP BP 11/30/18 09:37 62 62 116/70 108/80 11/30/18 08:00 11/30/18 07:50 98.4 F 62 16 11/30/18 05:29 BP Pulse Ox 11/30/18 09:37 11/30/18 08:00 96 11/30/18 07:50 113/77 96 11/30/18 05:29 98 Weight Admit Weight 220 lb 14.4 oz Weight 220 lb 14.4 oz I&O: 11/29/18 11/30/18 12/01/18 06:59 06:59 06:59 Intake Total 2426 2015 Output Total 6610 850 Balance -2324 1166 Result Diagrams: 11/30/18 13:15 11/30/18 09:36 Additional Labs: Accuchecks 11/30/18 11/30/18 11/29/18 11:11 05:26 19:49 POC Glucose 97 88 109 11/29/18 11/29/18 11/28/18 16:31 04:05 00:16 POC Glucose 100 100 65 L Labs and MARs reviewed by [place] Hospitalist ROS - Review of Systems Constitutional: denies: fever, chills, sweats, weakness, malaise Gastrointestinal: denies: nausea, vomitting, abdominal pain, diarrhea, constipation, melena, hematochezia - Medication Medications: Active Medications Generic Name Dose Route Start Last Admin Trade Name Freq PRN Reason Stop Dose Admin Hydrocodone Bitart/Acetaminophen 1 tab 11/27/18 00:40 11/30/18 13:57 [place] 5/325 PO 1 tab Q4H PRN Administration Pain Enoxaparin Sodium 40 mg 11/27/18 09:00 11/30/18 09:41 Lovenox SC 40 mg 09 [facility] Administration Fentanyl 100 mcg 11/26/18 20:00 11/29/18 20:45 Duragesic TD 100 mcg Q3DAYS@2000 IVIS Administration Folic Acid 1 mg 11/27/18 09:00 11/30/18 09:41 Folvite PER TUBE 1 mg DAILY IVIS Administration Gabapentin 100 mg 11/26/18 21:00 11/30/18 09:41 Neurontin PO 100 mg BID IVIS Administration Ondansetron HCl 8 mg/ Sodium 54 mls @ 200 mls/hr 11/27/18 14:00 11/30/18 15: 51 Chloride IVPB 54 mls Q8HR IVIS Administration Potassium Chloride 10 meq/ 1,005 mls @ 100 mls/hr 11/29/18 17:45 11/30/18 03: 06 Dextrose/Sodium Chloride IV 1,005 mls .Q10H3M IVIS Administration Piperacillin Sod/Tazobactam 100 mls @ 200 mls/hr 11/30/18 16:00 11/30/18 15: 51 Sod 2.25 gm/ Sodium Chloride IVPB 100 mls 0400,1000,1600,2200 IVIS Administration Metoclopramide HCl 10 mg 11/27/18 11:47 11/28/18 08:00 Reglan IVP 10 mg Q8H PRN Administration Nausea/Vomiting Miscellaneous Medication 25 mg 11/28/18 07:30 11/30/18 09:42 Movantik PER TUBE 25 mg DAILY-AC IVIS Administration Morphine Sulfate 4 mg 11/27/18 00:39 11/28/18 21:00 Morphine SLOW IVP 4 mg Q4H PRN Administration Breakthrough Pain Scopolamine 1.5 mg 11/26/18 20:00 11/29/18 20:43 Transderm Scop TOP 1.5 mg Q3D@2000 IVIS Administration Sodium Chloride 10 ml 11/26/18 17:13 11/27/18 05:36 Flush - Normal Saline IVF 10 ml PRN PRN Administration Saline Flush - Exam General - other findings: Obese Eye: anicteric sclera ENT: moist mucosa Neck: supple Heart: RRR Respiratory: CTAB Gastrointestinal: soft, non-tender, diminished bowl sounds Neurological: no weakness Psychiatric: normal affect Hosp A/P (1) JUAN (acute kidney injury) Code(s): N17.9 - ACUTE KIDNEY FAILURE, UNSPECIFIED Status: Acute (2) Pneumonia Code(s): J18.9 - PNEUMONIA, UNSPECIFIED ORGANISM Status: Acute Qualifiers: Pneumonia type: aspiration pneumonia Aspiration pneumonia type: due to vomit (3) Chronic hepatitis C Code(s): B18.2 - CHRONIC VIRAL HEPATITIS C Status: Chronic Qualifiers: Hepatic coma status: without hepatic coma Qualified Code(s): B18.2 - Chronic viral hepatitis C (4) DM2 (diabetes mellitus, type 2) Status: Chronic Qualifiers: Diabetes mellitus security assistant insulin use: without security assistant use Diabetes mellitus complication status: without complication Qualified Code(s): E11.9 - Type 2 diabetes mellitus without complications (5) Hypertension Code(s): I10 - ESSENTIAL (PRIMARY) HYPERTENSION Status: Chronic Qualifiers: Hypertension type: essential hypertension Qualified Code(s): I10 - Essential (primary) hypertension (6) Nausea & vomiting Code(s): R11.2 - NAUSEA WITH VOMITING, UNSPECIFIED Status: Resolved (7) Sepsis Code(s): A41.9 - SEPSIS, UNSPECIFIED ORGANISM Status: Resolved Qualifiers: Sepsis type: sepsis due to unspecified organism Sepsis acute organ dysfunction status: without acute organ dysfunction Qualified Code(s): A41.9 - Sepsis, unspecified organism - Plan continue antibiotics, out of bed/ambulate Continue IV fluids, recheck creatinine. Continue IV Zosyn, dc vancomycin BP controlled. Blood sugars controlled. Pt starting PPN today. If no overnight events, will try tube feeds.
--- NOTE | 2018-11-30 16:54 | PRG ---
DATE OF SERVICE: 11/30/2018 SUBJECTIVE: Overall, the patient continues to feel much better. NG tube has been removed. He is tolerating liquids. He reports having some mild nausea, but nothing like what he was having on admission. There is some mild pain in the abdomen, but certainly much less than before. OBJECTIVE: VITAL SIGNS: Temperature is 98.4, blood pressure 116/70, pulse of 62. GENERAL: He is alert, conversant, in no distress. HEENT: Anicteric sclerae. CV: Shows normal S1 and S2. Regular rate and rhythm. CHEST: Shows a breath sounds. ABDOMEN: Mildly protuberant, but no distention. No tympany. He does have faint bowel sounds. Soft to palpation with mild tenderness in right middle quadrant. No guarding or rebound. EXTREMITIES: Shows no edema. LABORATORY DATA: WBCs 10.8, hemoglobin 11.9, and platelet count of 327. Sodium 145, potassium 3.2, chloride 113, CO2 is 26, creatinine 2.12. Small bowel series with Gastrografin initially showed dilated small bowel loops with poor progression of contrast. However, at 7-1/2 hours, there is contrast opacifying the entire colon. ASSESSMENT: 1. Abdominal pain, nausea, vomiting on admission. I suspect he had partial small-bowel obstruction that has since resolved. Gastrografin small bowel series did temporally show obstruction of small bowel with delayed film showed progression into the colon. Currently, the patient is doing rather well without an NG decompression. 2. Acute kidney injury, increasing creatinine. 3. Malnutrition. 4. Progressive metastatic esophageal cancer. RECOMMENDATIONS: 1. We will continue clear liquid, advanced to full liquid as tolerated by mouth. 2. We will restart continuous tube feeding through the jejunostomy tube and see how the patient tolerates. 3. From a GI standpoint, can discontinue antibiotics as there is no evidence of infection. 4. We will need to monitor his renal function. Job ID: [id number]
[2018-11-30] MEDS ORDERED: Sodium Bicarbonate Tab 325 MG TAB PER TUBE PRN (17:06)
[2018-11-30] MEDS ORDERED: Pancrelipase DR 12000 1 CAP FS PRN (17:06)
--- NOTE | 2018-11-30 17:55 | CON ---
DATE OF CONSULTATION: 11/30/2018 CONSULTING PHYSICIAN: Simon Brambila MD REQUESTING PHYSICIAN: Manjit Milan MD REASON FOR CONSULTATION: Acute kidney injury. IMPRESSION: Acute kidney injury. This is likely hemodynamically mediated in the context of prerenal acute kidney injury due to poor perfusion from intravascular depletion as a result of the bowel obstruction with its attendant sequestration of fluid in the abdominal cavity. HISTORY: This is a 63-year-old gentleman, who presented with nausea, vomiting, and abdominal pain, diagnosed with partial small-bowel obstruction. The patient presented with a creatinine of 0.7, however, over the course of hospitalization, the creatinine has steadily risen to 2.12 possible need for renal consultation. The patient has J-tube and NG tube, which has been draining the gastric contents, however, remained hemodynamically stable throughout hospitalization with features of intravascular depletion evident. PAST MEDICAL HISTORY: Significant for esophageal carcinoma, hypertension, hepatitis C, CVA with right-sided paralysis, type 2 diabetes, reflux disease. MEDICATIONS: Reviewed and as documented on [facility]. SOCIAL HISTORY: No alcohol, no tobacco, and no illicit drug use. FAMILY HISTORY: No family history of kidney disease. ALLERGIES: NO KNOWN DRUG ALLERGIES. REVIEW OF SYSTEMS: As documented in the body of the history. PHYSICAL EXAMINATION: GENERAL: The patient was noted with the following vital signs: Afebrile, temperature 97.5, pulse 62, respiratory rate of 16, O2 saturation 96% with blood pressure of 116/70. HEENT: Unremarkable. CARDIOVASCULAR SYSTEM: First and second heart sounds were heard. RESPIRATORY SYSTEM: Clear to auscultation. DIGESTIVE SYSTEM: Revealed positive bowel sounds. EXTREMITIES: No peripheral edema. SKIN: No new gross rash. LYMPHATICS: No peripheral lymphadenopathy. SUMMARY: A 63-year-old gentleman with acute kidney injury in the context of partial small-bowel obstruction. Thank you for this consultation. We will follow with you. Job ID: [id number]
[2018-12-01] MEDS ORDERED: Diabetic Tussin 200 MG/10 ML UDCUP PO PRN (00:45)
[2018-12-01] MEDS: Potassium Chloride 10 MEQ in Dextrose 5 % And 0.9 % NaCl 1,000 ML IV SCH ×4 (01:41→22:55)
[2018-12-01] MEDS: Piperacillin/Tazobactam 2.25 GM in Sodium Chloride 0.9% 100 ML IVPB SCH ×4 (04:24→20:45)
[2018-12-01] MEDS: HYDROcodone/Acetaminophen 5/325 mg Tablet PO PRN ×4 (04:26→18:30)
[2018-12-01] MEDS: Ondansetron HCl/PF 8 MG in Sodium Chloride 0.9% 50 ML IVPB SCH ×3 (05:32→22:19)
[2018-12-01 05:54] LABS: #Eosinphils 0.1 thou/uL (0.0-0.7); #Lymphocytes 1.3 thou/uL (1.20-3.40); #Monocytes 1.2 thou/uL (0.11-0.59); #Neutrophils 10.1 thou/uL (1.40-6.50); %Basophils 0.1 % (0.0-1.0); %Lymphocytes 10.1 % (21.0-51.0); %Monocytes 9.6 % (0.0-10.0); %Neutrophils 79.2 % (42.0-75.0); Hemoglobin 11.5 g/dL (14.0-18.0); Mean Corpuscular HGB CONC 32.7 g/dL (32.0-36.0); Mean Corpuscular Hemoglobin 31.7 pg (27.0-31.0); Mean Platelet Volume 7.2 fL (7.4-10.4); Platelet Count 322 thou/uL (130-400); RBC Distribution Width 15.3 % (11.5-14.5); Red Blood Cell (RBC) Count 3.62 mill/uL (4.70-6.10); White Blood Cell (WBC) Count 12.7 thou/uL (4.8-10.8)
[2018-12-01 06:13] LABS: Anion Gap 12 mmol/L (10-20); BUN (Urea Nitrogen) 19 mg/dL (8.4-25.7); Calc. Creatinine Clearance 57 mL/min (70-130); Calcium 8.4 mg/dL (7.8-10.44); Carbon Dioxide 23 mmol/L (23-31); Chloride 110 mmol/L (98-107); Estimated GFR-MDRD 44; Glucose 94 mg/dL (80-115); Potassium 3.1 mmol/L (3.5-5.1); Sodium 142 mmol/L (136-145)
[2018-12-01] MEDS: Enoxaparin Sodium 40 MG/0.4 ML SYRINGE SC SCH (08:26)
[2018-12-01] MEDS: Folic Acid 1 MG TAB PER TUBE SCH (08:26)
[2018-12-01] MEDS: Gabapentin 100 MG CAP PO SCH (08:26)
[2018-12-01] MEDS: D5W-AA 4.25% with LYTES 1,000 ML IV SCH ×2 (12:24→22:55)
[2018-12-01] MEDS: Fat Emulsion 250 ML IVPB SCH (12:25)
[2018-12-01] MEDS ORDERED: ISOVUE-370 76%-LOCM 1 ML ONE (12:49)
--- NOTE | 2018-12-01 14:10 | PDOC.HOSPP ---
- Subjective Encounter Date: 12/01/18 Encounter Time: 10:00 Subjective: Pt seen for followup re; JUAN. Denies nausea. Reports abdominal discomfort. Denies fevers or chills. - Objective Vital Signs & Weight: Vital Signs (12 hours) Temp Pulse Resp BP Pulse Ox 12/01/18 08:00 93 L 12/01/18 07:36 98.6 F 97 18 122/81 93 L Weight Admit Weight 220 lb 14.4 oz Weight 220 lb 14.4 oz I&O: 11/30/18 12/01/18 12/02/18 06:59 06:59 06:59 Intake Total 20150 Output Total 850 500 Balance 1166 2300 Result Diagrams: 12/01/18 05:27 12/01/18 05:27 Additional Labs: Accuchecks 12/01/18 12/01/18 11/30/18 10:52 04:22 19:51 POC Glucose 131 H 137 H 126 H 11/30/18 16:35 POC Glucose 128 H Labs and MARs reviewed by md Hospitalist ROS - Review of Systems Cardiovascular: denies: chest pain, palpitations, orthopnea, paroxysmal noc. dyspnea, edema, light headedness Gastrointestinal: reports: abdominal pain. denies: nausea, vomitting, diarrhea , constipation, melena, hematochezia - Medication Medications: Active Medications Generic Name Dose Route Start Last Admin Trade Name Freq PRN Reason Stop Dose Admin Hydrocodone Bitart/Acetaminophen 1 tab 11/27/18 00:40 12/01/18 12:49 [place] 5/325 PO 1 tab Q4H PRN Administration Pain Enoxaparin Sodium 40 mg 11/27/18 09:00 12/01/18 08:26 Lovenox SC 40 mg 09 IVIS Administration Fentanyl 100 mcg 11/26/18 20:00 11/29/18 20:45 Duragesic TD 100 mcg Q3DAYS@2000 IVIS Administration Folic Acid 1 mg 11/27/18 09:00 12/01/18 08:26 Folvite PER TUBE 1 mg DAILY IVIS Administration Gabapentin 100 mg 11/26/18 21:00 12/01/18 08:26 Neurontin PO 100 mg BID IVIS Administration Guaifenesin 100 mg 12/01/18 00:45 12/01/18 00:55 Robitussin Sf PO 100 mg Q4H PRN Administration Cough Ondansetron HCl 8 mg/ Sodium 54 mls @ 200 mls/hr 11/27/18 14:00 12/01/18 05: 32 Chloride IVPB 54 mls Q8HR IVIS Administration Piperacillin Sod/Tazobactam 100 mls @ 200 mls/hr 11/30/18 16:00 12/01/18 08: 26 Sod 2.25 gm/ Sodium Chloride IVPB 100 mls 0400,1000,1600,2200 IVIS Administration Potassium Chloride 10 meq/ 1,005 mls @ 150 mls/hr 11/30/18 18:15 12/01/18 11: 12 Dextrose/Sodium Chloride IV 1,005 mls .[id number] IVIS Administration Amino Acids/Electrolytes/Dextrose 1,000 mls @ 96 mls/hr 12/01/18 12:00 12:24 Clinimix E 4.25/5 IV 1,000 mls .[id number] IVIS Administration Fat Emulsion Intravenous 250 mls @ 16.7 mls/hr 12/01/18 12:00 12/01/18 12:25 Intralipid 20% IVPB 250 mls INF IVSI Administration Metoclopramide HCl 10 mg 11/27/18 11:47 11/28/18 08:00 Reglan IVP 10 mg Q8H PRN Administration Nausea/Vomiting Miscellaneous Medication 25 mg 11/28/18 07:30 12/01/18 08:25 Movantik PER TUBE 25 mg DAILY-AC IVIS Administration Morphine Sulfate 4 mg 11/27/18 00:39 11/28/18 21:00 Morphine SLOW IVP 4 mg Q4H PRN Administration Breakthrough Pain Scopolamine 1.5 mg 11/26/18 20:00 11/29/18 20:43 Transderm Scop TOP 1.5 mg Q3D@2000 IVIS Administration Sodium Chloride 10 ml 11/26/18 17:13 11/27/18 05:36 Flush - Normal Saline IVF 10 ml PRN PRN Administration Saline Flush - Exam General Appearance: NAD ENT: normocephalic atraumatic, moist mucosa Neck: supple Heart: RRR, no rubs Respiratory: CTAB Gastrointestinal: soft, non-tender, normal bowel sounds Neurological: no weakness Psychiatric: normal affect, normal behavior Hosp A/P (1) Pneumonia Code(s): J18.9 - PNEUMONIA, UNSPECIFIED ORGANISM Status: Acute Qualifiers: Pneumonia type: aspiration pneumonia Aspiration pneumonia type: due to vomit (2) Chronic hepatitis C Code(s): B18.2 - CHRONIC VIRAL HEPATITIS C Status: Chronic Qualifiers: Hepatic coma status: without hepatic coma Qualified Code(s): B18.2 - Chronic viral hepatitis C (3) DM2 (diabetes mellitus, type 2) Status: Chronic Qualifiers: Diabetes mellitus superintendent terminal insulin use: without superintendent terminal use Diabetes mellitus complication status: without complication Qualified Code(s): E11.9 - Type 2 diabetes mellitus without complications (4) Hypertension Code(s): I10 - ESSENTIAL (PRIMARY) HYPERTENSION Status: Chronic Qualifiers: Hypertension type: essential hypertension Qualified Code(s): I10 - Essential (primary) hypertension (5) Nausea & vomiting Code(s): R11.2 - NAUSEA WITH VOMITING, UNSPECIFIED Status: Resolved (6) Sepsis Code(s): A41.9 - SEPSIS, UNSPECIFIED ORGANISM Status: Resolved Qualifiers: Sepsis type: sepsis due to unspecified organism Sepsis acute organ dysfunction status: without acute organ dysfunction Qualified Code(s): A41.9 - Sepsis, unspecified organism - Plan continue antibiotics, out of bed/ambulate Continue Zosyn. Creatinine improved to 1.90. Start PPN and lipid infusion. Patient hesitant about resuming tube feeds, hold off for now. Blood sugars stable
--- NOTE | 2018-12-01 15:44 | PRG ---
DATE OF SERVICE: 12/01/2018 SUBJECTIVE: The patient feels worse than yesterday. He is having more abdominal pain. He has more nausea. Could not tolerate liquids without more nausea and pain. He is started on PPN. Tube feeding was never started because abdominal pain. PHYSICAL EXAMINATION: VITAL SIGNS: Temperature is 98.6, blood pressure 122/81, pulse of 97. GENERAL: He is alert, does not appear in any distress. HEENT: Shows anicteric sclerae. Oropharynx is moist. CV: Shows normal S1, S2. Regular rate and rhythm. CHEST: Shows breath sounds. ABDOMEN: Protuberant, but no significant tympany or distention. Very faint and few bowel sounds. There is mild tenderness right greater than left. No guarding or rebound. EXTREMITIES: Shows no edema. LABORATORY DATA: WBC is 12.7, hemoglobin 11.5, and platelet count of 322. Creatinine is 1.90. Electrolytes are stable. ASSESSMENT: 1. More abdominal pain and nausea, more than yesterday. The patient had evidence of small bowel obstruction on some initial films of the Gastrografin small bowel series with 7-hour delayed film showing movement to the colon. I suspect he has recurrent signs and symptoms of obstruction again based on exam and clinical symptoms. Either this could be a partial mechanical obstruction related to his jejunostomy tube or he could have abdominal carcinomatosis as his most recent PET scan showed activity in the abdominal cavity. 2. Acute kidney injury, worsening creatinine. 3. Malnutrition. 4. Progressive metastatic esophageal cancer. RECOMMENDATIONS: 1. We will obtain CT enterography. 2. Continue with PPN and IV hydration support. 3. Dr. Egan to cover GI service this weekend. Job ID: [id number] [facility]
--- NOTE | 2018-12-01 16:28 | CT ---
CT enterography-CT abdomen pelvis with and without contrast: 12/01/2018 COMPARISON: CT of abdomen 11/21/2018 CT of abdomen and pelvis 11/19/2018 HISTORY: Possible bowel obstruction associated with the jejunostomy tube TECHNIQUE: CT imaging at 5 mm intervals from lung bases through pubic symphysis obtained with and wit hout IV contrast. The patient was administered enterography contrast media (Volumen) through the jejunostomy tube. FINDINGS: Nonspecific patchy interstitial opacity/groundglass opacity noted within the inferior aspec t of the right middle lobe and right lower lobe. Small bilateral pleural effusions are noted. There is contrast media injected into the gastrostomy tube which fills and distends the jejunum proxi mal to the jejunostomy tube and fills in a retrograde fashion the duodenum, stomach, and distal esophagus, all of which are distended. No free intraperitoneal air is seen. Cholecystectomy clips are present. There is mild intrahepatic biliary dilatation, which may be on the basis of prior cholecystectomy. There is a hypodense lesion within the right lobe of the liver superiorly on image 13 measuring 1.2 c m, nonspecific. This could be malignant in nature. The spleen, pancreas, and left adrenal gland are unremarkable. The kidneys are unremarkable. There is a nodule within the right adrenal gland, nonspecific, measuring 1.4 cm. The small bowel distal to the jejunostomy insertion site is completely decompressed. This suggest a prominent small bowel obstr uction at the level of the jejunum in the region of the jejunostomy insertion site. There is residual contrast media from prior small bowel follow-through within the colon. There is extensive lymphadenopathy within the retroperitoneum consistent with metastatic disease, whi ch includes para-aortic lymph nodes on the left measuring up to 2.9 cm and aortocaval lymphadenopathy measuring up to 4 cm. There are anterior areas of soft tissue nodularity involving the mesenteric fat concerning for perito david carcinomatosis, including a soft tissue mass within the anterior aspect of the mid left abdomen on axial image 61 measuring 2.8 cm in short axis dimension. There is scattered atherosclerotic calcification of the abdominal aorta and its branches. There is small volume free fluid adjacent to the right lobe of the liver. Review of the osseous structures demonstrates multilevel lower lumbar spine facet hypertrophy. There is a lytic lesion with a soft tissue component involving the posterior lateral aspect of the ri ght ninth rib measuring 4.5 cm, suspicious for osseous metastatic disease. There are a few scattered sclerotic foci within the iliac bone on the right and within multiple left ribs, which coul d potentially represent areas of metastatic disease as well. There is a mesenteric mass seen anteriorly on axial image 56 measuring 2.9 cm in the region of above described jejunal obstruction IMPRESSION: Findings concerning for small bowel obstruction centered within the jejunum at the jejuno stomy insertion site, possibly associated with peritoneal carcinomatosis. Findings concerning for metastatic disease including a vague lesion within the right lobe of the live r, a lytic lesion within the right ninth rib, soft tissue nodules within the mesentery, and extensive retroperitoneal lymphadenopathy. CODE T
--- NOTE | 2018-12-01 16:40 | PRG ---
DATE OF SERVICE: 12/01/2018 SUBJECTIVE: The patient is seen and examined. He is still actively vomiting. Noted with the following vital signs. OBJECTIVE: VITAL SIGNS: Afebrile, temperature 98.6, blood pressure 122/81 with a pulse of 97. RESPIRATORY SYSTEM: Clear to auscultation bilaterally. DIGESTIVE SYSTEM: Revealed a somewhat obese abdomen. EXTREMITIES: No peripheral edema. SKIN: No new gross rash. LYMPHATICS: No peripheral lymphadenopathy. LABORATORY INVESTIGATION: Showed a creatinine down to 1.9, but potassium is down to 3.1. IMPRESSION: 1. Acute on chronic kidney disease, which seems to be improving. 2. Persistent nausea and vomiting, likely in the context of bowel obstruction. 3. Hypokalemia. PLAN: 1. Continue current renal supportive measures. 2. Replete potassium. 3. Further management to be dependent on the clinical course. Job ID: [id number]
--- NOTE | 2018-12-02 01:01 | CON ---
DATE OF CONSULTATION: HISTORY OF PRESENT ILLNESS: Aggie Frost is a 63-year-old black male who lives in [place]. The patient has had a prior colon resection, colostomy, and subsequent colostomy reversal. He more recently has been treated for metastatic esophageal cancer. He apparently had a feeding jejunostomy placed at [facility] in [place]. He has been seen by Dr. Rivas this hospitalization. The patient for the last 4 weeks has been unable to do chemotherapy due to nausea and vomiting. He has had several admissions in the last month for such complaints. This admission, he had a small bowel follow-through that finally traversed the abdominal cavity after 7 hours. This was on 11/29/2018. Dr. Rivas saw him for this process that small-bowel follow-through did reveal some dilated loops of bowel. It did make it through the colon on followup films. He has had a bowel movement 24 hours ago. The patient continued to have problems with nausea and vomiting and cannot tolerate his jejunostomy feedings. He did have an NG tube which has been subsequently removed. They did restart his tube feedings yesterday, but he cannot tolerate them. He continues to have nausea and vomiting. Dr. Mariano Zendejas ordered a CT enterography today revealing contrast to back up into the proximal small bowel, stomach, duodenum, and esophagus. He continues to have bilious vomiting. It was Dr. Zendejas's perception that the patient has had intermittent high-grade partial bowel obstruction may be related to his feeding tube, but this has been ongoing for the past month and feels that surgical intervention is necessary and that the patient agrees. Plan is for laparoscopic evaluation, possible laparotomy tomorrow. Risks and benefits discussed. He consents. Family per speaker phone conversation also consents and questions answered. ALLERGIES: NONE. SOCIAL HISTORY: Tobacco cessation several months ago. Alcohol, rare use, cessation several months ago. PAST MEDICAL HISTORY: Esophageal cancer, adenocarcinoma, hypertension, hepatitis C, CVA in the past, right-sided weakness, diabetes mellitus type 2, GERD, sepsis this admission, aspiration pneumonia previous admission. PAST SURGICAL HISTORY: Cholecystectomy, colon resection, and colostomy reversal. PHYSICAL EXAMINATION: VITAL SIGNS: 220 pounds, 5 foot 11, 30 BMI, 98.6, 97, 122/81. HEAD, EYES, EARS, NOSE, AND THROAT: Unremarkable. LUNGS: Clear to auscultation. CARDIAC: Regular rate and rhythm without murmur or gallop. ABDOMEN: Soft, distended, slightly tympanitic. Feeding tube in place. Midline incision without hernia. EXTREMITIES: Unremarkable. As I evaluated him, his bilious emesis is all over his bed sheets and LABORATORY DATA: White count 12, hemoglobin 11.5. Potassium 3.1, creatinine 1.90 this morning down from 2.12 yesterday. ASSESSMENT AND PLAN: Partial element of bowel obstruction, unable to tolerate chemotherapy. We will plan laparoscopy, possible laparotomy tomorrow, Tuesday. Risks and benefits discussed. He consents. They understand this is the palliative procedure. Job ID: [id number]
[2018-12-02] MEDS: Fat Emulsion 250 ML IVPB SCH ×2 (02:52→19:02)
[2018-12-02] MEDS: Piperacillin/Tazobactam 2.25 GM in Sodium Chloride 0.9% 100 ML IVPB SCH ×4 (03:06→21:33)
[2018-12-02] MEDS: Ondansetron HCl/PF 8 MG in Sodium Chloride 0.9% 50 ML IVPB SCH ×3 (04:45→22:49)
[2018-12-02 06:21] LABS: ALT (SGPT) 11 U/L (8-55); AST (SGOT) 15 U/L (5-34); Albumin 2.4 g/dL (3.4-4.8); Alkaline Phosphatase 257 U/L (40-150); Anion Gap 11 mmol/L (10-20); BUN (Urea Nitrogen) 17 mg/dL (8.4-25.7); Bilirubin, Total 0.7 mg/dL (0.2-1.2); Calc. Creatinine Clearance 75 mL/min (70-130); Calcium 8.7 mg/dL (7.8-10.44); Carbon Dioxide 23 mmol/L (23-31); Chloride 109 mmol/L (98-107); Estimated GFR-MDRD 60; Globulin 4.1 g/dL (2.4-3.5); Glucose 147 mg/dL (80-115); Potassium 3.2 mmol/L (3.5-5.1); Protein, Total 6.5 g/dL (5.8-8.1); Sodium 140 mmol/L (136-145)
[2018-12-02] MEDS: Enoxaparin Sodium 40 MG/0.4 ML SYRINGE SC SCH ×2 (08:17→18:56)
[2018-12-02] MEDS: Potassium Chloride 10 MEQ in Dextrose 5 % And 0.9 % NaCl 1,000 ML IV SCH ×3 (08:17→16:34)
[2018-12-02] MEDS: D5W-AA 4.25% with LYTES 1,000 ML IV SCH ×2 (10:01→20:16)
--- NOTE | 2018-12-02 13:53 | PRG ---
DATE OF SERVICE: 12/02/2018 SUBJECTIVE: Aggie Frost is doing well today. Mr. Frost has not had a bowel movement. Has not passed flatus. His belly remains distended. He has had some emesis last night, none today. OBJECTIVE: VITAL SIGNS: Temperature 98.5 degrees, pulse 92, and blood pressure 119/82. LUNGS: Clear to auscultation. CARDIAC: Regular rate and rhythm without murmur or gallop. ABDOMEN: Soft, mildly distended, not tympanitic. Bowel sounds present. EXTREMITIES: Unremarkable. LABORATORY DATA: Sodium 140, potassium 3.2, and creatinine 1.44. ASSESSMENT AND PLAN: 1. Bowel obstruction, intermittent, plan laparoscopy, possible laparotomy today. Questions answered. 2. Metastatic esophageal cancer, bony mets. 3. Feeding jejunostomy dependent, has not been able to feed well due to #1. 4. Mild hypokalemia. Just IV fluids. Job ID: [id number]
--- NOTE | 2018-12-02 14:58 | PDOC.HOSPP ---
- Subjective Subjective: Seen and examined. Patient looking and feeling ill. Has emesis bin next to him with vomit. Patient states that sitting upright helps a little with pain, nausea , and vomiting. Planned for surgery this afternoon. - Objective Vital Signs & Weight: Vital Signs (12 hours) Temp Pulse Resp BP Pulse Ox 12/02/18 12:00 98.5 F 92 18 119/82 95 12/02/18 08:12 94 L 12/02/18 07:35 98.3 F 97 18 115/82 94 L Weight Admit Weight 220 lb 14.4 oz Weight 220 lb 14.4 oz I&O: 12/01/18 12/02/18 12/03/18 06:59 06:59 06:59 Intake Total 2800 2552 Output Total 500 3700 Balance 2300 -1148 Result Diagrams: 12/01/18 05:27 12/02/18 05:45 Additional Labs: Accuchecks 12/02/18 12/02/18 12/01/18 10:56 04:39 19:35 POC Glucose 115 H 155 H 142 H 12/01/18 16:08 POC Glucose 122 H Hospitalist ROS - Medication Medications: Active Medications Generic Name Dose Route Start Last Admin Trade Name Freq PRN Reason Stop Dose Admin Enoxaparin Sodium 40 mg 11/27/18 09:00 12/02/18 08:17 Lovenox SC Not Given 0900 IVIS Fentanyl 100 mcg 11/26/18 20:00 11/29/18 20:45 Duragesic TD 100 mcg Q3DAYS@2000 IVIS Administration Ondansetron HCl 8 mg/ Sodium 54 mls @ 200 mls/hr 11/27/18 14:00 12/02/18 14: 18 Chloride IVPB 54 mls Q8HR IVIS Administration Piperacillin Sod/Tazobactam 100 mls @ 200 mls/hr 11/30/18 16:00 12/02/18 10: 09 Sod 2.25 gm/ Sodium Chloride IVPB 100 mls 0400,1000,1600,2200 IVIS Administration Potassium Chloride 10 meq/ 1,005 mls @ 100 mls/hr 11/30/18 18:15 12/02/18 08: 17 Dextrose/Sodium Chloride IV Not Given .Q10H3M IVIS Amino Acids/Electrolytes/Dextrose 1,000 mls @ 96 mls/hr 12/01/18 12:00 10:01 Clinimix E 4.25/5 IV 1,000 mls .[id number] IVIS Administration Fat Emulsion Intravenous 250 mls @ 16.7 mls/hr 12/01/18 12:00 12/02/18 02:52 Intralipid 20% IVPB 250 mls INF IVIS Administration Morphine Sulfate 4 mg 11/27/18 00:39 11/28/18 21:00 Morphine SLOW IVP 4 mg Q4H PRN Administration Breakthrough Pain Scopolamine 1.5 mg 11/26/18 20:00 11/29/18 20:43 Transderm Scop TOP 1.5 mg Q3D@2000 IVIS Administration Sodium Chloride 10 ml 11/26/18 17:13 11/27/18 05:36 Flush - Normal Saline IVF 10 ml PRN PRN Administration Saline Flush - Exam General Appearance: ill appearing Eye: PERRL Eye - other findings: EOMI ENT: dry oral mucosa Neck: supple, symmetric Heart: RRR, no murmur, no gallops, no rubs Respiratory: CTAB, no wheezes, no rales, no ronchi Gastrointestinal: normal bowel sounds, no splenomegaly, tender to palpation Gastrointestinal - other findings: Feeding tube in position. Extremities: no edema Skin: no rashes Neurological: CN's grossly intact, no focal deficits Musculoskeletal: generalized weakness Psychiatric: A&O x 3 Hosp A/P (1) Bowel obstruction Code(s): K56.609 - UNSP INTESTNL OBST, UNSP TO PARTIAL VERSUS COMPLETE OBST Status: Acute (2) DM2 (diabetes mellitus, type 2) Status: Chronic Qualifiers: Diabetes mellitus longterm insulin use: without long term care social worker use Diabetes mellitus complication status: without complication Qualified Code(s): E11.9 - Type 2 diabetes mellitus without complications (3) Esophageal adenocarcinoma Code(s): C15.9 - MALIGNANT NEOPLASM OF ESOPHAGUS, UNSPECIFIED Status: Chronic (4) Abdominal pain Code(s): R10.9 - UNSPECIFIED ABDOMINAL PAIN Status: Acute Qualifiers: Abdominal location: generalized Qualified Code(s): R10.84 - Generalized abdominal pain (5) Nausea & vomiting Code(s): R11.2 - NAUSEA WITH VOMITING, UNSPECIFIED Status: Acute (6) Sepsis Code(s): A41.9 - SEPSIS, UNSPECIFIED ORGANISM Status: Acute Qualifiers: Sepsis type: sepsis due to unspecified organism Sepsis acute organ dysfunction status: without acute organ dysfunction Qualified Code(s): A41.9 - Sepsis, unspecified organism - Plan Plan: Med/ surg General surgery following, recommendations appreciated Planned for OR today Palliative care following, recommendations appreciated Goals of care should be addressed Oncology following, recommendations appreciated PRN medications for N/V Pain control Non functioning feeding tube GI PPX DVT PPX [facility] prognosis is guarded
[2018-12-02] MEDS ORDERED: Potassium Chloride 20 MEQ/100 ML PREMIX BAG IVPB SCH (15:45)
[2018-12-02] MEDS: Potassium Chloride 20 MEQ in Lactated Ringer's 1,000 ML IV SCH (16:18)
--- NOTE | 2018-12-02 17:22 | PRG ---
DATE OF SERVICE: 12/02/2018 SUBJECTIVE: The patient seems to still be feeling ill with continuous nausea and vomiting with the following vital signs. OBJECTIVE: VITAL SIGNS: Afebrile, temperature 99.1, pulse 100, respiratory rate 20, O2 saturation of 95%, and blood pressure 127/90. HEENT: Unremarkable. CARDIOVASCULAR SYSTEM: First and second heart sounds were heard. RESPIRATORY SYSTEM: Clear to auscultation. DIGESTIVE SYSTEM: Revealed a benign abdomen with positive bowel sounds. EXTREMITIES: No peripheral edema. SKIN: No new gross rash. LYMPHATICS: No peripheral lymphadenopathy. IMPRESSION: 1. Persistent nausea and vomiting in the context of partial small-bowel obstruction. 2. Acute on chronic kidney disease, improving. PLAN: 1. Continue with current renal supportive measures. 2. Further management to be dependent on the clinical course. Job ID: [id number]
[2018-12-02] MEDS: fentaNYL 100 mcg/hour Patch TD SCH (20:17)
[2018-12-02] MEDS: Scopolamine 1.5 mg/72 hour Patch TOP SCH (20:35)
[2018-12-03] MEDS: Piperacillin/Tazobactam 2.25 GM in Sodium Chloride 0.9% 100 ML IVPB SCH ×3 (04:13→15:52)
[2018-12-03 05:08] LABS: #Eosinphils 0.2 thou/uL (0.0-0.7); #Lymphocytes 1.4 thou/uL (1.20-3.40); #Monocytes 1.2 thou/uL (0.11-0.59); #Neutrophils 12.9 thou/uL (1.40-6.50); %Basophils 0.2 % (0.0-1.0); %Eosinophils 1.1 % (0.0-10.0); %Lymphocytes 9.2 % (21.0-51.0); %Monocytes 7.4 % (0.0-10.0); %Neutrophils 82.1 % (42.0-75.0); Hemoglobin 10.6 g/dL (14.0-18.0); Mean Corpuscular HGB CONC 32.8 g/dL (32.0-36.0); Mean Corpuscular Volume 97.7 fL (78.0-98.0); Mean Platelet Volume 7.3 fL (7.4-10.4); Platelet Count 274 thou/uL (130-400); White Blood Cell (WBC) Count 15.7 thou/uL (4.8-10.8)
[2018-12-03 05:31] LABS: ALT (SGPT) 9 U/L (8-55); AST (SGOT) 17 U/L (5-34); Albumin 2.5 g/dL (3.4-4.8); Alkaline Phosphatase 227 U/L (40-150); Anion Gap 10 mmol/L (10-20); BUN (Urea Nitrogen) 19 mg/dL (8.4-25.7); Bilirubin, Total 0.6 mg/dL (0.2-1.2); Calc. Creatinine Clearance 88 mL/min (70-130); Calcium 8.8 mg/dL (7.8-10.44); Carbon Dioxide 25 mmol/L (23-31); Chloride 102 mmol/L (98-107); Estimated GFR-MDRD 72; Globulin 4.3 g/dL (2.4-3.5); Glucose 111 mg/dL (80-115); Magnesium 1.9 mg/dL (1.6-2.6); Phosphorus 3.4 mg/dL (2.3-4.7); Potassium 3.4 mmol/L (3.5-5.1); Protein, Total 6.8 g/dL (5.8-8.1); Sodium 134 mmol/L (136-145)
[2018-12-03] MEDS: Ondansetron HCl/PF 8 MG in Sodium Chloride 0.9% 50 ML IVPB SCH ×2 (05:46→13:42)
[2018-12-03] MEDS: D5W-AA 4.25% with LYTES 1,000 ML IV SCH ×2 (06:30→17:45)
[2018-12-03] MEDS ORDERED: Ondansetron PF 4 MG/2 ML Vial ONE (07:44)
[2018-12-03] MEDS ORDERED: PROPOFOL 200 MG/20 ML VIAL ONE (07:44)
[2018-12-03] MEDS ORDERED: Rocuronium Bromide 10 MG/ML (10ML VIAL) ONE (07:44)
[2018-12-03] MEDS ORDERED: Glycopyrrolate 0.2 MG/ML 5 ML SYRINGE ONE (07:44)
[2018-12-03] MEDS ORDERED: Esmolol 100 MG/10 ML VIAL ONE (07:44)
[2018-12-03] MEDS ORDERED: Metoprolol Tartrate 5 MG/5 ML VIAL ONE (07:44)
[2018-12-03] MEDS ORDERED: PHENYLEPHRINE-NS 100 MCG/ML 10 ML SYRINGE ONE (07:44)
[2018-12-03] MEDS ORDERED: Lidocaine 1% PF 5 ML VIAL ONE (07:44)
[2018-12-03] MEDS: Enoxaparin Sodium 40 MG/0.4 ML SYRINGE SC SCH (08:22)
[2018-12-03] MEDS: Potassium Chloride 20 MEQ in Lactated Ringer's 1,000 ML IV SCH (08:22)
[2018-12-03] MEDS: Fat Emulsion 250 ML IVPB SCH (10:12)
--- NOTE | 2018-12-03 14:05 | PDOC.HOSPP ---
- Subjective Subjective: Seen and examined. Clinically not much improvement. Less N/v per patient. Patient remains in good spirits despite severity of illness. Planned for OR today. - Objective Vital Signs & Weight: Vital Signs (12 hours) Temp Pulse Resp BP Pulse Ox 12/03/18 08:17 94 L 12/03/18 08:00 98.1 F 89 20 113/76 94 L 12/03/18 04:00 98.6 F 101 H 20 121/88 93 L Weight Admit Weight 220 lb 14.4 oz Weight 220 lb 14.4 oz I&O: 12/02/18 12/03/18 12/04/18 06:59 06:59 06:59 Intake Total 2552 4074 Output Total 3700 3960 Balance -1148 114 Result Diagrams: 12/03/18 04:30 12/03/18 04:30 Additional Labs: Accuchecks 12/03/18 12/03/18 12/02/18 12:07 04:23 20:09 POC Glucose 113 H 104 105 12/02/18 16:29 POC Glucose 102 Hospitalist ROS - Medication Medications: Active Medications Generic Name Dose Route Start Last Admin Trade Name Freq PRN Reason Stop Dose Admin Enoxaparin Sodium 40 mg 11/27/18 09:00 12/03/18 08:22 Lovenox SC Not Given 0900 IVIS Fentanyl 100 mcg 11/26/18 20:00 12/02/18 20:17 Duragesic TD 100 mcg Q3DAYS@2000 IVIS Administration Ondansetron HCl 8 mg/ Sodium 54 mls @ 200 mls/hr 11/27/18 14:00 12/03/18 13: 42 Chloride IVPB 54 mls Q8HR IVIS Administration Piperacillin Sod/Tazobactam 100 mls @ 200 mls/hr 11/30/18 16:00 12/03/18 10: 10 Sod 2.25 gm/ Sodium Chloride IVPB 100 mls 0400,1000,1600,2200 IVIS Administration Amino Acids/Electrolytes/Dextrose 1,000 mls @ 96 mls/hr 12/01/18 12:00 06:30 Clinimix E 4.25/5 IV 1,000 mls .[id number] IVIS Administration Fat Emulsion Intravenous 250 mls @ 16.7 mls/hr 12/01/18 12:00 12/03/18 10:12 Intralipid 20% IVPB 250 mls INF IVIS Administration Potassium Chloride 20 meq/ 1,010 mls @ 50 mls/hr 12/02/18 13:30 12/03/18 08: 22 Lactated Ringer's IV Not Given .[id number] [facility] Morphine Sulfate 4 mg 11/27/18 00:39 11/28/18 21:00 Morphine SLOW IVP 4 mg Q4H PRN Administration Breakthrough Pain Scopolamine 1.5 mg 11/26/18 20:00 12/02/18 20:35 Transderm Scop TOP 1.5 mg Q3D@2000 IVIS Administration Sodium Chloride 10 ml 11/26/18 17:13 11/27/18 05:36 Flush - Normal Saline IVF 10 ml PRN PRN Administration Saline Flush - Exam General Appearance: ill appearing Eye: PERRL, anicteric sclera ENT: no oropharyngeal lesions, dry oral mucosa Neck: no JVD, no lymphadenopathy Heart: RRR, no murmur, no gallops, no rubs, normal peripheral pulses Respiratory: CTAB, no wheezes, no rales, no ronchi Gastrointestinal: soft, non-tender, non-distended, normal bowel sounds, no guarding, no rigidity Extremities: no edema Skin: no lesions, no rashes Neurological: CN's grossly intact, no focal deficits, no new deficit Musculoskeletal: generalized weakness Psychiatric: normal affect, A&O x 3 Hosp A/P (1) Bowel obstruction Code(s): K56.609 - UNSP INTESTNL OBST, UNSP TO PARTIAL VERSUS COMPLETE OBST Status: Acute (2) DM2 (diabetes mellitus, type 2) Status: Chronic Qualifiers: Diabetes mellitus mechanical manufacturing engineer insulin use: without fci use Diabetes mellitus complication status: without complication Qualified Code(s): E11.9 - Type 2 diabetes mellitus without complications (3) Esophageal adenocarcinoma Code(s): C15.9 - MALIGNANT NEOPLASM OF ESOPHAGUS, UNSPECIFIED Status: Chronic (4) Abdominal pain Code(s): R10.9 - UNSPECIFIED ABDOMINAL PAIN Status: Acute Qualifiers: Abdominal location: generalized Qualified Code(s): R10.84 - Generalized abdominal pain (5) Nausea & vomiting Code(s): R11.2 - NAUSEA WITH VOMITING, UNSPECIFIED Status: Acute (6) Sepsis Code(s): A41.9 - SEPSIS, UNSPECIFIED ORGANISM Status: Acute Qualifiers: Sepsis type: sepsis due to unspecified organism Sepsis acute organ dysfunction status: without acute organ dysfunction Qualified Code(s): A41.9 - Sepsis, unspecified organism - Plan Plan: Med/ surg General surgery following, recommendations appreciated Planned for OR today, emergencies yesterday postponed Palliative care following, recommendations appreciated Goals of care should be addressed Oncology following, recommendations appreciated PRN medications for N/V Pain control Non functioning feeding tube GI PPX DVT PPX [facility] prognosis is guarded
--- NOTE | 2018-12-03 17:32 | PRG ---
DATE OF SERVICE: 12/03/2018 SUBJECTIVE: The patient is seen and examined, feeling a little bit better, but he is nauseated. Noted with the following vital signs. OBJECTIVE: VITAL SIGNS: Afebrile, temperature 97.9, pulse 99, respiratory rate of 20, O2 saturation 94%, and blood pressure 129/83. HEENT: Unremarkable. CARDIOVASCULAR SYSTEM: First and second heart sounds were heard. RESPIRATORY SYSTEM: Clear to auscultation. DIGESTIVE SYSTEM: Revealed distended abdomen. EXTREMITIES: No peripheral edema. SKIN: No new gross rash. IMPRESSION: 1. Acute kidney injury, which seems to have improved. 2. Partial small bowel obstruction. PLAN: 1. Continue current renal supportive measures. 2. Further management will be dependent on the clinical course. Job ID: [id number]
[2018-12-03] MEDS ORDERED: Bupivacaine HCl 0.5%/Epinephrine 1:200,000/PF 30 ml Vial ONE (18:30)
[2018-12-03] MEDS ORDERED: Fentanyl 100 MCG/2 ML VIAL ONE ×3 (18:43→22:36)
[2018-12-03] MEDS ORDERED: Phenylephrine HCL 10 MG/ML VIAL ONE (18:43)
[2018-12-03] MEDS ORDERED: Ondansetron HCl/PF 4 MG/2 ML Vial IVP PRN (20:41)
[2018-12-03] MEDS ORDERED: Promethazine HCl 25 MG/ML VIAL SLOW IVP PRN (20:41)
[2018-12-03] MEDS ORDERED: Promethazine HCl 25 MG/ML VIAL IM PRN ×2 (20:41→22:13)
[2018-12-03] MEDS ORDERED: HYDROmorphone 0.5 MG/0.5 ML SYRINGE ONE (21:42)
[2018-12-03] MEDS ORDERED: diphenhydrAMINE 50 MG/ML VIAL IM PRN (22:13)
[2018-12-03] MEDS ORDERED: Naloxone HCl 0.4 mg/ml Vial IV PRN (22:13)
[2018-12-03] MEDS ORDERED: HYDROmorphone 10 mg/100 ml CADD IVPB PRN (22:13)
[2018-12-03] MEDS ORDERED: Zolpidem Tartrate 5 MG TAB PO PRN (22:13)
[2018-12-03] MEDS ORDERED: diphenhydrAMINE 25 MG CAP PO PRN (22:13)
[2018-12-03] MEDS ORDERED: Ondansetron PF 4 MG/2 ML Vial IVP PRN (22:13)
[2018-12-03] MEDS ORDERED: diphenhydrAMINE 50 MG/ML VIAL IVP PRN (22:13)
[2018-12-03] MEDS ORDERED: Communication Order-Pharmacy FS SCH (22:15)
[2018-12-03] MEDS ORDERED: Promethazine HCl 25 MG/ML VIAL ONE (22:24)
--- NOTE | 2018-12-03 22:42 | RAD ---
PORTABLE CHEST ONE VIEW: Date: 12-03-18 Time: 10:17 History: Central line placement. FINDINGS/IMPRESSION: Comparison made with exam of 11-26-18. Right sided [id number] remains in place. There has been interval placement of a left subclavian central line with tip in the SVC. A nasogastric tube projects into the stomach. There are patchy area s of consolidation in the right midlung. No pneumothoraces are seen. A small right pleural effusion m ight be present. POS: [facility]
[2018-12-04] MEDS: Ondansetron HCl/PF 8 MG in Sodium Chloride 0.9% 50 ML IVPB SCH ×4 (00:11→21:46)
[2018-12-04] MEDS ORDERED: Lactated Ringer's 1,000 ML IV SCH ×2 (00:30→02:15)
[2018-12-04] MEDS: Morphine 4 MG/ML VIAL SLOW IVP PRN (00:52)
[2018-12-04] MEDS: Fat Emulsion 250 ML IVPB SCH (01:25)
[2018-12-04] MEDS: Piperacillin/Tazobactam 2.25 GM in Sodium Chloride 0.9% 100 ML IVPB SCH ×5 (01:25→20:37)
[2018-12-04] MEDS: Potassium Chloride 30 MEQ in Sodium Chloride 0.9% 1,000 ML IV SCH ×3 (01:25→20:38)
--- NOTE | 2018-12-04 01:29 | OP ---
DATE OF PROCEDURE: 12/03/2018 PREOPERATIVE DIAGNOSES: Metastatic esophageal cancer, small-bowel obstruction, and poor IV access. POSTOPERATIVE DIAGNOSES: Metastatic esophageal cancer, small-bowel obstruction, and poor IV access. PROCEDURES PERFORMED: Left subclavian vein triple-lumen catheter. Diagnostic laparoscopy converted to laparotomy, lysis of adhesions, removal of feeding jejunostomy tube (20-[place]izen [place] gastrostomy tube) for segmental small bowel resections for anastomosis, placement of new feeding jejunostomy tube, 20-[place] G-tube in the jejunum. DESCRIPTION OF PROCEDURE: The patient was taken to the operating room under general anesthesia. Left paraclavicular area was prepared with ChloraPrep and draped in routine fashion. Seldinger technique used to place a triple-lumen catheter, secured with 3-0 nylon suture. Sterile dressings applied. Each port aspirated blood and flushed with saline solution after J-wire removed. Abdomen was prepared with ChloraPrep and draped in routine fashion. Old feeding jejunostomy tube was left in place, it was 20-[place]izen [place] G-tube. Left lateral subcostal incision was made. Pneumoperitoneum to 15 mmHg obtained with a Veress needle, replaced with a 5 port laparoscope inserted. There were adhesions in the midline from the patient's prior colon resection, colostomy, colostomy reversal, and feeding jejunostomy tube placement. I then placed in adhesion free area in the left lateral mid abdomen, 5 port, and left lower quadrant 5 port cleared and took down adhesions with the LigaSure, but they were too dense and there were tumor nodules present and this converted to a midline laparotomy. Midline incision was made through an old scar in right paramedian and carried down through the skin and subcutaneous tissue. Abdominal cavity entered sharply. There were extensive adhesions to the right of the abdomen with what seemed to be like metastatic tumor nodules. Dissection was carried out through these tumor nodules in the abdominal wall, freeing the small bowel adherent. This freed the mass of small bowel adherent with scar tissue and apparent tumor nodules. The terminal ileum was decompressed. Proximal small bowel was markedly distended. I then dissected free what appeared to be chronic inflammation, possible tumor nodules through the feeding jejunostomy, which was taken down. It was removed. This segment of small bowel had chronic scar tissue, what appeared to be tumor nodules and segmental resection undertaken by dividing the mesentery with the Impact LigaSure and divided the small bowel with the stapler. Job ID: [id number]
[2018-12-04 02:44] LABS: Mean Corpuscular HGB CONC 32.9 g/dL (32.0-36.0); Mean Corpuscular Volume 97.3 fL (78.0-98.0); Mean Platelet Volume 7.3 fL (7.4-10.4); Platelet Count 307 thou/uL (130-400); RBC Distribution Width 14.9 % (11.5-14.5); Red Blood Cell (RBC) Count 3.43 mill/uL (4.70-6.10); White Blood Cell (WBC) Count 13.8 thou/uL (4.8-10.8)
[2018-12-04 02:46] LABS: ALT (SGPT) 13 U/L (8-55); AST (SGOT) 27 U/L (5-34); Albumin 2.1 g/dL (3.4-4.8); Alkaline Phosphatase 192 U/L (40-150); Anion Gap 13 mmol/L (10-20); BUN (Urea Nitrogen) 22 mg/dL (8.4-25.7); Bilirubin, Total 0.9 mg/dL (0.2-1.2); Calc. Creatinine Clearance 92 mL/min (70-130); Calcium 8.4 mg/dL (7.8-10.44); Carbon Dioxide 22 mmol/L (23-31); Chloride 102 mmol/L (98-107); Estimated GFR-MDRD 76; Globulin 3.7 g/dL (2.4-3.5); Glucose 180 mg/dL (80-115); Potassium 4.1 mmol/L (3.5-5.1); Protein, Total 5.8 g/dL (5.8-8.1); Sodium 133 mmol/L (136-145)
[2018-12-04 03:22] LABS: Band 15 % (5-11); Lymphocytes 4 % (21-51); MDiff Complete? YES; Monocytes 4 % (0-10); Neutrophil 77 % (42-75)
[2018-12-04] MEDS: D5W-AA 4.25% with LYTES 1,000 ML IV SCH ×2 (04:18→17:53)
[2018-12-04] MEDS ORDERED: Sodium Chloride 0.9% 500 ML IVPB SCH (06:00)
[2018-12-04] MEDS: Acetaminophen 1,000 MG in Premix Bag 1 BAG IVPB PRN ×2 (06:14→12:46)
[2018-12-04] MEDS ORDERED: Sodium Chloride 0.9% 500 ML IV SCH (08:15)
[2018-12-04] MEDS: Enoxaparin Sodium 40 MG/0.4 ML SYRINGE SC SCH (08:37)
[2018-12-04] MEDS: Morphine 2 MG/ML SYRINGE SLOW IVP PRN ×2 (09:23→12:06)
[2018-12-04] MEDS ORDERED: Fluconazole In NaCl,Iso-Osm 200 MG in Premix Bag 1 BAG IVPB SCH (09:30)
[2018-12-04] MEDS ORDERED: Sodium Chloride 0.9% 1,000 ML IV SCH (09:30)
--- NOTE | 2018-12-04 11:56 | PDOC.HOSPP ---
- Subjective Subjective: Seen and examined in IMCU. Low BP, tachycardia, lethargic. Abdominal pain post surgery. NG tube with output. Does appear on the dry side, though continues to be on ABX for sepsis. - Objective Vital Signs & Weight: Vital Signs (12 hours) Temp Pulse Resp BP BP Pulse Ox 12/04/18 11:07 98.0 F 12/04/18 09:00 100 12/04/18 07:36 98.7 F 12/04/18 06:26 100 12/04/18 04:00 99.8 F H 136 H 24 H 109/75 99 12/04/18 01:02 129 H 117/79 12/04/18 00:52 132 H 110/72 Weight Admit Weight 217 lb 8 oz Weight 220 lb 14.4 oz Most Recent Monitor Data Heart Rate from ECG 118 NIBP 129/102 NIBP BP-Mean 111 Respiration from ECG 31 SpO2 100 I&O: 12/03/18 12/04/18 12/05/18 06:59 06:59 06:59 Intake Total 4074 5390 Output Total 3960 1960 Balance 114 3430 Result Diagrams: 12/04/18 02:18 12/04/18 02:18 Additional Labs: Accuchecks 12/04/18 12/04/18 12/03/18 10:38 04:34 15:30 POC Glucose 160 H 133 H 115 H 12/03/18 12:07 POC Glucose 113 H Radiology Reviewed by me: Yes (Chest x ray) Hospitalist ROS - Medication Medications: Active Medications Generic Name Dose Route Start Last Admin Trade Name Freq PRN Reason Stop Dose Admin Enoxaparin Sodium 40 mg 11/27/18 09:00 12/04/18 08:37 Lovenox SC Not Given 0900 IVIS Ondansetron HCl 8 mg/ Sodium 54 mls @ 200 mls/hr 11/27/18 14:00 12/04/18 06: 11 Chloride IVPB 54 mls Q8HR IVIS Administration Amino Acids/Electrolytes/Dextrose 1,000 mls @ 96 mls/hr 12/01/18 12:00 04:18 Clinimix E 4.25/5 IV 1,000 mls .[id number] IVIS Administration Fat Emulsion Intravenous 250 mls @ 16.7 mls/hr 12/01/18 12:00 12/04/18 01:25 Intralipid 20% IVPB 250 mls INF IVIS Administration Potassium Chloride 30 meq/ 1,015 mls @ 75 mls/hr 12/03/18 22:30 12/04/18 01: 25 Sodium Chloride IV 1,015 mls .[id number] IVIS Administration Acetaminophen 1,000 mg/ Device 100 mls @ 400 mls/hr 12/03/18 22:23 12/04/18 06:14 IVPB 12/04/18 22:24 100 mls Q6H PRN Administration Fever/Mild Pain Piperacillin Sod/Tazobactam 100 mls @ 200 mls/hr 12/04/18 02:00 12/04/18 08: 33 Sod 2.25 gm/ Sodium Chloride IVPB 100 mls 0200,0800,1400,2000 IVIS Administration Fluconazole/Sodium Chloride 100 mls @ 100 mls/hr 12/04/18 09:30 12/04/18 10: 07 200 mg/ Device IVPB 12/04/18 13:00 100 mls NOW IVIS Administration Morphine Sulfate 2 mg 12/04/18 00:44 12/04/18 09:23 Morphine SLOW IVP 2 mg Q2H PRN Administration Moderate Pain (4-6) Morphine Sulfate 4 mg 12/04/18 00:44 12/04/18 00:52 Morphine SLOW IVP 4 mg Q2H PRN Administration Severe Pain (7-10) Scopolamine 1.5 mg 11/26/18 20:00 12/02/18 20:35 Transderm Scop TOP 1.5 mg Q3D@2000 IVIS Administration Sodium Chloride 10 ml 11/26/18 17:13 12/04/18 10:08 Flush - Normal Saline IVF 10 ml PRN PRN Administration Saline Flush - Exam General Appearance: NAD, awake alert Eye: PERRL, anicteric sclera ENT: no oropharyngeal lesions, dry oral mucosa Neck: supple, symmetric Heart: RRR, no murmur, no gallops, no rubs Respiratory: CTAB, no wheezes, no rales, rhonchi (Few scattered) Gastrointestinal: soft, non-distended, no guarding, no rigidity, tender to palpation Extremities: 1+ LE edema Skin: no lesions, no rashes Neurological: CN's grossly intact, no focal deficits Musculoskeletal: generalized weakness Psychiatric: oriented to person, oriented to place, lethargic Hosp A/P (1) Bowel obstruction Code(s): K56.609 - UNSP INTESTNL OBST, UNSP TO PARTIAL VERSUS COMPLETE OBST Status: Acute (2) DM2 (diabetes mellitus, type 2) Status: Chronic Qualifiers: Diabetes mellitus alf insulin use: without intermission coordinator use Diabetes mellitus complication status: without complication Qualified Code(s): E11.9 - Type 2 diabetes mellitus without complications (3) Esophageal adenocarcinoma Code(s): C15.9 - MALIGNANT NEOPLASM OF ESOPHAGUS, UNSPECIFIED Status: Chronic (4) Abdominal pain Code(s): R10.9 - UNSPECIFIED ABDOMINAL PAIN Status: Acute Qualifiers: Abdominal location: generalized Qualified Code(s): R10.84 - Generalized abdominal pain (5) Nausea & vomiting Code(s): R11.2 - NAUSEA WITH VOMITING, UNSPECIFIED Status: Acute (6) Sepsis Code(s): A41.9 - SEPSIS, UNSPECIFIED ORGANISM Status: Acute Qualifiers: Sepsis type: sepsis due to unspecified organism Sepsis acute organ dysfunction status: without acute organ dysfunction Qualified Code(s): A41.9 - Sepsis, unspecified organism - Plan Plan: IMCU Pulm/ CC consultation, recommendations appreciated General surgery consultation, recommendations appreciated Palliative care consultation, recommendations appreciated Oncology consultation, recommendations appreciated ID consultation, recommendations appreciated Non functioning feeding tube removed in OR with bowel resection on 12/03/18 Post op care PRN medications for N/V Pain control IV fluids for BP support, if refractory may require vaso active medications On Zosyn, no coverage for nosocomial organisms No growth to date on Cx from 11/26 GI PPX DVT PPX Goals of care to be addressed Short and intermission coordinator prognosis is guarded
--- NOTE | 2018-12-04 13:45 | RAD ---
Exam: Chest one view: HISTORY: Postop fever, tachycardia Confluent alveolar parenchymal changes in the right. And lower lung zone evidence for pneumonia. Bila teral vascular congestion and small pleural effusions. NG tube and left subclavian catheter and right central line remain in place. IMPRESSION: Right mid and lower lung zone pneumonia with bilateral vascular congestion and bilateral pleural effu sions, showing some worsening from prior study. Continued follow-up for clearing or stability.
--- NOTE | 2018-12-04 13:51 | RAD ---
Abdomen one view: HISTORY: NG tube placement evaluation Upright view of the abdomen is performed. There is an NG tube noted extending in the stomach in [employer] location. Minimal costophrenic angle blunting bilaterally. IMPRESSION: NG tube in satisfactory location.
--- NOTE | 2018-12-04 14:43 | PRG ---
DATE OF SERVICE: 12/01/2018 ADDENDUM: Mr. Frost had the CT abdomen enterography as ordered. Contrast instilled through the J-tube progresses proximally into the dilated small bowels back into the stomach. Little of none was seen in the decompressed distal small bowel suggesting a mechanical obstruction. This patient also has evidence of carcinomatosis on the CT. Given the recurrent and persistent symptoms of small bowel obstruction and intolerant to tube feeding, the patient will need some palliative surgery, which he is amenable and agreeable. I have reconsulted General Surgery, Dr. Feilciano, is on-call for this. GI Service is available with Dr. Egan being on-call if needed for this. Job ID: [id number]
--- NOTE | 2018-12-04 15:12 | PRG ---
DATE OF SERVICE: 12/04/2018 SUBJECTIVE: A 63-year-old male one day postoperative central line placement, laparotomy, four segments of small bowel resection with 4 anastomosis, removal of old feeding jejunostomy tube, placement of new feeding jejunostomy tube. Findings at operation were that of probable metastatic esophageal adenocarcinoma with multiple serosal implants and multiple tumor masses, abdominal wall and bowel loops. He had a proximal small-bowel obstruction process and distal small bowel, convoluted impending obstructive processes requiring full resection for anastomosis. The patient had a bowel obstruction from this process. Findings at operation were that of ligament of Treitz, tumor mass, retroperitoneum. The patient had a CT scan enterography ordered by Dr. Mariano Zendejas prior to this operation with contrast delivered through his feeding jejunostomy tube. Due to the obstructive process, the contrast backed up into the stomach indicating that the gastric outlet is not obstructed. Intraoperatively NG tube placed relieved him of 3.5 L of gastric contents. NG tube was left at 50 cm. This morning since the surgery was completed last night gastric drainage has been 860 mL. This was not including the 3 L evacuated from the stomach intraoperatively. Preoperatively the patient was having repeated emesis episodes and likely has aspirated this as chest x-ray reveals a large infiltrate in the right lobe. Postoperatively, patient has remained tachycardic and has had fever and tachypnea. He is on Zosyn and Diflucan has been ordered. Infectious Disease consult has been requested due to his chemotherapy status, immunocompromised status with metastatic esophageal carcinoma. The patient's operation yesterday was palliative for bowel obstruction and postoperatively, the patient's heart rate was 120s to 130s. He was sent from PACU to the floor. The nurses were not comfortable managing this. He was transferred to the [facility]. Repeat chest x-ray obtained this morning just now reveals persistent infiltrate, right lower lobe. Pulmonary Medicine consultation is pending. Consideration of adding Levaquin to be given, but we will await Infectious Disease and Pulmonary Medicine input regarding this. He does need to be on Zosyn for intraabdominal coverage as he did have some enteric spillage during the operation. He needs gastrointestinal antibiotic coverage for the next few days. PHYSICAL EXAMINATION: VITAL SIGNS: Temperature 98 degrees. Currently blood pressure 106/84. He is on TPN and IV fluids. Total IV fluid rate at 150 an hour as he is fluid depleted. His IV fluids have been turned down last night. I increased IV fluids and gave him boluses due to tachycardia, low urine output and hypotension. In response to this, his blood pressure, tachycardia and urine output have improved. LUNGS: Rhonchi at right base. No wheezing. CARDIAC: Sinus tachycardia. ABDOMEN: Soft. Postoperative tenderness. Wound VAC in place, midline. Open wound from old gastrostomy tube, left abdomen. New gastrostomy tube clamped. The patient's gastrostomy tube in the jejunum has a 20 mL capacity and I have asked Nursing to decrease the fluid in his balloon to 10 mL. This tube has been sutured in place as it is a new tube and it should be removed or replaced for at least 2 weeks. ASSESSMENT AND PLAN: 1. Metastatic esophageal cancer, bony metastasis, carcinomatosis after abdominal metastasis. Pathology pending. Has been on chemotherapy in the past, but has not been able to take chemotherapy due to gastrointestinal problems. Chemotherapy is palliative as he has metastatic disease. He is a full code. 2. Malnutrition. 3. Right lung pneumonia aspiration due to gastrointestinal obstruction. 4. One day postop segmental resection. New gastrostomy tube. Continue n.p.o. status. Nasogastric tube. Antibiotic coverage for intraabdominal enteric organisms due to spillage intraoperatively. 5. Increase mobility with up in a chair 3-4 times a day and ambulating to aid in pulmonary hygiene. Incentive spirometer. 6. Deep venous thrombosis prophylaxis Lovenox and sequential compression devices. 7. Advance nasogastric tube to 65 cm with proper evacuation of gastric contents, improved. Job ID: [id number]
--- NOTE | 2018-12-04 16:07 | CON ---
DATE OF CONSULTATION: 12/04/2018 CONSULTING PHYSICIAN: Venkateshist . Following encompassed 75 minutes time, of that time, greater than 50% spent with the patient and/or the patient's unit in the hospital. HISTORY OF PRESENT ILLNESS: The patient is a 63-year-old male, who was admitted to the hospital many days back. He underwent an exploratory laparotomy yesterday for placement of J-tube that had been blocked secondary to metastatic tumor. He has a history of esophageal cancer with metastasis to the abdomen. He was moved to the [facility] last night. I think primarily for pain management and tachycardia. PAST MEDICAL HISTORY: 1. Metastatic esophageal cancer. 2. Hypertension. 3. Hepatitis C. 4. Diabetes mellitus type 2. 5. Gastroesophageal reflux. PAST SURGICAL HISTORY: 1. Cholecystectomy. 2. Colon resection. 3. Colostomy reversal. SOCIAL HISTORY: Nonsmoker. Does not consume alcohol. FAMILY MEDICAL HISTORY: Remarkable for coronary artery disease. ALLERGIES: NONE. CURRENT MEDICATIONS: These were reviewed. See list under active medication in the chart. Of note, he is on piperacillin and fluconazole for antibiotic coverage. REVIEW OF SYSTEMS: Remarkable for pain. PHYSICAL EXAMINATION: VITAL SIGNS: Temperature 98, pulse 118, blood pressure 129/102, respiratory rate in the low 30s, and O2 saturation 100%. The patient appears to be in pain. HEENT: Pupils react. Sclerae icteric. Oropharynx clear. NECK: No adenopathy or JVD. LUNGS: Clear to auscultation anteriorly bilaterally. CARDIAC: S1 and S2. Regular without murmur. ABDOMEN: Tender to palpation around the surgical sites. J-tube noted. EXTREMITIES: No clubbing, cyanosis, or edema. IMAGING DATA: Chest x-ray shows patchy consolidation in the right mid lung. Central line noted from left subclavian. ASSESSMENT: 1. Sepsis syndrome - probably abdominal in origin. 2. Possible aspiration pneumonia. 3. Metastatic esophageal cancer. PLAN: Zosyn should be adequate coverage for the pulmonary issues. The main difficulty is going to be pain control. This is being addressed by the Primary Service. I will be glad to follow with you. Job ID: [id number]
[2018-12-04] MEDS ORDERED: Sodium Acetate 2 mEq/ml 40 MEQ, Sodium Chloride 30 MEQ, Potassium Chloride 20 MEQ, Pota... IV SCH (18:30)
[2018-12-04] MEDS ORDERED: Fat Emulsion 250 ML, Sodium Acetate 2 mEq/ml 40 MEQ, Sodium Chloride 30 MEQ, Potassium ... IV SCH (18:45)
--- NOTE | 2018-12-04 18:49 | CON ---
DATE OF CONSULTATION: 12/04/2018 REASON FOR CONSULTATION: Small bowel obstruction, status post exploratory laparotomy with possible pneumonia and other complications. HISTORY OF PRESENT ILLNESS: A 63-year-old patient with history of metastatic esophageal cancer, who had been admitted in mid November with abdominal pain and purulent sputum production. At that time, there was concern of possible aspiration pneumonia. He was treated with broad-spectrum coverage including vancomycin and meropenem. Eventually, just meropenem. There was improvement. He was discharged and developed recrudescence of abdominal pain and was readmitted. He also had nausea and vomiting. The pain was localized to the upper segments of his abdomen, particularly towards the left side. Had no diarrhea. Initial pulse 116, BP 116/81, temperature 98.8, O2 saturation 98% on room air. He was alert, oriented, and appeared chronically ill. There is tenderness in the abdominal area in the left upper quadrant and left lower quadrant. Initial white cell count is 13.4, hemoglobin 11, platelets 288 with 82% neutrophils. Creatinine of 0.71. Urinalysis with negative leukocyte esterase. The patient had 2 sets of blood cultures, which have been no growth in [address] of the abdomen and pelvis showed evidence of small bowel obstruction centered within the jejunum at the jejunostomy insertion site, possibly associated with peritoneal carcinomatosis. This was confirmed by exploratory laparotomy. The segments of involved small bowel was resected and the jejunostomy was transferred to a different segment. Lysis of adhesions was carried out. PHYSICAL EXAMINATION: GENERAL: Currently, the patient is in the IMCU. He is awake, appears acute/chronically ill, oriented. Has moderate to marked pain in the abdominal area. HEENT: Ocular movements are conjugate. Sclerae are white. Conjunctivae pale. Oral cavity with numerous missing teeth, remainder ones with severe decay and gum disease. NECK: Supple. No jugular venous distention. LUNGS: With few crackles in the right and left base. HEART: S1 and S2. Regular rate without murmurs. Has a left subclavian central line in place and a Ogden catheter. Midline negative pressure dressing. Jejunostomy tube exit site. EXTREMITIES: He is able to move extremities, but is diffusely weak, but no focal weakness. 2+ edema in lower extremities. Pulses 1+ in dorsalis pedis. Plantar reflexes are flexor. NEUROLOGIC: He is awake, knows his name and the hospital and the date. Follows commands. LABORATORY DATA: Transient labs; white cell count went down to 10.8, is up to 13.8; hemoglobin 11; platelets 307 with 15% bands. Sodium 142; creatinine 1.74, which is up from previous. Microbiology has been discussed. The urine culture with no growth, 48 hours. Chest x-ray repeat from December 04 with right mid and lower lung infiltrate, effusion. ASSESSMENT AND DISCUSSION: Metastatic esophageal cancer with peritoneal carcinomatosis, small bowel obstruction, aspiration pneumonia. This is the second admission, probably the same issue and the patient had intervention with repositioning of the jejunostomy and lysis of adhesions. The patient has evidence of an area of pneumonitis. He is currently receiving Diflucan, Zosyn, which will be continued. Evidently, prognosis is poor and consultation with palliative care/hospice needs to be entertained. Job ID: [id number]
--- NOTE | 2018-12-04 20:32 | PRG ---
DATE OF SERVICE: 12/04/2018 SUBJECTIVE: The patient is seen and examined, noted to be hemodynamically stable. OBJECTIVE: HEENT: Unremarkable. CARDIOVASCULAR SYSTEM: First and second heart sounds heard. RESPIRATORY SYSTEM: Clear to auscultation. DIGESTIVE SYSTEM: Revealed an obese abdomen. EXTREMITIES: No peripheral edema. SKIN: No new gross rash. ASSESSMENT AND PLAN: 1. The patient's renal function seems to have improved. We will continue for the kidney. 2. Further management will be dependent on the clinical course. Job ID: [id number]
[2018-12-04] MEDS: Ketorolac Tromethamine 30 MG/ML VIAL IVP PRN (20:58)
[2018-12-05] MEDS: Piperacillin/Tazobactam 2.25 GM in Sodium Chloride 0.9% 100 ML IVPB SCH ×4 (01:59→20:46)
[2018-12-05] MEDS: Ketorolac Tromethamine 30 MG/ML VIAL IVP PRN ×2 (02:00→13:35)
[2018-12-05] MEDS: Ondansetron HCl/PF 8 MG in Sodium Chloride 0.9% 50 ML IVPB SCH ×3 (05:57→21:04)
--- NOTE | 2018-12-05 08:45 | PRG ---
DATE OF SERVICE: 12/05/2018 SUBJECTIVE: He remains in bed. He is unable to move around much because of pain. He says his pain level is slightly better than yesterday. OBJECTIVE: VITAL SIGNS: On exam, temperature is 98.4, pulse 106, blood pressure 96/65, and O2 saturation 100%. GENERAL: He appears disheveled. HEENT: Unremarkable. NECK: No JVD. LUNGS: Coarse breath sounds. CARDIOVASCULAR: S1 and S2, regular. ABDOMEN: Diffusely tender. EXTREMITIES: Edematous. LABORATORY DATA: I do not see any labs were done today. ASSESSMENT: 1. Metastatic esophageal cancer. 2. Aspiration pneumonia. 3. Peritoneal carcinomatosis. PLAN: He is continuing broad-spectrum IV antibiotics including piperacillin and fluconazole. I would highly suggest Palliative Care Team involvement and strong consideration for inpatient hospice as his prognosis is grave. Job ID: [id number]
[2018-12-05] MEDS: Enoxaparin Sodium 40 MG/0.4 ML SYRINGE SC SCH (08:57)
[2018-12-05] MEDS: Fluconazole In NaCl,Iso-Osm 200 MG in Premix Bag 1 BAG IVPB SCH (08:57)
[2018-12-05 09:17] LABS: #Eosinphils 0.1 thou/uL (0.0-0.7); #Lymphocytes 0.9 thou/uL (1.20-3.40); #Monocytes 1.1 thou/uL (0.11-0.59); #Neutrophils 10.2 thou/uL (1.40-6.50); %Basophils 0.1 % (0.0-1.0); %Eosinophils 0.9 % (0.0-10.0); %Lymphocytes 7.6 % (21.0-51.0); %Monocytes 8.7 % (0.0-10.0); %Neutrophils 82.7 % (42.0-75.0); Hemoglobin 8.4 g/dL (14.0-18.0); Mean Corpuscular HGB CONC 32.5 g/dL (32.0-36.0); Mean Corpuscular Hemoglobin 31.2 pg (27.0-31.0); Mean Corpuscular Volume 96.1 fL (78.0-98.0); Mean Platelet Volume 7.6 fL (7.4-10.4); Platelet Count 231 thou/uL (130-400); RBC Distribution Width 14.7 % (11.5-14.5); Red Blood Cell (RBC) Count 2.71 mill/uL (4.70-6.10); White Blood Cell (WBC) Count 12.4 thou/uL (4.8-10.8)
[2018-12-05 09:30] LABS: Anion Gap 8 mmol/L (10-20); BUN (Urea Nitrogen) 25 mg/dL (8.4-25.7); Calc. Creatinine Clearance 95 mL/min (70-130); Carbon Dioxide 24 mmol/L (23-31); Chloride 107 mmol/L (98-107); Estimated GFR-MDRD 75; Glucose 159 mg/dL (80-115); Potassium 4.1 mmol/L (3.5-5.1); Sodium 135 mmol/L (136-145)
--- NOTE | 2018-12-05 12:50 | PDOC.HOSPP ---
- Subjective Subjective: Seen and examined. Sitting up in chair. Pain better today. Breathing well on room air. Discussed the critical nature of his disease and overall prognosis. Brought up goals of care and discussion of Palliative care. Patient is open to talking with Palliative care and wants to discuss with his family. All questions answered in detail. - Objective Vital Signs & Weight: Vital Signs (12 hours) Temp Pulse Pulse BP BP Pulse Ox Pulse Ox 12/05/18 11:21 98.8 F 12/05/18 09:48 119 H 110 H 112/73 108/69 100 12/05/18 08:00 98.4 F 12/05/18 07:46 100 12/05/18 03:40 98.8 F Pulse Ox 12/05/18 11:21 12/05/18 09:48 100 12/05/18 08:00 12/05/18 07:46 12/05/18 03:40 Weight Admit Weight 217 lb 8 oz Weight 229 lb 11.2 oz Most Recent Monitor Data Heart Rate from ECG 116 NIBP 102/66 NIBP BP-Mean 78 Respiration from ECG 34 SpO2 100 I&O: 12/04/18 12/05/18 12/06/18 06:59 06:59 06:59 Intake Total 5390 3560 Output Total 1960 3025 Balance 3430 535 Result Diagrams: 12/05/18 09:01 12/05/18 09:01 Additional Labs: Accuchecks 12/05/18 12/05/18 12/04/18 11:13 04:14 22:15 POC Glucose 162 H 133 H 99 12/04/18 16:47 POC Glucose 98 Hospitalist ROS - Review of Systems All other systems reviewed; all pertinent +/- noted in HPI/Subj - Medication Medications: Active Medications Generic Name Dose Route Start Last Admin Trade Name Freq PRN Reason Stop Dose Admin Enoxaparin Sodium 40 mg 11/27/18 09:00 12/05/18 08:57 Lovenox SC 40 mg 0900 IVIS Administration Ondansetron HCl 8 mg/ Sodium 54 mls @ 200 mls/hr 11/27/18 14:00 12/05/18 05: 57 Chloride IVPB 54 mls Q8HR IVIS Administration Potassium Chloride 30 meq/ 1,015 mls @ 75 mls/hr 12/03/18 22:30 12/04/18 20: 38 Sodium Chloride IV 1,015 mls .[id number] IVIS Administration Piperacillin Sod/Tazobactam 100 mls @ 200 mls/hr 12/04/18 02:00 12/05/18 08: 55 Sod 2.25 gm/ Sodium Chloride IVPB 100 mls 0200,0800,1400,2000 IVIS Administration Fluconazole/Sodium Chloride 100 mls @ 100 mls/hr 12/05/18 09:00 12/05/18 08: 57 200 mg/ Device IVPB 100 mls DAILY IVIS Administration Fat Emulsion Intravenous 250 2,136.7021 mls @ 78.613 mls/hr 12/04/18 18:45 23:26 ml/ Sodium Acetate 40 meq/ IV 2,136.7021 mls Sodium Chloride 30 meq/ INF IVIS Administration Potassium Chloride 20 meq/ Potassium Phosphate 30 mmol/ Calcium Gluconate 10 meq/ Magnesium Sulfate 10 meq/ Multivitamins 10 ml/ Chromium/ Copper/Manganese/Seleni/Zn 5 ml/ Amino Acids/ Dextrose/ Water/ Sterile Water Ketorolac Tromethamine 30 mg 12/03/18 22:23 12/05/18 02:00 Toradol IVP 12/08/18 22:24 30 mg Q6H PRN Administration Pain Morphine Sulfate 2 mg 12/04/18 00:44 12/04/18 12:06 Morphine SLOW IVP 2 mg Q2H PRN Administration Moderate Pain (4-6) Morphine Sulfate 4 mg 12/04/18 00:44 12/04/18 00:52 Morphine SLOW IVP 4 mg Q2H PRN Administration Severe Pain (7-10) Scopolamine 1.5 mg 11/26/18 20:00 12/02/18 20:35 Transderm Scop TOP 1.5 mg Q3D@1999 IVIS Administration Sodium Chloride 10 ml 11/26/18 17:13 12/04/18 13:47 Flush - Normal Saline IVF 10 ml PRN PRN Administration Saline Flush - Exam General Appearance: NAD Eye: PERRL Eye - other findings: EOMI ENT: dry oral mucosa ENT - other findings: NG tube in position Neck: supple, symmetric Heart: no murmur, no gallops, no rubs Heart - other findings: Rapid regular rate. Respiratory: CTAB, no wheezes, no rales, no ronchi Gastrointestinal: soft, non-tender, non-distended, normal bowel sounds, no guarding, no rigidity Extremities: 1+ LE edema Skin: no lesions, no rashes Neurological: CN's grossly intact, no focal deficits Musculoskeletal: generalized weakness Psychiatric: normal affect, A&O x 3 Hosp A/P (1) Bowel obstruction Code(s): K56.609 - UNSP INTESTNL OBST, UNSP TO PARTIAL VERSUS COMPLETE OBST Status: Acute (2) DM2 (diabetes mellitus, type 2) Status: Chronic Qualifiers: Diabetes mellitus intermediate designer insulin use: without senior living use Diabetes mellitus complication status: without complication Qualified Code(s): E11.9 - Type 2 diabetes mellitus without complications (3) Esophageal adenocarcinoma Code(s): C15.9 - MALIGNANT NEOPLASM OF ESOPHAGUS, UNSPECIFIED Status: Chronic (4) Abdominal pain Code(s): R10.9 - UNSPECIFIED ABDOMINAL PAIN Status: Acute Qualifiers: Abdominal location: generalized Qualified Code(s): R10.84 - Generalized abdominal pain (5) Nausea & vomiting Code(s): R11.2 - NAUSEA WITH VOMITING, UNSPECIFIED Status: Acute (6) Sepsis Code(s): A41.9 - SEPSIS, UNSPECIFIED ORGANISM Status: Acute Qualifiers: Sepsis type: sepsis due to unspecified organism Sepsis acute organ dysfunction status: without acute organ dysfunction Qualified Code(s): A41.9 - Sepsis, unspecified organism - Plan Plan: IMCU Pulm/ CC consultation, recommendations appreciated General surgery consultation, recommendations appreciated Palliative care consultation, recommendations appreciated Oncology consultation, recommendations appreciated ID consultation, recommendations appreciated Non functioning feeding tube removed in OR with bowel resection on 12/03/18 BP better today with IV fluids, remains on the dry side with tachycardia in the 100-120's PRN medications for N/V Pain control On Zosyn, fluconazole per ID No growth to date on Cx from 11/26 GI PPX DVT PPX Goals of care to be addressed Short and USP prognosis is guarded Agree with inpatient hospice appropriate
[2018-12-05] MEDS: Potassium Chloride 30 MEQ in Sodium Chloride 0.9% 1,000 ML IV SCH (13:34)
[2018-12-05] MEDS ORDERED: SODIUM CHLORIDE IV SCH (14:30)
[2018-12-05] MEDS ORDERED: FAT EMULSION IV SCH (14:30)
[2018-12-05] MEDS ORDERED: POTASSIUM CHLORIDE IV SCH (14:30)
[2018-12-05] MEDS ORDERED: [UNRECOGNIZED DRUG - OTHER] IV SCH (14:30)
--- NOTE | 2018-12-05 14:46 | PDOC.MOPN ---
Interval History: denies pain. - Vital Signs Vital Signs: Vital Signs (12 hours) Temp Pulse Pulse BP BP Pulse Ox Pulse Ox 12/05/18 11:21 98.8 F 12/05/18 09:48 119 H 110 H 112/73 108/69 100 12/05/18 08:00 98.4 F 12/05/18 07:46 100 12/05/18 03:40 98.8 F Pulse Ox 12/05/18 11:21 12/05/18 09:48 100 12/05/18 08:00 12/05/18 07:46 12/05/18 03:40 Weight Admit Weight 217 lb 8 oz Weight 229 lb 11.2 oz Most Recent Monitor Data Heart Rate from ECG 121 NIBP 124/72 NIBP BP-Mean 89 Respiration from ECG 23 SpO2 100 - Physical Exam General: Alert, Oriented x3, No acute distress HEENT: Atraumatic, PERRLA, EOMI, Mucous membr. moist/pink Lungs: Clear to auscultation, Normal air movement Cardiovascular: Regular rate, Normal S1, Normal S2, No murmurs, Gallops, Rubs Abdomen: Other Extremities: No clubbing, No cyanosis, No edema, Normal pulses, No tenderness/ swelling Skin: No rashes, No breakdown, No significant lesion Neurological: Normal speech Psych/Mental Status: Mental status NL - Labs Result Diagrams: 12/05/18 09:01 12/05/18 09:01 Lab results: Laboratory Results - last 24 hr 12/05/18 11:13: POC Glucose 162 H 12/05/18 09:01: WBC 12.4 H, RBC 2.71 L, Hgb 8.4 L, Hct 26.0 L, MCV 96.1, MCH 31.2 H, MCHC 32.5, RDW 14.7 H, Plt Count 231, MPV 7.6, Neutrophils % 82.7 H, Lymphocytes % 7.6 L, Monocytes % 8.7, Eosinophils % 0.9, Basophils % 0.1, Neutrophils # 10.2 H, Lymphocytes # 0.9 L, Monocytes # 1.1 H, Eosinophils # 0.1 , Basophils # 0.0 12/05/18 09:01: Sodium 135 L, Potassium 4.1, Chloride 107, Carbon Dioxide 24, Anion Gap 8 L, BUN 25, Creatinine 1.19, Estimated GFR (MDRD) 75, Glucose 159 H, Calcium 8.0 12/05/18 04:14: POC Glucose 133 H 12/04/18 22:15: POC Glucose 99 12/04/18 16:47: POC Glucose 98 Status: lab reviewed by me A/P - Problem (1) Esophageal adenocarcinoma Current Visit: No Code(s): C15.9 - MALIGNANT NEOPLASM OF ESOPHAGUS, UNSPECIFIED Status: Chronic (2) Bowel obstruction Current Visit: Yes Code(s): K56.609 - UNSP INTESTNL OBST, UNSP TO PARTIAL VERSUS COMPLETE OBST Status: Acute - Plan Plan: events over weekend noted. 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 Now on TPN. Discussed progression of disease and that he is currently not candidate for chemo due to decline in health and bowel function. Palliative care to see patient to discuss goals and end of life. Case discussed with Dr. Samayoa.
--- NOTE | 2018-12-05 18:19 | PDOC.PALCO ---
Palliative Care Consult - Consult Details Requesting Physician: Dr Santiago Reason for Consult: goals of care, advance directives assistance Family Members Present: Brother Kat, sister Summer, niece Katherine - Pertinent HPI 63 year old male with metastic esophageal cancer and adenocarcinoma who was discharged two days prior to readmission. Presented to emergency room with nausea, vomiting, abdominal pain, low grade fever. Evaluated in the emergency room and noted to have sepsis, admitted for further evaluation. Palliative Care consult for discussion in relation to chronic and guarded condition and goals of care. - Pertinent PMH Esophageal cancer, adenocarcinoma, dysphagia requiring feding tube, hypertension , Hepatitis C, CVA with right sided weakness, Diabetes Mellitus II, GERD, - Social History Smoking Status: Unknown if ever smoked Smoking: no tobacco exposure Alcohol Use: none Drug Use History: none Living Situation: with family/parents - Medications MAR Reviewed: Yes - Allergies Allergies/Adverse Reactions: Allergies Allergy/AdvReac Type Severity Reaction Status Date / Time No Known Drug Allergies Allergy Verified 11/07/18 17:06 - Objective Vital Signs: Vital Signs - Most Recent Temp Pulse Resp BP Pulse Ox 98.8 F 119 H 24 H 112/73 100 12/05/18 11:21 12/05/18 09:48 12/04/18 04:00 12/05/18 09:48 12/05/18 09:48 Palliative Performance Scale: 30 - Advance Directives Medical Power of Form Tamping Machine Operator: Sister Laura - Physical Exam Deviation from normal: Emotional distress, chronically ill appearing HEENT: moist MMs, EOMI Deviation from normal: Mild labored respirations with conversation/exertion Cardiovascular: RRR, no significant murmur Gastrointestinal: soft, positive bowel sounds Musculoskeletal: edema present Neurological: moves all 4 limbs Psychiatric: A&O x 3 Deviation from normal: Depressed, tearful - Problem List (1) JUAN (acute kidney injury) Code(s): N17.9 - ACUTE KIDNEY FAILURE, UNSPECIFIED Current Visit: Yes Status : Acute (2) Palliative care encounter Code(s): Z51.5 - ENCOUNTER FOR PALLIATIVE CARE Current Visit: No Status: Acute (3) Sepsis Code(s): A41.9 - SEPSIS, UNSPECIFIED ORGANISM Current Visit: No Status: Acute Qualifiers: Sepsis type: sepsis due to unspecified organism Sepsis acute organ dysfunction status: without acute organ dysfunction Qualified Code(s): A41.9 - Sepsis, unspecified organism (4) Chronic hepatitis C Code(s): B18.2 - CHRONIC VIRAL HEPATITIS C Current Visit: No Status: Chronic Qualifiers: Hepatic coma status: without hepatic coma Qualified Code(s): B18.2 - Chronic viral hepatitis C (5) Dysphagia Code(s): R13.10 - DYSPHAGIA, UNSPECIFIED Current Visit: No Status: Chronic Qualifiers: (6) Esophageal adenocarcinoma Code(s): C15.9 - MALIGNANT NEOPLASM OF ESOPHAGUS, UNSPECIFIED Current Visit: No Status: Chronic - Plan/Recommendations Plan: Extensive conversation with patent, family in relation to guarded status. Demetris Aguilar EMERY WHEEL WORKER onc visited with patient and discussed poor prognosis. *Discussed with patient family possible outcomes of resuscitative measures and causing harm not care should resuscitative measures occur, but ensuring patient it was his decision. *Discussed growth of cancer and continued decline and impact on overall health. *Discussed comfort care and option of hospice and that he would most likely qualify for inpatient hospice. * life review / patient favorite thing to do is fish with his mother. *Unsure if patient and family fully comprehend guarded health status of patient *Will continue to educate patient in relation to options of care paired with poor prognosis *Will continue to support patient and provide therapeutic listening. [90] minutes spent on this encounter with >50% of the time in counseling and coordination of care. Thank you for this very appropriate consult.
[2018-12-05] MEDS: Scopolamine 1.5 mg/72 hour Patch TOP SCH (20:46)
--- NOTE | 2018-12-05 20:51 | PRG ---
DATE OF SERVICE: 12/05/2018 SUBJECTIVE: Mr. Frost is doing well today. He is in IMCU. OBJECTIVE: VITAL SIGNS: Temperature 99.8 degrees, heart rate 102, blood pressure 143/77. LUNGS: Clear to auscultation. Rhonchi on right. No wheezing. CARDIAC: Regular rate and rhythm. Sinus tachycardia has improved. ABDOMEN: Soft, nontender. Wound VAC present, midline. NG tube present. Output 24 hours, 2300 mL. Urine output 725 mL. Pathology pending. ASSESSMENT AND PLAN: Doing well after palliative laparotomy and segmental resection, 4 different segments of small bowel and 4 anastomoses with removal of old feeding jejunostomy and placement of new one. The patient has had abundant output from his NG tube. Intraoperatively, he had 3 L out of his NG tube and postoperatively over 2 L. This seems to be slowing down by this time. I have reviewed his CT enterography, where contrast was given per his J-tube, and during that study, the contrast did backfill the duodenum and stomach. 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 Would at this time continue NG tube suction, TPN, n.p.o. and await GI bowel function. I expect Palliative Care seeing the patient. I will talk to the patient later about DNR status. His mobility has improved. He has been up in a chair most of the day. He has aspiration pneumonia with opacification of the right lung field, and Dr. Moreno has seen him. He is on appropriate antibiotics. Job ID: [id number]
[2018-12-05] MEDS: SODIUM CHLORIDE IV SCH (23:13)
[2018-12-05] MEDS: POTASSIUM CHLORIDE IV SCH (23:13)
[2018-12-05] MEDS: FAT EMULSION IV SCH (23:13)
[2018-12-05] MEDS: [UNRECOGNIZED DRUG - OTHER] IV SCH (23:13)
[2018-12-06] MEDS: Piperacillin/Tazobactam 2.25 GM in Sodium Chloride 0.9% 100 ML IVPB SCH ×4 (03:04→20:52)
[2018-12-06] MEDS: Potassium Chloride 30 MEQ in Sodium Chloride 0.9% 1,000 ML IV SCH (03:28)
[2018-12-06] MEDS: Ketorolac Tromethamine 30 MG/ML VIAL IVP PRN ×2 (03:28→22:14)
[2018-12-06 03:43] LABS: #Eosinphils 0.1 thou/uL (0.0-0.7); #Monocytes 1.3 thou/uL (0.11-0.59); #Neutrophils 10.4 thou/uL (1.40-6.50); %Basophils 0.3 % (0.0-1.0); %Eosinophils 0.6 % (0.0-10.0); %Lymphocytes 8.1 % (21.0-51.0); Hemoglobin 8.3 g/dL (14.0-18.0); Mean Corpuscular HGB CONC 33.4 g/dL (32.0-36.0); Mean Corpuscular Hemoglobin 32.4 pg (27.0-31.0); Mean Corpuscular Volume 96.8 fL (78.0-98.0); Mean Platelet Volume 7.6 fL (7.4-10.4); Platelet Count 247 thou/uL (130-400); RBC Distribution Width 14.8 % (11.5-14.5); Red Blood Cell (RBC) Count 2.58 mill/uL (4.70-6.10); White Blood Cell (WBC) Count 12.8 thou/uL (4.8-10.8)
[2018-12-06 04:03] LABS: Anion Gap 14 mmol/L (10-20); BUN (Urea Nitrogen) 26 mg/dL (8.4-25.7); Calc. Creatinine Clearance 98 mL/min (70-130); Calcium 8.2 mg/dL (7.8-10.44); Carbon Dioxide 21 mmol/L (23-31); Chloride 108 mmol/L (98-107); Estimated GFR-MDRD 78; Glucose 137 mg/dL (80-115); Potassium 3.8 mmol/L (3.5-5.1); Sodium 139 mmol/L (136-145)
[2018-12-06] MEDS: Ondansetron HCl/PF 8 MG in Sodium Chloride 0.9% 50 ML IVPB SCH ×3 (05:52→22:41)
[2018-12-06] MEDS: Morphine 4 MG/ML VIAL SLOW IVP PRN ×2 (09:29→20:45)
[2018-12-06] MEDS: Fluconazole In NaCl,Iso-Osm 200 MG in Premix Bag 1 BAG IVPB SCH (09:35)
[2018-12-06] MEDS: Enoxaparin Sodium 40 MG/0.4 ML SYRINGE SC SCH (09:35)
--- NOTE | 2018-12-06 09:44 | PDOC.MOPN ---
Interval History: Pain controlled. Feels ok - Vital Signs Vital Signs: Vital Signs (12 hours) Temp Pulse Ox 12/06/18 08:00 99 12/06/18 07:23 98.3 F 12/06/18 03:33 99.6 F 12/06/18 00:00 100.3 F H Weight Admit Weight 217 lb 8 oz Weight 230 lb Most Recent Monitor Data Heart Rate from ECG 106 NIBP 93/57 NIBP BP-Mean 69 Respiration from ECG 31 SpO2 100 - Physical Exam General: Alert, Oriented x3, No acute distress HEENT: Atraumatic, PERRLA, EOMI, Mucous membr. moist/pink Lungs: Clear to auscultation, Normal air movement Cardiovascular: Regular rate, Normal S1, Normal S2, No murmurs, Gallops, Rubs Abdomen: Other Extremities: No clubbing, No cyanosis, No edema, Normal pulses, No tenderness/ swelling Skin: No rashes, No breakdown, No significant lesion Neurological: Normal speech Psych/Mental Status: Mental status NL, Mood NL - Labs Result Diagrams: 12/06/18 03:16 12/06/18 03:16 Lab results: Laboratory Results - last 24 hr 12/06/18 04:05: POC Glucose 147 H 12/06/18 03:16: WBC 12.8 H, RBC 2.58 L, Hgb 8.3 L, Hct 24.9 L, MCV 96.8, MCH 32.4 H, MCHC 33.4, RDW 14.8 H, Plt Count 247, MPV 7.6, Neutrophils % 81.0 H, Lymphocytes % 8.1 L, Monocytes % 10.0, Eosinophils % 0.6, Basophils % 0.3, Neutrophils # 10.4 H, Lymphocytes # 1.0 L, Monocytes # 1.3 H, Eosinophils # 0.1 , Basophils # 0.0 12/06/18 03:16: Sodium 139, Potassium 3.8, Chloride 108 H, Carbon Dioxide 21 L, Anion Gap 14, BUN 26 H, Creatinine 1.15, Estimated GFR (MDRD) 78, Glucose 137 H , Calcium 8.2 12/05/18 22:02: POC Glucose 136 H 12/05/18 16:43: POC Glucose 146 H 12/05/18 11:13: POC Glucose 162 H Status: lab reviewed by ne - Pathology Pathology: await path from bowel resection A/P - Problem (1) Esophageal adenocarcinoma Current Visit: No Code(s): C15.9 - MALIGNANT NEOPLASM OF ESOPHAGUS, UNSPECIFIED Status: Chronic (2) Bowel obstruction Current Visit: Yes Code(s): K56.609 - UNSP INTESTNL OBST, UNSP TO PARTIAL VERSUS COMPLETE OBST Status: Acute - Plan Plan: Patient understands extent of disease and that all treatment is palliative. He knows that he cannot get chemo until he has recovered from current illness. Continue supportive care.
--- NOTE | 2018-12-06 10:01 | PRG ---
DATE OF SERVICE: 12/06/2018 SUBJECTIVE: The patient remains in the IMCU. He says he feels about the same. He is continuing to have abdominal pain. OBJECTIVE: VITAL SIGNS: Temperature is 98.3, pulse 106, blood pressure 93/57, O2 saturation 100%. HEENT: Unremarkable. NECK: No adenopathy or JVD. CHEST: Clear anteriorly. CARDIAC: S1, S2. Regular. ABDOMEN: Distended, tender to palpation. EXTREMITIES: No edema. LABORATORY DATA: White blood cell count 12.8, hematocrit 24.9, and platelet count 247. Sodium 139, potassium 3.8, chloride 108, CO2 of 21, BUN 26, creatinine 1.2, and glucose 137. ASSESSMENT: 1. Metastatic esophageal cancer with peritoneal carcinomatosis. 2. Aspiration pneumonia. PLAN: Aside from continuing the antibiotics, this is mainly a case of trying to palliate the patient's symptoms. Apparently, he is not a candidate for further chemotherapy and he will likely succumb to this cancer quite soon. Palliative care is working through issues with the patient. I think ideally we should try to work toward hospice situation. Job ID: [id number]
--- NOTE | 2018-12-06 10:12 | PRG ---
DATE OF SERVICE: 12/06/2018 SUBJECTIVE: Mr. Frost is in IMCU. He is doing fairly well. OBJECTIVE: VITAL SIGNS: 98.3 degrees, 93/57. Gastric drainage in the last 24 hours 1300, down from 2300 yesterday. 820 urine output. LUNGS: Clear to auscultation. Few rhonchi on the right. CARDIAC: Regular rate and rhythm. ABDOMEN: Soft. Diminished bowel sounds. Wound VAC midline. LABORATORY DATA: White count 12, hemoglobin 8.3. Basic metabolic profile normal. BUN 26, creatinine 1.15. Accu-Chek 140 to 160. ASSESSMENT/PLAN: Carcinomatosis, metastatic esophageal adenocarcinoma, resulting in a bowel obstruction, status post 12/03/2018, laparotomy, segmental bowel resection x4 for anastomosis, removal of old feeding jejunostomy tube, placement of a new feeding jejunostomy tube. Pathology is pending. Palliative Care has seen the patient. Oncology is following him. At this point, we will continue NG tube, TPN, bowel rest. He did well yesterday, being up in a chair most of the day and I encouraged him to do the same today. Currently, awaiting diminish the NG tube output and definitive bowel function prior to initiating feedings. Continue TPN and bowel rest and supportive care. Job ID: [id number]
[2018-12-06] MEDS: Morphine 2 MG/ML SYRINGE SLOW IVP PRN (15:12)
--- NOTE | 2018-12-06 15:32 | PDOC.HOSPP ---
- Subjective Subjective: Seen and examined. Sitting up in chair. Patient states pain still not controlled. Breathing well. Patient tells me he wants to drink water. No other acute complaints. Patient continues to not understand the severity illness, despite being told multiple times by all providers, patient likely in denial. Patient - Objective Vital Signs & Weight: Vital Signs (12 hours) Temp Pulse Ox 12/06/18 11:18 97.9 F 12/06/18 08:00 99 12/06/18 07:23 98.3 F 12/06/18 03:33 99.6 F Weight Admit Weight 217 lb 8 oz Weight 230 lb Most Recent Monitor Data Heart Rate from ECG 96 NIBP 139/74 NIBP BP-Mean 95 Respiration from ECG 14 SpO2 100 I&O: 12/05/18 12/06/18 12/07/18 06:59 06:59 06:59 Intake Total 3560 3324 Output Total 3025 2120 Balance 535 1204 Result Diagrams: 12/06/18 03:16 12/06/18 03:16 Additional Labs: Accuchecks 12/06/18 12/06/18 12/05/18 10:04 04:05 22:02 POC Glucose 160 H 147 H 136 H 12/05/18 16:43 POC Glucose 146 H Hospitalist ROS - Review of Systems All other systems reviewed; all pertinent +/- noted in HPI/Subj - Medication Medications: Active Medications Generic Name Dose Route Start Last Admin Trade Name Freq PRN Reason Stop Dose Admin Enoxaparin Sodium 40 mg 11/27/18 09:00 12/06/18 09:35 Lovenox SC 40 mg 0900 IVIS Administration Ondansetron HCl 8 mg/ Sodium 54 mls @ 200 mls/hr 11/27/18 14:00 12/06/18 15: 09 Chloride IVPB 54 mls Q8HR IVIS Administration Potassium Chloride 30 meq/ 1,015 mls @ 75 mls/hr 12/03/18 22:30 12/06/18 03: 28 Sodium Chloride IV 1,015 mls .[id number] IVIS Administration Piperacillin Sod/Tazobactam 100 mls @ 200 mls/hr 12/04/18 02:00 12/06/18 14: 27 Sod 2.25 gm/ Sodium Chloride IVPB 100 mls 0200,0800,1400,2000 IVIS Administration Fluconazole/Sodium Chloride 100 mls @ 100 mls/hr 12/05/18 09:00 12/06/18 09: 35 200 mg/ Device IVPB 100 mls DAILY IVIS Administration Fat Emulsion Intravenous 250 2,130.0354 mls @ 88.751 mls/hr 12/05/18 22:00 23:13 ml/ Sodium Chloride 30 meq/ IV 2,130.0354 mls Potassium Chloride 20 meq/ INF IVIS Administration Potassium Phosphate 30 mmol/ Calcium Gluconate 10 meq/ Magnesium Sulfate 10 meq/ Multivitamins 10 ml/ Chromium/ Copper/Manganese/Seleni/Zn 5 ml/ Sodium Phosphate 40 mmol/ Amino Acids/ Dextrose/Water/ Sterile Water Ketorolac Tromethamine 30 mg 12/03/18 22:23 12/06/18 03:28 Toradol IVP 12/08/18 22:24 30 mg Q6H PRN Administration Pain Morphine Sulfate 2 mg 12/04/18 00:44 12/06/18 15:12 Morphine SLOW IVP 2 mg Q2H PRN Administration Moderate Pain (4-6) Morphine Sulfate 4 mg 12/04/18 00:44 12/06/18 09:29 Morphine SLOW IVP 4 mg Q2H PRN Administration Severe Pain (7-10) Scopolamine 1.5 mg 11/26/18 20:00 12/05/18 20:46 Transderm Scop TOP 1.5 mg Q3D@1999 [facility] Administration Sodium Chloride 10 ml 11/26/18 17:13 12/05/18 13:37 Flush - Normal Saline IVF 10 ml PRN PRN Administration Saline Flush - Exam General Appearance: awake alert, ill appearing Eye: PERRL, anicteric sclera Eye - other findings: EOMI ENT: no oropharyngeal lesions, dry oral mucosa Neck: supple, symmetric, no lymphadenopathy Heart: no murmur, no gallops, no rubs Heart - other findings: Rapid regular rate Respiratory: no rales, no ronchi, normal chest expansion, wheezes (Faint) Gastrointestinal: soft, non-tender, no palpable masses, no guarding, no rigidity , distended Gastrointestinal - other findings: Feeding tube Extremities: 1+ LE edema Skin: no lesions, no rashes Neurological: CN's grossly intact, no focal deficits Musculoskeletal: generalized weakness Psychiatric: oriented to place, oriented to time, flat affect Hosp A/P (1) Bowel obstruction Code(s): K56.609 - UNSP INTESTNL OBST, UNSP TO PARTIAL VERSUS COMPLETE OBST Status: Acute (2) DM2 (diabetes mellitus, type 2) Status: Chronic Qualifiers: Diabetes mellitus retirement insulin use: without buttermaker helper use Diabetes mellitus complication status: without complication Qualified Code(s): E11.9 - Type 2 diabetes mellitus without complications (3) Esophageal adenocarcinoma Code(s): C15.9 - MALIGNANT NEOPLASM OF ESOPHAGUS, UNSPECIFIED Status: Chronic (4) Abdominal pain Code(s): R10.9 - UNSPECIFIED ABDOMINAL PAIN Status: Acute Qualifiers: Abdominal location: generalized Qualified Code(s): R10.84 - Generalized abdominal pain (5) Nausea & vomiting Code(s): R11.2 - NAUSEA WITH VOMITING, UNSPECIFIED Status: Acute (6) Sepsis Code(s): A41.9 - SEPSIS, UNSPECIFIED ORGANISM Status: Acute Qualifiers: Sepsis type: sepsis due to unspecified organism Sepsis acute organ dysfunction status: without acute organ dysfunction Qualified Code(s): A41.9 - Sepsis, unspecified organism - Plan Plan: IMCU Pulm/ CC consultation, recommendations appreciated General surgery consultation, recommendations appreciated Palliative care consultation, recommendations appreciated Oncology consultation, recommendations appreciated ID consultation, recommendations appreciated Non functioning feeding tube removed in OR with bowel resection on 12/03/18 Continue TPN PRN medications for N/V Pain control On Zosyn, fluconazole per ID No growth to date on Cx from 11/26 GI PPX DVT PPX Goals of care to be addressed, recommended DNR and DNI to the patient again today - he states he would like to talk it over with his sister Short and buttermaker helper prognosis is poor despite maximum medical/ surgical therapy Agree with inpatient hospice appropriate
--- NOTE | 2018-12-06 17:43 | PDOC.PALPN ---
Palliative Progress Note - Subjective Sleeping but arousable, more lethargic today. Complains of mild abdominal discomfort. Continues to have lack of understanding of poor prognosis. Review of Symptoms: noted above - Objective Vital Signs: Vital Signs - Most Recent Temp Pulse Resp BP Pulse Ox 99.7 F H 119 H 24 H 112/73 99 12/06/18 15:45 12/05/18 09:48 12/04/18 04:00 12/05/18 09:48 12/06/18 08:00 - Physical Exam Constitutional: mild distress HEENT: moist MMs, EOMI Deviation from normal: Mildly labored respirations scant wheezing on both inspiration/expiraiton Cardiovascular: RRR Deviation from normal: Mild tenderness Musculoskeletal: pulses present Neurological: moves all 4 limbs Deviation from normal: Depressed - Assessment (1) JUAN (acute kidney injury) Code(s): N17.9 - ACUTE KIDNEY FAILURE, UNSPECIFIED Current Visit: Yes Status : Acute (2) Palliative care encounter Code(s): Z51.5 - ENCOUNTER FOR PALLIATIVE CARE Current Visit: No Status: Acute (3) Sepsis Code(s): A41.9 - SEPSIS, UNSPECIFIED ORGANISM Current Visit: No Status: Acute Qualifiers: Sepsis type: sepsis due to unspecified organism Sepsis acute organ dysfunction status: without acute organ dysfunction Qualified Code(s): A41.9 - Sepsis, unspecified organism (4) Chronic hepatitis C Code(s): B18.2 - CHRONIC VIRAL HEPATITIS C Current Visit: No Status: Chronic Qualifiers: Hepatic coma status: without hepatic coma Qualified Code(s): B18.2 - Chronic viral hepatitis C (5) Dysphagia Code(s): R13.10 - DYSPHAGIA, UNSPECIFIED Current Visit: No Status: Chronic Qualifiers: (6) Esophageal adenocarcinoma Code(s): C15.9 - MALIGNANT NEOPLASM OF ESOPHAGUS, UNSPECIFIED Current Visit: No Status: Chronic - Plan Plan: *Continues to want all resuscitative measures/Palliative Care will continue to support and revisit *Patient goal to return home. Will revisit Hospice option for support *Theraputic Listening [40] minutes spent on this encounter with >50% of the time in counseling and coordination of care.
--- NOTE | 2018-12-06 21:37 | PRG ---
DATE OF SERVICE: 12/06/2018 OBJECTIVE: VITAL SIGNS: The patient noted with the following vital signs. Afebrile. Temperature 99.8, pulse 92, blood pressure 136/93, respiratory rate of 11 to 28, and O2 saturation of 99%. HEENT: Remarkable for NG tube in place. CARDIOVASCULAR SYSTEM: First and second heart sounds were heard. RESPIRATORY SYSTEM: Clear to auscultation. DIGESTIVE SYSTEM: Revealed an obese abdomen. EXTREMITIES: No peripheral edema. NEURO EXAMINATION: Alert, oriented. No lateralizing signs. LABORATORY INVESTIGATION: Showed a white count of 12,800 and hemoglobin 8.3. Chemistry showed a creatinine down to 1.15. IMPRESSION: 1. Acute on chronic kidney disease, which seems to have improved. 2. Partial small-bowel obstruction, being managed by the surgeons. PLAN: 1. We will continue current renal supportive measures. 2. Further management to be dependent on the clinical course. Job ID: [id number]
[2018-12-06] MEDS: POTASSIUM CHLORIDE IV SCH (22:43)
[2018-12-06] MEDS: FAT EMULSION IV SCH (22:43)
[2018-12-06] MEDS: [UNRECOGNIZED DRUG - OTHER] IV SCH (22:43)
[2018-12-06] MEDS: SODIUM CHLORIDE IV SCH (22:43)
[2018-12-07] MEDS: Piperacillin/Tazobactam 2.25 GM in Sodium Chloride 0.9% 100 ML IVPB SCH ×4 (02:50→21:12)
[2018-12-07] MEDS: Potassium Chloride 30 MEQ in Sodium Chloride 0.9% 1,000 ML IV SCH (02:50)
[2018-12-07] MEDS: Morphine 4 MG/ML VIAL SLOW IVP PRN ×8 (02:50→23:30)
[2018-12-07] MEDS: Ketorolac Tromethamine 30 MG/ML VIAL IVP PRN (05:22)
[2018-12-07] MEDS: Ondansetron HCl/PF 8 MG in Sodium Chloride 0.9% 50 ML IVPB SCH ×3 (05:23→22:29)
[2018-12-07 06:17] LABS: #Eosinphils 0.1 thou/uL (0.0-0.7); #Monocytes 1.3 thou/uL (0.11-0.59); #Neutrophils 7.7 thou/uL (1.40-6.50); %Basophils 0.4 % (0.0-1.0); %Eosinophils 1.4 % (0.0-10.0); %Lymphocytes 10.2 % (21.0-51.0); %Monocytes 12.8 % (0.0-10.0); %Neutrophils 75.2 % (42.0-75.0); Hemoglobin 8.1 g/dL (14.0-18.0); Mean Corpuscular HGB CONC 32.9 g/dL (32.0-36.0); Mean Corpuscular Hemoglobin 31.8 pg (27.0-31.0); Mean Corpuscular Volume 96.5 fL (78.0-98.0); Mean Platelet Volume 7.7 fL (7.4-10.4); Platelet Count 268 thou/uL (130-400); RBC Distribution Width 14.7 % (11.5-14.5); Red Blood Cell (RBC) Count 2.54 mill/uL (4.70-6.10); White Blood Cell (WBC) Count 10.2 thou/uL (4.8-10.8)
[2018-12-07 06:37] LABS: Anion Gap 12 mmol/L (10-20); BUN (Urea Nitrogen) 25 mg/dL (8.4-25.7); Calc. Creatinine Clearance 116 mL/min (70-130); Calcium 8.2 mg/dL (7.8-10.44); Carbon Dioxide 24 mmol/L (23-31); Chloride 108 mmol/L (98-107); Estimated GFR-MDRD Greater than 90; Glucose 145 mg/dL (80-115); Potassium 3.7 mmol/L (3.5-5.1); Sodium 140 mmol/L (136-145)
--- NOTE | 2018-12-07 08:05 | PRG ---
DATE OF SERVICE: 12/07/2018 SUBJECTIVE: The patient remains in the IMCU. He says he feels about the same. He is currently not being fed. OBJECTIVE: VITAL SIGNS: Temperature 98.5, pulse 90, blood pressure 122/76, and O2 saturation 100%. GENERAL: The patient appears disheveled. HEENT: Unremarkable. NECK: No JVD. LUNGS: Clear to auscultation. CARDIAC: S1 and S2. Regular. ABDOMEN: Multiple tubes in place. Multiple bandages. Distended. Hypoactive bowel sounds. EXTREMITIES: No clubbing or cyanosis. He has generalized edema throughout. LABORATORY DATA: Sodium 140, potassium 3.7, chloride 108, CO2 of 24, BUN 25, creatinine 1.0, and glucose 145. White blood cell count of 10, hematocrit 24.5, and platelet count 268. ASSESSMENT: 1. Metastatic esophageal cancer with peritoneal carcinomatosis. 2. Aspiration pneumonia. PLAN: Very difficult situation probably needs to move in the direction of hospice care. Continuing antibiotics. It appears the patient has somewhat unreasonable expectations about the outcome. Job ID: [id number]
[2018-12-07] MEDS: Enoxaparin Sodium 40 MG/0.4 ML SYRINGE SC SCH (08:18)
[2018-12-07] MEDS: Fluconazole In NaCl,Iso-Osm 200 MG in Premix Bag 1 BAG IVPB SCH (08:19)
--- NOTE | 2018-12-07 11:04 | PDOC.MOPN ---
Interval History: feels like he could have a bowel movement. Pain controlled. - Vital Signs Vital Signs: Vital Signs (12 hours) Temp 12/07/18 07:23 98.6 F 12/07/18 03:51 98.5 F 12/06/18 23:46 98.9 F Weight Admit Weight 217 lb 8 oz Weight 235 lb 11.2 oz Most Recent Monitor Data Heart Rate from ECG 82 NIBP 141/86 NIBP BP-Mean 104 Respiration from ECG 23 SpO2 100 - Physical Exam General: Alert, Oriented x3, No acute distress HEENT: Atraumatic, PERRLA, EOMI, Mucous membr. moist/pink Lungs: Clear to auscultation, Normal air movement Cardiovascular: Regular rate, Normal S1, Normal S2, No murmurs, Gallops, Rubs Abdomen: Other Extremities: No clubbing, No cyanosis, No edema, Normal pulses, No tenderness/ swelling Skin: No rashes, No breakdown, No significant lesion Neurological: Normal speech Psych/Mental Status: Mental status NL - Labs Result Diagrams: 12/07/18 05:39 12/07/18 05:39 Lab results: Laboratory Results - last 24 hr 12/07/18 05:39: WBC 10.2, RBC 2.54 L, Hgb 8.1 L, Hct 24.5 L, MCV 96.5, MCH 31.8 H, MCHC 32.9, RDW 14.7 H, Plt Count 268, MPV 7.7, Neutrophils % 75.2 H, Lymphocytes % 10.2 L, Monocytes % 12.8 H, Eosinophils % 1.4, Basophils % 0.4, Neutrophils # 7.7 H, Lymphocytes # 1.0 L, Monocytes # 1.3 H, Eosinophils # 0.1, Basophils # 0.0 12/07/18 05:39: Sodium 140, Potassium 3.7, Chloride 108 H, Carbon Dioxide 24, Anion Gap 12, BUN 25, Creatinine 1.00, Estimated GFR (MDRD) Greater than 90, Glucose 145 H, Calcium 8.2 12/07/18 04:03: POC Glucose 180 H 12/06/18 22:24: POC Glucose 139 H 12/06/18 16:32: POC Glucose 168 H Status: lab reviewed by me A/P - Problem (1) Esophageal adenocarcinoma Current Visit: No Code(s): C15.9 - MALIGNANT NEOPLASM OF ESOPHAGUS, UNSPECIFIED Status: Chronic (2) Bowel obstruction Current Visit: Yes Code(s): K56.609 - UNSP INTESTNL OBST, UNSP TO PARTIAL VERSUS COMPLETE OBST Status: Acute - Plan Plan: Remains on TPN, NGT to suction Encouraged to get out of bed to chair. Await path from resection Patient wants to continue to fight to improve despite poor prognosis
--- NOTE | 2018-12-07 12:55 | PDOC.HOSPP ---
- Subjective Subjective: Seen and examined. Still with pain, states it is improved currently. Patient continues to desire all aggressive measures, despite being told about poor prognosis by all specialists. Patient is thirsty, still with NG tube. - Objective Vital Signs & Weight: Vital Signs (12 hours) Temp Pulse Ox 12/07/18 11:07 97.6 F 12/07/18 08:00 97 12/07/18 07:23 98.6 F 12/07/18 03:51 98.5 F Weight Admit Weight 217 lb 8 oz Weight 235 lb 11.2 oz Most Recent Monitor Data Heart Rate from ECG 90 NIBP 116/75 NIBP BP-Mean 88 Respiration from ECG 20 SpO2 100 I&O: 12/06/18 12/07/18 12/08/18 06:59 06:59 06:59 Intake Total 3324 2100 Output Total 2120 2700 1150 Balance 0461 -746 -1776 Result Diagrams: 12/07/18 05:39 12/07/18 05:39 Additional Labs: Accuchecks 12/07/18 12/07/18 12/06/18 12:10 04:03 22:24 POC Glucose 166 H 180 H 139 H 12/06/18 16:32 POC Glucose 168 H Hospitalist ROS - Review of Systems All other systems reviewed; all pertinent +/- noted in HPI/Subj - Medication Medications: Active Medications Generic Name Dose Route Start Last Admin Trade Name Freq PRN Reason Stop Dose Admin Diphenhydramine HCl 25 mg 12/03/18 22:13 12/07/18 03:44 Benadryl IVP 25 mg Q3H PRN Administration Itching Enoxaparin Sodium 40 mg 11/27/18 09:00 12/07/18 08:18 Lovenox SC 40 mg 0900 IVSI Administration Ondansetron HCl 8 mg/ Sodium 54 mls @ 200 mls/hr 11/27/18 14:00 12/07/18 05: 23 Chloride IVPB 54 mls Q8HR IVIS Administration Potassium Chloride 30 meq/ 1,015 mls @ 75 mls/hr 12/03/18 22:30 12/07/18 02: 50 Sodium Chloride IV 1,015 mls .[id number] IVIS Administration Piperacillin Sod/Tazobactam 100 mls @ 200 mls/hr 12/04/18 02:00 12/07/18 08: 19 Sod 2.25 gm/ Sodium Chloride IVPB 100 mls 0200,0800,1400,2000 IVIS Administration Fluconazole/Sodium Chloride 100 mls @ 100 mls/hr 12/05/18 09:00 12/07/18 08: 19 200 mg/ Device IVPB 100 mls DAILY IVIS Administration Fat Emulsion Intravenous 250 2,130.0354 mls @ 88.751 mls/hr 12/05/18 22:00 22:43 ml/ Sodium Chloride 30 meq/ IV 2,130.0354 mls Potassium Chloride 20 meq/ INF IVIS Administration Potassium Phosphate 30 mmol/ Calcium Gluconate 10 meq/ Magnesium Sulfate 10 meq/ Multivitamins 10 ml/ Chromium/ Copper/Manganese/Seleni/Zn 5 ml/ Sodium Phosphate 40 mmol/ Amino Acids/ Dextrose/Water/ Sterile Water Ketorolac Tromethamine 30 mg 12/03/18 22:23 12/07/18 05:22 Toradol IVP 12/08/18 22:24 30 mg Q6H PRN Administration Pain Morphine Sulfate 2 mg 12/04/18 00:44 12/06/18 15:12 Morphine SLOW IVP 2 mg Q2H PRN Administration Moderate Pain (4-6) Morphine Sulfate 4 mg 12/04/18 00:44 12/07/18 12:45 Morphine SLOW IVP 4 mg Q2H PRN Administration Severe Pain (7-10) Sodium Chloride 10 ml 11/26/18 17:13 12/05/18 13:37 Flush - Normal Saline IVF 10 ml PRN PRN Administration Saline Flush - Exam General Appearance: NAD, awake alert Eye: anicteric sclera Eye - other findings: EOMI ENT: no oropharyngeal lesions, dry oral mucosa Neck: supple, no lymphadenopathy Heart: RRR, no murmur, no gallops, no rubs Respiratory: CTAB, no wheezes, no rales, no ronchi, normal chest expansion Gastrointestinal: soft, no palpable masses, no guarding, no rigidity, tender to palpation, distended Extremities: no cyanosis, 1+ LE edema Skin: no lesions, no rashes Neurological: CN's grossly intact, no focal deficits Musculoskeletal: generalized weakness Psychiatric: normal affect, oriented to person, oriented to place Hosp A/P (1) Bowel obstruction Code(s): K56.609 - UNSP INTESTNL OBST, UNSP TO PARTIAL VERSUS COMPLETE OBST Status: Acute (2) DM2 (diabetes mellitus, type 2) Status: Chronic Qualifiers: Diabetes mellitus fpc insulin use: without ferry terminal agent use Diabetes mellitus complication status: without complication Qualified Code(s): E11.9 - Type 2 diabetes mellitus without complications (3) Esophageal adenocarcinoma Code(s): C15.9 - MALIGNANT NEOPLASM OF ESOPHAGUS, UNSPECIFIED Status: Chronic (4) Abdominal pain Code(s): R10.9 - UNSPECIFIED ABDOMINAL PAIN Status: Acute Qualifiers: Abdominal location: generalized Qualified Code(s): R10.84 - Generalized abdominal pain (5) Nausea & vomiting Code(s): R11.2 - NAUSEA WITH VOMITING, UNSPECIFIED Status: Acute (6) Sepsis Code(s): A41.9 - SEPSIS, UNSPECIFIED ORGANISM Status: Acute Qualifiers: Sepsis type: sepsis due to unspecified organism Sepsis acute organ dysfunction status: without acute organ dysfunction Qualified Code(s): A41.9 - Sepsis, unspecified organism - Plan Plan: IMCU Pulm/ CC consultation, recommendations appreciated General surgery consultation, recommendations appreciated Palliative care consultation, recommendations appreciated Oncology consultation, recommendations appreciated ID consultation, recommendations appreciated Non functioning feeding tube removed in OR with bowel resection on 12/03/18 Continue TPN PRN medications for N/V Pain control ABX/ antifungals per ID GI PPX DVT PPX Goals of care to be addressed, patient remains in denial about the severity of his medical condition Short and nursing home prognosis is poor despite maximum medical/ surgical therapy Agree with inpatient hospice appropriate, though we will continue aggressive measures per patients wishes
--- NOTE | 2018-12-07 16:28 | EKG ---
Test Reason : STAT Blood Pressure : / mmHG Vent. Rate : 137 BPM Atrial Rate : 137 BPM P-R Int : 116 ms QRS Dur : 076 ms QT Int : 310 ms P-R-T Axes : 032 010 047 degrees QTc Int : 468 ms Sinus tachycardia Otherwise normal ECG Confirmed by MEHRAN HARRY ([id number]) on 12/07/2018 4:28:34 PM Referred By: ROSARIO Confirmed By:MEHRAN HARRY
--- NOTE | 2018-12-07 17:02 | PDOC.PALPN ---
Palliative Progress Note - Subjective Increase in lethargy, abdominal discomfort. - Objective Vital Signs: Vital Signs - Most Recent Temp Pulse Resp BP Pulse Ox 98.2 F 119 H 24 H 112/73 97 12/07/18 15:08 12/05/18 09:48 12/04/18 04:00 12/05/18 09:48 12/07/18 08:00 - Physical Exam Constitutional: confusion Deviation from normal: Ill appearing Deviation from normal: continues with difficulity clearing oral secretions. NG in place Deviation from normal: labored respirations, diminished to bases Cardiovascular: RRR Deviation from normal: Distention, tender to palpation Musculoskeletal: edema present Neurological: moves all 4 limbs Deviation from normal: increasing muscle weakness Deviation from normal: increse in lethargy, increase in flat affect Skin: no rash - Assessment (1) JUAN (acute kidney injury) Code(s): N17.9 - ACUTE KIDNEY FAILURE, UNSPECIFIED Current Visit: Yes Status : Acute (2) Palliative care encounter Code(s): Z51.5 - ENCOUNTER FOR PALLIATIVE CARE Current Visit: No Status: Acute (3) Sepsis Code(s): A41.9 - SEPSIS, UNSPECIFIED ORGANISM Current Visit: No Status: Acute Qualifiers: Sepsis type: sepsis due to unspecified organism Sepsis acute organ dysfunction status: without acute organ dysfunction Qualified Code(s): A41.9 - Sepsis, unspecified organism (4) Chronic hepatitis C Code(s): B18.2 - CHRONIC VIRAL HEPATITIS C Current Visit: No Status: Chronic Qualifiers: Hepatic coma status: without hepatic coma Qualified Code(s): B18.2 - Chronic viral hepatitis C (5) Dysphagia Code(s): R13.10 - DYSPHAGIA, UNSPECIFIED Current Visit: No Status: Chronic Qualifiers: (6) Esophageal adenocarcinoma Code(s): C15.9 - MALIGNANT NEOPLASM OF ESOPHAGUS, UNSPECIFIED Current Visit: No Status: Chronic - Plan Plan: Continue to discuss poor prognosis, patient requests to remain aggressive in all medical treatments. Therapeutic listening and support. Palliative care continues to gently revisit hospice for supportive care. Family meeting again arranged for Tuesday12/08/18 at 11 am with RUDOLPH Kirkland and Mr Seo. Jay Burt arranged and we will meet with patient and family at that time. [90] minutes spent on this encounter with >50% of the time in counseling and coordination of care.
--- NOTE | 2018-12-07 18:01 | PRG ---
DATE OF SERVICE: 12/07/2018 SUBJECTIVE: Mr. Frost is doing well today. He has no complaints. Blood pressure 126/86, heart rate 98. His output from his NG tube last 24 hours was 1100 mL. He has not had any bowel movements or flatus. This morning, his white count is 10 and hemoglobin 8.1. Basic metabolic profile is normal. Pathology returned from his segmental bowel resections in all consistent with esophageal metastatic adenocarcinoma. OBJECTIVE: LUNGS: Clear to auscultation. CARDIAC: Rhythm without murmur or gallop. ABDOMEN: Soft, nontender. Wound VAC in place midline. Diminished bowel sounds. ASSESSMENT AND PLAN: Ileus. Awaiting bowel function. Continue NG to total parenteral nutrition. Metastatic esophageal cancer. Poor prognosis. Job ID: [id number]
--- NOTE | 2018-12-07 18:24 | PRG ---
DATE OF SERVICE: 12/07/2018 SUBJECTIVE: Mr. Frost still has an NG tube. He is obtunded, but arousable. Denies any pain at this time. He looks unwell overall, and family has decided to proceed with active treatment, although Palliative Care is going to have another meeting with them. OBJECTIVE: VITAL SIGNS: T-max 99.8, BP 126/86, heart rate 91, and O2 saturation 100. GENERAL: The surgical site appears okay. There are areas where the stitches were removed and there is dehiscence of the wound itself. The open areas have a fresh granulation tissue. There is a jejunostomy, which has been repositioned and the patient has an indwelling [place] catheter. A triple-lumen catheter in left subclavian and a port in the right subclavian location. HEENT: His ocular movements are conjugate. LUNGS: Symmetric air entry with faint basilar crackles. HEART: S1 and S2. Regular rate. ABDOMEN: Not distended. Bowel sounds are diminished. LABORATORY DATA: White cell count is 10.2, hemoglobin 8.1, platelets 268. Sodium 140, creatinine 1.0, bilirubin 0.9, AST 27, ALT 13. Microbiology with yeast in one set of blood cultures from the left subclavian vein. He is on Diflucan 200 mg daily and Zosyn. ASSESSMENT AND DISCUSSION: Metastatic esophageal cancer, peritoneal carcinomatosis, small bowel obstruction, aspiration pneumonia and status post lysis of adhesions, laparotomy, reposition of jejunostomy, now evidence of likely Judith fungemia, possibly associated with the catheter. We will switch him to micafungin, discontinue Diflucan. Overall prognosis is poor and hospice care would probably be advisable at this point in time. Job ID: [id number]
[2018-12-07] MEDS: Micafungin 100 MG in Sodium Chloride 0.9% 100 ML IVPB SCH (19:58)
[2018-12-07] MEDS: Scopolamine 1.5 mg/72 hour Patch TOP SCH (20:01)
[2018-12-07] MEDS: POTASSIUM CHLORIDE IV SCH (22:29)
[2018-12-07] MEDS: [UNRECOGNIZED DRUG - OTHER] IV SCH (22:29)
[2018-12-07] MEDS: FAT EMULSION IV SCH (22:29)
[2018-12-07] MEDS: SODIUM CHLORIDE IV SCH (22:29)
[2018-12-08] MEDS: Morphine 4 MG/ML VIAL SLOW IVP PRN ×11 (01:51→23:33)
[2018-12-08] MEDS: Piperacillin/Tazobactam 2.25 GM in Sodium Chloride 0.9% 100 ML IVPB SCH ×4 (01:52→21:39)
[2018-12-08 04:51] LABS: #Eosinphils 0.1 thou/uL (0.0-0.7); #Lymphocytes 1.1 thou/uL (1.20-3.40); #Monocytes 1.2 thou/uL (0.11-0.59); #Neutrophils 6.7 thou/uL (1.40-6.50); %Basophils 0.4 % (0.0-1.0); %Eosinophils 1.6 % (0.0-10.0); %Lymphocytes 11.6 % (21.0-51.0); %Monocytes 12.8 % (0.0-10.0); %Neutrophils 73.7 % (42.0-75.0); Hemoglobin 8.4 g/dL (14.0-18.0); Mean Corpuscular HGB CONC 32.8 g/dL (32.0-36.0); Mean Corpuscular Hemoglobin 31.7 pg (27.0-31.0); Mean Corpuscular Volume 96.5 fL (78.0-98.0); Mean Platelet Volume 7.8 fL (7.4-10.4); Platelet Count 303 thou/uL (130-400); RBC Distribution Width 14.7 % (11.5-14.5); Red Blood Cell (RBC) Count 2.64 mill/uL (4.70-6.10); White Blood Cell (WBC) Count 9.1 thou/uL (4.8-10.8)
[2018-12-08 05:09] LABS: Anion Gap 10 mmol/L (10-20); BUN (Urea Nitrogen) 23 mg/dL (8.4-25.7); Calc. Creatinine Clearance 129 mL/min (70-130); Calcium 8.2 mg/dL (7.8-10.44); Carbon Dioxide 24 mmol/L (23-31); Chloride 108 mmol/L (98-107); Estimated GFR-MDRD Greater than 90; Glucose 167 mg/dL (80-115); Potassium 3.9 mmol/L (3.5-5.1); Sodium 138 mmol/L (136-145)
--- NOTE | 2018-12-08 05:15 | PRG ---
DATE OF SERVICE: 12/07/2018 OBJECTIVE: VITAL SIGNS: The patient noted with the following vital signs; temperature of 99.9, pulse 99, blood pressure 135/89, respiratory rate of 23, and O2 saturation 100%. HEENT: Unremarkable. CARDIOVASCULAR SYSTEM: First and second heart sounds were heard. RESPIRATORY SYSTEM: Clear to auscultation. DIGESTIVE SYSTEM: Revealed an obese abdomen. EXTREMITIES: No peripheral edema. IMPRESSION: 1. Acute on chronic kidney disease, this is improved. 2. Judith fungemia. 3. Partial small-bowel obstruction in the context of metastatic esophageal carcinoma. PLAN: 1. Continue current renal supportive measures. 2. Further management to be dependent . Job ID: [id number]
--- NOTE | 2018-12-08 05:33 | PRG ---
DATE OF SERVICE: 12/08/2018 SUBJECTIVE: The patient noted with the following vital signs. OBJECTIVE: VITAL SIGNS: Afebrile, temperature 99.2, pulse rate 90, blood pressure 127/86, respiratory rate of 26 to 31, O2 saturation 100%. HEENT: Remarkable for NG tube in place . CARDIOVASCULAR: First and second heart sounds were heard. RESPIRATORY: Clear to auscultation bilaterally. DIGESTIVE: Revealed obese abdomen. EXTREMITIES: No peripheral edema. SKIN: No new gross rash. LYMPHATICS: No peripheral lymphadenopathy. IMPRESSION: 1. Acute on chronic kidney disease in the context of constipation, seems to be improved. 2. Bowel obstruction/ileus, status post laparotomy with adhesiolysis. 3. Advanced metastatic esophageal carcinoma. PLAN: 1. Renal supportive measures to be continued. 2. Avoid potentially nephrotoxic agents. Renally dose all medications. 3. Further management to be dependent on the clinical course as well as further recommendations from the other speciality services. Job ID: [id number]
[2018-12-08] MEDS: Ondansetron HCl/PF 8 MG in Sodium Chloride 0.9% 50 ML IVPB SCH ×3 (06:49→23:27)
[2018-12-08] MEDS: Enoxaparin Sodium 40 MG/0.4 ML SYRINGE SC SCH (09:04)
--- NOTE | 2018-12-08 10:39 | PRG ---
DATE OF SERVICE: 12/08/2018 SUBJECTIVE: He seems to be doing reasonably well despite circumstances. OBJECTIVE: VITAL SIGNS: Temperature is 99.4, pulse 90, blood pressure 127/95, O2 saturation 100%. Intake for 24 hours 1395 and output 2575. HEENT: Unremarkable. NECK: No adenopathy or JVD. LUNGS: Clear anteriorly. CARDIAC: S1 and S2, regular. ABDOMEN: Distended. EXTREMITIES: No edema. His cultures are growing out Judith albicans from a central line. LABORATORY DATA: White blood cell count 9.1, hematocrit 25.5, platelet count 303. Sodium 138, potassium 3.9, chloride 108, CO2 of 24, BUN 23, and creatinine 0.9. ASSESSMENT: 1. Fungemia. 2. Metastatic esophageal cancer. 3. Status post laparotomy. PLAN: I do think he is stable enough to move over to the oncology unit. He is very reluctant to enter hospice program. However, I do not see this situation getting any better with time. Job ID: [id number]
--- NOTE | 2018-12-08 11:54 | PDOC.PALF ---
Purpose of Conference: Discuss progression of cancer, poor prognosis, revisit resuscitation status and goals of care Care Providers Present: aJy Burt RNsection crews activities clerk, Father Amando, Myself (Demetris Herman [facility]) Family Members Present: Sister Marita, Sherry and niece as well as patient Meeting Comments: Discussed path report that returned confirming metastasis of primary cancer source. Discussed continued decline. Goals of Care: Patient stated that he did not want resuscitative measures, however wanted his sister Marita to be in agreement who did not at this time agree with DNAR. Patient and sisters to discuss further today. Summary: Patient remains unchanged on resuscitation status as well as not moving toward hospice for comfort. However, was more open to transitioning to this aspect of care. Palliative Care will follow up. Patient to be transferred to oncology today. Patient mother unaware of Mr Razo grave condition, sister is going to encourage a visit from her mother to the hospital to visit Mr Frost. Palliative Care to continue to follow patient. Total Time Spent with Family: 90min
--- NOTE | 2018-12-08 15:24 | PDOC.HOSPP ---
- Subjective Subjective: Seen and examined. Pain better controlled. Breathing well on room air. Still with NG tube, ileus, and TPN. Patient not ready to talk about DNR/ less aggressive measures. No new complaints. - Objective Vital Signs & Weight: Vital Signs (12 hours) Temp Pulse Ox 12/08/18 12:11 99.7 F H 12/08/18 07:59 98 12/08/18 07:12 99.4 F 12/08/18 03:35 99.2 F Weight Admit Weight 217 lb 8 oz Weight 235 lb 11.2 oz Most Recent Monitor Data Heart Rate from ECG 88 NIBP 140/93 NIBP BP-Mean 108 Respiration from ECG 29 SpO2 100 I&O: 12/07/18 12/08/18 12/09/18 06:59 06:59 06:59 Intake Total 2100 1395 Output Total 2700 2575 Balance -600 -1180 Result Diagrams: 12/08/18 04:32 12/08/18 04:32 Additional Labs: Accuchecks 12/08/18 12/08/18 12/07/18 10:44 04:28 22:10 POC Glucose 180 H 157 H 160 H 12/07/18 18:12 POC Glucose 160 H Hospitalist ROS - Review of Systems All other systems reviewed; all pertinent +/- noted in HPI/Subj - Medication Medications: Active Medications Generic Name Dose Route Start Last Admin Trade Name Freq PRN Reason Stop Dose Admin Diphenhydramine HCl 25 mg 12/03/18 22:13 12/07/18 03:44 Benadryl IVP 25 mg Q3H PRN Administration Itching Enoxaparin Sodium 40 mg 11/27/18 09:00 12/08/18 09:04 Lovenox SC 40 mg 0900 IVIS Administration Ondansetron HCl 8 mg/ Sodium 54 mls @ 200 mls/hr 11/27/18 14:00 12/08/18 14: 59 Chloride IVPB 54 mls Q8HR IVIS Administration Potassium Chloride 30 meq/ 1,015 mls @ 75 mls/hr 12/03/18 22:30 12/08/18 00: 00 Sodium Chloride IV 1,015 mls .[id number] IVIS Administration Piperacillin Sod/Tazobactam 100 mls @ 200 mls/hr 12/04/18 02:00 12/08/18 14: 59 Sod 2.25 gm/ Sodium Chloride IVPB 100 mls 0200,0800,1400,2000 IVIS Administration Fat Emulsion Intravenous 250 2,130.0354 mls @ 88.751 mls/hr 12/05/18 22:00 22:29 ml/ Sodium Chloride 30 meq/ IV 2,130.0354 mls Potassium Chloride 20 meq/ INF IVIS Administration Potassium Phosphate 30 mmol/ Calcium Gluconate 10 meq/ Magnesium Sulfate 10 meq/ Multivitamins 10 ml/ Chromium/ Copper/Manganese/Seleni/Zn 5 ml/ Sodium Phosphate 40 mmol/ Amino Acids/ Dextrose/Water/ Sterile Water Micafungin Sodium 100 mg/ 100 mls @ 100 mls/hr 12/07/18 19:00 12/07/18 19:58 Sodium Chloride IVPB 100 mls 1900 IVIS Administration Ketorolac Tromethamine 30 mg 12/03/18 22:23 12/07/18 05:22 Toradol IVP 12/08/18 22:24 30 mg Q6H PRN Administration Pain Morphine Sulfate 2 mg 12/04/18 00:44 12/06/18 15:12 Morphine SLOW IVP 2 mg Q2H PRN Administration Moderate Pain (4-6) Morphine Sulfate 4 mg 12/04/18 00:44 12/08/18 15:00 Morphine SLOW IVP 4 mg Q2H PRN Administration Severe Pain (7-10) Scopolamine 3 mg 12/07/18 20:00 12/07/18 20:01 Transderm Scop TOP 3 mg Q3D@2000 IVIS Administration Sodium Chloride 10 ml 11/26/18 17:13 12/05/18 13:37 Flush - Normal Saline IVF 10 ml PRN PRN Administration Saline Flush - Exam General Appearance: ill appearing Eye: PERRL Eye - other findings: EOMI ENT: no oropharyngeal lesions, moist mucosa Neck: supple, no thyromegaly, no lymphadenopathy Heart: no murmur, no gallops, no rubs Heart - other findings: S1 and S2 present Respiratory: no wheezes, no rales, no ronchi Gastrointestinal: soft, non-tender, normal bowel sounds, no palpable masses, no guarding, no rigidity Extremities: 1+ LE edema Skin: no lesions, no rashes Neurological: CN's grossly intact, no focal deficits Musculoskeletal: generalized weakness Psychiatric: oriented to person, oriented to place, flat affect Hosp A/P (1) Bowel obstruction Code(s): K56.609 - UNSP INTESTNL OBST, UNSP TO PARTIAL VERSUS COMPLETE OBST Status: Acute (2) DM2 (diabetes mellitus, type 2) Status: Chronic Qualifiers: Diabetes mellitus [facility] insulin use: without [facility] use Diabetes mellitus complication status: without complication Qualified Code(s): E11.9 - Type 2 diabetes mellitus without complications (3) Esophageal adenocarcinoma Code(s): C15.9 - MALIGNANT NEOPLASM OF ESOPHAGUS, UNSPECIFIED Status: Chronic (4) Abdominal pain Code(s): R10.9 - UNSPECIFIED ABDOMINAL PAIN Status: Acute Qualifiers: Abdominal location: generalized Qualified Code(s): R10.84 - Generalized abdominal pain (5) Nausea & vomiting Code(s): R11.2 - NAUSEA WITH VOMITING, UNSPECIFIED Status: Acute (6) Sepsis Code(s): A41.9 - SEPSIS, UNSPECIFIED ORGANISM Status: Acute Qualifiers: Sepsis type: sepsis due to unspecified organism Sepsis acute organ dysfunction status: without acute organ dysfunction Qualified Code(s): A41.9 - Sepsis, unspecified organism - Plan Plan: IMCU, stable for D/g to Oncology Medically stable for LTAC placement, CM consult Pulm/ CC consultation, recommendations appreciated General surgery consultation, recommendations appreciated Palliative care consultation, recommendations appreciated Oncology consultation, recommendations appreciated ID consultation, recommendations appreciated Non functioning feeding tube removed in OR with bowel resection on 12/03/18 Continue NG tube for ileus Continue TPN PRN medications for N/V Pain control ABX/ antifungals per ID GI PPX DVT PPX Goals of care have been discussed multiple times, patient remains in denial about the severity of his medical condition Short and [facility] prognosis is poor despite maximum medical/ surgical therapy Agree with inpatient hospice appropriate, though we will continue aggressive measures per patients wishes
--- NOTE | 2018-12-08 15:36 | PDOC.MOPN ---
Interval History: weak, still have NGT output - Vital Signs Vital Signs: Vital Signs (12 hours) Temp Pulse Ox 12/08/18 15:27 99.4 F 12/08/18 12:11 99.7 F H 12/08/18 07:59 98 12/08/18 07:12 99.4 F Weight Admit Weight 217 lb 8 oz Weight 235 lb 11.2 oz Most Recent Monitor Data Heart Rate from ECG 88 NIBP 140/93 NIBP BP-Mean 108 Respiration from ECG 29 SpO2 100 - Physical Exam General: Alert HEENT: Atraumatic Lungs: Clear to auscultation Cardiovascular: Regular rate Abdomen: Other Extremities: No clubbing, No cyanosis, No edema Skin: No breakdown Neurological: Normal speech Psych/Mental Status: Mental status NL - Labs Result Diagrams: 12/08/18 04:32 12/08/18 04:32 Lab results: Laboratory Results - last 24 hr 12/08/18 10:44: POC Glucose 180 H 12/08/18 04:32: WBC 9.1, RBC 2.64 L, Hgb 8.4 L, Hct 25.5 L, MCV 96.5, MCH 31.7 H , MCHC 32.8, RDW 14.7 H, Plt Count 303, MPV 7.8, Neutrophils % 73.7, Lymphocytes % 11.6 L, Monocytes % 12.8 H, Eosinophils % 1.6, Basophils % 0.4, Neutrophils # 6.7 H, Lymphocytes # 1.1 L, Monocytes # 1.2 H, Eosinophils # 0.1, Basophils # 0.0 12/08/18 04:32: Sodium 138, Potassium 3.9, Chloride 108 H, Carbon Dioxide 24, Anion Gap 10, BUN 23, Creatinine 0.90, Estimated GFR (MDRD) Greater than 90, Glucose 167 H, Calcium 8.2 12/08/18 04:28: POC Glucose 157 H 12/07/18 22:10: POC Glucose 160 H 12/07/18 18:12: POC Glucose 160 H 12/04/18 02:18: Crossmatch See Detail Status: lab reviewed by me, discussed w/pathologist - Pathology Pathology: adenocarcinoma A/P - Problem (1) Esophageal adenocarcinoma Current Visit: No Code(s): C15.9 - MALIGNANT NEOPLASM OF ESOPHAGUS, UNSPECIFIED Status: Chronic (2) Bowel obstruction Current Visit: Yes Code(s): K56.609 - UNSP INTESTNL OBST, UNSP TO PARTIAL VERSUS COMPLETE OBST Status: Acute - Plan Plan: continue TPN, NGT Discussed poor prognosis, he wants to continue to try to improve.
--- NOTE | 2018-12-08 16:41 | PRG ---
DATE OF SERVICE: 12/08/2018 SUBJECTIVE: Aggie Frost is doing well today. Still has his NG tube 1000 mL out in the last 24 hours. He still has not passed flatus or had a bowel movement. Palliative Care has talked to the patient's family, but they continued to be a DNR as stated previously. His pathology revealed metastatic esophageal carcinoma causing bowel obstruction. Previous CT enterography through his jejunostomy tube revealed contrast backed up in the stomach indicating the gastric outlet is not obstructed. The patient still does not have bowel sounds and he has an ileus awaiting bowel function after 4 segmental bowel resections. Blood cultures from a central line reveal OBJECTIVE: LUNGS: Clear to auscultation. CARDIAC: Rhythm rate and rhythm without murmur or gallop. ABDOMEN: Soft and flat. No bowel sounds. EXTREMITIES: Unremarkable. LABORATORY DATA: White count 9.1 and hemoglobin 8.4. Basic metabolic profile normal. ASSESSMENT AND PLAN: Poor prognosis for metastatic esophageal cancer. He has an ileus and continues on TPN and NG tube suction. I am awaiting bowel function. I agree with plans to transfer him to Oncology, but if a bed is not available in Oncology, he could be transferred to the Surgery floor. Continue discussions with the family regarding DNR status and palliative care need to be held and we will continue to answer questions and encourage. Overall prognosis is very poor. Job ID: [id number]
[2018-12-08] MEDS: Potassium Chloride 30 MEQ in Sodium Chloride 0.9% 1,000 ML IV SCH ×2 (18:07)
[2018-12-08] MEDS: Micafungin 100 MG in Sodium Chloride 0.9% 100 ML IVPB SCH (20:09)
[2018-12-08] MEDS: Ketorolac Tromethamine 30 MG/ML VIAL IVP PRN (21:06)
[2018-12-08] MEDS ORDERED: Promethazine HCl 25 MG/ML VIAL IM/IV PRN (21:18)
[2018-12-08] MEDS: FAT EMULSION IV SCH (22:25)
[2018-12-08] MEDS: SODIUM CHLORIDE IV SCH (22:25)
[2018-12-08] MEDS: POTASSIUM CHLORIDE IV SCH (22:25)
[2018-12-08] MEDS: [UNRECOGNIZED DRUG - OTHER] IV SCH (22:25)
[2018-12-09] MEDS: Morphine 4 MG/ML VIAL SLOW IVP PRN ×8 (01:36→16:21)
--- NOTE | 2018-12-09 02:05 | PRG ---
DATE OF SERVICE: 12/09/2018 SUBJECTIVE: Mr. Frost is a 63-year-old male who is status post postop day 5 of the diagnostic laparoscopy converted to laparostomy, lysis of adhesions, removal of feeding jejunostomy tube for segmental small bowel resection for anastomosis, placement of new feeding J-tube and he also had left subclavian vein triple-lumen catheter. The patient also has metastatic esophageal cancer, small bowel obstruction and poor IV access. Postop day 5, the patient is residing in Oncology floor. He reports he has been doing okay. His NG tube put out 1000 in 24 hours. NG tube under low intermittent suction. NG tube working. His urine output is adequate 1400 in 24 hours. OBJECTIVE: VITAL SIGNS: Have been stable. He is lying down in bed with no acute respiratory distress. LUNGS: Clear bilaterally. HEART: Regular rate and rhythm. ABDOMEN: Soft and flat, no bowel sounds. Midline incision dry, clean, intact. NEUROLOGIC: No focal neurologic deficits. Neurovascularly intact. ASSESSMENT AND PLAN: The patient is considered to have poor prognosis for metastatic esophagus cancer. He has an ileus and continue on TPN and NG to suction. Awaiting for bowel function. Continue palliative care and the patient and family to keep his DNR order and will be corrected of any abnormal electrolytes. Job ID: [id number]
[2018-12-09] MEDS: Piperacillin/Tazobactam 2.25 GM in Sodium Chloride 0.9% 100 ML IVPB SCH ×4 (02:26→20:59)
[2018-12-09] MEDS: Potassium Chloride 30 MEQ in Sodium Chloride 0.9% 1,000 ML IV SCH ×3 (03:34→20:58)
[2018-12-09 04:04] LABS: #Eosinphils 0.4 thou/uL (0.0-0.7); #Monocytes 1.2 thou/uL (0.11-0.59); %Basophils 0.4 % (0.0-1.0); %Eosinophils 4.5 % (0.0-10.0); %Lymphocytes 11.2 % (21.0-51.0); %Monocytes 13.6 % (0.0-10.0); %Neutrophils 70.3 % (42.0-75.0); Hemoglobin 7.9 g/dL (14.0-18.0); Mean Corpuscular HGB CONC 32.3 g/dL (32.0-36.0); Mean Corpuscular Hemoglobin 31.1 pg (27.0-31.0); Mean Corpuscular Volume 96.3 fL (78.0-98.0); Mean Platelet Volume 7.8 fL (7.4-10.4); Platelet Count 324 thou/uL (130-400); RBC Distribution Width 14.9 % (11.5-14.5); Red Blood Cell (RBC) Count 2.55 mill/uL (4.70-6.10); White Blood Cell (WBC) Count 8.6 thou/uL (4.8-10.8)
[2018-12-09 04:21] LABS: Anion Gap 10 mmol/L (10-20); BUN (Urea Nitrogen) 22 mg/dL (8.4-25.7); Calc. Creatinine Clearance 138 mL/min (70-130); Calcium 8.2 mg/dL (7.8-10.44); Carbon Dioxide 22 mmol/L (23-31); Chloride 110 mmol/L (98-107); Estimated GFR-MDRD Greater than 90; Glucose 149 mg/dL (80-115); Sodium 138 mmol/L (136-145)
[2018-12-09] MEDS: Ondansetron HCl/PF 8 MG in Sodium Chloride 0.9% 50 ML IVPB SCH ×3 (05:08→22:24)
[2018-12-09] MEDS: Enoxaparin Sodium 40 MG/0.4 ML SYRINGE SC SCH (09:04)
[2018-12-09] MEDS ORDERED: fentaNYL 50 mcg/hour Patch TD SCH (12:00)
[2018-12-09] MEDS ORDERED: Ketorolac Tromethamine 30 MG/ML VIAL IVP SCH (14:30)
--- NOTE | 2018-12-09 14:39 | PDOC.HOSPP ---
- Subjective Subjective: Seen and examined. Still with ileus, NG tube, TPN running. Breathing well on room air. Per patient, pain better controlled. No overnight events. Medically stable for lower level of care. - Objective Vital Signs & Weight: Vital Signs (12 hours) Temp Pulse Resp BP Pulse Ox 12/09/18 11:35 97.5 F L 84 22 H 144/97 H 95 12/09/18 08:29 98.7 F 93 24 H 147/94 H 95 12/09/18 04:27 98.7 F 86 18 140/97 H 95 Weight Admit Weight 217 lb 8 oz Weight 235 lb 11.2 oz Most Recent Monitor Data Heart Rate from ECG 99 NIBP 135/92 NIBP BP-Mean 106 Respiration from ECG 26 SpO2 100 I&O: 12/08/18 12/09/18 12/10/18 06:59 06:59 06:59 Intake Total 1395 1676.3 1896 Output Total 2575 1655 Balance -1180 21.3 1896 Result Diagrams: 12/09/18 03:50 12/09/18 03:30 Additional Labs: Accuchecks 12/09/18 12/09/18 12/08/18 11:28 00:09 16:40 POC Glucose 166 H 163 H 169 H Hospitalist ROS - Review of Systems All other systems reviewed; all pertinent +/- noted in HPI/Subj - Medication Medications: Active Medications Generic Name Dose Route Start Last Admin Trade Name Freq PRN Reason Stop Dose Admin Diphenhydramine HCl 25 mg 12/03/18 22:13 12/07/18 03:44 Benadryl IVP 25 mg Q3H PRN Administration Itching Enoxaparin Sodium 40 mg 11/27/18 09:00 12/09/18 09:04 Lovenox SC 40 mg 0900 IVIS Administration Fentanyl 50 mcg 12/09/18 12:00 12/09/18 11:46 Duragesic TD 50 mcg Q3D IVIS Administration Ondansetron HCl 8 mg/ Sodium 54 mls @ 200 mls/hr 11/27/18 14:00 12/09/18 13: 48 Chloride IVPB 54 mls Q8HR IVIS Administration Potassium Chloride 30 meq/ 1,015 mls @ 75 mls/hr 12/03/18 22:30 12/09/18 03: 34 Sodium Chloride IV 1,015 mls .[id number] IVIS Administration Piperacillin Sod/Tazobactam 100 mls @ 200 mls/hr 12/04/18 02:00 12/09/18 09: 04 Sod 2.25 gm/ Sodium Chloride IVPB 100 mls 0200,0800,1400,2000 IVIS Administration Fat Emulsion Intravenous 250 2,130.0354 mls @ 88.751 mls/hr 12/05/18 22:00 22:25 ml/ Sodium Chloride 30 meq/ IV 2,130.0354 mls Potassium Chloride 20 meq/ INF IVIS Administration Potassium Phosphate 30 mmol/ Calcium Gluconate 10 meq/ Magnesium Sulfate 10 meq/ Multivitamins 10 ml/ Chromium/ Copper/Manganese/Seleni/Zn 5 ml/ Sodium Phosphate 40 mmol/ Amino Acids/ Dextrose/Water/ Sterile Water Micafungin Sodium 100 mg/ 100 mls @ 100 mls/hr 12/07/18 19:00 12/08/18 20:09 Sodium Chloride IVPB 100 mls 1900 [facility] Administration Morphine Sulfate 2 mg 12/04/18 00:44 12/06/18 15:12 Morphine SLOW IVP 2 mg Q2H PRN Administration Moderate Pain (4-6) Morphine Sulfate 4 mg 12/04/18 00:44 12/09/18 13:37 Morphine SLOW IVP 4 mg Q2H PRN Administration Severe Pain (7-10) Ondansetron HCl 4 mg 12/03/18 22:13 12/08/18 20:51 Zofran IVP 4 mg Q6H PRN Administration Nausea/Vomiting Scopolamine 3 mg 12/07/18 20:00 12/07/18 20:01 Transderm Scop TOP 3 mg Q3D@2000 [facility] Administration Sodium Chloride 10 ml 11/26/18 17:13 12/09/18 07:41 Flush - Normal Saline IVF 10 ml PRN PRN Administration Saline Flush - Exam General Appearance: NAD, awake alert Eye: PERRL, anicteric sclera Eye - other findings: EOMI ENT: dry oral mucosa Neck: supple, symmetric Heart: no murmur, no gallops, no rubs Heart - other findings: S1 and S2 present Respiratory: CTAB, no wheezes, no rales, no ronchi Gastrointestinal: soft, non-tender, normal bowel sounds, no guarding, no rigidity, distended Gastrointestinal - other findings: Obese Extremities: 1+ LE edema Skin: no lesions, no rashes Neurological: CN's grossly intact, no new deficit Musculoskeletal: generalized weakness Psychiatric: normal affect, A&O x 3 Hosp A/P (1) Bowel obstruction Code(s): K56.609 - UNSP INTESTNL OBST, UNSP TO PARTIAL VERSUS COMPLETE OBST Status: Acute (2) DM2 (diabetes mellitus, type 2) Status: Chronic Qualifiers: Diabetes mellitus termite exterminator helper insulin use: without termite exterminator helper use Diabetes mellitus complication status: without complication Qualified Code(s): E11.9 - Type 2 diabetes mellitus without complications (3) Esophageal adenocarcinoma Code(s): C15.9 - MALIGNANT NEOPLASM OF ESOPHAGUS, UNSPECIFIED Status: Chronic (4) Abdominal pain Code(s): R10.9 - UNSPECIFIED ABDOMINAL PAIN Status: Acute Qualifiers: Abdominal location: generalized Qualified Code(s): R10.84 - Generalized abdominal pain (5) Nausea & vomiting Code(s): R11.2 - NAUSEA WITH VOMITING, UNSPECIFIED Status: Acute (6) Sepsis Code(s): A41.9 - SEPSIS, UNSPECIFIED ORGANISM Status: Acute Qualifiers: Sepsis type: sepsis due to unspecified organism Sepsis acute organ dysfunction status: without acute organ dysfunction Qualified Code(s): A41.9 - Sepsis, unspecified organism - Plan Plan: Oncology Medically stable for LTAC placement, CM consult Pulm/ CC consultation, recommendations appreciated General surgery consultation, recommendations appreciated Palliative care consultation, recommendations appreciated Oncology consultation, recommendations appreciated ID consultation, recommendations appreciated Non functioning feeding tube removed in OR with bowel resection on 12/03/18 Continue NG tube for ileus Continue TPN PRN medications for N/V Pain control ABX/ antifungals per ID GI PPX DVT PPX Goals of care have been discussed multiple times, patient remains in denial about the severity of his medical condition Short and terminal clerk prognosis is guarded despite maximum medical/ surgical therapy will continue aggressive measures per patients wishes, not interested in DNR/ DNI
[2018-12-09] MEDS ORDERED: Acetaminophen 650 MG Suppository PR PRN (16:34)
--- NOTE | 2018-12-09 16:44 | PRG ---
DATE OF SERVICE: 12/09/2018 SUBJECTIVE: The patient is currently on the Oncology floor. He is status post diagnostic laparoscopy that was converted to laparotomy, lysis of adhesions, removal of feeding jejunostomy tube that was replaced with a feeding G-tube into the jejunum after a segmental small bowel resection and anastomosis. The patient has a history of metastatic esophageal cancer and recently a small bowel obstruction. The patient overnight reportedly had some issues with pain control, which we will address this morning. Otherwise, this morning, he is in relatively good spirits. OBJECTIVE: VITAL SIGNS: Temperature is 98.7, heart rate 93, blood pressure 147/94, respirations 22, and oxygen saturation 95% on room air. GENERAL: The patient is resting comfortably in bed. He states that he does have some abdominal pain, but otherwise he is appropriate. LUNGS: Clear to auscultation. HEART: Regular rate and rhythm. ABDOMEN: Soft, flat with absent bowel sounds. Postop dressing is clean, dry, and intact. LABORATORY FINDINGS: White blood cell count 8.6, hemoglobin 7.9, hematocrit 24.6, platelets 324. Sodium 138, potassium 4.0, chloride 110, CO2 of 22, BUN 22, creatinine 0.84, glucose 149. There are no radiographs reviewed this morning. ASSESSMENT: Status post diagnostic laparoscopy converted to laparotomy, lysis of adhesions, removal of feeding jejunostomy tube for segmental small bowel resection for anastomosis, placement of new feeding jejunostomy tube 20-British G-tube in the jejunum. PLAN: Plan will be to continue supportive care. The patient is being followed by the Medicine Service, Oncology, and Palliative Care. We will make adjustments to his pain medications to include add a fentanyl patch to his regimen and see if this improves his comfort. The patient was evaluated this morning with Dr. Rivas. Job ID: [id number]
[2018-12-09] MEDS ORDERED: Acetaminophen 1,000 MG in Premix Bag 1 BAG IVPB SCH (18:00)
[2018-12-09] MEDS ORDERED: Naloxone HCl 0.4 mg/ml Vial IV PRN (18:17)
[2018-12-09] MEDS ORDERED: Zolpidem Tartrate 5 MG TAB PO PRN (18:17)
[2018-12-09] MEDS ORDERED: Ondansetron PF 4 MG/2 ML Vial IVP PRN (18:17)
[2018-12-09] MEDS ORDERED: diphenhydrAMINE 25 MG CAP PO PRN (18:17)
[2018-12-09] MEDS ORDERED: Promethazine HCl 25 MG/ML VIAL IM PRN (18:17)
[2018-12-09] MEDS: Ketorolac Tromethamine 30 MG/ML VIAL IVP SCH (18:46)
[2018-12-09] MEDS: Acetaminophen 650 MG Suppository PR SCH ×2 (18:46→23:24)
[2018-12-09] MEDS: Micafungin 100 MG in Sodium Chloride 0.9% 100 ML IVPB SCH (18:48)
[2018-12-09] MEDS: fentaNYL Citrate/PF 2,000 MCG in Sodium Chloride 0.9% 60 ML IV PRN (18:54)
[2018-12-09] MEDS: FAT EMULSION IV SCH (22:42)
[2018-12-09] MEDS: [UNRECOGNIZED DRUG - OTHER] IV SCH (22:42)
[2018-12-09] MEDS: SODIUM CHLORIDE IV SCH (22:42)
[2018-12-09] MEDS: POTASSIUM CHLORIDE IV SCH (22:42)
[2018-12-10] MEDS: Ketorolac Tromethamine 30 MG/ML VIAL IVP SCH ×5 (00:43→23:33)
[2018-12-10] MEDS: Piperacillin/Tazobactam 2.25 GM in Sodium Chloride 0.9% 100 ML IVPB SCH ×4 (02:20→20:07)
--- NOTE | 2018-12-10 03:25 | EKG ---
Test Reason : Blood Pressure : / mmHG Vent. Rate : 114 BPM Atrial Rate : 114 BPM P-R Int : 122 ms QRS Dur : 072 ms QT Int : 336 ms P-R-T Axes : 052 -02 058 degrees QTc Int : 463 ms Sinus tachycardia Possible Left atrial enlargement Borderline ECG Confirmed by NAYE DE LA TORRE, DARRON ([id number]), video news editor ANNA PRO ([id number]) on 12/10/2018 3:24:51 AM Referred By: Confirmed By:DARRON YANCEY MD
[2018-12-10] MEDS: Acetaminophen 650 MG Suppository PR SCH ×2 (05:03→11:37)
[2018-12-10] MEDS: Ondansetron HCl/PF 8 MG in Sodium Chloride 0.9% 50 ML IVPB SCH ×3 (05:41→21:17)
[2018-12-10] MEDS: Enoxaparin Sodium 40 MG/0.4 ML SYRINGE SC SCH (10:37)
--- NOTE | 2018-12-10 11:36 | PDOC.HOSPP ---
- Subjective Subjective: Seen and examined. Clinically unchanged. On morphine [employer] per Palliative care. Pain better controlled. Dark output in NG tube, surgery on case. No BM, remains with ileus. Remains on TPN. - Objective Vital Signs & Weight: Vital Signs (12 hours) Temp Pulse Resp BP Pulse Ox 12/10/18 08:27 98.4 F 85 24 H 147/98 H 96 12/10/18 04:19 98.4 F 95 16 140/91 H 94 L 12/10/18 00:14 98.8 F 88 16 154/101 H 95 Weight Admit Weight 217 lb 8 oz Weight 235 lb 11.2 oz Most Recent Monitor Data Heart Rate from ECG 99 NIBP 135/92 NIBP BP-Mean 106 Respiration from ECG 26 SpO2 100 I&O: 12/09/18 12/10/18 12/11/18 06:59 06:59 06:59 Intake Total 1676.3 3653 Output Total 1655 3050 Balance 21.3 603 Result Diagrams: 12/09/18 03:50 12/09/18 03:30 Additional Labs: Accuchecks 12/10/18 12/09/18 12/09/18 04:54 20:54 16:29 POC Glucose 170 H 158 H 167 H 12/09/18 11:28 POC Glucose 166 H Hospitalist ROS - Review of Systems All other systems reviewed; all pertinent +/- noted in HPI/Subj - Medication Medications: Active Medications Generic Name Dose Route Start Last Admin Trade Name Freq PRN Reason Stop Dose Admin Enoxaparin Sodium 40 mg 11/27/18 09:00 12/10/18 10:37 Lovenox SC 40 mg 0900 IV[facility] Administration Fentanyl 50 mcg 12/09/18 12:00 12/09/18 11:46 Duragesic TD 50 mcg Q3D IVIS Administration Ondansetron HCl 8 mg/ Sodium 54 mls @ 200 mls/hr 11/27/18 14:00 12/10/18 05: 41 Chloride IVPB 54 mls Q8HR IVIS Administration Potassium Chloride 30 meq/ 1,015 mls @ 75 mls/hr 12/03/18 22:30 12/09/18 20: 58 Sodium Chloride IV 1,015 mls .[id number] IVIS Administration Piperacillin Sod/Tazobactam 100 mls @ 200 mls/hr 12/04/18 02:00 12/10/18 10: 36 Sod 2.25 gm/ Sodium Chloride IVPB 100 mls 0200,0800,1400,2000 [facility]IS Administration Fat Emulsion Intravenous 250 2,130.0354 mls @ 88.751 mls/hr 12/05/18 22:00 22:42 ml/ Sodium Chloride 30 meq/ IV 2,130.0354 mls Potassium Chloride 20 meq/ INF IVIS Administration Potassium Phosphate 30 mmol/ Calcium Gluconate 10 meq/ Magnesium Sulfate 10 meq/ Multivitamins 10 ml/ Chromium/ Copper/Manganese/Seleni/Zn 5 ml/ Sodium Phosphate 40 mmol/ Amino Acids/ Dextrose/Water/ Sterile Water Micafungin Sodium 100 mg/ 100 mls @ 100 mls/hr 12/07/18 19:00 12/09/18 18:48 Sodium Chloride IVPB 100 mls 1900 [facility] Administration Fentanyl Citrate 2,000 mcg/ 100 mls @ 0 mls/hr 12/09/18 18:17 12/09/18 18:54 Sodium Chloride IV 100 mls INF PRN Administration Pain As Directed Ketorolac Tromethamine 15 mg 12/09/18 18:00 12/10/18 05:40 Toradol IVP 12/14/18 18:01 15 mg Q6HR IVIS Administration Scopolamine 3 mg 12/07/18 20:00 12/07/18 20:01 Transderm Scop TOP 3 mg Q3D@2000 IVIS Administration Sodium Chloride 10 ml 11/26/18 17:13 12/09/18 07:41 Flush - Normal Saline IVF 10 ml PRN PRN Administration Saline Flush - Exam General Appearance: NAD, awake alert Eye: PERRL, anicteric sclera ENT: no oropharyngeal lesions, moist mucosa Neck: supple, no lymphadenopathy Heart: no murmur, no gallops, no rubs Heart - other findings: S1 and S2 present Respiratory: CTAB, no wheezes, no rales Gastrointestinal: soft, non-tender, no palpable masses, no guarding, no rigidity , distended Extremities: 1+ LE edema Skin: no lesions, no rashes Neurological: CN's grossly intact, no focal deficits Musculoskeletal: generalized weakness Psychiatric: normal affect, A&O x 3 Hosp A/P (1) Bowel obstruction Code(s): K56.609 - UNSP INTESTNL OBST, UNSP TO PARTIAL VERSUS COMPLETE OBST Status: Acute (2) DM2 (diabetes mellitus, type 2) Status: Chronic Qualifiers: Diabetes mellitus fdc insulin use: without fdc use Diabetes mellitus complication status: without complication Qualified Code(s): E11.9 - Type 2 diabetes mellitus without complications (3) Esophageal adenocarcinoma Code(s): C15.9 - MALIGNANT NEOPLASM OF ESOPHAGUS, UNSPECIFIED Status: Chronic (4) Abdominal pain Code(s): R10.9 - UNSPECIFIED ABDOMINAL PAIN Status: Acute Qualifiers: Abdominal location: generalized Qualified Code(s): R10.84 - Generalized abdominal pain (5) Nausea & vomiting Code(s): R11.2 - NAUSEA WITH VOMITING, UNSPECIFIED Status: Acute (6) Sepsis Code(s): A41.9 - SEPSIS, UNSPECIFIED ORGANISM Status: Acute Qualifiers: Sepsis type: sepsis due to unspecified organism Sepsis acute organ dysfunction status: without acute organ dysfunction Qualified Code(s): A41.9 - Sepsis, unspecified organism - Plan Plan: Oncology floor Medically stable for LTAC placement, CM consult Pulm/ CC consultation, recommendations appreciated General surgery consultation, recommendations appreciated Palliative care consultation, recommendations appreciated Oncology consultation, recommendations appreciated ID consultation, recommendations appreciated Non functioning feeding tube removed in OR with bowel resection on 12/03/18 Continue NG tube for ileus Continue TPN PRN medications for N/V Pain control ABX/ antifungals per ID GI PPX DVT PPX Pain management per Palliative care, on [employer] Goals of care have been discussed multiple times, patient remains in denial about the severity of his medical condition Short and ocean transportation intermediary prognosis is guarded despite maximum medical/ surgical therapy will continue aggressive measures per patients wishes, not interested in DNR/ DNI
[2018-12-10] MEDS: Nystatin 500,000 UNITS/5 ML UDCUP SSW SCH ×4 (13:25→21:23)
--- NOTE | 2018-12-10 17:16 | PRG ---
DATE OF SERVICE: 12/10/2018 SUBJECTIVE: The patient is currently on the Oncology floor. He is status post diagnostic laparoscopy that was converted to laparotomy, lysis of adhesions, removal of feeding jejunostomy tube that was replaced with feeding G-tube into the jejunum after a segmental small bowel resection and anastomosis. The patient yesterday had issues with pain control, which we discussed with anesthesia and they were able to get him a MANUFACTURING FINANCE MANAGER, which is greatly improved his pain management. Otherwise, the patient reports no issues. He states that he has been out of bed since yesterday. We discussed with the nurse getting mobilize a little bit more. OBJECTIVE: VITAL SIGNS: Temperature is 98.4, heart rate 85, blood pressure is 147/98, respirations 24, and oxygen saturation is 96% on room air. GENERAL: The patient is resting comfortably in bed. He states that his pain is much better controlled and got some rest last night. LUNGS: Clear to auscultation bilaterally. HEART: Regular rate and rhythm. ABDOMEN: Soft with absent bowel sounds. Still postop dressings are clean, dry, and intact. LABORATORY DATA: There are no labs or radiographs to review this morning. ASSESSMENT AND PLAN: Status post diagnostic laparoscopy converted to laparotomy, lysis of adhesions, removal of feeding jejunostomy tube for segmental small bowel resection for anastomosis, placement of new feeding jejunostomy tube with a 20-[place] G-tube in the jejunum. The patient will be continue supportive care and pain management per the primary team, augmented with the MANUFACTURING FINANCE MANAGER. The patient is also being followed by the Medicine service, Oncology, and Palliative Care. Job ID: [id number]
[2018-12-10] MEDS: Potassium Chloride 30 MEQ in Sodium Chloride 0.9% 1,000 ML IV SCH (18:02)
--- NOTE | 2018-12-10 18:18 | PRG ---
DATE OF SERVICE: 12/10/2018 The patient is seen and examined. No new complaint. Hemodynamically stable. Renal function seems to have improved back to baseline. Therefore, at this point, we will sign out at this point. Job ID: [id number]
[2018-12-10] MEDS: Micafungin 100 MG in Sodium Chloride 0.9% 100 ML IVPB SCH (20:04)
[2018-12-10] MEDS: Scopolamine 1.5 mg/72 hour Patch TOP SCH (21:17)
[2018-12-10] MEDS: [UNRECOGNIZED DRUG - OTHER] IV SCH (22:19)
[2018-12-10] MEDS: POTASSIUM CHLORIDE IV SCH (22:19)
[2018-12-10] MEDS: SODIUM CHLORIDE IV SCH (22:19)
[2018-12-10] MEDS: FAT EMULSION IV SCH (22:19)
[2018-12-11] MEDS: Piperacillin/Tazobactam 2.25 GM in Sodium Chloride 0.9% 100 ML IVPB SCH ×2 (01:19→09:27)
[2018-12-11] MEDS: Potassium Chloride 30 MEQ in Sodium Chloride 0.9% 1,000 ML IV SCH ×2 (05:03→15:54)
[2018-12-11] MEDS: Ketorolac Tromethamine 30 MG/ML VIAL IVP SCH ×4 (05:11→23:50)
[2018-12-11] MEDS: Ondansetron HCl/PF 8 MG in Sodium Chloride 0.9% 50 ML IVPB SCH (05:11)
--- NOTE | 2018-12-11 08:09 | PDOC.PALPN ---
Palliative Progress Note - Subjective Continues with minimal pain generalized to abdomen, but states improved with WORKERS COMPENSATION ATTORNEY pump. No intake, no BM. - Objective Vital Signs: Vital Signs - Most Recent Temp Pulse Resp BP Pulse Ox 98.7 F 89 16 156/90 H 94 L 12/10/18 23:39 12/10/18 23:39 12/10/18 23:39 12/10/18 23:39 12/10/18 23:39 - Physical Exam Constitutional: mild distress HEENT: moist MMs, EOMI Deviation from normal: Mild push of speech with conversation Cardiovascular: RRR Deviation from normal: Distended, tympani on percussion Musculoskeletal: pulses present Neurological: moves all 4 limbs Psychiatric: A&O x 3 Skin: no rash, cap refill <2 seconds - Assessment (1) JUAN (acute kidney injury) Code(s): N17.9 - ACUTE KIDNEY FAILURE, UNSPECIFIED Current Visit: Yes Status : Acute (2) Palliative care encounter Code(s): Z51.5 - ENCOUNTER FOR PALLIATIVE CARE Current Visit: No Status: Acute (3) Sepsis Code(s): A41.9 - SEPSIS, UNSPECIFIED ORGANISM Current Visit: No Status: Acute Qualifiers: Sepsis type: sepsis due to unspecified organism Sepsis acute organ dysfunction status: without acute organ dysfunction Qualified Code(s): A41.9 - Sepsis, unspecified organism (4) Chronic hepatitis C Code(s): B18.2 - CHRONIC VIRAL HEPATITIS C Current Visit: No Status: Chronic Qualifiers: Hepatic coma status: without hepatic coma Qualified Code(s): B18.2 - Chronic viral hepatitis C (5) Dysphagia Code(s): R13.10 - DYSPHAGIA, UNSPECIFIED Current Visit: No Status: Chronic Qualifiers: (6) Esophageal adenocarcinoma Code(s): C15.9 - MALIGNANT NEOPLASM OF ESOPHAGUS, UNSPECIFIED Current Visit: No Status: Chronic - Plan Plan: *Remains with full resuscitation measures in place. *Continue with scopo patch to improve oral secretions. *Will reach out to Volunteer services for patient interaction. [40] minutes spent on this encounter with >50% of the time in counseling and coordination of care.
[2018-12-11] MEDS: Nystatin 500,000 UNITS/5 ML UDCUP SSW SCH ×4 (09:30→20:02)
[2018-12-11] MEDS: Enoxaparin Sodium 40 MG/0.4 ML SYRINGE SC SCH (09:48)
[2018-12-11] MEDS: fentaNYL Citrate/PF 2,000 MCG in Sodium Chloride 0.9% 60 ML IV PRN (10:58)
--- NOTE | 2018-12-11 11:49 | PRG ---
DATE OF SERVICE: 12/11/2018 SUBJECTIVE: Mr. Frost is doing well today. He has been moved to the Oncology. He has still not had any bowel movements. Gastric drainage is 1350 mL for 24 hours. OBJECTIVE: LUNGS: Clear to auscultation. CARDIAC: Regular rate and rhythm without murmur or gallop. ABDOMEN: Soft, quiet. No significant bowel sounds. EXTREMITIES: Unremarkable. VITAL SIGNS: Temperature 98.3 degrees, pulse 88, and blood pressure 147/91. I asked him today his code status preference. He desires DNR status. No intubation. No defibrillation. However, his family has met with Palliative Care on several occasions and has been very accusatory and want him to be a full code. His code status has not been resolved for that reason. ASSESSMENT AND PLAN: Ileus. Continue NG tube, TPN, sips and chips. Await bowel function as noted previously. CT enterography contrast through his jejunum beyond the ligament of Treitz backed up into a stomach on previous radiological imaging and I believe his gastric outlet is not obstructed and he has an ileus. Job ID: [id number]
--- NOTE | 2018-12-11 11:52 | PDOC.HOSPP ---
- Subjective Subjective: Seen and examined. Clinically unchanged. NG tube in position, TPN going. MOLD MAKER PLASTIC MOLDS pump for pain control per Palliative care. No BM. - Objective Vital Signs & Weight: Vital Signs (12 hours) Temp Pulse Resp BP Pulse Ox 12/11/18 08:00 98.3 F 88 20 147/91 H 95 Weight Admit Weight 217 lb 8 oz Weight 235 lb 11.2 oz Most Recent Monitor Data Heart Rate from ECG 99 NIBP 135/92 NIBP BP-Mean 106 Respiration from ECG 26 SpO2 100 I&O: 12/10/18 12/11/18 12/12/18 06:59 06:59 06:59 Intake Total 3653 1900 Output Total 3050 2750 Balance 603 -850 Result Diagrams: 12/09/18 03:50 12/09/18 03:30 Additional Labs: Accuchecks 12/11/18 12/11/18 12/10/18 10:55 05:15 20:18 POC Glucose 174 H 186 H 155 H 12/10/18 12/10/18 16:45 11:07 POC Glucose 167 H 172 H Hospitalist ROS - Review of Systems All other systems reviewed; all pertinent +/- noted in HPI/Subj - Medication Medications: Active Medications Generic Name Dose Route Start Last Admin Trade Name Freq PRN Reason Stop Dose Admin Enoxaparin Sodium 40 mg 11/27/18 09:00 12/11/18 09:48 Lovenox SC 40 mg 0900 IVIS Administration Fentanyl 50 mcg 12/09/18 12:00 12/09/18 11:46 Duragesic TD 50 mcg Q3D IVIS Administration Potassium Chloride 30 meq/ 1,015 mls @ 75 mls/hr 12/03/18 22:30 12/11/18 05: 03 Sodium Chloride IV Not Given .[id number] IVIS Piperacillin Sod/Tazobactam 100 mls @ 200 mls/hr 12/04/18 02:00 12/11/18 09: 27 Sod 2.25 gm/ Sodium Chloride IVPB 100 mls 0200,0800,1400,2000 IVIS Administration Fat Emulsion Intravenous 250 2,130.0354 mls @ 88.751 mls/hr 12/05/18 22:00 22:19 ml/ Sodium Chloride 30 meq/ IV 2,130.0354 mls Potassium Chloride 20 meq/ INF IVIS Administration Potassium Phosphate 30 mmol/ Calcium Gluconate 10 meq/ Magnesium Sulfate 10 meq/ Multivitamins 10 ml/ Chromium/ Copper/Manganese/Seleni/Zn 5 ml/ Sodium Phosphate 40 mmol/ Amino Acids/ Dextrose/Water/ Sterile Water Micafungin Sodium 100 mg/ 100 mls @ 100 mls/hr 12/07/18 19:00 12/10/18 20:04 Sodium Chloride IVPB 100 mls 1900 IVIS Administration Fentanyl Citrate 2,000 mcg/ 100 mls @ 0 mls/hr 12/09/18 18:17 12/11/18 10:58 Sodium Chloride IV 100 mls INF PRN Administration Pain As Directed Ketorolac Tromethamine 15 mg 12/09/18 18:00 12/11/18 11:40 Toradol IVP 12/14/18 18:01 15 mg Q6HR IVIS Administration Nystatin 500,000 units 12/10/18 09:00 12/11/18 09:30 Mycostatin SSW 500,000 units QID IVIS Administration Scopolamine 3 mg 12/07/18 20:00 12/10/18 21:17 Transderm Scop TOP 3 mg Q3D@2000 IVIS Administration Sodium Chloride 10 ml 11/26/18 17:13 12/09/18 07:41 Flush - Normal Saline IVF 10 ml PRN PRN Administration Saline Flush - Exam General Appearance: NAD, awake alert Eye: anicteric sclera ENT: no oropharyngeal lesions, moist mucosa Neck: supple, symmetric, no lymphadenopathy Heart: no murmur, no gallops, no rubs Heart - other findings: S1 and S2 present Respiratory: CTAB, no wheezes, no rales, no ronchi Gastrointestinal: soft, non-tender, non-distended, no guarding, no rigidity Extremities: no clubbing, no edema Skin: no lesions, no rashes Neurological: CN's grossly intact, normal sensation to touch, no focal deficits Musculoskeletal: generalized weakness Psychiatric: normal affect, A&O x 3 Hosp A/P (1) Bowel obstruction Code(s): K56.609 - UNSP INTESTNL OBST, UNSP TO PARTIAL VERSUS COMPLETE OBST Status: Acute (2) DM2 (diabetes mellitus, type 2) Status: Chronic Qualifiers: Diabetes mellitus intermediate teacher insulin use: without [place] [facility] use Diabetes mellitus complication status: without complication Qualified Code(s): E11.9 - Type 2 diabetes mellitus without complications (3) Esophageal adenocarcinoma Code(s): C15.9 - MALIGNANT NEOPLASM OF ESOPHAGUS, UNSPECIFIED Status: Chronic (4) Abdominal pain Code(s): R10.9 - UNSPECIFIED ABDOMINAL PAIN Status: Acute Qualifiers: Abdominal location: generalized Qualified Code(s): R10.84 - Generalized abdominal pain (5) Nausea & vomiting Code(s): R11.2 - NAUSEA WITH VOMITING, UNSPECIFIED Status: Acute (6) Sepsis Code(s): A41.9 - SEPSIS, UNSPECIFIED ORGANISM Status: Acute Qualifiers: Sepsis type: sepsis due to unspecified organism Sepsis acute organ dysfunction status: without acute organ dysfunction Qualified Code(s): A41.9 - Sepsis, unspecified organism - Plan Plan: Oncology floor Medically stable for LTAC placement, CM consult General surgery consultation, recommendations appreciated Palliative care consultation, recommendations appreciated Oncology consultation, recommendations appreciated ID consultation, recommendations appreciated NG tube per Sugery Pain control/ MOLD MAKER PLASTIC MOLDS per Palliative care Non functioning feeding tube removed in OR with bowel resection on 12/03/18 Continue TPN ABX/ antifungals per ID GI PPX DVT PPX Pain management per Palliative care, on MOLD MAKER PLASTIC MOLDS Goals of care have been discussed multiple times, patient remains in denial about the severity of his medical condition Short and rat exterminator prognosis is guarded despite maximum medical/ surgical therapy will continue aggressive measures per patients wishes, not interested in DNR/ DNI
[2018-12-11] MEDS: Ondansetron PF 4 MG/2 ML Vial IVP PRN ×2 (12:55→23:50)
--- NOTE | 2018-12-11 14:59 | PDOC.MOPN ---
Interval History: Patient now on fentanyl RELIABILITY TECHNOLOGIST for pain, pain controlled. - Vital Signs Vital Signs: Vital Signs (12 hours) Temp Pulse Resp BP Pulse Ox 12/11/18 12:27 98.4 F 86 22 H 148/95 H 94 L 12/11/18 08:00 98.3 F 88 20 147/91 H 95 Weight Admit Weight 217 lb 8 oz Weight 235 lb 11.2 oz Most Recent Monitor Data Heart Rate from ECG 99 NIBP 135/92 NIBP BP-Mean 106 Respiration from ECG 26 SpO2 100 - Physical Exam General: Alert, Oriented x3, No acute distress HEENT: Atraumatic, PERRLA, EOMI, Mucous membr. moist/pink Lungs: Clear to auscultation, Normal air movement Cardiovascular: Regular rate, Normal S1, Normal S2, No murmurs, Gallops, Rubs Abdomen: Other Skin: No significant lesion Neurological: Normal speech Psych/Mental Status: Mental status NL - Labs Result Diagrams: 12/09/18 03:50 12/09/18 03:30 Lab results: Laboratory Results - last 24 hr 12/11/18 10:55: POC Glucose 174 H 12/11/18 05:15: POC Glucose 186 H 12/10/18 20:18: POC Glucose 155 H 12/10/18 16:45: POC Glucose 167 H Status: lab reviewed by me A/P - Problem (1) Esophageal adenocarcinoma Current Visit: No Code(s): C15.9 - MALIGNANT NEOPLASM OF ESOPHAGUS, UNSPECIFIED Status: Chronic (2) Bowel obstruction Current Visit: Yes Code(s): K56.609 - UNSP INTESTNL OBST, UNSP TO PARTIAL VERSUS COMPLETE OBST Status: Acute - Plan Plan: No further chemotherapy Continue pain and wound management TPN remains on Attempting to place in LTAC
[2018-12-11] MEDS: Micafungin 100 MG in Sodium Chloride 0.9% 100 ML IVPB SCH (19:22)
[2018-12-11] MEDS: diphenhydrAMINE 50 MG/ML VIAL IM/IV PRN (21:50)
[2018-12-11] MEDS: FAT EMULSION IV SCH (22:56)
[2018-12-11] MEDS: SODIUM CHLORIDE IV SCH (22:56)
[2018-12-11] MEDS: POTASSIUM CHLORIDE IV SCH (22:56)
[2018-12-11] MEDS: [UNRECOGNIZED DRUG - OTHER] IV SCH (22:56)
--- NOTE | 2018-12-12 03:35 | PRG ---
DATE OF SERVICE: 12/11/2018 SUBJECTIVE: The patient noted with the following vital signs. OBJECTIVE: VITAL SIGNS: Afebrile with temperature 98.5, pulse 90, respiratory rate of 20, O2 saturation 94% with blood pressure 147/90. IMPRESSION: Acute on chronic kidney disease Continue current renal supportive measures. Further management to be dependent on the primary team. Job ID: [id number]
[2018-12-12 04:41] LABS: #Basophils 0.1 thou/uL (0.0-0.2); #Eosinphils 0.5 thou/uL (0.0-0.7); #Lymphocytes 1.7 thou/uL (1.20-3.40); #Monocytes 1.3 thou/uL (0.11-0.59); #Neutrophils 9.9 thou/uL (1.40-6.50); %Basophils 0.7 % (0.0-1.0); %Eosinophils 3.8 % (0.0-10.0); %Lymphocytes 12.5 % (21.0-51.0); %Monocytes 9.8 % (0.0-10.0); %Neutrophils 73.1 % (42.0-75.0); Hemoglobin 7.9 g/dL (14.0-18.0); Mean Corpuscular HGB CONC 32.2 g/dL (32.0-36.0); Mean Corpuscular Hemoglobin 30.6 pg (27.0-31.0); Mean Corpuscular Volume 94.9 fL (78.0-98.0); Mean Platelet Volume 8.1 fL (7.4-10.4); Platelet Count 395 thou/uL (130-400); RBC Distribution Width 15.1 % (11.5-14.5); Red Blood Cell (RBC) Count 2.59 mill/uL (4.70-6.10); White Blood Cell (WBC) Count 13.5 thou/uL (4.8-10.8)
[2018-12-12] MEDS: Ketorolac Tromethamine 30 MG/ML VIAL IVP SCH (05:01)
[2018-12-12 05:03] LABS: ALT (SGPT) 14 U/L (8-55); AST (SGOT) 29 U/L (5-34); Albumin 2.1 g/dL (3.4-4.8); Alkaline Phosphatase 195 U/L (40-150); Anion Gap 12 mmol/L (10-20); BUN (Urea Nitrogen) 19 mg/dL (8.4-25.7); Bilirubin, Total 0.7 mg/dL (0.2-1.2); Calc. Creatinine Clearance 145 mL/min (70-130); Carbon Dioxide 19 mmol/L (23-31); Chloride 108 mmol/L (98-107); Estimated GFR-MDRD Greater than 90; Globulin 4.1 g/dL (2.4-3.5); Glucose 183 mg/dL (80-115); Magnesium 1.7 mg/dL (1.6-2.6); Phosphorus 3.8 mg/dL (2.3-4.7); Potassium 4.2 mmol/L (3.5-5.1); Protein, Total 6.2 g/dL (5.8-8.1); Sodium 135 mmol/L (136-145)
[2018-12-12] MEDS: Potassium Chloride 30 MEQ in Sodium Chloride 0.9% 1,000 ML IV SCH ×2 (05:18→19:30)
--- NOTE | 2018-12-12 07:55 | RAD ---
XR Chest 1 View Portable History: Blood and lungs Comparison: Radiograph December 04, 2018 Findings: Enlarging bilateral pleural effusions. Port catheter tip mid SVC. Left subclavian central v enous catheter tip mid to lower SVC. Enteric tube tip not well seen. Impression: 1. Enlarging bilateral effusions from the comparison examination. 2. Enteric tube tip not well seen. Abdominal radiograph recommended.
[2018-12-12] MEDS: Enoxaparin Sodium 40 MG/0.4 ML SYRINGE SC SCH (10:22)
[2018-12-12] MEDS: Nystatin 500,000 UNITS/5 ML UDCUP SSW SCH ×4 (10:23→21:13)
[2018-12-12] MEDS ORDERED: fentaNYL 75 mcg/hour Patch TD SCH (12:00)
[2018-12-12] MEDS ORDERED: fentaNYL 50 mcg/hour Patch TD SCH ×2 (12:00)
[2018-12-12] MEDS ORDERED: Acetaminophen 1,000 MG in Premix Bag 1 BAG IVPB SCH (12:15)
--- NOTE | 2018-12-12 12:33 | PRG ---
DATE OF SERVICE: 12/12/2018 SUBJECTIVE: Aggie Frost is on oncology floor. Today, he is 9 days status post operative intervention for 4 separate small bowel resections, revision of his feeding jejunostomy. He still has NG tube output in the last 24 hours of 1300. Urine output is good. OBJECTIVE: LUNGS: Clear to auscultation. CARDIAC: Regular rate and rhythm without murmur or gallop. ABDOMEN: Soft. Occasional bowel sounds, but rare. EXTREMITIES: Unremarkable. The patient has episodes of pain once or twice a day. This seems to be severe. He then settles down and seems to do well. He seems to do better with the family and nurses around. White count 13 and hemoglobin 7.9. Basic metabolic profile normal. ASSESSMENT AND PLAN: Metastatic esophageal cancer. Prolonged ileus. I will make efforts to talk to his sister, Marita, today. The patient desires DNR, but his family states otherwise, Palliative Care was talked with him, and he has had difficulty communicating with him. Family is accusatory both in person and through social media. Consideration of CAT scan can be given. Await family discussions. Job ID: [id number]
[2018-12-12] MEDS ORDERED: Ketorolac Tromethamine 30 MG/ML VIAL ONE (12:40)
[2018-12-12] MEDS: Ketorolac Tromethamine 30 MG/ML VIAL IVP PRN ×3 (12:46→23:55)
--- NOTE | 2018-12-12 13:17 | PDOC.HOSPP ---
- Subjective Subjective: Seen and examined. Patient is angry and upset at his situation. Patient agitated and states he's about ready to "knock someone out". Patient upset because he is seeing a small amount of blood in his spit up, with NG tube with 1300cc output. Patient was again told that these are expected problems for someone with adenocarcinoma of the esophagus with metastasis. Again was advised that prognosis is poor despite maximum medical and surgical treatment. I again recommended less aggressive measures. Time was given to ask questions. - Objective Vital Signs & Weight: Vital Signs (12 hours) Temp Pulse Pulse Resp BP BP Pulse Ox 12/12/18 12:56 98.5 F 123 H 28 H 138/95 H 93 L 12/12/18 09:21 96 142/95 H 12/12/18 07:27 98.6 F 97 28 H 147/97 H 97 12/12/18 06:00 98.5 F 12/12/18 03:49 99 F 102 H 18 146/96 H 92 L Weight Admit Weight 217 lb 8 oz Weight 235 lb 11.2 oz Most Recent Monitor Data Heart Rate from ECG 99 NIBP 135/92 NIBP BP-Mean 106 Respiration from ECG 26 SpO2 100 I&O: 12/11/18 12/12/18 12/13/18 06:59 06:59 06:59 Intake Total 1900 1630 Output Total 2750 3390 Balance -850 -1760 Result Diagrams: 12/12/18 04:34 12/12/18 04:34 Additional Labs: Accuchecks 12/11/18 12/11/18 19:25 16:21 POC Glucose 153 H 170 H Radiology Reviewed by me: Yes (Chest xray) Hospitalist ROS - Review of Systems All other systems reviewed; all pertinent +/- noted in HPI/Subj - Medication Medications: Active Medications Generic Name Dose Route Start Last Admin Trade Name Freq PRN Reason Stop Dose Admin Diphenhydramine HCl 25 mg 12/09/18 18:17 12/11/18 21:50 Benadryl IM/IV 25 mg Q3H PRN Administration Itching Enoxaparin Sodium 40 mg 11/27/18 09:00 12/12/18 10:22 Lovenox SC 40 mg 0900 IVIS Administration Fentanyl 75 mcg 12/12/18 12:00 12/12/18 12:24 Duragesic TD 75 mcg Q3D IVIS Administration Potassium Chloride 30 meq/ 1,015 mls @ 75 mls/hr 12/03/18 22:30 12/12/18 05: 18 Sodium Chloride IV 1,015 mls .[id number] IVIS Administration Fat Emulsion Intravenous 250 2,130.0354 mls @ 88.751 mls/hr 12/05/18 22:00 22:56 ml/ Sodium Chloride 30 meq/ IV 12/12/18 22:00 2,130.0354 mls Potassium Chloride 20 meq/ INF IVIS Administration Potassium Phosphate 30 mmol/ Calcium Gluconate 10 meq/ Magnesium Sulfate 10 meq/ Multivitamins 10 ml/ Chromium/ Copper/Manganese/Seleni/Zn 5 ml/ Sodium Phosphate 40 mmol/ Amino Acids/ Dextrose/Water/ Sterile Water Micafungin Sodium 100 mg/ 100 mls @ 100 mls/hr 12/07/18 19:00 12/11/18 19:22 Sodium Chloride IVPB 100 mls 1900 IVIS Administration Ketorolac Tromethamine 15 mg 12/12/18 12:43 12/12/18 12:46 Toradol IVP 12/17/18 12:44 15 mg Q6H PRN Administration Pain Nystatin 500,000 units 12/10/18 09:00 12/12/18 10:23 Mycostatin SSW 500,000 units QID IVIS Administration Ondansetron HCl 4 mg 12/11/18 11:41 12/11/18 23:50 Zofran IVP 4 mg Q6H PRN Administration Nausea/Vomiting Scopolamine 3 mg 12/07/18 20:00 12/10/18 21:17 Transderm Scop TOP 3 mg Q3D@2000 IVIS Administration Sodium Chloride 10 ml 11/26/18 17:13 12/09/18 07:41 Flush - Normal Saline IVF 10 ml PRN PRN Administration Saline Flush - Exam General Appearance: NAD, awake alert Eye: anicteric sclera ENT: no oropharyngeal lesions, moist mucosa Neck: supple, symmetric, no lymphadenopathy Heart: no murmur, no gallops, no rubs Heart - other findings: S1 and S2 present Respiratory: no wheezes, no rales, no ronchi Respiratory - other findings: Decreased breath sounds lower lung estevez, consistent with pleural effusion Gastrointestinal: soft, no guarding, no rigidity, tender to palpation Gastrointestinal - other findings: NG tube in place with output Extremities: 1+ LE edema Skin: no lesions, no rashes Neurological: CN's grossly intact, no focal deficits Musculoskeletal: generalized weakness Psychiatric: normal affect, oriented to person, oriented to place Hosp A/P (1) Bowel obstruction Code(s): K56.609 - UNSP INTESTNL OBST, UNSP TO PARTIAL VERSUS COMPLETE OBST Status: Acute (2) DM2 (diabetes mellitus, type 2) Status: Chronic Qualifiers: Diabetes mellitus termite control servicer insulin use: without termite control servicer use Diabetes mellitus complication status: without complication Qualified Code(s): E11.9 - Type 2 diabetes mellitus without complications (3) Esophageal adenocarcinoma Code(s): C15.9 - MALIGNANT NEOPLASM OF ESOPHAGUS, UNSPECIFIED Status: Chronic (4) Abdominal pain Code(s): R10.9 - UNSPECIFIED ABDOMINAL PAIN Status: Acute Qualifiers: Abdominal location: generalized Qualified Code(s): R10.84 - Generalized abdominal pain (5) Nausea & vomiting Code(s): R11.2 - NAUSEA WITH VOMITING, UNSPECIFIED Status: Acute (6) Sepsis Code(s): A41.9 - SEPSIS, UNSPECIFIED ORGANISM Status: Acute Qualifiers: Sepsis type: sepsis due to unspecified organism Sepsis acute organ dysfunction status: without acute organ dysfunction Qualified Code(s): A41.9 - Sepsis, unspecified organism - Plan Plan: Oncology floor Medically stable for LTAC placement, CM consult General surgery consultation, recommendations appreciated Palliative care consultation, recommendations appreciated Oncology consultation, recommendations appreciated ID consultation, recommendations appreciated NG tube per Sugery Pain control/ FLY RAIL OPERATOR per Palliative care Non functioning feeding tube removed in OR with bowel resection on 12/03/18 Continue TPN ABX/ antifungals per ID GI PPX DVT PPX Pain management per Palliative care, need better termite control servicer control - increased Fentanyl transdermal - Plan to increase tomorrow if still not controlled Pleural effusions present, will continue to monitor Goals of care have been discussed multiple times, patient remains in denial about the severity of his medical condition Short and skilled nursing prognosis is guarded despite maximum medical/ surgical therapy will continue aggressive measures per patients wishes, not interested in DNR/ DNI
[2018-12-12] MEDS: Haloperidol Lactate 5 MG/ML VIAL IM PRN ×2 (14:13→22:16)
[2018-12-12] MEDS: Ondansetron PF 4 MG/2 ML Vial IVP PRN (15:01)
[2018-12-12] MEDS ORDERED: Ketorolac Tromethamine 30 MG/ML VIAL IVP SCH (18:00)
[2018-12-12] MEDS: Micafungin 100 MG in Sodium Chloride 0.9% 100 ML IVPB SCH (18:22)
[2018-12-12] MEDS: Acetaminophen 1,000 MG in Premix Bag 1 BAG IVPB PRN (22:10)
[2018-12-12] MEDS: [UNRECOGNIZED DRUG - OTHER] IV SCH (22:13)
[2018-12-12] MEDS: FAT EMULSION IV SCH (22:13)
[2018-12-12] MEDS: SODIUM ACETATE IV SCH (22:13)
[2018-12-12] MEDS: SODIUM PHOSPHATE IV SCH (22:13)
[2018-12-12] MEDS: diphenhydrAMINE 50 MG/ML VIAL IM/IV PRN (23:55)
[2018-12-13] MEDS ORDERED: Lorazepam 2 MG/ML VIAL SLOW IVP SCH (01:15)
[2018-12-13] MEDS: diphenhydrAMINE 50 MG/ML VIAL IM/IV PRN ×2 (02:30→05:12)
[2018-12-13] MEDS: Acetaminophen 1,000 MG in Premix Bag 1 BAG IVPB PRN (04:04)
[2018-12-13] MEDS: Potassium Chloride 30 MEQ in Sodium Chloride 0.9% 1,000 ML IV SCH ×2 (05:12→23:33)
[2018-12-13] MEDS: Ketorolac Tromethamine 30 MG/ML VIAL IVP PRN ×2 (05:16→12:38)
[2018-12-13] MEDS ORDERED: Morphine 4 MG/ML VIAL SLOW IVP PRN (08:05)
[2018-12-13] MEDS: fentaNYL 100 mcg/hour Patch TD SCH (09:08)
[2018-12-13] MEDS ORDERED: Zolpidem Tartrate 5 MG TAB PO PRN (09:15)
[2018-12-13] MEDS ORDERED: fentaNYL Citrate/PF 2,000 MCG in Sodium Chloride 0.9% 60 ML IV PRN (09:15)
[2018-12-13] MEDS ORDERED: Naloxone HCl 0.4 mg/ml Vial IV PRN (09:15)
[2018-12-13] MEDS ORDERED: diphenhydrAMINE 25 MG CAP PO PRN (09:15)
[2018-12-13] MEDS ORDERED: diphenhydrAMINE 50 MG/ML VIAL IM/IV PRN (09:15)
[2018-12-13] MEDS ORDERED: Promethazine HCl 25 MG/ML VIAL IM PRN (09:15)
[2018-12-13 09:47] LABS: Actual Bicarbonate (HCO3a) 18.2 mEq/L (22-28); Analyzer IN Cardio OR; Base Excess (BEa) -5.4 mEq/L (-2.0 to +3.0); CO2 Tension 27.8 mmHg (35.0-45.0); Calcium, Ionized 1.11 mmol/L (1.12-1.30); Hemoglobin (Hb) 6.4 g/dL (14.0-18.0); O2 Tension (PaO2) 150.9 mmHg (> 80.0); Potassium - ABG Lab 3.79 mmol/L (3.70-5.30); pH, Arterial 7.44 (7.35-7.45)
--- NOTE | 2018-12-13 09:48 | RAD ---
EXAM: Portable chest: INDICATIONS: Respiratory distress. CCU follow-up COMPARISON: 12/12/2018 FINDINGS: , NG tube, central line, and Mediport line appear unchanged. Bibasilar opacification consistent with bilateral effusions and bibasilar atelectasis/infiltrates are more prominent. Mild vascular congestion. IMPRESSION: Increasing bibasilar opacification. Vascular congestion.
--- NOTE | 2018-12-13 10:06 | CT ---
Exam: Abdomen and pelvic CT scan with IV contrast: HISTORY: Esophageal cancer, J-tube COMPARISON: 12/01/2018 FINDINGS: Worsening bilateral pleural effusions as well as some pleural-based parenchymal changes evidence for partial atelectasis. Enlarging expansile bone lesion involving the right ninth rib now measuring 3.1 x 4.8 cm. Abnormal irregular nodular soft tissue fullness and thickening at the GE junction regio n and distal esophagus. Enlarging and newly evident multiple liver lesions evidence for worsening metastasis. Stable mild intrahepatic ductal dilatation. Resolution of the previously noted markedly d ilated and distended stomach duodenum and proximal jejunum. Very extensive adenopathy primarily in the retroperitoneal region showing definite increase in size from the prior study. Several collection s of probable loculated free intraperitoneal fluid including anteriorly beneath the anterior abdominal wall, along the right anterior lateral abdominal wall, and centrally within the abdomen at approximately the level of the iliac crests. No evidence for associated abnormal gas collection. Jejunostomy tube in place. There is some focal thickening of several jejunal loops evidence for abnor mal jejunal wall thickening, nonspecific. Minimal central mesenteric enlarged lymph nodes. Evidence for anasarca as well as some nonspecific mesenteric fat stranding. Small right fat-containing inguina l hernia. IMPRESSION: Several areas of loculated free intraperitoneal fluid without evidence of gas. Increasing pleural eff usions. Worsening metastatic adenopathy and metastatic right rib lesion and liver metastasis from prior study. Focal jejunal wall thickening nonspecific possibly related to prior surgery, inflammatio n, or neoplasm. Other findings as above.
[2018-12-13] MEDS: Nystatin 500,000 UNITS/5 ML UDCUP SSW SCH ×4 (10:07→21:39)
[2018-12-13 10:39] LABS: #Basophils 0.1 thou/uL (0.0-0.2); #Eosinphils 0.5 thou/uL (0.0-0.7); #Neutrophils 13.5 thou/uL (1.40-6.50); %Basophils 0.5 % (0.0-1.0); %Eosinophils 2.8 % (0.0-10.0); %Lymphocytes 10.8 % (21.0-51.0); %Monocytes 11.2 % (0.0-10.0); %Neutrophils 74.8 % (42.0-75.0); Hemoglobin 6.6 g/dL (14.0-18.0); Mean Corpuscular Hemoglobin 31.1 pg (27.0-31.0); Mean Corpuscular Volume 94.1 fL (78.0-98.0); Mean Platelet Volume 8.1 fL (7.4-10.4); Platelet Count 414 thou/uL (130-400); Red Blood Cell (RBC) Count 2.12 mill/uL (4.70-6.10); White Blood Cell (WBC) Count 18.1 thou/uL (4.8-10.8)
[2018-12-13] MEDS: Enoxaparin Sodium 40 MG/0.4 ML SYRINGE SC SCH (10:39)
[2018-12-13 10:43] LABS: Anion Gap 12 mmol/L (10-20); BUN (Urea Nitrogen) 22 mg/dL (8.4-25.7); Calc. Creatinine Clearance 143 mL/min (70-130); Calcium 7.9 mg/dL (7.8-10.44); Carbon Dioxide 20 mmol/L (23-31); Chloride 106 mmol/L (98-107); Estimated GFR-MDRD Greater than 90; Glucose 198 mg/dL (80-115); Sodium 134 mmol/L (136-145)
--- NOTE | 2018-12-13 13:22 | PRG ---
DATE OF SERVICE: 12/13/2018 SUBJECTIVE: The patient was transferred to the [facility] for increasing shortness of breath after [employer] [place]. OBJECTIVE: VITAL SIGNS: Temperature is 98.7, pulse 123, and blood pressure 117/70. GENERAL: He is tachypneic. HEENT: Unremarkable. NECK: No adenopathy or JVD. LUNGS: Diminished breath sounds at the bases. CARDIAC: S1 and S2, tachycardic. ABDOMEN: Distended. EXTREMITIES: Edematous. LABORATORY DATA: White blood cell count 18.1, hematocrit 19.9, platelet count 414. A pH of 7.44, pCO2 of 27, pO2 of 150 on 50% Ventimask. Sodium 134, potassium 4, chloride 106, CO2 of 20, BUN 22, creatinine 0.8, and glucose 198. ASSESSMENT: The patient has end-stage metastatic esophageal cancer. He has omental metastasis and currently is very short of breath for multiple reasons. He is anemic, but I do not think that is likely the reason he is decompensated. RECOMMENDATIONS: He is going to get 1 unit of blood. I would implore the hospitalist in the palliative care group to have continued conferences with the patient and his family may be in the room where everyone can be together. I think the patient does not understand his bad prognosis, and I am getting the feeling that the family is not going along. Job ID: [id number]
--- NOTE | 2018-12-13 16:50 | PDOC.HOSPP ---
- Subjective Subjective: Was laid flat for CT scan of the abdomen this morning, brought back to the floor had code green. Was seen and examined in IMCU. Patient with ABG that shows adequate oxygenation. Chest x-ray noted. Patient continues to be agitated and yelling at the nurses for higher doses of pain medication. Overall prognosis remains poor. Patient's family not interested in less aggressive measures and the patient wishes to be full code. - Objective Vital Signs & Weight: Vital Signs (12 hours) Temp Pulse Pulse Pulse Pulse Pulse Resp 12/13/18 15:23 99.1 F 12/13/18 10:02 98.7 F 115 H 30 H 12/13/18 09:17 119 H 115 H 110 H 119 H 12/13/18 08:37 97.6 F 124 H 28 H Resp Resp Resp Resp BP BP BP 12/13/18 15:23 12/13/18 10:02 137/90 12/13/18 09:17 36 H 36 H 36 H 32 H 169/95 H 137/88 12/13/18 08:37 BP BP BP Pulse Ox Pulse Ox Pulse Ox Pulse Ox 12/13/18 15:23 12/13/18 10:02 100 12/13/18 09:17 132/88 135/95 H 88 L 100 99 12/13/18 08:37 133/102 H 95 Pulse Ox 12/13/18 15:23 12/13/18 10:02 12/13/18 09:17 100 12/13/18 08:37 Weight Admit Weight 217 lb 8 oz Weight 235 lb 11.2 oz Most Recent Monitor Data Heart Rate from ECG 116 NIBP 148/96 NIBP BP-Mean 113 Respiration from ECG 26 SpO2 85 I&O: 12/12/18 12/13/18 12/14/18 06:59 06:59 06:59 Intake Total 1630 1830 800 Output Total 3390 2150 Balance -1760 -320 800 Result Diagrams: 12/13/18 09:31 12/13/18 09:31 Additional Labs: Accuchecks 12/13/18 12/13/18 12/13/18 11:30 09:29 05:18 POC Glucose 211 H 206 H 206 H 12/12/18 12/12/18 19:13 16:43 POC Glucose 204 H 215 H Radiology Reviewed by me: Yes (CXR) Hospitalist ROS - Review of Systems All other systems reviewed; all pertinent +/- noted in HPI/Subj - Medication Medications: Active Medications Generic Name Dose Route Start Last Admin Trade Name Freq PRN Reason Stop Dose Admin Enoxaparin Sodium 40 mg 11/27/18 09:00 12/13/18 10:39 Lovenox SC 40 mg 0900 IVIS Administration Fentanyl 100 mcg 12/13/18 09:00 12/13/18 09:08 Duragesic TD 100 mcg Q3D IVIS Administration Haloperidol Lactate 5 mg 12/12/18 12:38 12/12/18 22:16 Haldol IM 5 mg Q4H PRN Administration Agitation Potassium Chloride 30 meq/ 1,015 mls @ 75 mls/hr 12/03/18 22:30 12/13/18 05: 12 Sodium Chloride IV 1,015 mls .[id number] IVIS Administration Micafungin Sodium 100 mg/ 100 mls @ 100 mls/hr 12/07/18 19:00 12/12/18 18:22 Sodium Chloride IVPB 100 mls 1900 IVIS Administration Fat Emulsion Intravenous 250 2,152.5354 mls @ 89.689 mls/hr 12/12/18 22:00 22:13 ml/ Sodium Acetate 60 meq/ IV 2,152.5354 mls Sodium Phosphate 40 mmol/ INF IVIS Administration Potassium Chloride 20 meq/ Potassium Phosphate 30 mmol/ Calcium Gluconate 10 meq/ Magnesium Sulfate 10 meq/ Multivitamins 10 ml/ Chromium/ Copper/Manganese/Seleni/Zn 5 ml/ Amino Acids/ Dextrose/ Water/ Sterile Water Fentanyl Citrate 2,000 mcg/ 100 mls @ 0 mls/hr 12/13/18 09:15 12/13/18 15:57 Sodium Chloride IV 100 mls INF PRN Administration Pain As Directed Ketorolac Tromethamine 15 mg 12/12/18 12:43 12/13/18 12:38 Toradol IVP 12/17/18 12:44 15 mg Q6H PRN Administration Pain Nystatin 500,000 units 12/10/18 09:00 12/13/18 16:26 Mycostatin SSW Not Given QID IVIS Scopolamine 3 mg 12/07/18 20:00 12/10/18 21:17 Transderm Scop TOP 3 mg Q3D@2000 IVIS Administration Sodium Chloride 10 ml 11/26/18 17:13 12/09/18 07:41 Flush - Normal Saline IVF 10 ml PRN PRN Administration Saline Flush - Exam General Appearance: ill appearing Eye: PERRL ENT: no oropharyngeal lesions, dry oral mucosa Neck: supple, symmetric Heart: no murmur, no gallops, no rubs Respiratory: no rales, no ronchi Gastrointestinal: soft, non-tender, non-distended, no guarding, no rigidity Extremities: 1+ LE edema Skin: no lesions, no rashes Neurological: no focal deficits, no new deficit Musculoskeletal: generalized weakness Psychiatric: oriented to person, somnolent Hosp A/P (1) Bowel obstruction Code(s): K56.609 - UNSP INTESTNL OBST, UNSP TO PARTIAL VERSUS COMPLETE OBST Status: Acute (2) DM2 (diabetes mellitus, type 2) Status: Chronic Qualifiers: Diabetes mellitus predatory animal exterminator insulin use: without skilled nursing use Diabetes mellitus complication status: without complication Qualified Code(s): E11.9 - Type 2 diabetes mellitus without complications (3) Esophageal adenocarcinoma Code(s): C15.9 - MALIGNANT NEOPLASM OF ESOPHAGUS, UNSPECIFIED Status: Chronic (4) Abdominal pain Code(s): R10.9 - UNSPECIFIED ABDOMINAL PAIN Status: Acute Qualifiers: Abdominal location: generalized Qualified Code(s): R10.84 - Generalized abdominal pain (5) Nausea & vomiting Code(s): R11.2 - NAUSEA WITH VOMITING, UNSPECIFIED Status: Acute (6) Sepsis Code(s): A41.9 - SEPSIS, UNSPECIFIED ORGANISM Status: Acute Qualifiers: Sepsis type: sepsis due to unspecified organism Sepsis acute organ dysfunction status: without acute organ dysfunction Qualified Code(s): A41.9 - Sepsis, unspecified organism - Plan Plan: IMCU General surgery consultation, recommendations appreciated Palliative care consultation, recommendations appreciated Oncology consultation, recommendations appreciated ID consultation, recommendations appreciated CXR noted ABG noted CT abdomen with worsening metastatic disease. Also jejunal thickening - may explain prolonged ileus NG tube per Sugery Pain control/ MEDIA MARKETING DIRECTOR per Palliative care Non functioning feeding tube removed in OR with bowel resection on 12/03/18 Continue TPN ABX/ antifungals per ID GI PPX DVT PPX Pain management per Palliative care, need better skilled nursing control - increased Fentanyl transdermal Pleural effusions present, will continue to monitor Goals of care have been discussed multiple times, patient remains in denial about the severity of his medical condition Short and FDC prognosis is guarded despite maximum medical/ surgical therapy will continue aggressive measures per patients wishes, not interested in DNR/ DNI
[2018-12-13] MEDS ORDERED: Hydrocodone-Acetamin 15 ML UDCUP PER TUBE PRN ×2 (16:56→17:05)
--- NOTE | 2018-12-13 18:06 | PRG ---
DATE OF SERVICE: 12/13/2018 SUBJECTIVE: Mr. Frost was moved to [facility] this morning. After his CT scan, he had some respiratory difficulty. Apparently, NG tube was placed to suction and 800 mL evacuated, and he seemed to feel better. The patient was moved to the [facility]. I was not notified of any these events. His CT scan of abdomen and pelvis, however, reveals contrast in the small bowel and nonobstructive pattern. No other remarkable findings. There are no signs of leak from his small bowel resection or anastomosis. OBJECTIVE: VITAL SIGNS: Temperature 99.1 degrees, heart rate 137/90. LUNGS: Rhonchi. No wheezing. CARDIAC: Sinus tachycardia 105 to 112. ABDOMEN: Soft. Bowel sounds present. He did have a bowel movement this morning. LABORATORY DATA: [place] [address], hemoglobin 6.6. Basic metabolic profile normal. Sodium 134, potassium 4. The patient remains on TPN. ASSESSMENT AND PLAN: 1. Metastatic esophageal cancer. He has tumor burden in his liver, retroperitoneum. During his CT enterography, contrast given through his feeding tube. He did have back up into his stomach and esophagus indicating that his gastric outlet is open; however, during contrast administration for this CT scan today, he did suffer some distress with the oral contrast, which I would just now inform out. We do have his NG tube clamped again to see what his residual output is. I have ordered medications per his feeding tube, Benadryl, gabapentin, and Lortab Elixir to be used as needed. 2. The patient has expressed to me the last 3 days that he desires DNR. He does not want to be intubated. He does not want CPR. He does not want defibrillation. I have talked to Marita at the bedside this afternoon. Marita is his sister. I have communicated Mr. Frost's wishes to her and this is appropriate and that he will never be in a condition again to have chemotherapy and that these are the end stages of life from his metastatic esophageal cancer. I have informed her of Mr. Frost's wishes to be a DNR and in her presence, I have asked Mr. Frost and he states that he does not want CPR, does not want defibrillation, he does not want intubation. She is agreeable. The patient has a sister, Silvina in [place] and she will talk to her. I have given him a phone number and Silvina will call me when able, and I will answer any questions. I have suggested also the patient be considered for hospice care. I will discuss this with the family. I think we should discontinue the TPN and provide hospice care. We will discuss this with the patient's sisters and hopefully can move in this direction in the next 24 hours. Currently, we will main obtain his care in [facility]. The patient's sister, Marita, understand the terminal nature of his disease. Job ID: [id number]
[2018-12-13] MEDS: Micafungin 100 MG in Sodium Chloride 0.9% 100 ML IVPB SCH (19:12)
[2018-12-13] MEDS: Scopolamine 1.5 mg/72 hour Patch TOP SCH (20:38)
[2018-12-13] MEDS: Gabapentin 300 MG CAP PO SCH (20:39)
[2018-12-13] MEDS: SODIUM ACETATE IV SCH (22:31)
[2018-12-13] MEDS: FAT EMULSION IV SCH (22:31)
[2018-12-13] MEDS: [UNRECOGNIZED DRUG - OTHER] IV SCH (22:31)
[2018-12-13] MEDS: SODIUM PHOSPHATE IV SCH (22:31)
[2018-12-14 04:54] LABS: ALT (SGPT) 15 U/L (8-55); AST (SGOT) 33 U/L (5-34); Albumin 2.2 g/dL (3.4-4.8); Alkaline Phosphatase 209 U/L (40-150); Anion Gap 10 mmol/L (10-20); BUN (Urea Nitrogen) 20 mg/dL (8.4-25.7); Bilirubin, Total 0.7 mg/dL (0.2-1.2); Calc. Creatinine Clearance 145 mL/min (70-130); Carbon Dioxide 24 mmol/L (23-31); Chloride 106 mmol/L (98-107); Estimated GFR-MDRD Greater than 90; Globulin 4.2 g/dL (2.4-3.5); Glucose 174 mg/dL (80-115); Magnesium 1.6 mg/dL (1.6-2.6); Phosphorus 3.7 mg/dL (2.3-4.7); Potassium 3.9 mmol/L (3.5-5.1); Protein, Total 6.4 g/dL (5.8-8.1); Sodium 136 mmol/L (136-145)
[2018-12-14 08:38] LABS: #Basophils 0.1 thou/uL (0.0-0.2); #Eosinphils 0.4 thou/uL (0.0-0.7); #Lymphocytes 1.7 thou/uL (1.20-3.40); #Monocytes 1.6 thou/uL (0.11-0.59); #Neutrophils 11.5 thou/uL (1.40-6.50); %Basophils 0.5 % (0.0-1.0); %Eosinophils 2.9 % (0.0-10.0); %Lymphocytes 11.3 % (21.0-51.0); %Monocytes 10.2 % (0.0-10.0); %Neutrophils 75.2 % (42.0-75.0); Hemoglobin 6.5 g/dL (14.0-18.0); Mean Corpuscular HGB CONC 32.7 g/dL (32.0-36.0); Mean Corpuscular Hemoglobin 30.7 pg (27.0-31.0); Mean Platelet Volume 7.8 fL (7.4-10.4); Platelet Count 386 thou/uL (130-400); Red Blood Cell (RBC) Count 2.11 mill/uL (4.70-6.10); White Blood Cell (WBC) Count 15.3 thou/uL (4.8-10.8)
[2018-12-14 09:11] LABS: MDiff Complete? YES; Platelet Morphology Comment Appears Adequate; Polychromasia SLIGHT = 2-3 cells (100X) (0-2/hpf)
[2018-12-14] MEDS: Gabapentin 300 MG CAP PO SCH ×3 (09:15→20:43)
[2018-12-14] MEDS: Pantoprazole 40 MG GRANULES PACKET PER TUBE SCH (09:15)
[2018-12-14] MEDS: Nystatin 500,000 UNITS/5 ML UDCUP SSW SCH ×4 (09:15→20:43)
[2018-12-14] MEDS: Polyethylene Glycol 3350 17 GM Packet PER TUBE SCH (09:15)
--- NOTE | 2018-12-14 09:50 | PDOC.MOPN ---
Interval History: pain controlled. Code status noted. - Vital Signs Vital Signs: Vital Signs (12 hours) Temp Pulse Resp Pulse Ox 12/14/18 07:32 98.7 F 12/14/18 04:00 98.5 F 12/14/18 00:42 111 H 32 H 100 12/13/18 23:40 99.2 F Weight Admit Weight 217 lb 8 oz Weight 231 lb 8 oz Most Recent Monitor Data Heart Rate from ECG 109 NIBP 133/104 NIBP BP-Mean 113 Respiration from ECG 22 SpO2 93 - Physical Exam General: Alert HEENT: Atraumatic Lungs: Other Cardiovascular: Regular rate Abdomen: Other Extremities: No clubbing, No cyanosis, No edema, Normal pulses, No tenderness/ swelling Skin: No rashes, No breakdown, No significant lesion Neurological: Normal speech Psych/Mental Status: Mood NL - Labs Result Diagrams: 12/14/18 08:20 12/14/18 04:17 Lab results: Laboratory Results - last 24 hr 12/14/18 08:20: WBC 15.3 H, RBC 2.11 L, Hgb 6.5 L, Hct 19.9 L, MCV 94.0, MCH 30.7, MCHC 32.7, RDW 15.0 H, Plt Count 386, MPV 7.8, Neutrophils % 75.2 H, Lymphocytes % 11.3 L, Monocytes % 10.2 H, Eosinophils % 2.9, Basophils % 0.5, Neutrophils # 11.5 H, Lymphocytes # 1.7, Monocytes # 1.6 H, Eosinophils # 0.4, Basophils # 0.1, Plt Morphology Comment Appears Adequate, Polychromasia SLIGHT = 2-3 cells 12/14/18 05:36: POC Glucose 227 H 12/14/18 04:17: Sodium 136, Potassium 3.9, Chloride 106, Carbon Dioxide 24, Anion Gap 10, BUN 20, Creatinine 0.80, Estimated GFR (MDRD) Greater than 90, Glucose 174 H, Calcium 8.0, Phosphorus 3.7, Magnesium 1.6, Total Bilirubin 0.7, AST 33, ALT 15, Alkaline Phosphatase 209 H, Serum Total Protein 6.4, Albumin 2.2 L, Globulin 4.2 H, Albumin/Globulin Ratio 0.5 L 12/13/18 23:57: POC Glucose 168 H 12/13/18 13:56: Blood Type O POSITIVE, Antibody Screen NEGATIVE, Crossmatch See Detail 12/13/18 11:30: POC Glucose 211 H 12/13/18 10:35: Ammonia 20 12/13/18 09:31: Sodium 134 L, Potassium 4.0, Chloride 106, Carbon Dioxide 20 L, Anion Gap 12, BUN 22, Creatinine 0.81, Estimated GFR (MDRD) Greater than 90, Glucose 198 H, Calcium 7.9 12/13/18 09:31: WBC 18.1 H, RBC 2.12 L, Hgb 6.6 L, Hct 19.9 L, MCV 94.1, MCH 31.1 H, MCHC 33.0, RDW 15.0 H, Plt Count 414 H, MPV 8.1, Neutrophils % 74.8, Lymphocytes % 10.8 L, Monocytes % 11.2 H, Eosinophils % 2.8, Basophils % 0.5, Neutrophils # 13.5 H, Lymphocytes # 2.0, Monocytes # 2.0 H, Eosinophils # 0.5, Basophils # 0.1 12/13/18 09:29: POC Glucose 206 H 12/13/18 09:25: Specimen Type a, Bicarbonate Actual 18.2 L, ABG pH 7.44, ABG pCO2 27.8 L, ABG pO2 150.9 H, ABG O2 Sat Calc/Jose 99.4 H, ABG O2 Content 9.2 L , ABG Base Excess -5.4 L, ABG Hematocrit 19.0 L, ABG Hemoglobin 6.4 L, ABG Oxyhemoglobin 98.1 H, ABG Carboxyhemoglobin 1.0, ABG Methemoglobin 0.30, ABG Deoxyhemoglobin 0.6, A-a O2 Gradient 170.850 H, Sodium 133 L, Potassium 3.79, Chloride 106, Ionized Calcium 1.11 L, Mode of Support VMASK, Inspired O2 50 Status: lab reviewed by me A/P - Problem (1) Esophageal adenocarcinoma Current Visit: No Code(s): C15.9 - MALIGNANT NEOPLASM OF ESOPHAGUS, UNSPECIFIED Status: Chronic (2) Bowel obstruction Current Visit: Yes Code(s): K56.609 - UNSP INTESTNL OBST, UNSP TO PARTIAL VERSUS COMPLETE OBST Status: Acute - Plan Plan: Patient states understanding of his disease process. We discussed that treatment is not an option. Recommend focusing on comfort measures. He was receptive.
--- NOTE | 2018-12-14 09:55 | PDOC.FMACP ---
Advance Care Planning - Problem (1) Esophageal adenocarcinoma Status: Chronic Code(s): C15.9 - MALIGNANT NEOPLASM OF ESOPHAGUS, UNSPECIFIED (2) Bowel obstruction Status: Acute Code(s): K56.609 - UNSP INTESTNL OBST, UNSP TO PARTIAL VERSUS COMPLETE OBST - Note Participants: patient Summary: Advanced Care Planning was discussed. The diagnosis, prognosis and goals of care were discussed. Appropriate forms and documentation to accomplish the goals of care were discussed. All questions were answered. The Palliative Care Team will be engaged to assist with completion of any outstanding forms that are needed. Time Spent (mins): 16 (patient will speak with sister. He is willing to consider hospice.)
[2018-12-14] MEDS: Enoxaparin Sodium 40 MG/0.4 ML SYRINGE SC SCH (10:53)
--- NOTE | 2018-12-14 10:58 | RAD ---
KUB: DATE: 12/14/2018. HISTORY: Postoperative patient with pain. FINDINGS: There is a nasogastric tube extending into the left upper quadrant. There is contrast media within t he colon. There are postoperative clips overlying the right abdomen. Supine imaging limits assessme nt for bowel obstruction and free intraperitoneal air. No gas-filled small bowel seen. IMPRESSION: KUB as detailed above. POS: [facility]
--- NOTE | 2018-12-14 11:20 | PDOC.HOSPP ---
- Subjective Subjective: Seen and examined. More calm and stabilized today. Pain better controlled. Patient is understanding better the terminal nature of his disease. No acute complaints. I again recommended less aggressive measures to the patient, he is receptive at this time. - Objective Vital Signs & Weight: Vital Signs (12 hours) Temp Pulse Resp Pulse Ox 12/14/18 07:32 98.7 F 12/14/18 04:00 98.5 F 12/14/18 00:42 111 H 32 H 100 12/13/18 23:40 99.2 F Weight Admit Weight 217 lb 8 oz Weight 231 lb 8 oz Most Recent Monitor Data Heart Rate from ECG 109 NIBP 141/92 NIBP BP-Mean 108 Respiration from ECG 29 SpO2 100 I&O: 12/13/18 12/14/18 12/15/18 06:59 06:59 06:59 Intake Total 1830 4127.5 Output Total 2150 4300 450 Balance -320 -172.5 -450 Result Diagrams: 12/14/18 08:20 12/14/18 04:17 Additional Labs: Accuchecks 12/14/18 12/13/18 12/13/18 05:36 23:57 11:30 POC Glucose 227 H 168 H 211 H Hospitalist ROS - Review of Systems All other systems reviewed; all pertinent +/- noted in HPI/Subj - Medication Medications: Active Medications Generic Name Dose Route Start Last Admin Trade Name Freq PRN Reason Stop Dose Admin Enoxaparin Sodium 40 mg 11/27/18 09:00 12/14/18 10:53 Lovenox SC Not Given 0900 IVIS Fentanyl 100 mcg 12/13/18 09:00 12/13/18 09:08 Duragesic TD 100 mcg Q3D IVIS Administration Gabapentin 300 mg 12/13/18 21:00 12/14/18 09:15 Neurontin PO 300 mg TID IVIS Administration Haloperidol Lactate 5 mg 12/12/18 12:38 12/12/18 22:16 Haldol IM 5 mg Q4H PRN Administration Agitation Potassium Chloride 30 meq/ 1,015 mls @ 75 mls/hr 12/03/18 22:30 12/13/18 23: 33 Sodium Chloride IV 1,015 mls .[id number] IVIS Administration Micafungin Sodium 100 mg/ 100 mls @ 100 mls/hr 12/07/18 19:00 12/13/18 19:12 Sodium Chloride IVPB 100 mls 1900 IVIS Administration Ketorolac Tromethamine 15 mg 12/12/18 12:43 12/13/18 12:38 Toradol IVP 12/17/18 12:44 15 mg Q6H PRN Administration Pain Nystatin 500,000 units 12/10/18 09:00 12/14/18 09:15 Mycostatin SSW 500,000 units QID IVIS Administration Pantoprazole Sodium 40 mg 12/14/18 09:00 12/14/18 09:15 Protonix PER TUBE 40 mg DAILY IVIS Administration Polyethylene Glycol 17 gm 12/14/18 09:00 12/14/18 09:15 Miralax PER TUBE 17 gm DAILY IVIS Administration Scopolamine 3 mg 12/07/18 20:00 12/13/18 20:38 Transderm Scop TOP 3 mg Q3D@2000 IVIS Administration Sodium Chloride 10 ml 11/26/18 17:13 12/09/18 07:41 Flush - Normal Saline IVF 10 ml PRN PRN Administration Saline Flush - Exam General Appearance: ill appearing Eye: anicteric sclera ENT: no oropharyngeal lesions, moist mucosa Neck: supple, symmetric, no lymphadenopathy Heart: no murmur, no gallops, no rubs Respiratory: no wheezes, no rales, no ronchi Respiratory - other findings: Decreased breath sounds lower lung estevez persists Gastrointestinal: soft, normal bowel sounds, no guarding, no rigidity, tender to palpation, distended Gastrointestinal - other findings: Feeding tube in position Extremities: 1+ LE edema Skin: no lesions, no rashes Neurological: CN's grossly intact, no focal deficits Musculoskeletal: generalized weakness Psychiatric: flat affect, lethargic Hosp A/P (1) Bowel obstruction Code(s): K56.609 - UNSP INTESTNL OBST, UNSP TO PARTIAL VERSUS COMPLETE OBST Status: Acute (2) DM2 (diabetes mellitus, type 2) Status: Chronic Qualifiers: Diabetes mellitus manager intermediate insulin use: without manager intermediate use Diabetes mellitus complication status: without complication Qualified Code(s): E11.9 - Type 2 diabetes mellitus without complications (3) Esophageal adenocarcinoma Code(s): C15.9 - MALIGNANT NEOPLASM OF ESOPHAGUS, UNSPECIFIED Status: Chronic (4) Abdominal pain Code(s): R10.9 - UNSPECIFIED ABDOMINAL PAIN Status: Acute Qualifiers: Abdominal location: generalized Qualified Code(s): R10.84 - Generalized abdominal pain (5) Nausea & vomiting Code(s): R11.2 - NAUSEA WITH VOMITING, UNSPECIFIED Status: Acute (6) Sepsis Code(s): A41.9 - SEPSIS, UNSPECIFIED ORGANISM Status: Acute Qualifiers: Sepsis type: sepsis due to unspecified organism Sepsis acute organ dysfunction status: without acute organ dysfunction Qualified Code(s): A41.9 - Sepsis, unspecified organism - Plan Plan: IMCU General surgery consultation, recommendations appreciated Palliative care consultation, recommendations appreciated Oncology consultation, recommendations appreciated ID consultation, recommendations appreciated Now agreeable to DNR and DNI. Recommend inpatient hospice, patient and family considering NG tube to be removed per Diann Pain control/ INSURANCE RISK ANALYST per Palliative care CT abdomen with worsening metastatic disease Non functioning feeding tube removed in OR with bowel resection on 12/03/18 Continue TPN ABX/ antifungals per ID GI PPX DVT PPX Pleural effusions present, will continue to monitor Goals of care have been discussed multiple times, patient remains in denial about the severity of his medical condition Short and terminal gauger supervisor prognosis is guarded despite maximum medical/ surgical therapy
--- NOTE | 2018-12-14 14:12 | PRG ---
DATE OF SERVICE: 12/14/2018 SUBJECTIVE: Aggie Frost is doing well today. He had an NG tube residual of 400 last night. The residual was discarded. An NG was clamped again, this morning his residual was 200. He had pre-existing dysphagia and was feeding jejunal tube dependent prior to this hospitalization. At this point, we have removed his NG tube, removed his [place], and initiated jejunal tube feedings. As recommended, dietary will discontinue his TPN. I have discussed with the patient and family and he was made a DNR last night. The patient desires DNR, Marita, his daughter, is in agreement. The patient has another daughter, Silvina, who lives in [place]. I gave my phone number to Marita for Silvina to call me last night, but she did not talk to Marita. Again this morning, Marita wants to have a family discussion prior to placing the patient on hospice. The patient should be on hospice and I have been encouraged that with the family. They do not want to go home on hospice. They want inpatient hospice. I have talked to Marita about initiating this, but she wants to talk to the family and have them on board first and I am in agreement. Mr. Frost is in and out of orientation, but does talk oriented most of the time, although sometimes has be awakened to maintain his attention. He complains of pain mostly in the upper abdomen and was probably due to his metastatic esophageal cancer, which is planned to full in his retroperitoneum. He also has carcinomatosis. By CAT scan, his GI tract is not obstructed. 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 He is on a fentanyl patch. ASSESSMENT AND PLAN: Metastatic esophageal carcinoma, poor prognosis. Recommend hospice care awaiting for family to discuss this. Family has my cell phone number. Dr. Peres is covering the remainder of the day until Tuesday, however, I have left my cell phone number with Marita, who will call me after the family discusses the matters and hopefully will allow us to initiate hospice care with the family support inpatient hospice. We will await family contact. The patient's hemoglobin is low at 6.3. He is given a unit of blood last night. He has not had any evidence of GI bleeding since yesterday when he had some bloody stools. His vital signs are stable. I would not recommend transfusion at this time. Job ID: [id number]
[2018-12-14] MEDS: Potassium Chloride 30 MEQ in Sodium Chloride 0.9% 1,000 ML IV SCH (14:41)
--- NOTE | 2018-12-14 16:30 | PQF ---
[employer] Cloth Examiner Machine Crystal Reports Winform ViewerMOCHRISTINE SPAULDING JR, ERIK [id number] [facility]- [id number] CLINICAL DOCUMENTATION IMPROVEMENT CLARIFICATION FORM: ICD-10 Updated PLEASE DO AN ADDENDUM TO THE PROGRESS NOTE WITH ANY DOCUMENTATION UPDATES OR ADDITIONS AND CARRY THROUGH TO DC SUMMARY. THANK YOU. DATE: 12/14/18 ATTN:DR. Mikey ROSALES Please exercise your independent, professional judgment in responding to the clarification form. Clinical indicators are provided on the bottom of this form for your review. Please check appropriate box(s): [ ] Acute Respiratory Failure: [ ] with Hypoxia[ ] with Hypercapnia [ XX ] Acute On Chronic Respiratory Failure: [ XX ] with Hypoxia [ ] with Hypercapnia [ ] Acute Respiratory Failure due to: (etiology) [ ] Other diagnosis [ ] Unable to determine In addition, please specify: Present on Admission (POA): [ ] Yes [ XX ] No [ ] Unable to determine For continuity of documentation, please document condition throughout progress notes and discharge summary. Thank You. CLINICAL INDICATORS - SIGNS / SYMPTOMS / LABS 12/13 PN (LAMAR) MR YOUSIF WAS MOVED TO [facility] THIS MORNING. AFTER HIS CT SCAN HE HAD SOME RESPIRATORY DIFFICULTY. 12/12 RESPIRATIONS 18-28 12/13 RESPIRATIONS 28-32 12/13 CXR IMPRESSION INCREASING BIBASILAR OPACIFICATION, VASCULAR CONGESTION 12/13 CODE GREEN RECORD: PATIENT RETURNED FROM CT SCAN AND WAS HAVING DIFFICULTY BREATHING. O2 SAT ON ROOM AIR 88%, USING ACCESSORY MUSCLES TO BREATH AT A RATE OF 36 PER MINUTE, 12/14 PN (BOBBY) EXAM: DECREASED BREATH SOUNDS LOWER LUNG KRUGER PERSISTS RISK: HX OF ESOPHAGEAL ADENOCARCINOMA (H & P/ ROSARIO) 11/26 HX ACUTE BRONCHITIS/EARLY ASPIRATION PNEUMONIA DURING PREVIOUS HOSPITALIZATION ( H & P/ ROSARIO) 11/26 TREATMENTS: SUPPLEMENTAL OXYGEN (12/13-PRESENT) TRANSFERRED TO [facility] 12/13 THANK YOU! RADHA (This form is maintained as a part of the permanent medical record) 2014 [employer]. All Rights Reserved CAROLEE [email or web address] [phone] [facility] HOSPITALKev
[2018-12-14] MEDS: Morphine 4 MG/ML VIAL SLOW IVP PRN (17:17)
[2018-12-14] MEDS: Micafungin 100 MG in Sodium Chloride 0.9% 100 ML IVPB SCH (18:17)
[2018-12-15] MEDS: Morphine 4 MG/ML VIAL SLOW IVP PRN ×5 (02:36→19:29)
[2018-12-15 04:58] LABS: #Basophils 0.1 thou/uL (0.0-0.2); #Eosinphils 0.3 thou/uL (0.0-0.7); #Lymphocytes 1.6 thou/uL (1.20-3.40); #Monocytes 1.5 thou/uL (0.11-0.59); #Neutrophils 11.7 thou/uL (1.40-6.50); %Basophils 0.5 % (0.0-1.0); %Eosinophils 2.1 % (0.0-10.0); %Lymphocytes 10.2 % (21.0-51.0); %Monocytes 9.9 % (0.0-10.0); %Neutrophils 77.2 % (42.0-75.0); Hemoglobin 6.6 g/dL (14.0-18.0); Mean Corpuscular HGB CONC 32.7 g/dL (32.0-36.0); Mean Corpuscular Hemoglobin 30.9 pg (27.0-31.0); Mean Corpuscular Volume 94.5 fL (78.0-98.0); Mean Platelet Volume 7.7 fL (7.4-10.4); Platelet Count 371 thou/uL (130-400); Red Blood Cell (RBC) Count 2.15 mill/uL (4.70-6.10); White Blood Cell (WBC) Count 15.1 thou/uL (4.8-10.8)
[2018-12-15] MEDS: Hydrocodone-Acetamin 15 ML UDCUP PER TUBE PRN (06:10)
[2018-12-15] MEDS: Potassium Chloride 30 MEQ in Sodium Chloride 0.9% 1,000 ML IV SCH ×2 (06:10→18:13)
[2018-12-15] MEDS: Pantoprazole 40 MG GRANULES PACKET PER TUBE SCH (08:57)
[2018-12-15] MEDS: Enoxaparin Sodium 40 MG/0.4 ML SYRINGE SC SCH (08:57)
[2018-12-15] MEDS: Nystatin 500,000 UNITS/5 ML UDCUP SSW SCH ×5 (08:57→20:50)
[2018-12-15] MEDS: Polyethylene Glycol 3350 17 GM Packet PER TUBE SCH (08:57)
[2018-12-15] MEDS: Gabapentin 300 MG CAP PO SCH ×3 (08:57→20:50)
--- NOTE | 2018-12-15 09:58 | PRG ---
DATE OF SERVICE: 12/15/2018 SUBJECTIVE: The patient feels a little better. He is more alert today. OBJECTIVE: VITAL SIGNS: On exam, temperature 99.3, pulse 114, blood pressure 112/72. HEENT: Unremarkable. NECK: No JVD. LUNGS: Clear. CARDIAC: S1, S2, tachycardic. ABDOMEN: Distended. EXTREMITIES: Edematous. LABORATORY DATA: White blood cell count 15, hematocrit 20, and platelet count 371. ASSESSMENT: End-stage metastatic esophageal cancer. PLAN: DNR was signed yesterday. I think, the patient is going home on Home Hospice. No further Pulmonary recommendations at this time. We are available as needed. Job ID: [id number]
--- NOTE | 2018-12-15 14:45 | PDOC.HOSPP ---
- Subjective Subjective: Seen and examined. NG tube out. Had [place]den catheter removed, however had to reinsert secondary tension. Pain controlled for the time being on transdermal fentanyl patch and PRN medications. Patient and family are deciding on inpatient hospice however they need more time. Short-term prognosis is guarded. - Objective Vital Signs & Weight: Vital Signs (12 hours) Temp Pulse Ox 12/15/18 11:08 97.8 F 12/15/18 08:00 100 12/15/18 07:20 99.3 F 12/15/18 03:55 99.4 F Weight Admit Weight 217 lb 8 oz Weight 238 lb 6.4 oz Most Recent Monitor Data Heart Rate from ECG 114 NIBP 131/102 NIBP BP-Mean 111 Respiration from ECG 29 SpO2 100 I&O: 12/14/18 12/15/18 12/16/18 06:59 06:59 06:59 Intake Total 4127.5 1908 30 Output Total 4300 1903 Balance -172.5 5 30 Result Diagrams: 12/15/18 04:33 12/14/18 04:17 Additional Labs: Accuchecks 12/15/18 12/15/18 12/15/18 12:04 05:56 00:07 POC Glucose 138 H 105 114 H 12/14/18 18:08 POC Glucose 112 H Hospitalist ROS - Review of Systems All other systems reviewed; all pertinent +/- noted in HPI/Subj - Medication Medications: Active Medications Generic Name Dose Route Start Last Admin Trade Name Freq PRN Reason Stop Dose Admin Hydrocodone Bitart/Acetaminophen 15 ml 12/13/18 19:12 12/15/18 06:10 Hydrocodone-Apap 7.5-325/15 PER TUBE 15 ml Q4H PRN Administration Pain Albuterol/Ipratropium 3 ml 12/14/18 00:31 12/14/18 17:15 Duoneb NEB 3 ml [id number] PRN Administration SOB &/or Wheezing Enoxaparin Sodium 40 mg 11/27/18 09:00 12/15/18 08:57 Lovenox SC 40 mg 0900 IVIS Administration Fentanyl 100 mcg 12/13/18 09:00 12/13/18 09:08 Duragesic TD 100 mcg Q3D IVIS Administration Gabapentin 300 mg 12/13/18 21:00 12/15/18 13:53 Neurontin PO 300 mg TID IVIS Administration Haloperidol Lactate 5 mg 12/12/18 12:38 12/12/18 22:16 Haldol IM 5 mg Q4H PRN Administration Agitation Potassium Chloride 30 meq/ 1,015 mls @ 75 mls/hr 12/03/18 22:30 12/15/18 06: 10 Sodium Chloride IV 1,015 mls .[id number] IVIS Administration Micafungin Sodium 100 mg/ 100 mls @ 100 mls/hr 12/07/18 19:00 12/14/18 18:17 Sodium Chloride IVPB 100 mls 1900 IVIS Administration Ketorolac Tromethamine 15 mg 12/12/18 12:43 12/13/18 12:38 Toradol IVP 12/17/18 12:44 15 mg Q6H PRN Administration Pain Morphine Sulfate 4 mg 12/14/18 09:15 12/15/18 14:00 Morphine SLOW IVP 4 mg Q2H PRN Administration Pain Nystatin 500,000 units 12/10/18 09:00 12/15/18 13:53 Mycostatin SSW 500,000 units QID IVIS Administration Pantoprazole Sodium 40 mg 12/14/18 09:00 12/15/18 08:57 Protonix PER TUBE 40 mg DAILY IVIS Administration Polyethylene Glycol 17 gm 12/14/18 09:00 12/15/18 08:57 Miralax PER TUBE 17 gm DAILY IVIS Administration Scopolamine 3 mg 12/07/18 20:00 12/13/18 20:38 Transderm Scop TOP 3 mg Q3D@2000 IVIS Administration Sodium Chloride 10 ml 11/26/18 17:13 12/15/18 09:01 Flush - Normal Saline IVF 10 ml PRN PRN Administration Saline Flush - Exam General Appearance: ill appearing Eye: anicteric sclera Eye - other findings: EOMI ENT: dry oral mucosa Neck: supple, symmetric, no lymphadenopathy Heart: no murmur, no gallops, no rubs Respiratory: normal chest expansion, rhonchi, wheezes Gastrointestinal: soft, tender to palpation, distended Extremities: 1+ LE edema Skin: no lesions, no rashes Neurological: cranial nerve grossly intact, normal sensation to touch Musculoskeletal: normal strength, no muscle wasting Psychiatric: oriented to person, flat affect Hosp A/P (1) Bowel obstruction Code(s): K56.609 - UNSP INTESTNL OBST, UNSP TO PARTIAL VERSUS COMPLETE OBST Status: Acute (2) DM2 (diabetes mellitus, type 2) Status: Chronic Qualifiers: Diabetes mellitus group home insulin use: without group home use Diabetes mellitus complication status: without complication Qualified Code(s): E11.9 - Type 2 diabetes mellitus without complications (3) Esophageal adenocarcinoma Code(s): C15.9 - MALIGNANT NEOPLASM OF ESOPHAGUS, UNSPECIFIED Status: Chronic (4) Abdominal pain Code(s): R10.9 - UNSPECIFIED ABDOMINAL PAIN Status: Acute Qualifiers: Abdominal location: generalized Qualified Code(s): R10.84 - Generalized abdominal pain (5) Nausea & vomiting Code(s): R11.2 - NAUSEA WITH VOMITING, UNSPECIFIED Status: Acute (6) Sepsis Code(s): A41.9 - SEPSIS, UNSPECIFIED ORGANISM Status: Acute Qualifiers: Sepsis type: sepsis due to unspecified organism Sepsis acute organ dysfunction status: without acute organ dysfunction Qualified Code(s): A41.9 - Sepsis, unspecified organism - Plan Plan: IMCU General surgery consultation, recommendations appreciated Palliative care consultation, recommendations appreciated Oncology consultation, recommendations appreciated ID consultation, recommendations appreciated Patient's family want more time to decide on inpatient hospice care Now agreeable to DNR and DNI. Recommend inpatient hospice, patient and family considering NG tube removed Start tube feedings No further blood transfusions or labs Pain control per Palliative care CT abdomen with worsening metastatic disease Non functioning feeding tube removed in OR with bowel resection on 12/03/18 Continue TPN ABX/ antifungals per ID GI PPX DVT PPX Pleural effusions present, will continue to monitor Goals of care have been discussed multiple times, patient remains in denial about the severity of his medical condition Short and exterminator termite prognosis is guarded despite maximum medical/ surgical therapy
[2018-12-15] MEDS: Micafungin 100 MG in Sodium Chloride 0.9% 100 ML IVPB SCH (20:04)
--- NOTE | 2018-12-15 20:33 | PDOC.GSPN ---
Surgery Progress Note: Subj - Subjective Narrative: Patient is feeling all right. No nausea. Pain is tolerable. J-tube and incisions look okay. Continue current management. Tube feeds as tolerated. Surgery Progress Note: Obj - Vital signs Vital signs: Vital Signs - Most Recent Temp Pulse Resp BP Pulse Ox 99.0 F 111 H 30 H 138/93 H 100 12/15/18 15:23 12/14/18 17:15 12/14/18 17:15 12/13/18 18:14 12/15/18 08:00 Surgery Progress Note: Results - Labs Result Diagrams: 12/15/18 04:33 12/14/18 04:17 Lab results: Laboratory Results - last 24 hr 12/15/18 12/15/18 12:04 18:01 POC Glucose 138 H 134 H
[2018-12-16] MEDS: Ketorolac Tromethamine 30 MG/ML VIAL IVP PRN ×2 (02:11→17:23)
[2018-12-16] MEDS: Morphine 4 MG/ML VIAL SLOW IVP PRN ×6 (02:53→23:52)
[2018-12-16] MEDS: Ondansetron PF 4 MG/2 ML Vial IVP PRN ×2 (04:18→12:09)
[2018-12-16] MEDS: Hydrocodone-Acetamin 15 ML UDCUP PER TUBE PRN ×3 (04:18→19:16)
[2018-12-16] MEDS: Nystatin 500,000 UNITS/5 ML UDCUP SSW SCH ×6 (08:53→20:12)
[2018-12-16] MEDS: Pantoprazole 40 MG GRANULES PACKET PER TUBE SCH (08:53)
[2018-12-16] MEDS: Enoxaparin Sodium 40 MG/0.4 ML SYRINGE SC SCH (08:53)
[2018-12-16] MEDS: Polyethylene Glycol 3350 17 GM Packet PER TUBE SCH (08:53)
[2018-12-16] MEDS: Gabapentin 300 MG CAP PO SCH ×3 (08:53→20:12)
[2018-12-16] MEDS: Potassium Chloride 30 MEQ in Sodium Chloride 0.9% 1,000 ML IV SCH ×2 (08:54→20:26)
[2018-12-16] MEDS: fentaNYL 100 mcg/hour Patch TD SCH (10:13)
--- NOTE | 2018-12-16 11:14 | PRG ---
DATE OF SERVICE: 12/16/2018 SUBJECTIVE: The patient reports feeling terrible. He is having a lot of abdominal pain and nausea. He has not vomited. He had to stop his tube feedings, but it did not help. PHYSICAL EXAMINATION: GENERAL: On examination, he looks very uncomfortable. VITAL SIGNS: Temperature is 98.9, pulse 111, and blood pressure 132/72. ABDOMEN: Distended. He has a dressing on his midline wound. He has a feeding jejunostomy tube in the left lateral abdomen. ASSESSMENT: Partial small-bowel obstruction. PLAN: KUBs. We will resume maintenance fluids. May need NG tube. Job ID: [id number]
[2018-12-16 12:27] LABS: #Eosinphils 0.2 thou/uL (0.0-0.7); #Lymphocytes 1.3 thou/uL (1.20-3.40); #Monocytes 1.7 thou/uL (0.11-0.59); #Neutrophils 14.3 thou/uL (1.40-6.50); %Basophils 0.1 % (0.0-1.0); %Eosinophils 0.9 % (0.0-10.0); %Lymphocytes 7.4 % (21.0-51.0); %Monocytes 9.9 % (0.0-10.0); %Neutrophils 81.6 % (42.0-75.0); Hemoglobin 6.4 g/dL (14.0-18.0); Mean Corpuscular HGB CONC 33.2 g/dL (32.0-36.0); Mean Corpuscular Hemoglobin 31.7 pg (27.0-31.0); Mean Corpuscular Volume 95.7 fL (78.0-98.0); Mean Platelet Volume 7.5 fL (7.4-10.4); Platelet Count 346 thou/uL (130-400); RBC Distribution Width 15.3 % (11.5-14.5); Red Blood Cell (RBC) Count 2.03 mill/uL (4.70-6.10); White Blood Cell (WBC) Count 17.5 thou/uL (4.8-10.8)
[2018-12-16 12:43] LABS: Anion Gap 9 mmol/L (10-20); BUN (Urea Nitrogen) 18 mg/dL (8.4-25.7); Calc. Creatinine Clearance 164 mL/min (70-130); Calcium 7.7 mg/dL (7.8-10.44); Carbon Dioxide 23 mmol/L (23-31); Chloride 111 mmol/L (98-107); Estimated GFR-MDRD Greater than 90; Glucose 109 mg/dL (80-115); Potassium 4.4 mmol/L (3.5-5.1); Sodium 139 mmol/L (136-145)
[2018-12-16] MEDS: D5 1/2 NS w/20 mEq KCL 1,000 ML IV SCH ×3 (14:53→22:28)
--- NOTE | 2018-12-16 14:53 | RAD ---
SUPINE ABDOMEN: Date: 12/16/18 HISTORY: Small bowel obstruction. FINDINGS/IMPRESSION: PEG tube overlies the mid abdomen. Scattered stool and gas in the colon. Small bowel gas pattern is u nremarkable. No evidence of small bowel dilatation or obstruction apparent on this portable supine pr ojection. POS: OFF
--- NOTE | 2018-12-16 16:45 | PRG ---
DATE OF SERVICE: 12/16/2018 SUBJECTIVE: The patient is seen and examined at the bedside. He still complains about some abdominal discomfort. The tube feeding was discontinued today, thus seems to be having some positive effect on his amount of abdominal discomfort. OBJECTIVE: VITAL SIGNS: Blood pressure is 122/87, pulse is 114, respiratory rate is 28, and his temperature is 99.7. HEENT: His head is atraumatic, normocephalic. Sclerae are nonicteric. Oral mucosa is somewhat dry. NECK: Supple. LUNGS: Breath sounds diminished at both bases. HEART: S1 and S2. Tachycardic. No S3. No S4. ABDOMEN: Soft. Somewhat tender to palpation across the abdomen in the midportion mainly. Bowel sounds are very sluggish. EXTREMITIES: No clubbing, cyanosis, or edema. NEUROLOGICAL: He follows my commands. He moves his all 4 extremities. LABORATORY DATA: Labs showed white count of 17.5, hemoglobin of 6.4, hematocrit 19.4, and platelet count 346,000. Sodium of 139, potassium 4.4, chloride 111, CO2 of 23, BUN 18, creatinine 0.71, glycemia is ranging from 111 to 144, and calcium is 7.7. IMPRESSION: 1. Bowel obstruction. 2. Diabetes mellitus, type 2. 3. Esophageal adenocarcinoma. 4. Abdominal pain. 5. Sepsis. PLAN: Continue his micafungin. We are going to hold his feeding at this point and got some rest. Surgery will make decision about next step. We will continue supportive care and apparently, the family was not happy with our team. They feel like we are trying to push him to go to hospice instead of giving him more medical treatments. The patient is DNR per family. Job ID: [id number]
[2018-12-16] MEDS: Micafungin 100 MG in Sodium Chloride 0.9% 100 ML IVPB SCH (19:08)
[2018-12-16] MEDS: Haloperidol Lactate 5 MG/ML VIAL IM PRN (20:09)
[2018-12-16] MEDS: Scopolamine 1.5 mg/72 hour Patch TOP SCH (20:09)
[2018-12-17] MEDS: Morphine 4 MG/ML VIAL SLOW IVP PRN ×4 (02:38→16:13)
[2018-12-17] MEDS ORDERED: Furosemide 20 MG/2 ML VIAL SLOW IVP SCH ×2 (06:15→12:15)
--- NOTE | 2018-12-17 09:10 | PRG ---
DATE OF SERVICE: 12/17/2018 CODE STATUS: Do not resuscitate. SUBJECTIVE: The patient was seen and examined at bedside. Apparently, he had increased amount of abdominal pain last night and he was agitated, so he was given Haldol although along with more morphine injections, which helped to some extent, but his reaction to Haldol was not what we expected and he also was found to have crackles at both bases, both lungs and his IV fluids were stopped and he was given one dose of Lasix 20 mg IV push this morning. He does not much complains this morning to me except for some abdominal pain on and off, but with longer conversation, I realized that we cannot rely on his complaints since he is basically alert and oriented x0. OBJECTIVE: VITAL SIGNS: Blood pressure 94/61, pulse is 126, respiratory rate is 20, and O2 saturation is 100%. GENERAL: He looks quite comfortable during my visit. He follows my commands. His pupils are responding to light properly. HEENT: Oral mucosa is dry. NECK: Supple. LUNGS: Breath sounds diminished at both bases. HEART: S1 and S2. Tachycardic. No S3. No S4. ABDOMEN: Soft. Mildly tender in the left middle part of the abdomen. No guarding. No masses. Peristalsis very sluggish. EXTREMITIES: No clubbing, cyanosis, or edema. NEUROLOGICAL: He is alert and oriented x0. He follows my commands. There is no any motor deficits. LABORATORY DATA: Labs showed glycemia ranging from 111 to 147. The rest of the labs are still pending. IMAGING DATA: X-ray of the abdomen, which was done yesterday showed scattered stool and gas in the colon. Small bowel gas pattern was unremarkable. There was no any evidence of small bowel dilatation, obstruction apparent on this portable supine projection. IMPRESSION: 1. Abdominal pain, suspected bowel obstruction. The feeding was stopped yesterday. General surgeon is going to evaluate his condition today for further recommendations. His IV fluids were stopped. We are going to assess his cardiovascular status and volume status with chest x-ray and BNP before we restart his IV fluids. He was given 20 mg of IV Lasix this morning for possible fluid overload. 2. Esophageal adenocarcinoma with metastasis, which could be contributing factor to his abdominal pain. 3. Sepsis. 4. Encephalopathy. This is most likely related to his current medical condition and long stay in the hospital. PLAN: Plan is to continue his current regimen. We are holding his IV fluids and no feeding at this point until we have x-ray done and lab work completed. Then, we will make further recommendation. He will need to participate in PT sessions. He refused PT treatment yesterday x2 and we will try to encourage the family to be here more often, which might have very positive affect on his mental condition. Job ID: [id number]
[2018-12-17] MEDS: Nystatin 500,000 UNITS/5 ML UDCUP SSW SCH ×4 (10:08→20:10)
[2018-12-17] MEDS: Gabapentin 300 MG CAP PO SCH ×3 (10:08→20:08)
[2018-12-17] MEDS: Enoxaparin Sodium 40 MG/0.4 ML SYRINGE SC SCH (10:09)
[2018-12-17] MEDS: Pantoprazole 40 MG GRANULES PACKET PER TUBE SCH (10:09)
[2018-12-17] MEDS: Potassium Chloride 30 MEQ in Sodium Chloride 0.9% 1,000 ML IV SCH ×2 (10:10→22:43)
[2018-12-17] MEDS: Polyethylene Glycol 3350 17 GM Packet PER TUBE SCH (10:10)
[2018-12-17] MEDS: D5 1/2 NS w/20 mEq KCL 1,000 ML IV SCH (10:11)
[2018-12-17 11:12] LABS: #Eosinphils 0.1 thou/uL (0.0-0.7); #Lymphocytes 1.6 thou/uL (1.20-3.40); #Monocytes 1.8 thou/uL (0.11-0.59); #Neutrophils 13.4 thou/uL (1.40-6.50); %Basophils 0.1 % (0.0-1.0); %Eosinophils 0.6 % (0.0-10.0); %Lymphocytes 9.4 % (21.0-51.0); %Monocytes 10.5 % (0.0-10.0); %Neutrophils 79.4 % (42.0-75.0); Hemoglobin 6.5 g/dL (14.0-18.0); Mean Corpuscular HGB CONC 32.1 g/dL (32.0-36.0); Mean Corpuscular Hemoglobin 30.9 pg (27.0-31.0); Mean Corpuscular Volume 96.2 fL (78.0-98.0); Mean Platelet Volume 7.4 fL (7.4-10.4); Platelet Count 378 thou/uL (130-400); RBC Distribution Width 14.9 % (11.5-14.5); White Blood Cell (WBC) Count 16.9 thou/uL (4.8-10.8)
[2018-12-17 11:14] LABS: Bacteria/HPF 4+ HPF (None Seen); Bilirubin Negative (Negative); Blood, Urine 3+ (Negative); Clarity Extra Turbid (Clear); Glucose, Urine (Dipstick) Normal (Negative); Leukocyte 500 Leu/uL (Negative); Nitrite 1+ (Negative); Protein, Urine (Dipstick) 30 mg/dL (Neg-Trace); RBC/HPF Greater than 50 HPF (0-3); Squamous Epithelial 0-3 HPF (0-3); Urobilinogen Normal mg/dL (Less than 2); WBC/HPF Greater than 50 HPF (0-3)
--- NOTE | 2018-12-17 11:17 | RAD ---
ONE VIEW CHEST: HISTORY: Hypoxemia. COMPARISON: 12/13/2018. FINDINGS: Portable upright chest redemonstrates a right-sided MediPort catheter and a left-sided central venous catheter. Heart is enlarged and the pulmonary vessels are prominent. There are bilateral pleural e ffusions with adjacent parenchymal changes. There is stable right apical thickening. No pneumothora x. IMPRESSION: Worsening interstitial and alveolar opacities, along with pleural effusion. There is evidence for wo rsening vascular congestion. POS: OFF
[2018-12-17 11:28] LABS: Anion Gap 9 mmol/L (10-20); BUN (Urea Nitrogen) 14 mg/dL (8.4-25.7); Calc. Creatinine Clearance 155 mL/min (70-130); Calcium 7.8 mg/dL (7.8-10.44); Carbon Dioxide 24 mmol/L (23-31); Chloride 108 mmol/L (98-107); Estimated GFR-MDRD Greater than 90; Glucose 115 mg/dL (80-115); Potassium 4.3 mmol/L (3.5-5.1); Sodium 137 mmol/L (136-145)
[2018-12-17] MEDS: Hydrocodone-Acetamin 15 ML UDCUP PER TUBE PRN ×2 (14:38→20:09)
--- NOTE | 2018-12-17 15:15 | PRG ---
DATE OF SERVICE: 12/17/2018 SUBJECTIVE: The patient says he is very hungry. He has had several bowel movements. He wants to eat. He has widely metastatic esophageal cancer. OBJECTIVE: GENERAL: On examination, he is awake, but a little bit confused. VITAL SIGNS: His temperature is 98.2, pulse 119, and blood pressure 143/95. ABDOMEN: He has some bowel sounds. LABORATORY DATA: His white count 16.9, H and H 6.5 and 20, and platelet count 378. Electrolytes are fine. The KUB did not show any evidence of obstruction. PLAN: The plan is to start him back on some clear liquids, resume his tube feedings. Job ID: [id number]
[2018-12-17] MEDS: Furosemide 40 MG/4 ML VIAL SLOW IVP SCH (15:54)
[2018-12-17] MEDS: Micafungin 100 MG in Sodium Chloride 0.9% 100 ML IVPB SCH (18:51)
[2018-12-17] MEDS: Ondansetron PF 4 MG/2 ML Vial IVP PRN (20:08)
[2018-12-17] MEDS: risperiDONE 0.25 MG TAB PER TUBE SCH (22:50)
[2018-12-18] MEDS: Morphine 4 MG/ML VIAL SLOW IVP PRN ×3 (03:03→23:15)
[2018-12-18 03:40] LABS: #Eosinphils 0.2 thou/uL (0.0-0.7); #Lymphocytes 2.1 thou/uL (1.20-3.40); #Monocytes 1.8 thou/uL (0.11-0.59); #Neutrophils 10.6 thou/uL (1.40-6.50); %Basophils 0.2 % (0.0-1.0); %Eosinophils 1.4 % (0.0-10.0); %Lymphocytes 14.5 % (21.0-51.0); %Monocytes 11.9 % (0.0-10.0); Mean Corpuscular HGB CONC 32.1 g/dL (32.0-36.0); Mean Corpuscular Hemoglobin 30.7 pg (27.0-31.0); Mean Corpuscular Volume 95.5 fL (78.0-98.0); Mean Platelet Volume 7.7 fL (7.4-10.4); Platelet Count 430 thou/uL (130-400); Red Blood Cell (RBC) Count 2.29 mill/uL (4.70-6.10); White Blood Cell (WBC) Count 14.7 thou/uL (4.8-10.8)
[2018-12-18] MEDS: Furosemide 40 MG/4 ML VIAL SLOW IVP SCH ×2 (05:04→15:10)
[2018-12-18] MEDS: Hydrocodone-Acetamin 15 ML UDCUP PER TUBE PRN ×2 (05:15→15:54)
[2018-12-18] MEDS: Enoxaparin Sodium 40 MG/0.4 ML SYRINGE SC SCH (09:31)
[2018-12-18] MEDS: Nystatin 500,000 UNITS/5 ML UDCUP SSW SCH ×4 (09:32→21:43)
[2018-12-18] MEDS: Pantoprazole 40 MG GRANULES PACKET PER TUBE SCH (09:32)
[2018-12-18] MEDS: Gabapentin 300 MG CAP PO SCH ×3 (09:32→21:44)
[2018-12-18] MEDS: Polyethylene Glycol 3350 17 GM Packet PER TUBE SCH (09:32)
[2018-12-18] MEDS ORDERED: Meropenem 1 GM in Sodium Chloride 0.9% 100 ML IVPB SCH (14:00)
--- NOTE | 2018-12-18 14:56 | PRG ---
DATE OF SERVICE: 12/18/2018 SUBJECTIVE: The patient is seen and examined at the bedside. He does not have much complaints to offer. His abdominal pain improved. He was restarted on his tube feeding 30 mL/h. OBJECTIVE: VITAL SIGNS: Blood pressure is 114/79, pulse is 120, maximal temperature is 101.7 at 4:00 this morning. He is on 4 L by nasal cannula. He is saturating 100% on O2 supplementation. HEENT: His sclerae are nonicteric. Oral mucosa is somewhat dry. NECK: Supple. LUNGS: Breath sounds diminished at both bases with few crackles bilaterally at both bases. No wheezing. HEART: S1, S2, tachycardic. No S3. No S4. ABDOMEN: Soft, nontender. The dressing is in place. Bowel sounds sluggish. PEG tube in place. NEUROLOGIC: He is alert and oriented x0, but he follows my commands. LABORATORY DATA: Labs showed white count of 14.7, hemoglobin 7.0, hematocrit 21.9, platelet count is 430,000. Glycemia is ranging from 95 to 146. Urine culture is growing gram-negative rods, more than 100,000 colonies presumptive Klebsiella/Enterobacter more than 100,000 colonies. IMPRESSION: 1. Abdominal pain, improved. Apparently, the patient complained about being hungry. General surgeon restarted his feeding in the low rate and the patient seems to be tolerating this fine without any abdominal discomfort. We will continue the general surgeon's recommendation. 2. Fluid overload. Continue Lasix. 3. Anemia, multifactorial. We will transfuse him with 1 unit of packed red blood cells today. 4. Esophageal adenocarcinoma with metastasis. 5. Urinary tract infection with urine cultures positive for gram-negative rods, presumptive Klebsiella and Enterobacter. We are going to start him on meropenem 1 g every 8 hours IV piggyback. 6. Encephalopathy. This is most likely multifactorial. He is not changing his mental condition. He responds to me. He follows my commands, but when he asks specific question about some thing he does not know the answer. We will continue his PT and most likely we will advance his feeding if he tolerates it. As I mentioned above, we will start him on meropenem and we will continue his micafungin as well. Job ID: [id number]
[2018-12-18] MEDS: Potassium Chloride 30 MEQ in Sodium Chloride 0.9% 1,000 ML IV SCH (15:26)
[2018-12-18] MEDS: MEROPENEM 1 GM/50 ML 1 GM in Premix Bag 1 BAG IVPB SCH (17:26)
[2018-12-18] MEDS: Micafungin 100 MG in Sodium Chloride 0.9% 100 ML IVPB SCH (19:42)
[2018-12-18] MEDS: risperiDONE 0.25 MG TAB PER TUBE SCH (21:44)
[2018-12-19] MEDS: MEROPENEM 1 GM/50 ML 1 GM in Premix Bag 1 BAG IVPB SCH ×2 (00:09→08:18)
[2018-12-19] MEDS: Hydrocodone-Acetamin 15 ML UDCUP PER TUBE PRN ×3 (01:20→18:04)
[2018-12-19] MEDS: Ondansetron PF 4 MG/2 ML Vial IVP PRN (01:57)
[2018-12-19] MEDS: Morphine 4 MG/ML VIAL SLOW IVP PRN ×6 (03:07→22:07)
[2018-12-19] MEDS: Potassium Chloride 30 MEQ in Sodium Chloride 0.9% 1,000 ML IV SCH (05:23)
[2018-12-19] MEDS: Furosemide 40 MG/4 ML VIAL SLOW IVP SCH ×2 (08:20→16:06)
--- NOTE | 2018-12-19 08:37 | PRG ---
DATE OF SERVICE: 12/19/2018 SUBJECTIVE: He remains in the IMCU. He started some enteral tube feeds yesterday. He is having abdominal pain, which is 8/10. OBJECTIVE: VITAL SIGNS: Temperature 98.6, pulse 109, blood pressure 129/90, O2 saturation 100%. GENERAL: He appears disheveled. HEENT: Unremarkable. NECK: No JVD. LUNGS: Clear anteriorly. CARDIAC: S1 and S2. Regular. ABDOMEN: Distended. Hypoactive bowel sounds. EXTREMITIES: No edema. ASSESSMENT: 1. Metastatic esophageal cancer. 2. Intermittent bowel obstruction. 3. Urinary tract infection. PLAN: Difficult situation. Really need to move towards hospice, and consider stopping therapy, this is not working. We are available as needed. Job ID: [id number]
[2018-12-19] MEDS: Gabapentin 300 MG CAP PO SCH ×3 (10:06→20:20)
[2018-12-19] MEDS: Enoxaparin Sodium 40 MG/0.4 ML SYRINGE SC SCH (10:06)
[2018-12-19] MEDS: Polyethylene Glycol 3350 17 GM Packet PER TUBE SCH (10:07)
[2018-12-19] MEDS: Pantoprazole 40 MG GRANULES PACKET PER TUBE SCH (10:07)
[2018-12-19] MEDS: Nystatin 500,000 UNITS/5 ML UDCUP SSW SCH ×6 (10:07→20:32)
--- NOTE | 2018-12-19 10:07 | PRG ---
DATE OF SERVICE: 12/19/2018 SUBJECTIVE: Rangel Frost is tolerating his tube feedings. He is having bowel movements. He is awake, alert, and interactive. OBJECTIVE: VITAL SIGNS: Temperature 98.6 degrees, blood pressure 129/90, heart rate 109. LUNGS: Clear to auscultation. CARDIAC: Regular rhythm. No murmur or gallop. ABDOMEN: Soft. Wound has almost completely healed. Sixes need to be removed. LABORATORY DATA: Yesterday, white count 14, hemoglobin 7. Basic metabolic profile on 12/17/2018 is normal. ASSESSMENT AND PLAN: Metastatic esophageal cancer with carcinomatosis, status post laparotomies for segmental bowel resection, revision of his feeding jejunostomy, now gastrointestinal function has resumed. He is tolerating tube feedings. He was unable to swallow before and is dependent on tube feedings. Speech Therapy has been asked to see him to evaluate his swallowing. The patient wants to go either home if he has family to help transfer him. He is nonambulatory. He could have hospice and his family could help transfer him, although he states he is not to be able to contact his family. His other alternative would be inpatient hospice. This may be the preferred route. He can continue tube feedings. He has been started on meropenem yesterday and he is still on micafungin parenterally. He is on IV fluids parenterally. He is tolerating his tube feedings with supplemental water. We will saline lock him and discontinue IV fluids. Change his meropenem and micafungin IV to p.o. Cipro and Diflucan. The patient will remove his clotilde from his wound. The patient is stable for transfer to inpatient hospice or if family is able to help transfer him and move him, he could go home with hospice. He previously has not wanted to be at home with hospice as he did not want his mother to see him in this condition, but if possible, his family is present to help move him and he could go home with them, although they have been not available to help him, more likely inpatient hospice. Job ID: [id number]
[2018-12-19] MEDS: fentaNYL 100 mcg/hour Patch TD SCH (10:21)
--- NOTE | 2018-12-19 17:45 | PRG ---
DATE OF SERVICE: 12/19/2018 SUBJECTIVE: The patient is seen and examined at the bedside. He seems to be more alert today. He follows my commands. OBJECTIVE: VITAL SIGNS: His blood pressure is 120/86, pulse is 110, temperature is 98.8, O2 saturation is 100% on room air. HEENT: His pupils are responding to light properly. Sclerae are nonicteric. Conjunctivae are pinkish. Oral mucosa is moist. NECK: Supple. LUNGS: Breath sounds diminished at both bases. HEART: S1 and S2. Tachycardic. No S3. No S4. ABDOMEN: PEG tube is in place. It is working properly. Bowel sounds present. EXTREMITIES: No clubbing, cyanosis, or edema. NEUROLOGIC: He follows my commands. He knows a lot his past. He knows where he went to school and about kids and a family, but he does not know the time and place where he is at and a year and month. LABORATORY DATA: Glycemia is ranging from 104 to 146. Microbiology, urine culture growing E coli and Klebsiella pneumonia more than 100,000 colonies each, E coli is pansensitive and Klebsiella is pansensitive. IMPRESSION: 1. Metastatic esophageal cancer with carcinomatosis and status post laparotomies for segmental bowel resection, revision of his feeding jejunostomy. Now gastrointestinal function has returned. The patient is tolerating his feeding at 30 mL/h. 2. Anemia, multifactorial, status post recent transfusion of 1 unit of packed red blood cells. 3. Urinary tract infection with Klebsiella and Escherichia coli. The patient is switched from meropenem to Cipro. 4. Encephalopathy improved to some extent. DISCUSSION: The patient was seen by Dr. Feliciano, who states that the patient can be transferred to home for further care or to hospice services, but the family was tried to be reached multiple times and we even called the patient's sister from the patient's cell phone and she did not even answer. She came briefly into see the patient and she did want to hear about hospice care. We believe that she is trying to get insurance fixed and then she will try to move him to different hospital for further treatment. She was told multiple times that he is not a candidate for any additional treatments of his esophageal cancer. I will try to reach her personally again today to discuss the current situation. Job ID: [id number]
[2018-12-19] MEDS: Scopolamine 1.5 mg/72 hour Patch TOP SCH (19:59)
[2018-12-19] MEDS: Ciprofloxacin 500 MG TAB PER TUBE SCH (20:20)
[2018-12-19] MEDS: risperiDONE 0.25 MG TAB PER TUBE SCH (22:07)
[2018-12-20] MEDS: Morphine 4 MG/ML VIAL SLOW IVP PRN (02:51)
[2018-12-20] MEDS: Ciprofloxacin 500 MG TAB PER TUBE SCH ×2 (05:37→22:13)
[2018-12-20] MEDS: Furosemide 40 MG/4 ML VIAL SLOW IVP SCH ×2 (05:37→14:32)
[2018-12-20] MEDS: Enoxaparin Sodium 40 MG/0.4 ML SYRINGE SC SCH (09:21)
[2018-12-20] MEDS: Gabapentin 300 MG CAP PO SCH ×3 (09:21→22:13)
[2018-12-20] MEDS: Fluconazole 100 MG TAB PER TUBE SCH (09:21)
[2018-12-20] MEDS: Nystatin 500,000 UNITS/5 ML UDCUP SSW SCH ×4 (09:21→21:02)
[2018-12-20] MEDS: Polyethylene Glycol 3350 17 GM Packet PER TUBE SCH (09:22)
[2018-12-20] MEDS: Pantoprazole 40 MG GRANULES PACKET PER TUBE SCH (09:22)
--- NOTE | 2018-12-20 09:24 | PRG ---
DATE OF SERVICE: 12/20/2018 SUBJECTIVE: The patient is seen and examined at the bedside along with Dr. Smaayoa from Oncology Service. We discussed hospice option with the patient. He is agreeable to talk to the Hospice team. OBJECTIVE: VITAL SIGNS: Blood pressure is 128/86, pulse is 120, respiratory rate is 25, and O2 saturation is 97%. HEENT: His sclerae are nonicteric. Conjunctivae palish. Oral mucosa is slightly dry. NECK: Supple. LUNGS: Breath sounds diminished at both bases. HEART: S1, S2. Tachycardic. No S3. No S4. ABDOMEN: Soft, mildly tender to palpation. No guarding. Postop incision is healing well. Bowel sounds are present. EXTREMITIES: No clubbing, cyanosis, or edema. NEUROLOGICAL: He is able to answer my questions quite properly. He does not remember the time and date, but he knows everything else. He answers questions from his life and about his sister and his brother whom he used to live with properly. LABORATORY DATA: Glycemia is ranging from 104 to 146. IMPRESSION: 1. Metastatic esophageal cancer with carcinomatosis and status post laparotomies for segmental bowel resection, revision of his feeding jejunostomy. The patient is tolerating feeding at 50 mL/h. This morning, he complains about abdominal pain on and off and he is medicated basically around the clock by the nurse. 2. Anemia, multifactorial, status post transfusions. 3. Urinary tract infection, currently on Cipro. 4. Encephalopathy, improved. DISCUSSION: We are going to increase his feeding to recommended by dietitian 70 mL/h. Gradually continue his pain management. We will try again to get his sister to come back and talk to us. Yesterday, I called her, left her message to come over, and we really have to the ask Hospice Services because the patient agrees to this service, but we would like to have family involved, and Dr. Samayoa is in agreement with this plan. He believes that further oncological treatments will be futile and the only way in this situation is hospice. Job ID: [id number]
[2018-12-20] MEDS: Hydrocodone-Acetamin 15 ML UDCUP PER TUBE PRN ×3 (09:58→18:56)
--- NOTE | 2018-12-20 09:58 | PRG ---
DATE OF SERVICE: 12/20/2018 SUBJECTIVE: Mr. Frost has been seen by Speech Therapy, is cleared full liquids, pureed. He did have comfort eating. Efforts to contact the patient's sister has been impossible. The patient's sister is not answering the phone calls. She is not answering phone, when phone calls were made from the hospital line or made from the patient's line. The patient desires hospice care, he has expressed that repeatedly. He is a DNR. We will plan transfer to hospice or [facility]. I have talked to Oncology and there are no plans for further chemotherapy. The patient has terminal metastatic esophageal cancer. He is tolerating tube feedings. Everything is ordered per feeding tube. OBJECTIVE: LUNGS: Clear to auscultation. CARDIAC: Regular rate and rhythm without murmur or gallop. ABDOMEN: Soft and nontender. EXTREMITIES: Unremarkable. ASSESSMENT AND PLAN: Discharge to hospice or more likely to [facility] or swing bed. Job ID: [id number]
--- NOTE | 2018-12-20 20:16 | PRG ---
DATE OF SERVICE: 12/20/2018 SUBJECTIVE: The patient is seen and examined today with no new complaints noted with the following vital signs. OBJECTIVE: VITAL SIGNS: Afebrile. Temperature 98.1, pulse 111, respiratory rate of 18, O2 saturations of 99%. HEENT: Unremarkable. CARDIOVASCULAR: First and second heart sounds were heard. RESPIRATORY: Clear to auscultation. DIGESTIVE SYSTEM: Revealed a benign abdomen. EXTREMITIES: No peripheral edema. SKIN: No new gross rash. IMPRESSION: 1. Guamn-tc-fjqyitn kidney disease . 2. Bowel obstruction in the context of metastatic esophageal CA. PLAN: 1. We will continue with renal supportive measures. 2. Further management to be dependent on the clinical course. Job ID: [id number]
--- NOTE | 2018-12-20 20:28 | PDOC.MOPN ---
Interval History: Patient alert and feels ok - Vital Signs Vital Signs: Vital Signs (12 hours) Temp Pulse Resp BP Pulse Ox 12/20/18 18:40 98.1 F 111 H 18 114/78 99 12/20/18 15:43 96.7 F L 12/20/18 12:00 100 12/20/18 11:14 97.6 F Weight Admit Weight 217 lb 8 oz Weight 227 lb 6.4 oz Most Recent Monitor Data Heart Rate from ECG 109 NIBP 130/82 NIBP BP-Mean 98 Respiration from ECG 33 SpO2 93 - Physical Exam General: Alert HEENT: Atraumatic Lungs: Clear to auscultation Cardiovascular: Regular rate Abdomen: Other Extremities: Other Neurological: Normal gait Psych/Mental Status: Mental status NL - Labs Result Diagrams: 12/18/18 03:13 12/17/18 10:56 Lab results: Laboratory Results - last 24 hr 12/20/18 18:04: POC Glucose 122 H 12/20/18 12:12: POC Glucose 152 H 12/20/18 05:23: POC Glucose 142 H 12/20/18 00:42: POC Glucose 104 Status: lab reviewed by me A/P - Problem (1) Esophageal adenocarcinoma Current Visit: No Code(s): C15.9 - MALIGNANT NEOPLASM OF ESOPHAGUS, UNSPECIFIED Status: Chronic (2) Bowel obstruction Current Visit: Yes Code(s): K56.609 - UNSP INTESTNL OBST, UNSP TO PARTIAL VERSUS COMPLETE OBST Status: Acute - Plan Plan: Patient seem today by Dr. Samayoa further treatment would be futile recommend hospice at [facility]/home
[2018-12-20] MEDS ORDERED: Acetaminophen 1,000 MG in Premix Bag 1 BAG IVPB SCH (22:00)
[2018-12-20] MEDS: Tamsulosin HCl 0.4 MG CAP PO SCH (22:13)
[2018-12-20] MEDS: risperiDONE 0.25 MG TAB PER TUBE SCH (22:13)
[2018-12-21] MEDS: Hydrocodone-Acetamin 15 ML UDCUP PER TUBE PRN ×5 (00:31→18:23)
[2018-12-21] MEDS: Ciprofloxacin 500 MG TAB PER TUBE SCH ×2 (05:43→20:51)
[2018-12-21] MEDS: Furosemide 40 MG/4 ML VIAL SLOW IVP SCH ×2 (05:45→14:33)
[2018-12-21] MEDS ORDERED: Ondansetron ODT 4 MG TAB PO PRN (06:10)
[2018-12-21] MEDS ORDERED: Ondansetron PF 4 MG/2 ML Vial IVP PRN (06:10)
[2018-12-21] MEDS: Polyethylene Glycol 3350 17 GM Packet PER TUBE SCH (07:42)
[2018-12-21 08:48] LABS: #Eosinphils 0.2 thou/uL (0.0-0.7); #Lymphocytes 1.7 thou/uL (1.20-3.40); #Monocytes 1.1 thou/uL (0.11-0.59); #Neutrophils 5.2 thou/uL (1.40-6.50); %Basophils 0.6 % (0.0-1.0); %Eosinophils 2.8 % (0.0-10.0); %Lymphocytes 20.3 % (21.0-51.0); %Monocytes 13.4 % (0.0-10.0); %Neutrophils 63.1 % (42.0-75.0); Hemoglobin 8.5 g/dL (14.0-18.0); Mean Corpuscular Hemoglobin 30.1 pg (27.0-31.0); Mean Corpuscular Volume 94.1 fL (78.0-98.0); Mean Platelet Volume 8.1 fL (7.4-10.4); Platelet Count 373 thou/uL (130-400); RBC Distribution Width 15.6 % (11.5-14.5); Red Blood Cell (RBC) Count 2.82 mill/uL (4.70-6.10); White Blood Cell (WBC) Count 8.3 thou/uL (4.8-10.8)
[2018-12-21 09:13] LABS: Anion Gap 10 mmol/L (10-20); BUN (Urea Nitrogen) 17 mg/dL (8.4-25.7); Calc. Creatinine Clearance 123 mL/min (70-130); Calcium 8.1 mg/dL (7.8-10.44); Carbon Dioxide 30 mmol/L (23-31); Chloride 106 mmol/L (98-107); Estimated GFR-MDRD Greater than 90; Glucose 138 mg/dL (80-115); Potassium 3.4 mmol/L (3.5-5.1); Sodium 143 mmol/L (136-145)
[2018-12-21] MEDS: Pantoprazole 40 MG GRANULES PACKET PER TUBE SCH (09:42)
[2018-12-21] MEDS: Gabapentin 300 MG CAP PO SCH ×3 (09:42→20:50)
[2018-12-21] MEDS: Enoxaparin Sodium 40 MG/0.4 ML SYRINGE SC SCH (09:42)
[2018-12-21] MEDS: Nystatin 500,000 UNITS/5 ML UDCUP SSW SCH ×4 (09:42→20:49)
[2018-12-21] MEDS: Fluconazole 100 MG TAB PER TUBE SCH (09:43)
[2018-12-21] MEDS ORDERED: Hydrocodone-Acetamin 15 ML UDCUP PER TUBE SCH (10:15)
[2018-12-21] MEDS: Ondansetron ODT 4 MG TAB SL PRN ×2 (12:11→17:12)
[2018-12-21 13:49] VITALS: BMI 31.7
--- NOTE | 2018-12-21 15:03 | PRG ---
DATE OF SERVICE: 12/21/2018 SUBJECTIVE: The patient is seen and examined at the bedside. He is planning to call his sister today. Apparently, Dr. Feliciano was able to get hold of his brother yesterday, and if this communication is not going to give us any final direction, I will send him to a residential facility after it is arranged by social work case manager. OBJECTIVE: VITAL SIGNS: Blood pressure is 122/88, pulse is 107, temperature is 98.3, respirations 18, and O2 saturation is 93% on 2 L by nasal cannula. GENERAL: His mental condition is even better than yesterday. He shows some improvement. HEENT: His sclerae are nonicteric. Oral mucosa is moist. LUNGS: Few rales at both bases. HEART: S1-S2 normal. No S3. No S4. ABDOMEN: Soft. Incision postop is healing. NG tube in place, functioning well. Bowel sounds are present. EXTREMITIES: No clubbing, cyanosis, or edema. NEUROLOGICAL: He is following my commands. He moves his all 4 extremities. LABORATORY DATA: Labs showed white count of 8.3, hemoglobin of 8.5, hematocrit 26.5, and platelet count is 373,000. Sodium of 143, potassium 3.4, chloride 106, CO2 of 30, BUN 17, and creatinine 0.91. Glycemia is ranging from 120 to 245. IMPRESSION: 1. Metastatic esophageal cancer with carcinomatosis and status post laparotomies for segmental bowel resection, revision of his feeding jejunostomy. 2. Anemia, multifactorial. 3. Urinary tract infection, currently on Cipro. 4. Encephalopathy, improved. DISCUSSION: Oncology Team saw the patient again and further chemotherapy treatments would be futile and they recommend transfer him to home or swing bed with hospice and that is what we will try to arrange if his attempts to contact his sister fail. Job ID: [id number]
--- NOTE | 2018-12-21 19:22 | PRG ---
DATE OF SERVICE: 12/21/2018 SUBJECTIVE: Aggie Frost is doing well today. He is tolerating full liquids. He is tolerating his tube feedings. OBJECTIVE: VITAL SIGNS: Temperature is 98.3 degrees, blood pressure 140/90. Basic metabolic profile is normal this morning. White count 8, hemoglobin 8.5. LUNGS: Clear to auscultation. CARDIAC: Regular rate and rhythm without murmur or gallop. ABDOMEN: Soft, nontender. Yesterday, I called his daughter, Marita, there was no answer. I called Marita again today. There was no answer. Nurses informed me that Marita GALVAN for the patient has called the nursing last night ask all hospital people to quit calling her that they will decide what to do when they were ready. Apparently, Marita has visited the patient and avoided contact with nurses and physicians. The patient reports that he has been unable to talk to Marita. Yesterday, I talked to the patient's brother, Kat, who lives with them and has taken care of him prior to this hospitalization and the brother is willing to help care for him. The patient is stable to go home. There is no other surgical procedure is indicated. At this point, he is a DNR and I would recommend hospice care. Currently, his GI tract is working, but if he develops another obstruction, operation is probably not an option. The patient's long-term prognosis is poor. At this point, I will see him as needed. Dr. Levine is covering for Tuesday, Tuesday, and Tuesday. Please call if necessary. The patient is stable for discharge at anytime and I can see him in my office in the next 3 weeks. Please call if necessary. Job ID: [id number]
[2018-12-21] MEDS: Tamsulosin HCl 0.4 MG CAP PO SCH (20:50)
[2018-12-21] MEDS: diphenhydrAMINE 25 MG CAP PER TUBE PRN (20:56)
[2018-12-21] MEDS: risperiDONE 0.25 MG TAB PER TUBE SCH (21:01)
[2018-12-22] MEDS: Hydrocodone-Acetamin 15 ML UDCUP PER TUBE PRN ×3 (02:11→14:31)
[2018-12-22] MEDS: diphenhydrAMINE 25 MG CAP PER TUBE PRN (02:12)
[2018-12-22] MEDS: Ciprofloxacin 500 MG TAB PER TUBE SCH (05:01)
[2018-12-22] MEDS: Furosemide 40 MG/4 ML VIAL SLOW IVP SCH ×2 (05:01→14:30)
[2018-12-22] MEDS: Nystatin 500,000 UNITS/5 ML UDCUP SSW SCH ×2 (07:43→11:36)
[2018-12-22] MEDS: Polyethylene Glycol 3350 17 GM Packet PER TUBE SCH (07:44)
[2018-12-22 08:13] VITALS: TEMP 98.2
[2018-12-22] MEDS: Pantoprazole 40 MG GRANULES PACKET PER TUBE SCH (08:26)
[2018-12-22] MEDS: Fluconazole 100 MG TAB PER TUBE SCH (08:26)
[2018-12-22] MEDS: Enoxaparin Sodium 40 MG/0.4 ML SYRINGE SC SCH (08:27)
[2018-12-22] MEDS: Gabapentin 300 MG CAP PO SCH ×2 (08:27→14:30)
[2018-12-22] MEDS: fentaNYL 100 mcg/hour Patch TD SCH (10:58)
[2018-12-22 16:28] VITALS: BP 119/84
--- NOTE | 2018-12-22 21:37 | DIS ---
DATE OF ADMISSION: 11/26/2018 DATE OF DISCHARGE: 12/22/2018 DIAGNOSES AT THE TIME OF ADMISSION: 1. Intractable recurrent nausea and vomiting with associated abdominal pain. 2. Possible sepsis. 3. Adenocarcinoma of esophagus on chemo and radiation therapy. 4. Dysphagia with gastrostomy tube in place. 5. Hyponatremia. 6. Elevated liver function test with history of chronic hepatitis C. 7. Gastroesophageal reflux disease and status post recent esophageal dilatation. FINAL DIAGNOSES: 1. Metastatic esophageal, cancer with carcinomatosis. 2. Bowel obstruction. 3. Ileus postop, resolved. 4. Anemia, multifactorial. 5. Sepsis. 6. Urinary tract infection. 7. Encephalopathy, improved. 8. Aspiration pneumonia. 9. Acute kidney Injury. 10. Chronic hepatitis C. 11. Diabetes mellitus type 2. 12. Hypertension. 13. Jejunostomy tube feeding status. CONSULTANTS: 1. Dr. Marcial Egan, Gastrointestinal Service. 2. Dr. Samuel Rivas, General Surgery. 3. Mira Aguilar NP, Oncology Service. 4. Simon Brambila MD, Nephrology Service. 5. Juan Francisco Feliciano MD, General Surgery. 6. Christian Moreno MD, Pulmonary/Critical Care Service. 7. Major Bragg MD, Infectious Disease Service. 8. Mary Herman, Palliative Service. 9. Kevin Medrano MD, General Surgery. 10. Heather Peres MD, General Surgery. HOSPITAL COURSE: The patient is a 63-year-old male, who came back to the hospital 2 days after he was discharged from the hospital, was hospitalized for sepsis. He had nausea, vomiting, and abdominal pain. After he went home, he had some bowel movements. He started having some low-grade fever. He denied any shortness of breath with some cough and was coughing up some milky stuff. At the time of emergency room evaluation, his white cell count was 16.5, hemoglobin 13.2, hematocrit 39.7, platelet count was 308. Sodium 133, potassium 3.6, chloride 103, CO2 of 17, BUN 11, creatinine 0.7, total bilirubin 1.8, AST 35, ALT 24, alkaline phosphatase 756, lipase was less than 4. Urinalysis showed 1+ bilirubin, 2+ urobilinogen, leukocyte esterase was negative and nitrites were negative. Chest x-ray showed bilateral lower lobe interstitial and alveolar opacities, likely due to infiltrate and small right-sided pleural effusion was present. Working diagnosis was possible sepsis. He was started on Zosyn and vancomycin, got admitted to the hospital with IV fluids and GI consultation pending. The patient was seen by Dr. Egan, who felt that this was most likely related to opioid use and started the patient on naloxegol to reverse the effect of chronic opiate use. Feeding tube was evaluated by Dr. Rivas, who decided to exchange the tube and after this procedure, the feeding improved and his nausea and vomiting subsided. 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 Also, there were concerns for metastatic disease including a big lesion within the right lobe of the liver, a lytic lesion within the right 9th rib, soft tissue nodules within the mesentery, and extensive retroperitoneal lymphadenopathy. The patient was subsequently seen by Dr. Feliciano, who did diagnostic laparoscopy which converted to laparotomy. He did lysis of adhesions. The feeding jejunostomy tube was removed and segmental small bowel resections for anastomosis were done and new feeding jejunostomy tube was placed in the jejunum. The patient was continued on antibiotics. His microbiology showed presumptive Judith albicans in blood cultures from central line and the patient was started on micafungin by Dr. Bragg, who was consulted for that purpose. Postoperatively, the patient developed ileus and he was on TPN and NG tube suctioning. Surgical specimen was examined by pathologist and it came back as poorly differentiated carcinoma with transmural involvement. Palliative Care was consulted and Oncology said that because of his decreased and deteriorated health status, he would not be a candidate for any kind of treatment, any treatments would be futile at this time. Gradually, his general condition improved to some point that he was able to tolerate the feeding. In the meantime, he had some urinary tract infection which was treated with additional antibiotic use. Finally, the patient was discharged to the long-term for palliative care, the long-term in [place]. At the time of discharge, he is supposed to be on tube feeding. MEDICATIONS: At the time of discharge: 1. Folic acid 1 mg per tube once a day. 2. Scopolamine 1.5 mg patch change every three days. 3. MiraLAX 17 g once a day. 4. Protonix 40 mg once a day. 5. Hydrocodone p.r.n. 7.5/325 mg every 4 hours as needed. 6. Risperdal 0.25 mg at bedtime. 7. Fentanyl 100 mcg patches q.3 days changed. 8. Benadryl 25 mg per tube q.3 hours p.r.n. 9. Ambien 5 mg at bedtime p.r.n. 10. Flomax 0.4 mg at bedtime. 11. DuoNeb q.4 hours p.r.n. 12. Gabapentin 300 mg 3 times a day. 13. Fluconazole Diflucan 100 mg per tube. 14. Cipro 500 mg twice a day for additional few days. The patient is going to be discharged today. TIME SPENT: Time spent on this discharge is more than 30 minutes. Job ID: [id number]
== END 2018-12-22 15:15 | DRG 853 ==
LOC: ERS 11:20 → T4-B 17:13 → SJJU 12-03 19:58 → IMCU/EMU 12-04 05:17 → ONC 12-08 19:35 → CCU 12-13 09:38 → IMCU/EMU 12-13 12:01 → T4-B 12-20 18:29
PROVIDERS: ADMIT Internal Medicine; ATTEND Internal Medicine
PROC: 0D2DXUZ Change Feeding Device in Lower Intestinal Tract, External Approach (ICD-10-PCS; 2018-11-28)
PROC: 0WJG4ZZ Inspection of Peritoneal Cavity, Percutaneous Endoscopic Approach (ICD-10-PCS; principal; 2018-12-03)
PROC: 0DN80ZZ Release Small Intestine, Open Approach (ICD-10-PCS; 2018-12-03)
PROC: 0DB80ZZ Excision of Small Intestine, Open Approach (ICD-10-PCS; 2018-12-03)
PROC: 0D2DXUZ Change Feeding Device in Lower Intestinal Tract, External Approach (ICD-10-PCS; 2018-12-03)
PROC: 30233N1 Transfusion of Nonautologous Red Blood Cells into Peripheral Vein, Percutaneous Approach (ICD-10-PCS; 2018-12-13)
DX: A41.9 Sepsis, unspecified organism (principal); J69.0 Pneumonitis due to inhalation of food and vomit; J96.21 Acute and chronic respiratory failure with hypoxia; C15.9 Malignant neoplasm of esophagus, unspecified; I69.351 Hemiplegia and hemiparesis following cerebral infarction affecting right dominant side; Z51.5 Encounter for palliative care; Z66 Do not resuscitate; E87.1 Hypo-osmolality and hyponatremia; K56.600 Partial intestinal obstruction, unspecified as to cause; N17.9 Acute kidney failure, unspecified; C78.6 Secondary malignant neoplasm of retroperitoneum and peritoneum; C79.51 Secondary malignant neoplasm of bone; E46 Unspecified protein-calorie malnutrition; K56.7 Ileus, unspecified; B49 Unspecified mycosis; J90 Pleural effusion, not elsewhere classified; G93.40 Encephalopathy, unspecified; N39.0 Urinary tract infection, site not specified; K21.9 Gastro-esophageal reflux disease without esophagitis; R13.10 Dysphagia, unspecified; B18.2 Chronic viral hepatitis C; I12.9 Hypertensive chronic kidney disease with stage 1 through stage 4 chronic kidney disease, or unspecified chronic kidney disease; E11.22 Type 2 diabetes mellitus with diabetic chronic kidney disease; N18.9 Chronic kidney disease, unspecified; D64.9 Anemia, unspecified; B96.1 Klebsiella pneumoniae [K. pneumoniae] as the cause of diseases classified elsewhere; B96.89 Other specified bacterial agents as the cause of diseases classified elsewhere; E87.6 Hypokalemia; K59.03 Drug induced constipation; T40.605A Adverse effect of unspecified narcotics, initial encounter; E87.70 Fluid overload, unspecified; Z68.31 Body mass index [BMI] 31.0-31.9, adult; Z90.49 Acquired absence of other specified parts of digestive tract; Z92.21 Personal history of antineoplastic chemotherapy; Z92.3 Personal history of irradiation
CPT/HCPCS: 36415; 36416; 36430; 51701; 70450; 71045; 74018; 74177; 74178; 74250; 80048; 80053; 80202; 81001; 81003; 82140; 82805; 83605; 83690; 83735; 83880; 84100; 85025; 86850; 86900; 86901; 87040; 87077; 87086; 87186; 88309; 93005; 93010; 94640; 96361; 96365; 96366; 96368; 96375; A4217; B4087; J0131; J0670; J1170; J1200; J1450; J1630; J1642; J1650; J1885; J1940; J2001; J2060; J2185; J2248; J2270; J2370; J2405; J2543; J2550; J2704; J2765; J3010; J3370; J3475; J3480; J3490; J7042; J7050; J7120; J7620; J8597; P9016; Q0162; Q0163; Q9963; Q9966